=== PATIENT | male | born 1945 | race Caucasian/White ===

== ENCOUNTER → 2016-11-17 | Outpatient (CLI) | payer MEDICARE, BC ==
--- NOTE | 2016-11-17 11:24 | XR ---
EXAMINATION TYPE: XR skull limited DATE OF EXAM: 11/17/2016 COMPARISON: NONE HISTORY: MRI clearance TECHNIQUE: 2 views are submitted FINDINGS: There is a defect involving the left parietal calvarium which may be present related to pre vious surgery or trauma. No evidence of metallic foreign body. IMPRESSION: 1. No evidence of metallic foreign body overlying the skull. 2. Suspected postsurgical changes.
== END | disposition home or self-care (01) ==
LOC: RADXRMAIN 10:44
PROVIDERS: ATTEND Family Medicine
DX: Z77.011 Contact with and (suspected) exposure to lead (principal)
CPT/HCPCS: 70250

== ENCOUNTER → 2017-01-22 | Outpatient (CLI) | payer MEDICARE, BC ==
--- NOTE | 2017-01-23 14:34 | CT ---
EXAMINATION TYPE: CT lumbar spine wo con DATE OF EXAM: 01/22/2017 COMPARISON: NONE HISTORY: Pain Unenhanced CT of the lumbar spine was performed. Bone and soft tissue window settings are submitted as well as coronal and sagittal reconstructions. L1-L2: Normal disc space height. No disc herniation protrusion or central stenosis. No facet joint arthropathy. No evidence for foraminal encroachment. L2-L3: Moderate degenerative disc space narrowing. Circumferential disc bulge greatest posteriorly. C ongenitally diminutive spinal canal without overt failure. No evidence for disc herniation. Foramina are patent bilaterally. Right-sided facet joint arthropathy. L3-L4: Moderate degenerative disc space narrowing. Circumferential disc bulge greatest posteriorly. C ongenitally diminutive spinal canal without overt failure. No evidence for disc herniation. Foramina are patent bilaterally. L4-L5: Moderate disc space narrowing. Grade 1 anterolisthesis L4 and L5 of [address] enosis. Facet joint arthropathy identified. Bilateral foraminal encroachment. L5-S1: Severe degenerative disc disease with vacuum disc. Circumferential disc bulge greatest posteri bárbara resulting in bilateral lateral recess stenosis. Mild bilateral foraminal encroachment. No eviden ce for central stenosis. No paraspinal masses are identified. Lumbar segments are free if fracture. IMPRESSION: 1. Degenerative disc disease as discussed. 2. Grade 1 anterolisthesis with central stenosis at L4-5.
== END | disposition home or self-care (01) ==
LOC: RADCTMAIN 17:19
PROVIDERS: ATTEND Family Medicine
DX: M48.06 Spinal stenosis, lumbar region (principal); M51.36 Other intervertebral disc degeneration, lumbar region; M43.16 Spondylolisthesis, lumbar region
CPT/HCPCS: 72131

== ENCOUNTER 2017-11-04 19:12 | Inpatient (IN) | payer MEDICARE, BC ==
--- NOTE | 2017-11-04 20:13 | ED ---
Psych HPI - General Chief Complaint: Psychiatric Symptoms Stated Complaint: Mentl health Time Seen by Provider: 11/04/17 19:45 Source: patient, family, RN notes reviewed Mode of arrival: ambulatory Limitations: no limitations - History of Present Illness Initial Comments: This is a 71-year-old male presents emergency Department with and psychologist for mental health evaluation. Patient has a long history of depression which has no worsening secondary to health issues. Patient states he is severely depressed because he is losing his vision and that he cannot work and do daily things. Patient has attempted suicide in the past by drug overdose. Patient called psychologist today and went over to his house to evaluate him and felt that he needs to come to the hospital for reevaluation hospitalization. Patient does admit that he is suicidal and he plans to shoot himself. Patient denies any homicidal ideation denies illicit drug use no alcohol use. Patient has no physical pain at this time he states his basic complaint is loss of vision which is related to macular degeneration. Patient denies any chest pain, shortness breath, headache, dizziness, nausea vomiting. - Related Data Home Medications Medication Instructions Recorded Confirmed Warfarin [Coumadin] 5 mg PO Q48H 09/19/15 11/04/17 Warfarin [Coumadin] 7.5 mg PO Q48H 09/19/15 11/04/17 ARIPiprazole [Abilify] 2 mg PO HS 11/04/17 11/04/17 Cyanocobalamin (Vitamin B-12) 1,000 mcg PO HS 11/04/17 11/04/17 [Vitamin B-12] Lisinopril-Hctz 20-25 mg 1 tab PO DAILY 11/04/17 11/04/17 [Zestoretic 20-25] Vit C/E/Zn/Coppr/Lutein/Zeaxan 1 cap PO BID 11/04/17 11/04/17 [Preservision Areds 2 Softgel] buPROPion HCL [Wellbutrin XL] 300 mg PO HS 11/04/17 11/04/17 Allergies Allergy/AdvReac Type Severity Reaction Status Date / Time silver mercury Allergy Unknown Uncoded 11/04/17 23:50 Review of Systems ROS Statement: Those systems with pertinent positive or pertinent negative responses have been documented in the HPI. ROS Other: All systems not noted in ROS Statement are negative. Past Medical History Past Medical History: Hypertension Additional Past Medical History / Comment(s): hx of seizure, closed head injury , hx of blood clots History of Any Multi-Drug Resistant Organisms: None Reported Past Surgical History: Appendectomy Additional Past Surgical History / Comment(s): skull surgery, Green Filled Filters Past Psychological History: Depression Smoking Status: Never smoker Past Alcohol Use History: Rare Past Drug Use History: None Reported General Exam Limitations: no limitations General appearance: alert, in no apparent distress Head exam: Present: atraumatic, normocephalic, normal inspection Eye exam: Present: normal appearance, PERRL, EOMI. Absent: scleral icterus, conjunctival injection, periorbital swelling ENT exam: Present: normal exam, normal oropharynx, mucous membranes moist Neck exam: Present: normal inspection, full ROM. Absent: tenderness, meningismus, lymphadenopathy Respiratory exam: Present: normal lung sounds bilaterally. Absent: respiratory distress, wheezes, rales, rhonchi, stridor Cardiovascular Exam: Present: regular rate, normal rhythm, normal heart sounds. Absent: systolic murmur, diastolic murmur, rubs, gallop, clicks Neurological exam: Present: alert, oriented X3, CN II-XII intact Psychiatric exam: Present: depressed Skin exam: Present: warm, dry, intact, normal color. Absent: rash Course Vital Signs 11/04/17 11/04/17 19:19 23:33 Temperature 98.2 F 97.2 F L Pulse Rate 94 83 Respiratory 18 20 Rate Blood Pressure 139/83 125/86 O2 Sat by Pulse 96 97 Oximetry - Reevaluation(s) Reevaluation #1: 11/04/17 21:[address] Casas Medical Decision Making - Lab Data Result diagrams: 11/05/17 07:42 11/05/17 07:42 Lab Results 11/04/17 Range/Units 22:50 Urine Opiates Screen Not Detected (NotDetected) Ur Oxycodone Screen Not Detected (NotDetected) Urine Methadone Screen Not Detected (NotDetected) Ur Propoxyphene Screen Not Detected (NotDetected) Ur Barbiturates Screen Not Detected (NotDetected) U Tricyclic Antidepress Not Detected (NotDetected) Ur Phencyclidine Scrn Not Detected (NotDetected) Ur Amphetamines Screen Not Detected (NotDetected) U Methamphetamines Scrn Not Detected (NotDetected) U Benzodiazepines Scrn Not Detected (NotDetected) Urine Cocaine Screen Not Detected (NotDetected) U Marijuana (THC) Screen Not Detected (NotDetected) Disposition Clinical Impression: Depression, Suicidal ideation Disposition: ADMITTED IP TO THIS [facility] Condition: Stable
[2017-11-04 23:18] LABS: Amphetamine Screen,Urine Not Detected (NotDetected); Barbiturate Screen,Urine Not Detected (NotDetected); Benzodiazepines Screen,Urine Not Detected (NotDetected); Cocaine Screen,Urine Not Detected (NotDetected); Methadone Screen, Urine Not Detected (NotDetected); Opiate Screen,Urine Not Detected (NotDetected); Oxycodone Screen, Urine Not Detected (NotDetected); Phencyclidine Screen,Urine Not Detected (NotDetected); Tricyclic Antidepressant,Urine Not Detected (NotDetected); Urn Cannabinoid Scrn Not Detected (NotDetected)
[2017-11-04] MEDS ORDERED: ACETAMINOPHEN TAB 325 MG TAB PO PRN (23:34)
[2017-11-04] MEDS ORDERED: MAG HYDROX/AL HYDROX/SIMETH 30 ML CUP PO PRN (23:34)
[2017-11-04] MEDS ORDERED: MAGNESIUM HYDROXIDE 2,400 MG/10 ML CUP PO PRN (23:34)
[2017-11-05 00:43] VITALS: BMI 34.0
[2017-11-05 08:00] LABS: Basophils % (A) 1 %; Eosinophils # (A) 0.2 k/uL (0-0.7); Eosinophils % (A) 3 %; HCT 37.4 % (39.0-53.0); HGB 13.5 gm/dL (13.0-17.5); Lymphocytes # (A) 0.9 k/uL (1.0-4.8); Lymphocytes % (A) 16 %; MCH 31.4 pg (25.0-35.0); MCV 87.1 fL (80.0-100.0); Mean Platelet Volume 7.8; Monocytes # (A) 0.4 k/uL (0-1.0); Monocytes % (A) 7 %; Neutrophils # (A) 3.9 k/uL (1.3-7.7); Neutrophils % (A) 72 %; Platelet Count 148 k/uL (150-450); RDW 12.5 % (11.5-15.5); WBC 5.5 k/uL (3.8-10.6)
[2017-11-05 08:12] LABS: Albumin 3.6 g/dL (3.5-5.0); Total Protein 6.1 g/dL (6.3-8.2)
[2017-11-05 08:13] LABS: Calcium 8.5 mg/dL (8.4-10.2); Potassium 3.8 mmol/L (3.5-5.1); Total Bilirubin 0.7 mg/dL (0.2-1.3)
[2017-11-05 08:29] LABS: INR 2.8 (<1.2); Prothrombin Time 25.4 sec (9.0-12.0)
[2017-11-05] MEDS: VIT A,C & E-LUTEIN-MINERALS 1 EACH TAB PO SCH ×2 (08:49→21:44)
[2017-11-05] MEDS: LISINOPRIL-HCTZ 20-25 MG 1 EACH TAB PO SCH (08:49)
[2017-11-05 11:15] LABS: Appearance,Urine Clear (Clear); Bilirubin,Urine Negative (Negative); Blood,Urine Negative (Negative); Color,Urine Yellow; Glucose,Urine (UA) Negative (Negative); Ketones,Urine Negative (Negative); Leukocyte Esterase,Urine Negative (Negative); Nitrite,Urine Negative (Negative); PH, Urine 7.5 (5.0-8.0); Protein,Urine Trace (Negative); Specific Gravity,Urine 1.016 (1.001-1.035)
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
[2017-11-05 17:25] LABS: Urine Alcohol Negative (Negative); Urine Barbiturate Negative (Negative); Urine Cocaine Negative (Negative); Urine Methadone Negative (Negative); Urine Opiates Negative (Negative); Urine Phencyclidine Negative (Negative)
[2017-11-05] MEDS ORDERED: WARFARIN 5 MG TAB PO SCH (18:00)
[2017-11-05 18:48] LABS: Hemoglobin A1C 5.6 % (4.0-6.0)
[2017-11-05] MEDS: buPROPion XL 300 MG TAB.ER.24H PO SCH (21:44)
[2017-11-05] MEDS: ARIPiprazole 2 MG TAB PO SCH (21:44)
[2017-11-05] MEDS: CYANOCOBALAMIN 500 MCG TAB PO SCH (21:44)
--- NOTE | 2017-11-05 22:21 | CONS ---
CONSULTATION DATE OF SERVICE: 11/05/2017. REASON FOR CONSULTATION: Medical management requested by Dr. Mac. CONSULTATION: This is a pleasant 71-year-old patient of Dr. Todd. The patient's psychiatrist is Dr. Bright. Chronic stable medical conditions include osteoarthritis of the lower back, hypertension, chronic PE for which patient takes Coumadin, and a history of closed head injury. The patient has macular degeneration in his eyes and his eyesight is progressively getting weaker. Decisions are being made regarding what he does and it is making him very frustrated. This has resulted in him having suicidal ideation and that is why the patient is admitted to the psychiatry unit. Otherwise, patient is able to tolerate his meals and is able to get around. The patient does medical marijuana for his lower back. REVIEW OF SYSTEMS: CONSTITUTIONAL: None. HEENT: Decreased vision. RESPIRATORY: None. CARDIOVASCULAR: None. GASTROINTESTINAL: None. GENITOURINARY: None. MUSCULOSKELETAL: Chronic low back pain. DERMATOLOGIC: None. HEMATOLOGIC: None. LYMPHATICS: None. PSYCHIATRY: Depressed. NEUROLOGICAL: None. PAST MEDICAL HISTORY: PE, being on Coumadin, osteoarthritis of the lower back, hypertension, prostate cancer treated with radiation treatment, macular degeneration, closed head injury with some seizures. PAST SURGICAL HISTORY: Appendectomy, skull surgery, Aiden filter. PSYCH HISTORY: History of depression. SOCIAL HISTORY: No smoking, no alcohol. Does half a joint of medical marijuana a day. Lives with his . Has had multiple jobs including working for [employer]. FAMILY HISTORY: Reviewed, noncontributory to presentation. HOME MEDICATIONS: 1. Wellbutrin 300 mg at bedtime. 2. Coumadin 7.5 every 48 hours 5 mg every 48 hours. 3. PreserVision 2 soft gel 1 capsule p.o. b.i.d. 4. Zestoretic 1 tab p.o. daily. 5. Vitamin B12, 1000 mcg at bedtime. 6. Abilify 2 mg at bedtime. EXAMINATION: Temperature 98.3, pulse 96, respirations 20, blood pressure 101/56, pulse ox 98% on room air. GENERAL APPEARANCE: Well built. BMI 34. Sitting up, tired-appearing. EYES: Pupils equal. Conjunctivae normal. HEENT: External appearance of nose and ears normal. Oral cavity normal. NECK: JVD not raised. Mass not palpable. Respiratory effort normal. LUNGS: Fair entry. CARDIOVASCULAR: 1st and 2nd sounds normal. No edema. ABDOMEN: Soft, nontender. Liver and spleen not palpable. LYMPHATIC: No lymph node palpable in the neck or axilla. PSYCHIATRY: Alert and oriented x3. Mood and affect slightly low appearing. NEUROLOGICAL: Pupils equal. Cranial nerves grossly intact. Power and sensation grossly intact. INVESTIGATIONS: White count 5.5, hemoglobin 13.5, INR 2.8, potassium 3.8, BUN 18, creatinine 1.30. TSH normal. Urine drug screen negative. ASSESSMENT: 1. Chronic pulmonary embolism, patient being on Coumadin. 2. Coumadin monitoring. 3. Primary osteoarthritis of the lumbar spine. 4. Essential hypertension. 5. Chronic macular degeneration. 6. Obesity; BMI 34. 7. Medical marijuana use for lower back pain. PLAN: Patient's home medications to be continued. The patient is to continue taking his Coumadin. INR can be checked once a week while he is here on Tuesdays. The patient should follow with Dr. Todd upon discharge. Thank you Dr. Mac. MICHAL / FIDELN: [id number] /
[2017-11-06] MEDS: VIT A,C & E-LUTEIN-MINERALS 1 EACH TAB PO SCH ×2 (08:40→20:28)
[2017-11-06] MEDS: LISINOPRIL-HCTZ 20-25 MG 1 EACH TAB PO SCH (08:40)
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
[2017-11-06] MEDS ORDERED: WARFARIN 7.5 MG TAB PO SCH (18:00)
[2017-11-06] MEDS: CYANOCOBALAMIN 500 MCG TAB PO SCH (20:28)
[2017-11-06] MEDS: buPROPion XL 300 MG TAB.ER.24H PO SCH (20:28)
[2017-11-06] MEDS: ARIPiprazole 2 MG TAB PO SCH (20:28)
[2017-11-07 07:00] VITALS: TEMP 97.9
[2017-11-07] MEDS: LISINOPRIL-HCTZ 20-25 MG 1 EACH TAB PO SCH (08:54)
[2017-11-07] MEDS: VIT A,C & E-LUTEIN-MINERALS 1 EACH TAB PO SCH ×2 (08:54→20:36)
[2017-11-07] MEDS ORDERED: WARFARIN 7.5 MG TAB PO SCH (18:00)
--- NOTE | 2017-11-07 18:44 | PN ---
PROGRESS NOTE DATE OF SERVICE: 11/07/2017. CHIEF COMPLAINT: The patient was depressed. He had suicide thoughts. He has a long history of depression with past episodes of suicide attempts. INTERVAL HISTORY: The patient has been doing fairly well. He said he slept well last night. He woke up about 4:30 in the morning, though says he went to bed early, probably before 10. He said he slept solidly through the night. Today he has been up. He comes out in the day area. He generally has a good mood. A family meeting was held with the patient and his . There was concern on the 's part about the problems he has had with vision loss, which makes it difficult for the 2 of them given that she does not drive. The was concerned about his repeating a suicide gesture in the future given some of the past issues that he has had over many years. On the unit, the patient seems to be doing fairly well. He shows a reasonable mood sometimes. He is fairly bright in his manner. He is a little withdrawn in groups though compliant and attentive. He tolerates his psychotropic medications. MENTAL STATUS: Patient gave good eye contact. Psychomotor activity was a little restless. His speech was clear. His affect was a little constricted though not significantly so. His mood was even. He did appear to be distressed. He voiced no indication of thoughts of harm to self or others. ASSESSMENT AND PLAN: I will continue the current diagnosis and treatment plan. I will continue current psychotropic medications the same. Patient is doing fairly well. I would anticipate discharge early in the week. MMODL / IJN: [id number] /
[2017-11-07] MEDS: ARIPiprazole 2 MG TAB PO SCH (20:36)
[2017-11-07] MEDS: buPROPion XL 300 MG TAB.ER.24H PO SCH (20:36)
[2017-11-07] MEDS: CYANOCOBALAMIN 500 MCG TAB PO SCH (20:36)
[2017-11-08 09:20] VITALS: BP 117/67; PULSE 101; RESP 16
[2017-11-08] MEDS: LISINOPRIL-HCTZ 20-25 MG 1 EACH TAB PO SCH (09:20)
[2017-11-08] MEDS: VIT A,C & E-LUTEIN-MINERALS 1 EACH TAB PO SCH (09:20)
--- NOTE | 2017-11-08 11:11 | P.DS ---
Providers Date of admission: 11/04/17 23:32 Expected date of discharge: 11/08/17 Attending physician: Darien Rosales Consults: 11/04/17 23:34 Consult Physician Routine Consulting Provider: Nick Arteaga Consult Reason/Comments: medical managment Do you want consulting provider notified?: Already Contacted Primary care physician: George Todd - Discharge Diagnosis(es) (1) Major depressive disorder, recurrent, in partial remission Current Visit: Yes Status: Chronic Priority: High (2) Persistent depressive disorder Current Visit: Yes Status: Chronic Priority: Medium Hospital Course: Brief summary of admission note: This patient is a 71-year-old male who was admitted to the mental health unit with complaints of increasing depression and suicidal ideation. The patient had felt overwhelmed due to recent stressors. He had received a blight notice from the [facility] regarding his lack of lawn maintenance. Other stressors include the ongoing care of his 30-year-old son and the loss of the patient's vision. For full details please refer to the psychiatric evaluation dated 11/05/2017. Summary of hospital course: The patient's was admitted to the mental health unit voluntarily. He was initially evaluated by Dr. Mac. The decision was made to continue him on his existing Wellbutrin XL and Abilify. The patient has been cooperative he has been attending groups. He reported a resolution of suicidal ideation once on the mental health unit. She did participate in a support meeting involving his and his outpatient psychologist. He states that it can be challenging for him in terms of coping skills because of his existing head injury but he is hoping that with his psychologist help they will develop those further. He was seen by internal medicine for routine history and physical exam. I reviewed the psychiatric evaluation and subsequent progress notes. Mental status exam: The patient is alert he is a male appearing his stated age. He has white hair with a white goatee. He is dressed in his own clothing wearing a T-shirt and jeans. He does wear eyeglasses. He reports his mood is much improved. He is reporting no hopelessness thinking no suicidal ideation intent or plan. He reports no homicidal ideation intent or plan. He is endorsing no auditory or visual hallucinations he endorses no specific delusions. Thought process is linear and goal-directed he demonstrates no tangential thinking loose associations or flight of ideas. He demonstrates no abnormal involuntary movements he demonstrates no verbal or physical aggressiveness. Affect is appropriately expresses and demonstrates a full range. He is oriented to person place and date. Impressions 1. Major depressive disorder recurrent in partial remission, persistent depressive disorder 2. Cataracts and macular degeneration 3. Assisting in care of adult son Plan: The patient will be discharged from the mental health unit today to return home. He is planning on following up with Dr. Bright his outpatient psychiatrist. The patient will continue on Wellbutrin XL 300 mg daily and Abilify 2 mg daily. There is no imminent safety risk the patient is appropriate for transition back to outpatient care. He is instructed to return to the hospital if any acute safety concerns. Patient Condition at Discharge: Stable Plan - Discharge Summary Discharge Rx Participant: No New Discharge Prescriptions: New buPROPion XL [Wellbutrin XL] 300 mg PO HS #30 tab.er.24h Continue Warfarin [Coumadin] 5 mg PO Q48H Warfarin [Coumadin] 7.5 mg PO Q48H Vit C/E/Zn/Coppr/Lutein/Zeaxan [Preservision Areds 2 Softgel] 1 cap PO BID Lisinopril-Hctz 20-25 mg [Zestoretic 20-25] 1 tab PO DAILY Cyanocobalamin (Vitamin B-12) [Vitamin B-12] 1,000 mcg PO HS ARIPiprazole [Abilify] 2 mg PO HS #30 tab Discontinued buPROPion HCL [Wellbutrin XL] 300 mg PO HS Discharge Medication List Warfarin [Coumadin] 5 mg PO Q48H 09/19/15 [History] Warfarin [Coumadin] 7.5 mg PO Q48H 09/19/15 [History] Cyanocobalamin (Vitamin B-12) [Vitamin B-12] 1,000 mcg PO HS 11/04/17 [History] Lisinopril-Hctz 20-25 mg [Zestoretic 20-25] 1 tab PO DAILY 11/04/17 [History] Vit C/E/Zn/Coppr/Lutein/Zeaxan [Preservision Areds 2 Softgel] 1 cap PO BID 11/04 [History] ARIPiprazole [Abilify] 2 mg PO HS #30 tab 11/08/17 [Rx] buPROPion XL [Wellbutrin XL] 300 mg PO HS #30 tab.er.24h 11/08/17 [Rx] Follow up Appointment(s)/Referral(s): Other, other [Other] - 11/10/17 9:00 am George Todd DO [Primary Care Provider] - 1-2 days Activity/Diet/Wound Care/Special Instructions: Remove all weapons and firearms from your home; Refrain from street drugs or alcohol; Activity and diet as tolerated; Follow-up with your PCP in 1-2 days; Keep all scheduled follow-up appointments for continuity of care; If you need any prescription refills, contact your PCP for medical meds. or your aftercare psychiatrist for psych. meds.; If you have any problems, call the Crisis Line at or [phone] in case of emergency or go to the nearest ER for a psychiatric evaluation.
== END 2017-11-08 13:58 | disposition home or self-care (01) | DRG 885 ==
LOC: EC 19:12 → 3MHU 23:32
PROVIDERS: ADMIT Psychiatry & Neurology Psychiatry; ATTEND Psychiatry & Neurology Psychiatry
DX: F33.41 Major depressive disorder, recurrent, in partial remission (principal); I27.82 Chronic pulmonary embolism; E66.9 Obesity, unspecified; F12.90 Cannabis use, unspecified, uncomplicated; F34.1 Dysthymic disorder; F41.9 Anxiety disorder, unspecified; G40.909 Epilepsy, unspecified, not intractable, without status epilepticus; G89.29 Other chronic pain; H26.9 Unspecified cataract; H35.30 Unspecified macular degeneration; I10 Essential (primary) hypertension; I73.9 Peripheral vascular disease, unspecified; M19.91 Primary osteoarthritis, unspecified site; M47.816 Spondylosis without myelopathy or radiculopathy, lumbar region; S09.90XS Unspecified injury of head, sequela; V94 Other and unspecified water transport accidents; Z63.8 Other specified problems related to primary support group; Z68.34 Body mass index [BMI] 34.0-34.9, adult; Z79.01 Long term (current) use of anticoagulants; Z79.899 Other long term (current) drug therapy; Z81.8 Family history of other mental and behavioral disorders; Z85.46 Personal history of malignant neoplasm of prostate; Z86.718 Personal history of other venous thrombosis and embolism; Z92.3 Personal history of irradiation; Z81.1 Family history of alcohol abuse and dependence
CPT/HCPCS: 80053; 80061; 80306; 81003; 82075; 83036; 84443; 85025; 85610; 99285

== ENCOUNTER 2018-05-21 19:26 | Emergency (ER) | payer MEDICARE, BC ==
[2018-05-21] MEDS ORDERED: SODIUM CHLORIDE 0.9% 1,000 ML IV ONE (19:41)
--- NOTE | 2018-05-21 19:46 | ED ---
Fall HPI - General Chief Complaint: Fall Stated Complaint: Fall Time Seen by Provider: 05/21/18 19:41 Source: patient Mode of arrival: EMS - History of Present Illness Initial Comments: Patient is a 72-year-old male presenting for injuries sustained from a fall. Patient states that he had drank alcohol earlier in the day and that he had been smoking marijuana throughout the day as well. He was sitting on the chair with his and his states that he fell forward and was unconscious and hit his face on the ground. However, patient is adamant that he was aware of what was going on and could hear his calling his name. He states that he has a history of seizures but that he does not think that this is a seizure. He also does not take any seizure medications. He denies any chest pain, back pain, neck pain as well as neurologic symptoms such as headache or vision changes. He denies any abdominal pain or nausea/vomiting/diarrhea. - Related Data Home Medications Medication Instructions Recorded Confirmed Warfarin [Coumadin] 5 mg PO HS 09/19/15 05/21/18 Lisinopril-Hctz 20-25 mg 1 tab PO DAILY 11/04/17 05/21/18 [Zestoretic 20-25] ALPRAZolam [Xanax] 0.25 mg PO DAILY PRN 05/21/18 05/21/18 ARIPiprazole [Abilify] 2 mg PO DAILY 05/21/18 05/21/18 Previous Rx's Medication Instructions Recorded buPROPion XL [Wellbutrin XL] 300 mg PO HS #30 tab.er.24h 11/08/17 Allergies Allergy/AdvReac Type Severity Reaction Status Date / Time silver mercury Allergy Unknown Uncoded 11/04/17 23:50 Review of Systems ROS Statement: Those systems with pertinent positive or pertinent negative responses have been documented in the HPI. Constitutional: Negative for chills, fatigue and fever. HENT: Negative for congestion. Respiratory: Negative for chest tightness, shortness of breath and wheezing. Negative for cough Cardiovascular: Negative for chest pain and palpitations. Gastrointestinal: Negative for abdominal pain. Negative for abdominal distention , diarrhea, nausea and vomiting. Genitourinary: Negative for dysuria. Musculoskeletal: Negative for back pain, neck pain and neck stiffness. Skin: Positive for color change. Neurological: Negative for dizziness, speech difficulty, weakness and light- headedness. Psychiatric/Behavioral: Negative for agitation and confusion. Negative for anxiety ROS Other: All systems not noted in ROS Statement are negative. Past Medical History Past Medical History: Hypertension Additional Past Medical History / Comment(s): hx of seizure, closed head injury , hx of blood clots History of Any Multi-Drug Resistant Organisms: None Reported Past Surgical History: Appendectomy Additional Past Surgical History / Comment(s): skull surgery, Green [place] Filters Past Psychological History: Depression Smoking Status: Never smoker Past Alcohol Use History: Rare Past Drug Use History: None Reported General Exam - General Exam Comments Initial Comments: Constitutional: Pt is oriented to person, place, and time. Pt appears well- developed and well-nourished. No distress. HENT: Head: Normocephalic and small 3 mm abrasion on bridge of nose Eyes: EOM are normal. Neck: Normal range of motion. Neck supple. Cardiovascular: Normal rate, regular rhythm, S1 normal, S2 normal and normal heart sounds. Exam reveals no gallop and no friction rub. No murmur heard. Pulmonary/Chest: Effort normal and breath sounds normal. No tachypnea and no bradypnea. No respiratory distress. No wheezes or rales noted. Abdominal: Soft. Bowel sounds are normal. Pt exhibits no shifting dullness, no distension, no pulsatile liver, no fluid wave, no abdominal bruit and no ascites. There is no tenderness. There is no rigidity, no rebound, no guarding, no tenderness at McBurney's point and negative Bill's sign. Musculoskeletal: Normal range of motion. Neurological: Pt is alert and oriented to person, place, and time. No cranial nerve deficit. Skin: Skin is warm and dry. No rash noted. Pt is not diaphoretic. No erythema. No pallor. Psychiatric: Pt has a normal mood and affect. Pt behavior is normal. Thought content normal. Limitations: no limitations Course Vital Signs 05/21/18 05/21/18 05/21/18 19:29 21:26 21:30 Temperature 97.9 F Pulse Rate 80 86 86 Respiratory 16 19 19 Rate Blood Pressure 98/84 O2 Sat by Pulse 97 97 Oximetry 05/21/18 05/21/18 05/21/18 21:40 21:50 22:00 Temperature Pulse Rate 93 100 109 H Respiratory 20 15 17 Rate Blood Pressure O2 Sat by Pulse Oximetry 05/21/18 05/21/18 05/21/18 22:10 22:20 22:30 Temperature Pulse Rate 100 95 96 Respiratory 20 22 20 Rate Blood Pressure 116/69 116/69 O2 Sat by Pulse Oximetry 05/21/18 05/21/18 05/21/18 22:40 22:50 23:10 Temperature Pulse Rate 98 97 98 Respiratory 20 14 14 Rate Blood Pressure 119/85 119/80 128/79 O2 Sat by Pulse Oximetry - Reevaluation(s) Reevaluation #1: 05/21/18 21:18 Laboratory studies showed that the patient was intoxicated with a blood alcohol level 0.15. There were no other significant electrolyte derangements and CT of the head showed no evidence of acute pathology as well as his cervical spine CT there was evidence of prior surgeries on CAT scan which the patient admits to. Based on labs and HPI, it is thought that the patient's fall was secondary to acute alcohol intoxication as well as smoking marijuana. Recent benefits of discharge were discussed with the family including the and family friend and it was mutually agreed that the patient would be watched here in the emergency department until midnight and then if he continues to remain hemodynamically stable and mental status remained stable, he could be discharged with close follow-up with PCP. Medical Decision Making - Medical Decision Making Laboratory studies showed that there was no significant electrolyte derangements that would've caused the fall and alcohol was elevated at 0.13. From a cardiac standpoint, EKG had no concerning findings and troponin was noted to be negative. CT of the head and neck were also unremarkable for emergent pathology. There were some findings consistent with previous neurologic surgeries but again, no acute findings. Findings were discussed with the patient and disposition options were discussed. It was advised that the patient could immediately be discharged or for further observation, he could be observed in the emergency department for approximately 3 hours. Based on my preference as well as patient's preference, the decision was made to watch the patient here in the ED for 3 hours. Patient was able to tolerate by mouth and showed no evidence of seizure-like activity or mental status changes. Because the warfarin was stopped there. In .5, it was thought that it would be safe to send the patient with his as she stated that she would care for him. While it cannot be 100% determine, it is thought that the patient's fall was secondary to alcohol intoxication as well as marijuana use.Explained all labs and diagnostic test results and that we will discharge the patient home and patient is to follow up with PCP in 1-2 days and return to the ED if symptoms worsen. Pt is agreeable to plan. - Lab Data Result diagrams: 05/21/18 19:44 05/21/18 19:44 Lab Results 05/21/18 05/21/18 05/21/18 Range/Units 19:44 19:44 19:44 WBC 5.2 (3.8-10.6) k/uL RBC 4.06 L (4.30-5.90) m/uL Hgb 12.1 L (13.0-17.5) gm/dL Hct 36.0 L (39.0-53.0) % MCV 88.6 (80.0-100.0) fL MCH 29.7 (25.0-35.0) pg MCHC 33.6 (31.0-37.0) g/dL RDW 13.0 (11.5-15.5) % Plt Count 163 (150-450) k/uL Neutrophils % 64 % Lymphocytes % 22 % Monocytes % 6 % Eosinophils % 5 % Basophils % 0 % Neutrophils # 3.3 (1.3-7.7) k/uL Lymphocytes # 1.2 (1.0-4.8) k/uL Monocytes # 0.3 (0-1.0) k/uL Eosinophils # 0.2 (0-0.7) k/uL Basophils # 0.0 (0-0.2) k/uL PT 15.4 H (9.0-12.0) sec INR 1.5 H (<1.2) APTT 22.1 (22.0-30.0) sec Sodium 134 L (137-145) mmol/L Potassium 4.7 (3.5-5.1) mmol/L Chloride 101 (98-107) mmol/L Carbon Dioxide 22 (22-30) mmol/L Anion Gap 11 mmol/L BUN 20 (9-20) mg/dL Creatinine 1.36 H (0.66-1.25) mg/dL Est GFR (CKD-EPI)AfAm 60 (>60 ml/min/1.73 sqM) Est GFR (CKD-EPI)NonAf 52 (>60 ml/min/1.73 sqM) Glucose 113 H (74-99) mg/dL Calcium 8.5 (8.4-10.2) mg/dL Magnesium 2.0 (1.6-2.3) mg/dL Troponin I (0.000-0.034) ng/mL Serum Alcohol 13 mg/dL 05/21/18 Range/Units 19:44 WBC (3.8-10.6) k/uL RBC (4.30-5.90) m/uL Hgb (13.0-17.5) gm/dL Hct (39.0-53.0) % MCV (80.0-100.0) fL MCH (25.0-35.0) pg MCHC (31.0-37.0) g/dL RDW (11.5-15.5) % Plt Count (150-450) k/uL Neutrophils % % Lymphocytes % % Monocytes % % Eosinophils % % Basophils % % Neutrophils # (1.3-7.7) k/uL Lymphocytes # (1.0-4.8) k/uL Monocytes # (0-1.0) k/uL Eosinophils # (0-0.7) k/uL Basophils # (0-0.2) k/uL PT (9.0-12.0) sec INR (<1.2) APTT (22.0-30.0) sec Sodium (137-145) mmol/L Potassium (3.5-5.1) mmol/L Chloride (98-107) mmol/L Carbon Dioxide (22-30) mmol/L Anion Gap mmol/L BUN (9-20) mg/dL Creatinine (0.66-1.25) mg/dL Est GFR (CKD-EPI)AfAm (>60 ml/min/1.73 sqM) Est GFR (CKD-EPI)NonAf (>60 ml/min/1.73 sqM) Glucose (74-99) mg/dL Calcium (8.4-10.2) mg/dL Magnesium (1.6-2.3) mg/dL Troponin I <0.012 (0.000-0.034) ng/mL Serum Alcohol mg/dL Disposition Clinical Impression: Head trauma, Alcohol intoxication Disposition: HOME SELF-CARE Condition: Good Instructions: Fall Prevention for Older Adults (ED) Is patient prescribed a controlled substance at d/c from ED?: No Referrals: George Todd DO [Primary Care Provider] - 1-2 days Time of Disposition: 23:52
[2018-05-21 19:59] LABS: Basophils % (A) 0 %; Eosinophils # (A) 0.2 k/uL (0-0.7); Eosinophils % (A) 5 %; HGB 12.1 gm/dL (13.0-17.5); Lymphocytes # (A) 1.2 k/uL (1.0-4.8); Lymphocytes % (A) 22 %; MCH 29.7 pg (25.0-35.0); MCHC 33.6 g/dL (31.0-37.0); MCV 88.6 fL (80.0-100.0); Mean Platelet Volume 7.7; Monocytes # (A) 0.3 k/uL (0-1.0); Monocytes % (A) 6 %; Neutrophils # (A) 3.3 k/uL (1.3-7.7); Neutrophils % (A) 64 %; Platelet Count 163 k/uL (150-450); RBC 4.06 m/uL (4.30-5.90); WBC 5.2 k/uL (3.8-10.6)
[2018-05-21 20:09] LABS: Calcium 8.5 mg/dL (8.4-10.2)
[2018-05-21 20:10] LABS: Potassium 4.7 mmol/L (3.5-5.1)
--- NOTE | 2018-05-21 20:13 | CT ---
EXAMINATION TYPE: CT brain jose miguel shook con DATE OF EXAM: 05/21/2018 COMPARISON: NONE HISTORY: fall, pain CT DLP: 1499.4 mGycm. Automated Exposure Control for Dose Reduction was Utilized. TECHNIQUE: CT scan of the head and cervical spine are performed without contrast. FINDINGS: There is no acute intracranial hemorrhage or midline shift. Remote ischemia involving the bilateral frontal lobes which is more pronounced on the left. Craniotomy defect is seen in the left frontal bone. There is some mild ex vacuo dilatation of the left ventricle. Ventricles are otherwise unremarkable. Basal cisterns are maintained. The globes are intact and the visualized sinuses are gayla ar. Cervical spine is visualized in its entirety from C1 through upper thoracic levels. There is no evide nce of malalignment. Facets are in normal alignment. Vertebral body heights are maintained. Minimal m ultilevel intervertebral disc space height loss and endplate sclerosis. 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 Prevertebral soft tissues are unremarkable. Limited evaluation of the upper thora x is unremarkable. IMPRESSION: 1. No acute fracture or dislocation evident in the cervical spine. 2. No acute intracranial hemorrhage, mass effect, or midline shift.
[2018-05-21 20:20] LABS: INR 1.5 (<1.2); Partial Thromboplastin Time 22.1 sec (22.0-30.0); Prothrombin Time 15.4 sec (9.0-12.0)
[2018-05-22 00:28] VITALS: BP 113/74; PULSE 83; RESP 16; TEMP 98
== END 2018-05-22 00:26 | disposition home or self-care (01) ==
LOC: EC 19:26
DX: S09.90XA Unspecified injury of head, initial encounter (principal); F10.129 Alcohol abuse with intoxication, unspecified; I10 Essential (primary) hypertension; F32.9 Major depressive disorder, single episode, unspecified; Z79.01 Long term (current) use of anticoagulants; Z79.899 Other long term (current) drug therapy; Z91.09 Other allergy status, other than to drugs and biological substances; Z86.718 Personal history of other venous thrombosis and embolism; W07.XXXA Fall from chair, initial encounter; Y92.009 Unspecified place in unspecified non-institutional (private) residence as the place of occurrence of the external cause
CPT/HCPCS: 36415; 93005; 80048; 83735; 84484; 85025; 85610; 85730; 72125; 70450; 99284; 96360; G0480; 80320

== ENCOUNTER 2019-04-19 09:17 | Day surgery (SDC) | payer MEDICARE, BC ==
[2019-04-14 14:46] VITALS: BMI 30.9
--- NOTE | 2019-04-19 08:03 | P.GSHP ---
History of Present Illness H&P Date: 04/19/19 CHIEF COMPLAINT: Colonoscopy screening HISTORY OF PRESENT ILLNESS: The patient is a 73-year-old male who presents for colon screen. Lower endoscopy was offered for further evaluation and management. PAST MEDICAL HISTORY: Please see list. PAST SURGICAL HISTORY: Please see list. MEDICATIONS: Please see list. ALLERGIES: Please see list. SOCIAL HISTORY: No illicit drug use FAMILY HISTORY: No reports of Crohn disease or ulcerative colitis. REVIEW OF ORGAN SYSTEMS: CONSTITUTIONAL: No reports of fevers or chills. PHYSICAL EXAM: VITAL SIGNS: Stable GENERAL: Well-developed pleasant in no acute distress. HEENT: No scleral icterus. Extraocular movements grossly intact. Moist buccal mucosa. NECK: Supple without lymphadenopathy. CHEST: Unlabored respirations. Equal bilateral excursions. CARDIOVASCULAR: Regular rate and rhythm. Distal 2+ pulses. ABDOMEN: Soft, nontender, nondistended. MUSCULOSKELETAL: No clubbing, cyanosis, or edema. ASSESSMENT: 1. Colon screen PLAN: 1. Recommend proceeding with a lower endoscopy Past Medical History Past Medical History: Cancer, Hypertension, Pulmonary Embolus (PE) Additional Past Medical History / Comment(s): hx of seizure, closed head injury, prostate cancer with radiation History of Any Multi-Drug Resistant Organisms: None Reported Past Surgical History: Appendectomy, Cholecystectomy Additional Past Surgical History / Comment(s): skull surgery x3, [place] Filters Past Anesthesia/Blood Transfusion Reactions: No Reported Reaction Smoking Status: Never smoker - Past Family History Daughter(s) Additional Family Medical History / Comment(s): colitis Medications and Allergies Home Medications Medication Instructions Recorded Confirmed Type Lisinopril-Hctz 20-25 mg 1 tab PO DAILY 11/04/17 04/14/19 History [Zestoretic 20-25] ALPRAZolam [Xanax] 0.25 mg PO DAILY PRN 05/21/18 04/14/19 History Multivitamins, Thera [Multivitamin 1 tab PO DAILY 04/14/19 04/14/19 History (formulary)] Vit C/E/Zn/Coppr/Lutein/Zeaxan 2 each PO DAILY 04/14/19 04/14/19 History [Preservision Areds 2 Softgel] Allergies Allergy/AdvReac Type Severity Reaction Status Date / Time silver mercury Allergy Unknown Uncoded 04/14/19 14:34
[~2019-04-19 09:17] MED LIST: LACTATED RINGERS 1,000 ML IV SCH
[2019-04-19 10:02] VITALS: RESP 16; TEMP 97.9
[2019-04-19] MEDS ORDERED: LIDOCAINE 1% 20 ML VIAL (10MG/ML) FOR IV START INTRADERMA ONE (10:10)
[2019-04-19] MEDS ORDERED: PROPOFOL 10 MG/ML 20 ML VIAL IV ONE (10:14)
--- NOTE | 2019-04-19 10:43 | P.PCN ---
Date of Procedure: 04/19/19 Description of Procedure: PREOPERATIVE DIAGNOSIS: Personal history of colon polyps Family history of colon polyps Colonoscopy screening POSTOPERATIVE DIAGNOSIS: Personal history of colon polyps Family history of colon polyps Colonoscopy screening Colon polyp cecum External hemorrhoids Ordaz-diverticulosis OPERATION: Colonoscopy to the ileocecal valve and appendiceal orifice. Colonoscopy with multiple hot snare polypectomies Colonoscopy with cold forceps biopsies SURGEON: Kenyetta Viramontes MD. ANESTHESIA: MAC. INDICATIONS: The patient is an 73-year-old male who presents for colon screening. Last colonoscopy over 15 years ago. Benefits and risks were described and informed consent was obtained. DESCRIPTION OF PROCEDURE: The patient had undergone Suprep. He had been brought into the operating room and laid in the left lateral decubitus position. After adequate intravenous sedation, the rectum was examined with 2% lidocaine jelly. External hemorrhoids were encountered with fresh blood. The rectal tone was within normal limits. No lesions were palpated in the rectal vault. An Olympus colonoscope was advanced until the ileocecal valve and appendiceal orifice were clearly viewed. The prep was excellent. Severe ordaz-diverticulosis was encountered. Multiple colonic polyps were found and snare polypectomy. No evidence of focal colitis was found. Retroflexion of the scope demonstrated grade 1 internal hemorrhoids without active bleeding or inflammation. The colon was desufflated. The patient had tolerated the procedure well. Withdrawal time was over 6 minutes. FINDINGS: Aronchick preparation quality scale 1 (1-5) Internal hemorrhoids, grade 1 External hemorrhoids, grade 2 No arteriovenous malformations. Severe ordaz-diverticulosis Removal of 1 polyp: - Cold forceps biopsy at cecum, 4 mm polyp. No focal colitis. RECOMMENDATIONS: Repeat colonoscopy 5 years, 2023 or Cologaurd Plan - Discharge Summary Discharge Rx Participant: No New Discharge Prescriptions: No Action Lisinopril-Hctz 20-25 mg [Zestoretic 20-25] 1 tab PO DAILY ALPRAZolam [Xanax] 0.25 mg PO DAILY PRN PRN Reason: Anxiety Multivitamins, Thera [Multivitamin (formulary)] 1 tab PO DAILY Vit C/E/Zn/Coppr/Lutein/Zeaxan [Preservision Areds 2 Softgel] 2 each PO DAILY Discharge Medication List Lisinopril-Hctz 20-25 mg [Zestoretic 20-25] 1 tab PO DAILY 11/04/17 [History] ALPRAZolam [Xanax] 0.25 mg PO DAILY PRN 05/21/18 [History] Multivitamins, Thera [Multivitamin (formulary)] 1 tab PO DAILY 04/14/19 [History] Vit C/E/Zn/Coppr/Lutein/Zeaxan [Preservision Areds 2 Softgel] 2 each PO DAILY 04/14/19 [History] Follow up Appointment(s)/Referral(s): Kenyetta Viramontes MD [STAFF PHYSICIAN] - As Needed Patient Instructions/Handouts: Diverticulosis Diet (GEN), Diverticulosis (GEN), Colorectal Polyps (GEN) Activity/Diet/Wound Care/Special Instructions: Repeat colonoscopy in 5 years, 2023 or Cologaurd Discharge Disposition: HOME SELF-CARE
[2019-04-19 11:06] VITALS: BP 107/71; PULSE 69
== END 2019-04-19 11:24 | disposition home or self-care (01) ==
LOC: ORWHC2ENDO 09:17
PROVIDERS: ATTEND Surgery Plastic and Reconstructive Surgery
DX: Z12.11 Encounter for screening for malignant neoplasm of colon (principal); K63.5 Polyp of colon; K57.30 Diverticulosis of large intestine without perforation or abscess without bleeding; K64.4 Residual hemorrhoidal skin tags; K64.0 First degree hemorrhoids; I10 Essential (primary) hypertension; H54.8 Legal blindness, as defined in USA; Z86.010 Personal history of colon polyps; Z83.71 Family history of colonic polyps; Z79.899 Other long term (current) drug therapy; Z86.711 Personal history of pulmonary embolism; Z86.73 Personal history of transient ischemic attack (TIA), and cerebral infarction without residual deficits; Z90.49 Acquired absence of other specified parts of digestive tract; Z85.46 Personal history of malignant neoplasm of prostate; Z92.3 Personal history of irradiation; Z91.048 Other nonmedicinal substance allergy status
CPT/HCPCS: 88305; 45380; J2704

== ENCOUNTER 2019-06-18 04:40 | Inpatient (IN) | payer BC, MEDICARE ==
[2019-06-18 05:17] LABS: Basophils % (A) 1 %; Eosinophils # (A) 0.1 k/uL (0-0.7); Eosinophils % (A) 3 %; HCT 44.5 % (39.0-53.0); HGB 15.1 gm/dL (13.0-17.5); Lymphocytes # (A) 0.7 k/uL (1.0-4.8); Lymphocytes % (A) 18 %; MCH 30.2 pg (25.0-35.0); MCHC 33.9 g/dL (31.0-37.0); MCV 88.9 fL (80.0-100.0); Mean Platelet Volume 9.1; Monocytes # (A) 0.2 k/uL (0-1.0); Monocytes % (A) 6 %; Neutrophils # (A) 2.7 k/uL (1.3-7.7); Neutrophils % (A) 69 %; Platelet Count 105 k/uL (150-450); RBC 5.01 m/uL (4.30-5.90); RDW 12.3 % (11.5-15.5)
[2019-06-18 05:22] LABS: Albumin 3.6 g/dL (3.5-5.0); Calcium 8.5 mg/dL (8.4-10.2); Magnesium 1.9 mg/dL (1.6-2.3); Partial Thromboplastin Time 22.5 sec (22.0-30.0); Potassium 3.4 mmol/L (3.5-5.1); Prothrombin Time 10.3 sec (9.0-12.0); Total Bilirubin 0.8 mg/dL (0.2-1.3); Total Protein 6.3 g/dL (6.3-8.2)
[2019-06-18 05:29] LABS: Color,Urine Yellow
[2019-06-18 05:30] LABS: Appearance,Urine Clear (Clear)
[2019-06-18 05:31] LABS: Bilirubin,Urine Negative (Negative); Blood,Urine Negative (Negative); Glucose,Urine (UA) Negative (Negative); Ketones,Urine 2+ (Negative); Leukocyte Esterase,Urine Negative (Negative); Nitrite,Urine Negative (Negative); Protein,Urine Negative (Negative); Urobilinogen,Urine <2.0 mg/dL (<2.0)
--- NOTE | 2019-06-18 05:31 | XR ---
EXAMINATION TYPE: XR chest 2V DATE OF EXAM: 06/18/2019 COMPARISON: 11/02/2012 HISTORY: Syncope TECHNIQUE: FINDINGS: There is some mild infiltrate and atelectasis at the lung bases. There is no heart failure. Heart size is normal. There is no pleural effusion. There are chest leads. IMPRESSION: Minimal infiltrates and atelectasis at the lung bases appears slightly worse than old exa m. No heart failure seen.
--- NOTE | 2019-06-18 05:43 | CT ---
EXAMINATION TYPE: CT brain cspine wo con DATE OF EXAM: 06/18/2019 COMPARISON: 05/21/2018 HISTORY: Patient presents with head and neck pain after fall. CT DLP: 1373.9 mGycm Automated exposure control for dose reduction was used. Multiple axial sections were obtained of the brain with no contrast. Multiple axial sections were obt ained from the skull base to T1 vertebra without contrast. FINDINGS: The cervical vertebra have normal alignment. There is mild disc space narrowing at C6-7. Facet joints are intact. The skull base is intact. There is no evidence of cervical spine fracture. There is 5 x 3.5 cm area of hypodensity left posterior frontal lobe related to encephalomalacia. Ther e is left posterior frontal craniotomy defect. There is no mass effect nor midline shift. There is no sign of intracranial hemorrhage. There is also small area of encephalomalacia right posterior fronta l lobe. IMPRESSION: Posterior frontal lobe encephalomalacia more on the left than the right side. No change compared to o ld exam. No acute intracranial abnormality. Minor degenerative disc changes in the cervical spine. No fracture. No change.
[2019-06-18] MEDS ORDERED: NITROGLYCERIN SL TABS 0.4 MG TAB SUBLINGUAL PRN (05:58)
--- NOTE | 2019-06-18 06:12 | ED ---
General Adult HPI - General Chief complaint: Syncope Stated complaint: syncope Time Seen by Provider: 06/18/19 04:42 Source: patient, EMS Mode of arrival: EMS - History of Present Illness Initial comments: Kyree hughes a pleasant 73-year-old gentleman presents the emergency department today via EMS for evaluation of syncopal event at home. Patient reports he woke from sleep to use the restroom, he ambulated to the restroom and urinated, when he turned to walk back to his bed he became very lightheaded he reports he felt like the room began to spin around him and turned dark next thing he knew he was lying on the ground. He had struck the back of his head and his right arm as he fell. Patient reports he is not on any antiplatelet or anticoagulant medications. - Related Data Home Medications Medication Instructions Recorded Confirmed Lisinopril-Hctz 20-25 mg 1 tab PO DAILY 11/04/17 04/19/19 [Zestoretic 20-25] ALPRAZolam [Xanax] 0.25 mg PO DAILY PRN 05/21/18 04/19/19 Multivitamins, Thera [Multivitamin 1 tab PO DAILY 04/14/19 04/19/19 (formulary)] Vit C/E/Zn/Coppr/Lutein/Zeaxan 2 each PO DAILY 04/14/19 04/19/19 [Preservision Areds 2 Softgel] Allergies Allergy/AdvReac Type Severity Reaction Status Date / Time silver mercury Allergy Unknown Uncoded 04/19/19 09:59 Review of Systems ROS Statement: Those systems with pertinent positive or pertinent negative responses have been documented in the HPI. ROS Other: All systems not noted in ROS Statement are negative. Past Medical History Past Medical History: Cancer, Hypertension, Pulmonary Embolus (PE) Additional Past Medical History / Comment(s): hx of seizure, closed head injury, prostate cancer with radiation History of Any Multi-Drug Resistant Organisms: None Reported Past Surgical History: Appendectomy, Cholecystectomy Additional Past Surgical History / Comment(s): skull surgery x3, [place] Filters Past Anesthesia/Blood Transfusion Reactions: No Reported Reaction Past Psychological History: Depression Smoking Status: Never smoker Past Alcohol Use History: Occasional Past Drug Use History: Marijuana - Past Family History Daughter(s) Additional Family Medical History / Comment(s): colitis Course Vital Signs 06/18/19 04:43 Temperature 98.2 F Pulse Rate 91 Respiratory 16 Rate Blood Pressure 121/77 O2 Sat by Pulse 97 Oximetry EKG Findings - EKG Comments: EKG Findings:: EKG was obtained due to complaint of syncope, EKG was obtained at 5:05 AM, rate is 80 rhythm is a narrow complex irregularly irregular rhythm with no P waves before each QRS concerning for atrial fibrillation. There are no acute ST elevations or depressions no evidence of acute ischemia or infarction. Medical Decision Making - Medical Decision Making The patient was seen and evaluated, history is obtained from EMS, patient at bedside 73-year-old gentleman a syncopal episode at home, has abrasion of the back of his head as well as skin tear to the right forearm reports his last tetanus was last year Labs and imaging including CT of the brain and cervical spine were obtained Imaging results with no acute findings, no evidence of acute intracranial pat hology or injury and cervical spine Labs resulted with mild hypokalemia, no other significant abnormalities EKG dated result with new onset atrial fibrillation. Patient has no history of such. I discussed with the patient need for anticoagulation however patient states that he was previously on anticoagulation secondary to a provoked pulmonary embolism after general surgery. Patient states that he's been advised anticoagulation worsens macular degeneration and therefore he is refusing. Atrial fibrillation with a regular rate no indication for rate control at this time however we will plan to admit the patient for syncope with new onset A. fib. - Lab Data Result diagrams: 06/18/19 05:00 06/18/19 05:00 Lab Results 06/18/19 06/18/19 06/18/19 Range/Units 05:00 05:00 05:00 WBC 4.0 (3.8-10.6) k/uL RBC 5.01 (4.30-5.90) m/uL Hgb 15.1 (13.0-17.5) gm/dL Hct 44.5 (39.0-53.0) % MCV 88.9 (80.0-100.0) fL MCH 30.2 (25.0-35.0) pg MCHC 33.9 (31.0-37.0) g/dL RDW 12.3 (11.5-15.5) % Plt Count 105 L (150-450) k/uL Neutrophils % 69 % Lymphocytes % 18 % Monocytes % 6 % Eosinophils % 3 % Basophils % 1 % Neutrophils # 2.7 (1.3-7.7) k/uL Lymphocytes # 0.7 L (1.0-4.8) k/uL Monocytes # 0.2 (0-1.0) k/uL Eosinophils # 0.1 (0-0.7) k/uL Basophils # 0.0 (0-0.2) k/uL PT 10.3 (9.0-12.0) sec INR 1.0 (<1.2) APTT 22.5 (22.0-30.0) sec Sodium 135 L (137-145) mmol/L Potassium 3.4 L (3.5-5.1) mmol/L Chloride 102 (98-107) mmol/L Carbon Dioxide 21 L (22-30) mmol/L Anion Gap 12 mmol/L BUN 19 (9-20) mg/dL Creatinine 1.19 (0.66-1.25) mg/dL Est GFR (CKD-EPI)AfAm 70 (>60 ml/min/1.73 sqM) Est GFR (CKD-EPI)NonAf 61 (>60 ml/min/1.73 sqM) Glucose 117 H (74-99) mg/dL Calcium 8.5 (8.4-10.2) mg/dL Magnesium 1.9 (1.6-2.3) mg/dL Total Bilirubin 0.8 (0.2-1.3) mg/dL AST 31 (17-59) U/L ALT 21 (4-49) U/L Alkaline Phosphatase 70 (38-126) U/L Troponin I (0.000-0.034) ng/mL Total Protein 6.3 (6.3-8.2) g/dL Albumin 3.6 (3.5-5.0) g/dL Urine Color Urine Appearance (Clear) Urine pH (5.0-8.0) Ur Specific Comfort (1.001-1.035) Urine Protein (Negative) Urine Glucose (UA) (Negative) Urine Ketones (Negative) Urine Blood (Negative) Urine Nitrite (Negative) Urine Bilirubin (Negative) Urine Urobilinogen (<2.0) mg/dL Ur Leukocyte Esterase (Negative) 06/18/19 06/18/19 Range/Units 05:00 05:18 WBC (3.8-10.6) k/uL RBC (4.30-5.90) m/uL Hgb (13.0-17.5) gm/dL Hct (39.0-53.0) % MCV (80.0-100.0) fL MCH (25.0-35.0) pg MCHC (31.0-37.0) g/dL RDW (11.5-15.5) % Plt Count (150-450) k/uL Neutrophils % % Lymphocytes % % Monocytes % % Eosinophils % % Basophils % % Neutrophils # (1.3-7.7) k/uL Lymphocytes # (1.0-4.8) k/uL Monocytes # (0-1.0) k/uL Eosinophils # (0-0.7) k/uL Basophils # (0-0.2) k/uL PT (9.0-12.0) sec INR (<1.2) APTT (22.0-30.0) sec Sodium (137-145) mmol/L Potassium (3.5-5.1) mmol/L Chloride (98-107) mmol/L Carbon Dioxide (22-30) mmol/L Anion Gap mmol/L BUN (9-20) mg/dL Creatinine (0.66-1.25) mg/dL Est GFR (CKD-EPI)AfAm (>60 ml/min/1.73 sqM) Est GFR (CKD-EPI)NonAf (>60 ml/min/1.73 sqM) Glucose (74-99) mg/dL Calcium (8.4-10.2) mg/dL Magnesium (1.6-2.3) mg/dL Total Bilirubin (0.2-1.3) mg/dL AST (17-59) U/L ALT (4-49) U/L Alkaline Phosphatase (38-126) U/L Troponin I <0.012 (0.000-0.034) ng/mL Total Protein (6.3-8.2) g/dL Albumin (3.5-5.0) g/dL Urine Color Yellow Urine Appearance Clear (Clear) Urine pH 7.0 (5.0-8.0) Ur Specific Comfort 1.010 (1.001-1.035) Urine Protein Negative (Negative) Urine Glucose (UA) Negative (Negative) Urine Ketones 2+ H (Negative) Urine Blood Negative (Negative) Urine Nitrite Negative (Negative) Urine Bilirubin Negative (Negative) Urine Urobilinogen <2.0 (<2.0) mg/dL Ur Leukocyte Esterase Negative (Negative) Disposition Clinical Impression: Syncope, New onset atrial fibrillation Disposition: ADMITTED IP TO THIS HOSP Condition: Stable Referrals: George Todd DO [Primary Care Provider] - 1-2 days
[2019-06-18] MEDS ORDERED: SODIUM CHLORIDE 0.9% 1,000 ML IV STA (08:09)
[2019-06-18] MEDS ORDERED: METOPROLOL TARTRATE 25 MG TAB PO SCH (09:00)
[2019-06-18] MEDS ORDERED: ASPIRIN 325 MG TAB PO SCH (09:00)
--- NOTE | 2019-06-18 09:58 | CT ---
EXAMINATION TYPE: CT angio chest DATE OF EXAM: 06/18/2019 9:48 AM COMPARISON: Previous study dated 05/20/2012 HISTORY: Elevated d-dimer CT DLP: 408.5 mGycm Automated exposure control for dose reduction was used. CONTRAST: CTA scan of the thorax is performed with IV Contrast, patient injected with 100 mL of Isovue 370, pul monary embolism protocol. . FINDINGS: There is atelectatic change at the lung bases bilaterally. The lungs are otherwise clear. There is no significant axillary, mediastinal or hilar adenopathy. There is no evidence of pulmonary embolus. The aorta is normal in caliber without dissection. There i s no pleural or pericardial fluid. The heart is not enlarged. Within the abdomen, the liver and spleen are normal. The gallbladder is been removed. Both adrenal glands are normal. There is no hydronephrosis or nephrolithiasis. There are small parapelvic cysts present bilaterally. Limited views of the pancreas are normal. Visualized portions of the large and small bowel are normal. There is mild hypertrophic spondylosis present within the spine. IMPRESSION: THIS EXAMINATION IS NEGATIVE FOR PULMONARY EMBOLUS.
[2019-06-18] MEDS ORDERED: METOPROLOL TARTRATE 25 MG TAB PO STA (10:40)
[2019-06-18] MEDS ORDERED: APIXABAN 5 MG TAB PO SCH (10:45)
[2019-06-18] MEDS: SODIUM CHLORIDE 0.9% 1,000 ML IV SCH ×2 (11:32→19:57)
--- NOTE | 2019-06-18 11:40 | P.CRDCN ---
History of Present Illness History of present illness: HISTORY OF PRESENTING ILLNESS This is a pleasant 73-year-old male past medical history significant for in area embolism after gallbladder surgery many years ago, hypertension, macular degeneration and daily marijuana use. 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 We have been asked to see in consultation for new-onset atrial fibrillation and syncope.. Patient was seen and examined resting comfortably laying flat in bed with his at the bedside. He states last evening he woke up to use the restroom in his normal state of health. He walked to the bathroom without issue. After urinating he stood up to walk back to bed and states that the room started spinning. This persisted for about 25 seconds and then the next thing he remembers he woke up on the floor. He is unsure how long he was down on the floor. He denies having chest pain, shortness of breath, palpitations, nausea, vomiting or diaphoresis associated with the episode. On arrival to the emergency department he was found to be in atrial fibrillation with controlled ventricular rates. He has been on anticoagulation in the past secondary to pulmonary embolism and he believes anticoagulation causes macular degeneration therefore he is quite adamant he will not take long-term anticoagulation. He continues to be in atrial fibrillation with controlled ventricular response. Daily cardiac medications include lisinopril/HCTZ 20/25 mg daily. Orthostatic vital signs requested, supine 109/64, sitting 102/63 and standing 88/57. Labor atory data reviewed, WBC 4.0, hemoglobin 15.1, platelets 105, d-dimer 27.77, sodium 135, potassium 3.4, creatinine 1.19, magnesium 1.9, cardiac enzymes negative 1. REVIEW OF SYSTEMS At the time of my exam: CONSTITUTIONAL: Denies fever or chills. CARDIOVASCULAR: Denies chest pain, shortness of breath, orthopnea, PND or palpitations. RESPIRATORY: Denies cough. GASTROINTESTINAL: Denies abdominal pain, diarrhea, constipation, nausea or vomiting. MUSCULOSKELETAL: Denies myalgias. NEUROLOGIC: Denies numbness, tingling or weakness. ENDOCRINE: Denies fatigue, weight change, polydipsia or polyurina. GENITOURINARY: Denies burning, hematuria or urgency with micturation. HEMATOLOGIC: Denies history of anemia or bleeding. PHYSICAL EXAMINATION CONSTITUTIONAL: No apparent distress. HEENT: Head is normocephalic. Pupils are equal, round. Sclerae anicteric. Mucous membranes of the mouth are moist. No JVD. No carotid bruit. CHEST EXAMINATION: Lungs are clear to auscultation. No chest wall tenderness is noted on palpation or with deep breathing. HEART EXAMINATION: Irregular rate and rhythm. S1, S2 heard. No murmurs, gallops or rub. ABDOMEN: Soft, nontender. Positive bowel sounds. EXTREMITIES: 2+ peripheral pulses, no lower extremity edema and no calf tenderness. NEUROLOGIC EXAMINATION: Patient is awake, alert and oriented x3. ASSESSMENT Syncope New-onset paroxysmal atrial fibrillation with controlled ventricular rates Orthostatic hypotension Thrombocytopenia Elevated d-dimer Hypokalemia Hypertension by history maintained on Zestoretic History of PE status post [place] filter placement PLAN D-dimer requested came back extremely elevated at 27. Obtain a stat CT of the chest to rule out recurrent pulmonary embolism. Hydrate the patient with 0.9% normal saline at 100 mL per hour. Initiate Lopressor 25 mg twice a day and Eliquis 5 mg twice a day. Obtain 2-D echocardiogram and Doppler study to assess cardiac structure and function. Continue to obtain serial cardiac enzymes to rule out an acute event. Ongoing telemetry monitoring. Further recommendations to follow based upon clinical course. Thank you kindly for this consultation. Nurse Practitioner note has been reviewed, I agree with a documented findings and plan of care. Patient was seen and examined. Past Medical History Past Medical History: Cancer, Hypertension, Pulmonary Embolus (PE) Additional Past Medical History / Comment(s): hx of seizure, closed head injury, prostate cancer with radiation, macular degeneration. History of Any Multi-Drug Resistant Organisms: None Reported Past Surgical History: Cholecystectomy Additional Past Surgical History / Comment(s): skull surgery x3, [place] Filters, colonoscopy last year one polyp removed. Past Anesthesia/Blood Transfusion Reactions: No Reported Reaction Past Psychological History: Depression Smoking Status: Never smoker Past Alcohol Use History: Occasional Past Drug Use History: Marijuana Additional Drug Use History / Comment(s): marijuana once per week if that. - Past Family History Daughter(s) Additional Family Medical History / Comment(s): colitis Mother Family Medical History: AFIB, AICD/Pacemaker Father Additional Family Medical History / Comment(s): Either a heart attack or a stroke. Medications and Allergies Home Medications Medication Instructions Recorded Confirmed Type Lisinopril-Hctz 20-25 mg 1 tab PO DAILY 11/04/17 06/18/19 History [Zestoretic 20-25] ALPRAZolam [Xanax] 0.25 mg PO DAILY PRN 05/21/18 06/18/19 History Vit C/E/Zn/Coppr/Lutein/Zeaxan 1 cap PO BID 04/14/19 06/18/19 History [Preservision Areds 2 Softgel] Allergies Allergy/AdvReac Type Severity Reaction Status Date / Time silver mercury Allergy Unknown Uncoded 06/18/19 10:59 Physical Exam Vitals: Vital Signs Temp Pulse Pulse Pulse Pulse Pulse Resp 06/18/19 09:23 107 H 116 H 105 H 06/18/19 08:00 90 06/18/19 07:28 98.7 F 90 20 06/18/19 04:43 98.2 F 91 16 BP BP BP BP BP Pulse Ox 06/18/19 09:23 102/63 88/57 109/64 06/18/19 08:00 06/18/19 07:28 95/59 93 L 06/18/19 04:43 121/77 97 Intake and Output 06/17/19 06/18/19 06/18/19 22:59 06:59 14:59 Intake Total 230 Balance 230 Intake: Oral 230 Other: # Voids 0 Weight 83.915 kg 83.915 kg Results 06/18/19 05:00 06/18/19 05:00 Cardiac Enzymes 06/18/19 06/18/19 Range/Units 05:00 05:00 AST 31 (17-59) U/L Troponin I <0.012 (0.000-0.034) ng/mL Coagulation 06/18/19 Range/Units 05:00 PT 10.3 (9.0-12.0) sec APTT 22.5 (22.0-30.0) sec CBC 06/18/19 Range/Units 05:00 WBC 4.0 (3.8-10.6) k/uL RBC 5.01 (4.30-5.90) m/uL Hgb 15.1 (13.0-17.5) gm/dL Hct 44.5 (39.0-53.0) % Plt Count 105 L (150-450) k/uL Comprehensive Metabolic Panel 06/18/19 Range/Units 05:00 Sodium 135 L (137-145) mmol/L Potassium 3.4 L (3.5-5.1) mmol/L Chloride 102 (98-107) mmol/L Carbon Dioxide 21 L (22-30) mmol/L BUN 19 (9-20) mg/dL Creatinine 1.19 (0.66-1.25) mg/dL Glucose 117 H (74-99) mg/dL Calcium 8.5 (8.4-10.2) mg/dL AST 31 (17-59) U/L ALT 21 (4-49) U/L Alkaline Phosphatase 70 (38-126) U/L Total Protein 6.3 (6.3-8.2) g/dL Albumin 3.6 (3.5-5.0) g/dL Current Medications Generic Name Dose Route Start Last Admin Trade Name Freq PRN Reason Stop Dose Admin Aspirin 325 mg 06/18/19 09:00 06/18/19 08:25 Aspirin PO Not Given DAILY MELVIN Sodium Chloride 1,000 mls @ 75 mls/hr 06/18/19 08:09 06/18/19 08:18 Saline 0.9% IV 06/18/19 21:28 75 mls/hr .[id number] STA Administration Metoprolol Tartrate 25 mg 06/18/19 09:00 06/18/19 08:18 Lopressor PO 25 mg BID MELVIN Administration Nitroglycerin 0.4 mg 06/18/19 05:58 Nitrostat SUBLINGUAL Q5M PRN Chest Pain Intake and Output 06/17/19 06/18/19 06/18/19 22:59 06:59 14:59 Intake Total 230 Balance 230 Intake: Oral 230 Other: # Voids 0 Weight 83.915 kg 83.915 kg Patient Weight 06/19/19 06:59 Weight 83.915 kg 06/18/19 05:00 06/18/19 05:00
--- NOTE | 2019-06-18 11:41 | P.PN ---
Progress Note - Text Patient has spontaneously converted to sinus mechanism. Repeat EKG requested.
[2019-06-18] MEDS ORDERED: ALPRAZolam 0.25 MG TAB PO PRN (16:26)
--- NOTE | 2019-06-18 17:20 | US ---
EXAMINATION TYPE: US venous doppler duplex LE DATE OF EXAM: 06/18/2019 5:07 PM COMPARISON: US 2016 CLINICAL HISTORY: dvt. History of DVT, patient denies pain or swelling, patient on blood thinners, ex am done portable. SIDE PERFORMED: Bilateral TECHNIQUE: The lower extremity deep venous system is examined utilizing real time linear array sonog nanda with graded compression, doppler sonography and color-flow sonography. VESSELS IMAGED: External Iliac Vein (EIV) Common Femoral Vein Deep Femoral Vein Greater Saphenous Vein * Femoral Vein Popliteal Vein Small Saphenous Vein * Proximal Calf Veins (* superficial vessels) Right Leg: Positive for DVT: as seen on previous exam there is incomplete compression with echogenic ity within mid and distal popliteal vein Left Leg: Positive for DVT: incomplete compression with echogenicity within anterior proximal calf v ein extending into distal popliteal vein IMPRESSION: 1. Findings are compatible with bilateral DVT. Findings within the popliteal vein have been reported by previous exam. However, findings on the left are new from the prior exam and compatible with acute DVT.
--- NOTE | 2019-06-18 17:22 | HP ---
HISTORY AND PHYSICAL DATE OF SERVICE: 06/18/2019. CHIEF COMPLAINT: Syncope and atrial fibrillation. HISTORY OF PRESENT ILLNESS: This 73-year-old gentleman with a past medical history of multiple medical problems including history of hypertension, history of pulmonary embolism, history of closed- head injury, history of prostate cancer, history of depression, being followed by Dr. George Todd in the outpatient setting was admitted with episodes of syncope. The patient woke up from sleep and went to the bathroom and subsequently patient tried to walk back and became lightheaded and dizzy. The patient was also some palpitations. Patient was found to have atrial fibrillation with fast ventricular rate. Patient was admitted to [facility] Emergency Room and was admitted for further evaluation and treatment. Patient converted to normal sinus rhythm. Apixaban initiated by Cardiology. There is no history of fever, rigors or chills. No history of headache, seizures at this time. PAST MEDICAL HISTORY: History of hypertension, history of pulmonary embolus, seizure disorder, closed head injury, history of depression. MEDICATIONS: Home medications are: 1. PreserVision 1 p.o. b.i.d. 2. Zestoretic 1 p.o. daily. 3. Xanax 0.5 daily p.r.n. ALLERGIES: SILVER MERCURY. FAMILY HISTORY: History of AICD, colitis. SOCIAL HISTORY: History of alcohol. History of THC. No history of smoking. REVIEW OF SYSTEMS: ENT: No diminished vision. No diminished hearing. CARDIOVASCULAR as mentioned earlier. RESPIRATORY: As mentioned earlier. GI: No nausea or vomiting. no dysuria. NERVOUS SYSTEM: No numbness or weakness. ALLERGY/IMMUNOLOGY: No asthma or hayfever. MUSCULOSKELETAL as mentioned earlier. HEMATOLOGY/ONCOLOGY: No history of anemia. ENDOCRINE: No history of diabetes or hypothyroidism. CONSTITUTIONAL: As mentioned earlier. DERMATOLOGY: Negative. RHEUMATOLOGY: Negative. PSYCHIATRIC: As mentioned earlier. PHYSICAL EXAMINATION: Patient is alert and oriented x3. The pulse is 107. Blood pressure 97/68, respiration 20, temperature 98.7, pulse ox 93% on room air. HEENT: Conjunctivae normal. NECK: No JVD. CARDIOVASCULAR: S1, S2 muffled. RESPIRATORY: Breath sounds diminished in the bases. A few scattered rhonchi and crackles. ABDOMEN: Soft, nontender. LEGS are no edema. No swelling. CENTRAL NERVOUS SYSTEM: Higher functions as mentioned earlier. Moves all four limbs. No focal deficits. Lymphatics: No lymph nodes palpable in the neck, axillae or groin. SKIN: No ulcers, no rashes and no bleeding. JOINTS: No active deforming arthropathy. LAB STUDIES: WBC 4, platelets 105, D-dimer is 27.7, sodium 130, potassium 3.4. ASSESSMENT: 1. Atrial fibrillation with fast ventricular rate paroxysmal with rapid ventricular rate. 2. Thrombocytopenia. 3. Elevated D-dimer with no evidence of any pulmonary embolism. 4. Hyponatremia. 5. Hypokalemia. 6. History of hypertension. 7. History of pulmonary embolus. 8. History of seizure disorder. 9. History of closed-head injury. 10.History of prostate cancer with radiation. 11.Macular degeneration. 12.History of cholecystectomy. 13.History of [place] filter. 14.History of depression. 15.History of THC. 16.NO CODE, NO CPR, NO VENT. RECOMMENDATIONS AND DISCUSSION: This 73-year-old gentleman who presented with multiple complex medical issues, we will monitor the patient closely, continue the current medications, management and symptomatic treatment. Otherwise, at this time, resume home medications, beta blockers, Eliquis. Guarded prognosis because of multiple complex medical issues. The patient had elevated D-dimer. We will continue to monitor. Further recommendations to follow. A copy of this dictation being forwarded to Dr. Eden Todd who is the primary physician. [id number] / FIDELN: [id number] /
[2019-06-18] MEDS: METOPROLOL TARTRATE 50 MG TAB PO SCH (19:57)
[2019-06-18] MEDS: APIXABAN 5 MG TAB PO SCH (19:57)
[2019-06-18] MEDS: VIT A,C & E-LUTEIN-MINERALS 1 EACH TAB PO SCH (19:57)
[2019-06-19] MEDS: SODIUM CHLORIDE 0.9% 1,000 ML IV SCH ×2 (04:39→18:10)
[2019-06-19 06:37] LABS: Partial Thromboplastin Time 26.2 sec (22.0-30.0); Prothrombin Time 10.5 sec (9.0-12.0)
[2019-06-19 06:41] LABS: Basophils % (A) 0 %; Eosinophils # (A) 0.2 k/uL (0-0.7); Eosinophils % (A) 5 %; HCT 40.5 % (39.0-53.0); Lymphocytes # (A) 1.1 k/uL (1.0-4.8); Lymphocytes % (A) 28 %; MCH 30.6 pg (25.0-35.0); MCHC 34.4 g/dL (31.0-37.0); Mean Platelet Volume 8.6; Monocytes # (A) 0.3 k/uL (0-1.0); Monocytes % (A) 7 %; Neutrophils # (A) 2.2 k/uL (1.3-7.7); Neutrophils % (A) 58 %; Platelet Count 114 k/uL (150-450); RBC 4.56 m/uL (4.30-5.90); RDW 12.4 % (11.5-15.5); WBC 3.9 k/uL (3.8-10.6)
[2019-06-19 06:42] LABS: Calcium 8.1 mg/dL (8.4-10.2)
[2019-06-19] MEDS: APIXABAN 5 MG TAB PO SCH ×2 (06:51→18:10)
[2019-06-19] MEDS ORDERED: ASPIRIN 325 MG TAB PO SCH (09:00)
[2019-06-19] MEDS: VIT A,C & E-LUTEIN-MINERALS 1 EACH TAB PO SCH ×2 (09:14→19:56)
[2019-06-19] MEDS: METOPROLOL TARTRATE 50 MG TAB PO SCH ×2 (09:14→19:56)
--- NOTE | 2019-06-19 10:44 | ECHOF ---
Referral Reason:syncope MEASUREMENTS -------- HEIGHT: 165.1 cm WEIGHT: 83.9 kg BP: RVIDd: 2.8 cm (< 3.3) IVSd: 1.1 cm (0.6 - 1.1) LVIDd: 4.4 cm (3.9 - 5.3) LVPWd: 1.1 cm (0.6 - 1.1) IVSs: 1.3 cm LVIDs: 2.6 cm LVPWs: 1.2 cm LA Diam: 3.9 cm (2.7 - 3.8) LAESV Index (A-L): 28.22 ml/m Ao Diam: 4.0 cm (2.0 - 3.7) AV Cusp: 1.9 cm (1.5 - 2.6) MV EXCURSION: 18.395 mm (> 18.000) MV EF SLOPE: 92 mm/s (70 - 150) EPSS: 0.4 cm MV E Samm: 0.56 m/s MV DecT: 154 ms MV A Samm: 0.74 m/s MV E/A Ratio: 0.76 RAP: 5.00 mmHg RVSP: 18.11 mmHg FINDINGS -------- Sinus rhythm. This was a technically good study. LV size, wall thickness and systolic function are normal, with an EF greater than 55%. The left chely tricular size is normal. The diastolic filling pattern is normal for the age of the patient 5.76. The right ventricle is normal in size. The left atrial size is normal. Normal LA size by volume 22+/-6 ml/m2. The right atrial size is normal. The aortic valve is trileaflet, and appears structurally normal. No aortic stenosis or regurgitation. Mild mitral regurgitation is present. Mild tricuspid regurgitation present. Right ventricular systolic pressure is normal at < 35 mmHg. There is no evidence of pulmonary hypertension. There is no pulmonic regurgitation present. The aortic root size is normal. Echo free space represents a pericardial fat pad. CONCLUSIONS -------- 1. Sinus rhythm. 2. This was a technically good study. 3. LV size, wall thickness and systolic function are normal, with an EF greater than 55%. 4. The left ventricular size is normal. 5. The diastolic filling pattern is normal for the age of the patient 5.76 6. The right ventricle is normal in size. 7. The left atrial size is normal. 8. Normal LA size by volume 22+/-6 ml/m2. 9. The right atrial size is normal. 10. The aortic valve is trileaflet, and appears structurally normal. No aortic stenosis or regurgitat ion. 11. Mild mitral regurgitation is present. 12. Mild tricuspid regurgitation present. 13. Right ventricular systolic pressure is normal at < 35 mmHg. 14. There is no evidence of pulmonary hypertension. 15. There is no pulmonic regurgitation present. 16. The aortic root size is normal. 17. Echo free space represents a pericardial fat pad. CERTIFICATION OFFICER: Nida Zaman RDCS
--- NOTE | 2019-06-19 15:12 | P.PN ---
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 We were originally asked to see the patient because of new onset of atrial fibrillation and syncope. Patient apparently was on anticoagulation in the past secondary to pulmonary embolism and he feels that his macular degeneration was secondary to taking those blood thinners. Orthostatics were obtained, 110/60 lying and 88/50 standing, mildly positive. Echocardiogram with Doppler study was performed which revealed a normal left ventricular systolic function. Venous duplex study positive for DVT in the right and left leg. Patient was seen and examined this morning, complaining of having several bloody stools this morning, GI services have been consulted. White blood cell count 3.9, hemoglobin 14, platelet count 114. Sodium 137, potassium 4.0, BUN 21, creatinine 1.0. Objective - Vital Signs Vital signs: Vital Signs Temp 98.0 F 06/19/19 12:00 Pulse 70 06/19/19 12:00 Resp 18 06/19/19 12:00 BP 95/62 06/19/19 12:00 Pulse Ox 92 L 06/19/19 08:00 Intake & Output 06/18/19 06/19/19 06/19/19 18:59 06:59 18:59 Intake Total 690 480 Output Total 400 200 200 Balance 290 -200 280 Weight 83.915 kg 84.6 kg Intake: Oral 690 480 Output: Urine 400 200 Stool 200 Other: # Voids 0 1 1 # Bowel Movements 1 - Exam CONSTITUTIONAL: No apparent distress. HEENT: Head is normocephalic. Pupils are equal, round. Sclerae anicteric. Mucous membranes of the mouth are moist. No JVD. No carotid bruit. CHEST EXAMINATION: Lungs are clear to auscultation. No chest wall tenderness is noted on palpation or with deep breathing. HEART EXAMINATION: Irregular rate and rhythm. S1, S2 heard. No murmurs, gallops or rub. ABDOMEN: Soft, nontender. Positive bowel sounds. EXTREMITIES: 2+ peripheral pulses, no lower extremity edema and no calf tende rness. NEUROLOGIC EXAMINATION: Patient is awake, alert and oriented x3. - Labs CBC & Chem 7: 06/19/19 06:11 06/19/19 06:11 Labs: Abnormal Lab Results - Last 24 Hours (Table) 06/19/19 06/19/19 Range/Units 06:11 06:11 Plt Count 114 L (150-450) k/uL Carbon Dioxide 21 L (22-30) mmol/L BUN 21 H (9-20) mg/dL Glucose 105 H (74-99) mg/dL Calcium 8.1 L (8.4-10.2) mg/dL HDL Cholesterol 39 L (40-60) mg/dL Assessment and Plan Plan: Assessment and plan #1 Syncope #2 New-onset paroxysmal atrial fibrillation with controlled ventricular rates #3 Orthostatic hypotension #4 Thrombocytopenia #5 Elevated d-dimer with evidence of bilateral DVT #6 Hypokalemia #7 Hypertension by history maintained on Zestoretic #8 History of PE status post [place] filter placement Plan Patient today is had multiple bloody stools, GI service has been consulted. Of note the patient is on Eliquis, per DVT protocol. Cardiology's perspective, patient's rates are controlled. Further recommendations to follow. DNP note has been reviewed, I agree with a documented findings and plan of care. Patient was seen and examined.
[2019-06-19 18:33] LABS: HCT 37.6 % (39.0-53.0); MCH 31.1 pg (25.0-35.0); MCHC 34.4 g/dL (31.0-37.0); MCV 90.3 fL (80.0-100.0); Mean Platelet Volume 8.7; Platelet Count 103 k/uL (150-450); RBC 4.17 m/uL (4.30-5.90); RDW 12.3 % (11.5-15.5); WBC 4.1 k/uL (3.8-10.6)
--- NOTE | 2019-06-19 19:17 | PN ---
PROGRESS NOTE DATE OF SERVICE: 06/19/2019 This 73-year-old gentleman was admitted with syncope and atrial fibrillation. Had a significantly large bowel movement with bright red blood today, this morning. The patient is being closely monitored. Patient started on Eliquis yesterday. Cardiology following the patient closely. A 2D echo with Doppler was done recently, which showed ejection fraction more than 55% and minimal valvular abnormalities also. The hemoglobin this morning was 14. The repeat hemoglobin is pending at this time. PAST MEDICAL HISTORY: Reviewed. REVIEW OF SYSTEMS: CARDIOVASCULAR SYSTEM: No angina. RESPIRATORY: As mentioned earlier. GI: As mentioned earlier. : No dysuria. NERVOUS SYSTEM: No numbness or weakness. HEMATOLOGY: As mentioned earlier. CURRENT MEDICATIONS ARE: 1. Xanax 0.25. 2. Eliquis 10 mg p.o. b.i.d. and 5 mg p.o. b.i.d. 3. Lopressor. 5. Nitrostat. PHYSICAL EXAM: Patient is alert, oriented x3. Pulse is 87, blood pressure is 135/80, respirations 17, temperature 98.2, pulse ox 90% on room air. HEENT: Conjunctivae normal. Oral mucosa moist. NECK: No jugular venous distention. No lymph node enlargement. CARDIOVASCULAR: S1, S2. RESPIRATORY: Diminished breath sounds at the bases. No rhonchi, no crackles. ABDOMEN: Soft, obese, nontender. No mass palpable. No guarding, no rigidity. LEGS: No edema, no swelling. NERVOUS SYSTEM: Higher functions mentioned earlier. Moves all four limbs. No focal motor or sensory deficits. LYMPHATICS: No lymph node in the neck or axillae. SKIN: No ulcers, no rash. LABS: At this time show WBC 3.9, hemoglobin is 14, and platelets are 140. Sodium 137, potassium 4 and calcium is 8.1. ASSESSMENT: 1. Atrial fibrillation with fast ventricular rate, paroxysmal with rapid ventricular rate. 2. Moderate to severe lower gastrointestinal bleeding. 3. Thrombocytopenia. 4. Elevated D-dimer without any evidence of pulmonary embolism. 5. Hyponatremia. 6. Hypokalemia. 7. History of hypertension. 8. History of pulmonary embolism. 9. History of seizure disorder. 10.History of closed-head injury. 11.History of prostate cancer with radiation. 12.History of macular degeneration. 13.History of cholecystectomy. 14.History of [place] filter. 15.History of depression. 16.History of THC. 17.NO CODE, NO CPR, NO VENT. RECOMMENDATIONS AND DISCUSSION: In this 73-year-old gentleman who presented with multiple complex medical issues, we will monitor the patient closely. I would recommend to hold antiplatelet and anticoagulants. Gastroenterology evaluation. Repeat hemoglobin at 4:00 pm. Otherwise, transfuse periodically if the hemoglobin is dropping. Prognosis guarded because of multiple complex medical issues. Further recommendations to follow . We will follow the patient closely with Cardiology. MMODL / IJN: [id number] / NATHANIEL
--- NOTE | 2019-06-20 00:05 | CONS ---
CONSULTATION DATE OF SERVICE: June 19, 2019. REQUESTING PHYSICIAN: Dr. Varner. REASON FOR CONSULTATION: Rectal bleeding. HISTORY OF PRESENT ILLNESS: The patient is a 73-year-old pleasant white male who was admitted to the hospital yesterday when he presented with palpitation. He was subsequently diagnosed with atrial fibrillation with rapid ventricular heart rate. He was started on Eliquis yesterday. The patient this morning had an episode of bright red blood with some dark clots noted and following that he had 2 small episodes where he tried to pass some gas and had noted small amount of blood on the toilet tissue paper. He denies any significant change in bowel habits. He denies any rectal pain. He did have a colonoscopy by Dr. Viramontes on April of 2019, which showed a small colon polyp. He did have a Doppler study of the lower extremity and was positive for DVT in both the right as well as lower extremity. Presently on Eliquis has been on hold because of the bleeding. His last hemoglobin was 14 g/dL. PAST MEDICAL HISTORY: Significant for hypertension, hyperlipidemia, degenerative joint disease. The past medical history includes history of pulmonary embolism in the past and closed head injury. MEDICATIONS: Medications at home include: Zestoretic, Xanax. ALLERGIES: SILVER AND MERCURY. SOCIAL HISTORY: No history of smoking. History of alcohol use. FAMILY HISTORY: Positive for colitis. REVIEW OF SYSTEMS: CARDIOPULMONARY: He denies any chest pain, shortness of breath. GENITOURINARY: No dysuria or hematuria. MUSCULOSKELETAL unremarkable. SKIN unremarkable. ENDOCRINE unremarkable. PSYCHIATRIC unremarkable. NEUROLOGY unremarkable. ENT/vision unremarkable. GI as mentioned above. HEMATOLOGY unremarkable. RHEUMATOLOGY unremarkable. PHYSICAL EXAMINATION: He appears comfortable. No apparent distress. VITAL SIGNS: Stable. Blood pressure is 112/86, pulse rate 80 per minute and afebrile. Temperature 98. HEENT examination unremarkable. Conjunctivae pink. Sclerae anicteric. Oral cavity no lesions. NECK: No JVD or lymph node enlargement. CHEST: Clear to auscultation. HEART: Regular rate and rhythm. ABDOMEN: Soft. Bowel sounds are positive. No organomegaly. EXTREMITIES: No pedal edema. SKIN: No rashes. NEURO: Alert and oriented x3. No focal deficits. LABS: Done today WBC is 3.9, hemoglobin 14, platelets 114. Basic metabolic panel is within normal limits. IMPRESSION: 1. Rectal bleeding started this morning, had 3 episodes of bright red blood with dark clots noted. The 1st episode was significant amount of bleeding as per the patient. He did have a colonoscopy by Dr. Viramontes in April of 2019 that showed a small colon polyp. At this time we are most likely dealing with rectal pathology, possibly internal hemorrhoids causing the bleeding. The patient was started on Eliquis yesterday for new onset atrial fibrillation with rapid ventricular heart rate as well as deep vein thrombosis. 2. Atrial fibrillation with rapid ventricular heart rate on Eliquis. 3. Bilateral deep vein thrombosis. RECOMMENDATIONS: 1. Because of the ongoing rectal bleeding, we will hold off on the Eliquis today. 2. We will repeat CBC in the morning. 3. No plans for any endoscopy intervention as the patient already had a colonoscopy 2 months ago that showed a small colon polyp. 4. Repeat CBC tomorrow. 5. For now, we will follow him with you closely. Thank you for this consultation. MMODL / IJN: [id number] /
[2019-06-20] MEDS: SODIUM CHLORIDE 0.9% 1,000 ML IV SCH ×2 (05:48→20:54)
[2019-06-20] MEDS: APIXABAN 5 MG TAB PO SCH ×2 (05:48→20:50)
[2019-06-20 06:55] LABS: Basophils % (A) 0 %; Eosinophils # (A) 0.2 k/uL (0-0.7); Eosinophils % (A) 6 %; HCT 38.5 % (39.0-53.0); HGB 13.4 gm/dL (13.0-17.5); Lymphocytes # (A) 0.9 k/uL (1.0-4.8); Lymphocytes % (A) 21 %; MCH 30.9 pg (25.0-35.0); MCHC 34.9 g/dL (31.0-37.0); MCV 88.6 fL (80.0-100.0); Mean Platelet Volume 8.3; Monocytes # (A) 0.2 k/uL (0-1.0); Monocytes % (A) 5 %; Neutrophils # (A) 2.8 k/uL (1.3-7.7); Neutrophils % (A) 66 %; Platelet Count 110 k/uL (150-450); RBC 4.34 m/uL (4.30-5.90); RDW 12.3 % (11.5-15.5); WBC 4.2 k/uL (3.8-10.6)
[2019-06-20 06:56] LABS: Calcium 8.3 mg/dL (8.4-10.2); Potassium 3.9 mmol/L (3.5-5.1)
[2019-06-20] MEDS: METOPROLOL TARTRATE 50 MG TAB PO SCH ×2 (07:58→20:50)
[2019-06-20] MEDS: VIT A,C & E-LUTEIN-MINERALS 1 EACH TAB PO SCH ×2 (07:58→20:50)
--- NOTE | 2019-06-20 14:48 | P.PN ---
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 We were originally asked to see the patient because of new onset of atrial fibrillation and syncope. Patient apparently was on anticoagulation in the past secondary to pulmonary embolism and he feels that his macular degeneration was secondary to taking those blood thinners. Orthostatics were obtained, 110/60 lying and 88/50 standing, mildly positive. Echocardiogram with Doppler study was performed which revealed a normal left ventricular systolic function. Venous duplex study positive for DVT in the right and left leg. Patient was seen and examined this morning, complaining of having several bloody stools this morning, GI services have been consulted. White blood cell count 3.9, hemoglobin 14, platelet count 114. Sodium 137, potassium 4.0, BUN 21, creatinine 1.0. 06/20/2019 Patient was seen in consultation by GI service and because of the multiple blood vessels the Eliquis and was placed on hold. Blood pressure 125/80 with a heart rate in the 70s. Hemoglobin today 13.4. Objective - Vital Signs Vital signs: Vital Signs Temp 97.9 F 06/20/19 11:29 Pulse 70 06/20/19 11:29 Resp 18 06/20/19 11:29 BP 125/83 06/20/19 11:29 Pulse Ox 97 06/20/19 11:29 Intake & Output 06/19/19 06/20/19 06/20/19 18:59 06:59 18:59 Intake Total 480 480 Output Total 200 300 Balance 280 -300 480 Weight 85.5 kg Intake: Oral 480 480 Output: Urine 300 Stool 200 Other: Voiding Method Toilet Toilet # Voids 1 1 # Bowel Movements 0 1 - Exam CONSTITUTIONAL: No apparent distress. HEENT: Head is normocephalic. Pupils are equal, round. Sclerae anicteric. Mucous membranes of the mouth are moist. No JVD. No carotid bruit. CHEST EXAMINATION: Lungs are clear to auscultation. No chest wall tenderness is noted on palpation or with deep breathing. HEART EXAMINATION: Irregular rate and rhythm. S1, S2 heard. No murmurs, gallops or rub. ABDOMEN: Soft, nontender. Positive bowel sounds. EXTREMITIES: 2+ peripheral pulses, no lower extremity edema and no calf tenderness. NEUROLOGIC EXAMINATION: Patient is awake, alert and oriented x3. - Labs CBC & Chem 7: 06/20/19 06:14 06/20/19 06:14 Labs: Abnormal Lab Results - Last 24 Hours (Table) 06/19/19 06/20/19 06/20/19 Range/Units 17:26 06:14 06:14 RBC 4.17 L (4.30-5.90) m/uL Hct 37.6 L 38.5 L (39.0-53.0) % Plt Count 103 L 110 L (150-450) k/uL Lymphocytes # 0.9 L (1.0-4.8) k/uL Chloride 111 H (98-107) mmol/L Carbon Dioxide 21 L (22-30) mmol/L Glucose 106 H (74-99) mg/dL Calcium 8.3 L (8.4-10.2) mg/dL Assessment and Plan Plan: Assessment and plan #1 Syncope #2 New-onset paroxysmal atrial fibrillation with controlled ventricular rates #3 Orthostatic hypotension #4 Thrombocytopenia #5 Elevated d-dimer with evidence of bilateral DVT #6 Hypokalemia #7 Hypertension by history maintained on Zestoretic #8 History of PE status post [place] filter placement Plan Eliquis is currently on hold because of the frequent bloody stools, we requested this be resumed by GI service once her comfortable with that. The hemoglobin is remaining stable. DNP note has been reviewed, I agree with a documented findings and plan of care. Patient was seen and examined.
--- NOTE | 2019-06-20 15:02 | P.PN ---
Subjective Progress Note Date: 06/20/19 Principal diagnosis: This is a 73-year-old male was recently admitted with syncope and atrial fibrillation. Patient had a number of bloody bowel movements after starting Eliquis yesterday and was evaluated by GI. Anticoagulant is on hold at this time. Cardiology is following. No reports of bloody bowel movements today. Hemoglobin is 13.4 today. Will continue to monitor closely. Possible resumption of anticoagulant tomorrow. Will continue to monitor closely. No reports of chest pain or palpitations. Patient is afebrile. No reports of nausea or vomiting and patient is tolerating diet. Objective - Vital Signs Vital signs: Vital Signs Temp 97.9 F 06/20/19 11:29 Pulse 70 06/20/19 11:29 Resp 18 06/20/19 11:29 BP 125/83 06/20/19 11:29 Pulse Ox 97 06/20/19 11:29 Intake & Output 06/19/19 06/20/19 06/20/19 18:59 06:59 18:59 Intake Total 480 1180 Output Total 200 300 Balance 280 -300 1180 Weight 85.5 kg Intake: Intake, IV Titration 700 Amount Sodium Chloride 0.9% 1, 700 000 ml @ 100 mls/hr IV . Q10H [facility] Rx#:[id number] Oral 480 480 Output: Urine 300 Stool 200 Other: Voiding Method Toilet Toilet # Voids 1 1 # Bowel Movements 0 1 - Exam Gen: This is a 73-year-old male sitting up at the side of the bed, awake, alert and oriented 3, well-nourished, well-developed. HEENT: Head is atraumatic, normocephalic. Pupils equal, round. Sclerae is anicteric. NECK: Supple. No JVD. No lymphadenopathy. No thyromegaly. LUNGS: Diminished breath sounds at the bases with no rhonchi or crackles noted. No intercostal retractions. HEART: S1, S2 are muffled. ABDOMEN: Soft. Bowel sounds are present. No masses. No tenderness. EXTREMITIES: No pedal edema. No calf tenderness. NEUROLOGICAL: Patient is awake, alert and oriented x3. Cranial nerves 2 through 12 are grossly intact. - Labs CBC & Chem 7: 06/20/19 06:14 06/20/19 06:14 Labs: Abnormal Lab Results - Last 24 Hours (Table) 06/19/19 06/20/19 06/20/19 Range/Units 17:26 06:14 06:14 RBC 4.17 L (4.30-5.90) m/uL Hct 37.6 L 38.5 L (39.0-53.0) % Plt Count 103 L 110 L (150-450) k/uL Lymphocytes # 0.9 L (1.0-4.8) k/uL Chloride 111 H (98-107) mmol/L Carbon Dioxide 21 L (22-30) mmol/L Glucose 106 H (74-99) mg/dL Calcium 8.3 L (8.4-10.2) mg/dL Assessment and Plan Assessment: Atrial fibrillation with fast ventricular rate, paroxysmal with rapid ventricular rate Moderate to severe lower gastrointestinal bleeding Thrombocytopenia Elevated d-dimer without any evidence of pulmonary embolism Hyponatremia Hypokalemia history of hypertension history of pulmonary embolism history of seizure disorder History of closed head injury History of prostate cancer with radiation History of macular degeneration history of cholecystectomy History of [place] filter history of depression History of THC No code, no CPR, no vent Recommendations and discussion: Recommend to continue current medications, management, and symptomatic treatment. Will continue to monitor closely. Will continue to hold Eliquis until tomorrow. Will monitor vital signs and labs closely. GI and cardiology following. Due to multiple complex medical issues prognosis is guarded. Further recommendations to follow. Possible discharge in 24 hours.
--- NOTE | 2019-06-20 17:15 | PN ---
PROGRESS NOTE DATE OF DICTATION: 06/20/2019 This patient is a 73-year-old pleasant white male admitted to the hospital with atrial fibrillation with rapid ventricular heart rate and bilateral DVT. He was on Eliquis that was started 2 days ago. Yesterday morning he had 3 episodes of bright red blood per rectum, and his Eliquis has been on hold. Today he is doing better. He had one bowel movement with no bleeding. He is feeling much better. He reports no abdominal pain. No nausea or vomiting. PHYSICAL EXAMINATION: Appears comfortable. No apparent distress. VITAL SIGNS: Stable. Blood pressure 175/83, pulse rate 70, temperature 97.9. HEENT examination unremarkable. Conjunctivae pink. Sclerae anicteric. Oral cavity no lesions. NECK: No JVD or lymph node enlargement. CHEST: Clear to auscultation. HEART: Regular rate and rhythm. ABDOMEN: Soft. Bowel sounds are positive. No organomegaly. EXTREMITIES: No pedal edema. SKIN: No rashes. NEUROLOGIC: Alert and oriented x3. No focal deficits. LABS: Labs done today show WBC 4.2, hemoglobin 13.4, platelets 110. IMPRESSION: 1. Rectal bleeding, possibly hemorrhoid in nature. He had a colonoscopy in April [address] Viramontes that showed a small colon polyp. Eliquis has been on hold. Bleeding has subsided. Hemoglobin remains stable. 2. Atrial fibrillation with rapid ventricular response, on Eliquis that was started 2 days ago, which has been on hold since yesterday. 3. Bilateral deep venous thromboses. RECOMMENDATIONS: 1. Continue to hold Eliquis today. 2. If he has no further bleeding tomorrow, the Eliquis can be resumed tomorrow morning. 3. Repeat CBC in the morning. 4. No plans on any endoscopic intervention at the present time. 5. Thank you for this consultation. MMODL / IJN: [id number] /
[2019-06-21 06:50] LABS: Basophils % (A) 0 %; Eosinophils # (A) 0.1 k/uL (0-0.7); Eosinophils % (A) 3 %; HCT 34.6 % (39.0-53.0); HGB 11.6 gm/dL (13.0-17.5); Lymphocytes # (A) 0.7 k/uL (1.0-4.8); Lymphocytes % (A) 17 %; MCH 29.9 pg (25.0-35.0); MCHC 33.6 g/dL (31.0-37.0); MCV 89.2 fL (80.0-100.0); Mean Platelet Volume 8.2; Monocytes # (A) 0.2 k/uL (0-1.0); Monocytes % (A) 4 %; Neutrophils # (A) 3.1 k/uL (1.3-7.7); Neutrophils % (A) 75 %; RBC 3.88 m/uL (4.30-5.90); RDW 12.3 % (11.5-15.5); WBC 4.2 k/uL (3.8-10.6)
[2019-06-21 06:53] LABS: Platelet Count 93 k/uL (150-450)
[2019-06-21 07:10] LABS: Calcium 8.1 mg/dL (8.4-10.2); Potassium 3.7 mmol/L (3.5-5.1)
[2019-06-21] MEDS: VIT A,C & E-LUTEIN-MINERALS 1 EACH TAB PO SCH ×2 (08:38→21:08)
[2019-06-21] MEDS: METOPROLOL TARTRATE 50 MG TAB PO SCH ×2 (08:38→21:08)
[2019-06-21] MEDS: APIXABAN 5 MG TAB PO SCH ×2 (08:38→21:09)
[2019-06-21] MEDS: SODIUM CHLORIDE 0.9% 1,000 ML IV SCH ×2 (08:38→11:38)
--- NOTE | 2019-06-21 12:51 | P.PN ---
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 We were originally asked to see the patient because of new onset of atrial fibrillation and syncope. Patient apparently was on anticoagulation in the past secondary to pulmonary embolism and he feels that his macular degeneration was secondary to taking those blood thinners. Orthostatics were obtained, 110/60 lying and 88/50 standing, mildly positive. Echocardiogram with Doppler study was performed which revealed a normal left ventricular systolic function. Venous duplex study positive for DVT in the right and left leg. Patient was seen and examined this morning, complaining of having several bloody stools this morning, GI services have been consulted. White blood cell count 3.9, hemoglobin 14, platelet count 114. Sodium 137, potassium 4.0, BUN 21, creatinine 1.0. 06/20/2019 Patient was seen in consultation by GI service and because of the multiple blood vessels the Eliquis and was placed on hold. Blood pressure 125/80 with a heart rate in the 70s. Hemoglobin today 13.4. 06/21/2019 Patient seen and examined this morning, he had no further blood in his stool, he did have an episode of epistaxis last evening. He has been resumed on his Eliquis. Hemodynamically he is stable. Objective - Vital Signs Vital signs: Vital Signs Temp 98.2 F 06/21/19 12:00 Pulse 70 06/21/19 12:00 Resp 19 06/21/19 12:00 BP 142/91 06/21/19 12:00 Pulse Ox 97 06/21/19 12:00 Intake & Output 06/20/19 06/21/19 06/21/19 18:59 06:59 18:59 Intake Total 1540 200 Output Total 100 Balance 1540 200 -100 Weight 87.1 kg Intake: Intake, IV Titration 700 Amount Sodium Chloride 0.9% 1, 700 000 ml @ 100 mls/hr IV . Q10H [facility] Rx#:[id number] Oral 840 200 Output: Stool 100 Other: Voiding Method Toilet Toilet # Voids 1 - Exam CONSTITUTIONAL: No apparent distress. HEENT: Head is normocephalic. Pupils are equal, round. Sclerae anicteric. Mucous membranes of the mouth are moist. No JVD. No carotid bruit. CHEST EXAMINATION: Lungs are clear to auscultation. No chest wall tenderness is noted on palpation or with deep breathing. HEART EXAMINATION: Irregular rate and rhythm. S1, S2 heard. No murmurs, gallops or rub. ABDOMEN: Soft, nontender. Positive bowel sounds. EXTREMITIES: 2+ peripheral pulses, no lower extremity edema and no calf tenderness. NEUROLOGIC EXAMINATION: Patient is awake, alert and oriented x3. - Labs CBC & Chem 7: 06/21/19 05:58 06/21/19 05:58 Labs: Abnormal Lab Results - Last 24 Hours (Table) 06/21/19 06/21/19 Range/Units 05:58 05:58 RBC 3.88 L (4.30-5.90) m/uL Hgb 11.6 L (13.0-17.5) gm/dL Hct 34.6 L (39.0-53.0) % Plt Count 93 L (150-450) k/uL Lymphocytes # 0.7 L (1.0-4.8) k/uL Chloride 110 H (98-107) mmol/L Carbon Dioxide 20 L (22-30) mmol/L Calcium 8.1 L (8.4-10.2) mg/dL Assessment and Plan Plan: Assessment and plan #1 Syncope #2 New-onset paroxysmal atrial fibrillation with controlled ventricular rates #3 Orthostatic hypotension #4 Thrombocytopenia #5 Elevated d-dimer with evidence of bilateral DVT #6 Hypokalemia #7 Hypertension by history maintained on Zestoretic #8 History of PE status post [place] filter placement Plan Eliquis and then resumed. We will follow this patient along with you now on an as-needed basis only, please don't hesitate to call with any questions DNP note has been reviewed, I agree with a documented findings and plan of care. Patient was seen and examined.
--- NOTE | 2019-06-21 15:51 | PN ---
PROGRESS NOTE DATE OF DICTATION: 06/21/2019 This patient is a 73-year-old pleasant white male admitted to the hospital with atrial fibrillation with RVR, on Eliquis, and he had bleeding. He had bleeding 2 days ago with 3 episodes, and Eliquis has been on hold since then. He is doing much better. He had 3 bowel movements today and with no further bleeding. Eliquis has been resumed this morning and so far he is doing well. PHYSICAL EXAMINATION: He appears comfortable. No apparent distress. VITAL SIGNS: Stable. Blood pressure is 129/82, pulse rate 86 per minute and afebrile. HEENT examination unremarkable. Conjunctivae pink. Sclerae anicteric. Oral cavity no lesions. NECK: No JVD or lymph node enlargement. CHEST: Clear to auscultation. HEART: Regular rate and rhythm. ABDOMEN: Soft. Bowel sounds are positive. No organomegaly. EXTREMITIES: No pedal edema. SKIN: No rashes. NEUROLOGIC: Alert and oriented x3. No focal deficits. LABS: Hemoglobin 11.6, WBC 4.2, platelets 93,000. IMPRESSION: 1. Rectal bleeding, probably related to internal hemorrhoids. Eliquis has been on hold for 2 days and the bleeding has resolved. Last colonoscopy April [address] Viramontes showed polyps. 2. Atrial fibrillation with rapid ventricular response. Cardiology following the patient closely. RECOMMENDATIONS: 1. Resume Eliquis today. 2. Monitor CBC daily. 3. Avoid straining and constipation. 4. Will follow with you closely. Thank you for this consultation. MMODL / IJN: [id number] /
--- NOTE | 2019-06-21 22:02 | P.PN ---
Progress Note - Text Progress Note Date: 06/21/19 Presenting complaint: Syncope History of presenting complaint: 73-year-old pleasant patient, of Dr. Todd. Chronic stable medical conditions include hypertension, history of closed head injury, prostate cancer treated with radiation, macular degeneration, history of seizure. Presented with episode of syncope. Patient had started off with eliquis the day before and had presented also with bright red blood with some talk clots. He did a colonoscopy by Dr. Bedolla in April 2019. Which showed a small colon polyp. Doppler ultrasound shows DVT in both legs suspected to the left leg is felt to be more acute. Today-eliquis was resumed this morning. Patient had a bowel movement. is present. Otherwise feels stable. Review of systems: Was done for constitutional, cardiovascular, GI, pulmonary. relevant finding as above Active Medications Alprazolam (Xanax) 0.25 mg PO DAILY PRN PRN Reason: Anxiety Apixaban (Eliquis) 10 mg PO BID [facility] Stop: 06/25/19 09:01 Last Admin: 06/21/19 21:09 Dose: 10 mg Documented by: Apixaban (Eliquis) 5 mg PO BID [facility] Sodium Chloride (Saline 0.9%) 1,000 mls @ 100 mls/hr IV .Q10H [facility] Last Admin: 06/21/19 11:38 Dose: Not Given Documented by: Metoprolol Tartrate (Lopressor) 50 mg PO BID [facility] Last Admin: 06/21/19 21:08 Dose: 50 mg Documented by: Multivitamins/Minerals (Ivite) 1 each PO BID [facility] Last Admin: 06/21/19 21:08 Dose: 1 each Documented by: Nitroglycerin (Nitrostat) 0.4 mg SUBLINGUAL Q5M PRN PRN Reason: Chest Pain Physical examination: VITAL SIGNS: 98.2, 70, 19, 142/91, 97% on room air GENERAL: , sitting up, comfortable. EYES: Pupils equal. Conjunctiva normal. HEENT: External appearance of nose and ears normal, oral cavity grossly normal. NECK: JVD not raised; masses not palpable. HEART: First and second heart sounds are normal; no edema. LUNGS: Respiratory rate normal; clear to auscultation. ABDOMEN: Soft, nontender, liver spleen not palpable, no masses palpable. PSYCH: Alert and oriented x3; mood and affect normal. NEUROLOGICAL: Cranial nerves grossly intact; no facial asymmetry, power and sensation grossly intact. INVESTIGATIONS, reviewed in the clinical context: White count 3.9 hemoglobin 14 potassium 4 creatinine 1.06 Assessment: -Acute lower GI bleed felt to be rectal bleeding possibly internal hemorrhoids as per GI. Colonoscope in April [address] Bedolla was unremarkable -New onset atrial fibrillation currently controlled rate -History of pulmonary embolism, chronic DVT with previous [place] filter -Possible left leg acute DVT -Essential hypertension Plan: Patient started on eliquis today. We'll watch for 24 hours. Other home medications are to be continued. Care was discussed with the patient question were answered. We'll DC IV fluids.
[2019-06-22] MEDS: SODIUM CHLORIDE 0.9% 1,000 ML IV SCH (03:25)
[2019-06-22] MEDS: METOPROLOL TARTRATE 50 MG TAB PO SCH ×2 (09:37→19:51)
[2019-06-22] MEDS: VIT A,C & E-LUTEIN-MINERALS 1 EACH TAB PO SCH ×2 (09:37→19:51)
[2019-06-22] MEDS: APIXABAN 5 MG TAB PO SCH (11:33)
[2019-06-22] MEDS: IOPAMIDOL CONTRAST (ORAL USE) VIAL PO PRN ×2 (13:40→14:52)
--- NOTE | 2019-06-22 15:50 | P.PN ---
Progress Note - Text Progress Note Date: 06/22/19 Presenting complaint: Syncope History of presenting complaint: 73-year-old pleasant patient, of Dr. Todd. Chronic stable medical conditions include hypertension, history of closed head injury, prostate cancer treated with radiation, macular degeneration, history of seizure. Presented with episode of syncope. Patient had started off with eliquis the day before and had presented also with bright red blood with some talk clots. He did a colonoscopy by Dr. Bedolla in April 2019. Which showed a small colon polyp. Doppler ultrasound shows DVT in both legs suspected - left leg is felt to be more acute. Eliquis resumed on June 21 Today-nurse called me this morning that patient having hemoptysis. About a teaspoon or half a teaspoon each time. Patient does me is had a cough for a long time. But definitely this hemoptysis is significant. His vision is not good he himself cannot see well. Review of systems: Was done for constitutional, cardiovascular, GI, pulmonary. relevant finding as above Active Medications Alprazolam (Xanax) 0.25 mg PO DAILY PRN PRN Reason: Anxiety Metoprolol Tartrate (Lopressor) 50 mg PO BID [facility] Last Admin: 06/22/19 09:37 Dose: 50 mg Documented by: Multivitamins/Minerals (Ivite) 1 each PO BID [facility] Last Admin: 06/22/19 09:37 Dose: 1 each Documented by: Nitroglycerin (Nitrostat) 0.4 mg SUBLINGUAL Q5M PRN PRN Reason: Chest Pain Physical examination: VITAL SIGNS: 98, 63, 18, 102/59, 96% room air GENERAL: , sitting up, comfortable. EYES: Pupils equal. Conjunctiva normal. HEENT: External appearance of nose and ears normal, oral cavity grossly normal. NECK: JVD not raised; masses not palpable. HEART: First and second heart sounds are normal; no edema. LUNGS: Respiratory rate normal; clear to auscultation. ABDOMEN: Soft, nontender, liver spleen not palpable, no masses palpable. PSYCH: Alert and oriented x3; mood and affect normal. NEUROLOGICAL: Cranial nerves grossly intact; no facial asymmetry, power and sensation grossly intact. INVESTIGATIONS, reviewed in the clinical context: White count 3.9 hemoglobin 14 potassium 4 creatinine 1.06 Assessment: -New onset of hemoptysis in a patient started on eliquis -Acute lower GI bleed felt to be rectal bleeding possibly internal hemorrhoids as per GI. Colonoscope in April [address] Bedolla was unremarkable -New onset atrial fibrillation currently controlled rate -History of pulmonary embolism, chronic DVT with previous [place] filter -Possible left leg acute DVT -Essential hypertension Plan: I have held this eliquis. Patient had several consults discussed the same. Consultation being made to pulmonary and hematology. He is already had a filter IVC the past. Which has been no obviously epithelialized. Options are somewhat limited. We will eliquis at least for 24 hours. Also discussed with the nurse. Also spoke to Kaila from hematology. Total time spent today was about 40-45 minutes with 25 minutes in discussion.
--- NOTE | 2019-06-22 16:23 | PN ---
PROGRESS NOTE DATE OF SERVICE: 06/22/2019 Patient is a 73-year-old pleasant white male admitted to the hospital with atrial fibrillation and RVR and was started on Eliquis for newly diagnosed DVT. He was started on Eliquis 2 days ago and then had rectal bleeding, 3 episodes and Eliquis was on hold for 2 days. It was restarted yesterday morning and so far he is doing well. This morning he had some cough with small amount of streaky blood and Eliquis has been on hold. He is scheduled for a CT of the abdomen and pelvis. He denies any abdominal pain or rectal bleeding. PHYSICAL EXAMINATION: Appears comfortable, not in apparent distress. VITAL SIGNS: Stable. Blood pressure 102/59, pulse is 63, temperature 98. HEENT examination unremarkable. Conjunctivae pink. Sclerae anicteric. Oral cavity no lesions. NECK: No JVD or lymph node enlargement. CHEST: Clear to auscultation. HEART: Regular rate and rhythm. ABDOMEN: Soft. Bowel sounds are positive. No organomegaly. EXTREMITIES: No pedal edema. SKIN: No rashes. NEUROLOGIC: Alert and oriented x3. No focal deficits. LABS: From today WBC 4.2, hemoglobin 11.6, platelets 93. BUN and creatinine are within normal limits. IMPRESSION: 1. Rectal bleeding of 1 day duration, resolved after Eliquis has been on hold for two days. Eliquis has been resumed yesterday and so far no further episodes of bleeding. 2. Newly diagnosed deep venous thrombosis. 3. Atrial fibrillation with rapid ventricular rate, under control. RECOMMENDATION: 1. Monitor CBC on a daily basis. 2. Continue with Eliquis. 3. Repeat labs in the morning. 4. We will sign off at this time. If he has any rectal bleeding please notify us. Thank you for this consultation. MMODL / IJN: [id number] /
--- NOTE | 2019-06-22 16:41 | CT ---
EXAMINATION TYPE: CT abdomen pelvis w con DATE OF EXAM: 06/22/2019 COMPARISON: 01/23/2012 INDICATION: Abdominal pain. blood in stool DLP: 1322.5 mGycm, Automated exposure control for dose reduction was used. CONTRAST: 100 mL of Isovue 300. Study performed with Oral Contrast TECHNIQUE: Axial images were obtained from above the diaphragm to the pubic rami in the axial plane a t 5 mm thick sections. Reconstructed images are reviewed on the computer in the coronal plane. FINDINGS: Limited CT sections are obtained the lung bases. The lung bases are clear. CT ABDOMEN: Liver: Normal Spleen: Normal Pancreas: Normal Adrenal glands: The adrenal glands are normal. Gallbladder: Surgically absent Kidneys: No masses are evident. No hydronephrosis is present. No cysts are present. Delayed images were obtained through the kidneys, which remain unremarkable. Aorta: Vascular calcification is within the aorta. Inferior vena cava: There is a filter within the inferior vena cava. CT PELVIS: Loops of bowel within the abdomen and pelvis are normal. Diverticular changes are within the sigmoid colon. There are loops of bowel which are incompletely distended or lack oral contrast limiting th eir evaluation. Appendix: Normal as visualized. Urinary bladder: Normal. Genitourinary structures: Prostate hypertrophy is present. Osseous structures: No suspicious lytic or sclerotic lesions. IMPRESSIONS: 1. Mild diverticulosis without acute diverticulitis sigmoid colon. 2. Prostate hypertrophy
[2019-06-22] MEDS ORDERED: HEPARIN SODIUM,PORCINE 5,000 UNIT/ML 1 ML VIAL IV PRN (16:44)
[2019-06-22] MEDS ORDERED: HEPARIN SODIUM,PORCINE 5,000 UNIT/ML 1 ML VIAL IV ONE (16:44)
[2019-06-22] MEDS: HEPARIN SOD,PORK IN 0.45% NACL 25,000 UNIT in 0.45% NACL 1 250ML.BAG IV SCH (17:50)
[2019-06-22 18:07] LABS: Basophils % (A) 0 %; Eosinophils # (A) 0.1 k/uL (0-0.7); Eosinophils % (A) 3 %; HCT 37.5 % (39.0-53.0); HGB 12.7 gm/dL (13.0-17.5); Lymphocytes # (A) 0.8 k/uL (1.0-4.8); Lymphocytes % (A) 18 %; MCH 30.3 pg (25.0-35.0); MCHC 33.9 g/dL (31.0-37.0); MCV 89.3 fL (80.0-100.0); Mean Platelet Volume 8.7; Monocytes # (A) 0.3 k/uL (0-1.0); Monocytes % (A) 6 %; Neutrophils # (A) 3.3 k/uL (1.3-7.7); Neutrophils % (A) 71 %; Platelet Count 119 k/uL (150-450); RDW 12.3 % (11.5-15.5); WBC 4.6 k/uL (3.8-10.6)
[2019-06-22 18:13] LABS: Reticulocyte % 0.6 % (0.10-1.80)
--- NOTE | 2019-06-22 18:16 | P.CONS ---
History of Present Illness - Reason for Consult Consult date: 06/22/19 Acute DVT, bleeding Requesting physician: Nick Arteaga - Chief Complaint syncopy - History of Present Illness Mr. Thornton is a very pleasant 73-year-old male who we have seen in the past for history of right lower extremity DVT, pulmonary embolism, status post IVC filter placement (unsure of the exact year but, it was prior to 2012). Patient was worked up for occult malignancy, that was negative. Patient does have a history of prostate cancer treated with radiation only. He states he is up-to-date on follow-up last being seen in April 2019. Patient Had seen Dr. Joseph in the outpatient setting once. Patient had one provoked and one unprovoked incidence of blood clot, recommendation was for lifelong anticoagulation. Review of Systems 14 point review of systems is negative except as stated in HPI Past Medical History Past Medical History: Cancer, Hypertension, Pulmonary Embolus (PE) Additional Past Medical History / Comment(s): hx of seizure, closed head injury, prostate cancer with radiation, macular degeneration. History of Any Multi-Drug Resistant Organisms: None Reported Past Surgical History: Cholecystectomy Additional Past Surgical History / Comment(s): skull surgery x3, [place] Filters, colonoscopy last year one polyp removed. Past Anesthesia/Blood Transfusion Reactions: No Reported Reaction Past Psychological History: Depression Smoking Status: Never smoker Past Alcohol Use History: Occasional Past Drug Use History: Marijuana Additional Drug Use History / Comment(s): marijuana once per week if that. - Past Family History Daughter(s) Additional Family Medical History / Comment(s): colitis Mother Family Medical History: AFIB, AICD/Pacemaker Father Additional Family Medical History / Comment(s): Either a heart attack or a stroke. Medications and Allergies Home Medications Medication Instructions Recorded Confirmed Type Lisinopril-Hctz 20-25 mg 1 tab PO DAILY 11/04/17 06/18/19 History [Zestoretic 20-25] ALPRAZolam [Xanax] 0.25 mg PO DAILY PRN 05/21/18 06/18/19 History Vit C/E/Zn/Coppr/Lutein/Zeaxan 1 cap PO BID 04/14/19 06/18/19 History [Preservision Areds 2 Softgel] Allergies Allergy/AdvReac Type Severity Reaction Status Date / Time silver mercury Allergy Unknown Uncoded 06/18/19 10:59 Physical Exam Vitals: Vital Signs Temp Pulse Resp BP Pulse Ox 06/22/19 07:00 98.0 F 63 18 102/59 96 06/22/19 00:00 63 18 06/21/19 23:00 98.0 F 70 18 122/76 94 L 06/21/19 16:00 70 19 Intake and Output 06/21/19 06/22/19 06/22/19 22:59 06:59 14:59 Intake Total 1140 237 420 Output Total 100 Balance 1040 237 420 Intake: Oral 1140 237 420 Output: Stool 100 Other: Voiding Method Toilet Weight 88.1 kg - Constitutional General appearance: average body habitus, cooperative, no acute distress - EENT Eyes: anicteric sclerae ENT: hearing grossly normal, normal oropharynx - Neck Neck: no lymphadenopathy - Respiratory Respiratory: bilateral: CTA - Cardiovascular Rhythm: regular Heart sounds: normal: S1, S2 Abnormal Heart Sounds: no systolic murmur, no diastolic murmur, no rub, no S3 Gallop, no S4 Gallop, no click, no other leg Peripheral Edema: bilateral: 1+ - Gastrointestinal General gastrointestinal: no absent bowel sounds, no decreased bowel sounds, no distended, no hepatomegaly, no hyperactive bowel sounds, normal bowel sounds, no organomegaly, no rigid, no scaphoid, soft, no splenomegaly, no tenderness, no umbilical hernia, no ventral hernia - Integumentary bronzing of lower extremities consistent with vascular insufficiency - Neurologic Neurologic: CNII-XII intact - Musculoskeletal Musculoskeletal: strength equal bilaterally - Psychiatric Psychiatric: A&O x's 3, appropriate affect, intact judgment & insight Results CBC & Chem 7: 06/21/19 05:58 06/21/19 05:58 CT scan - abdomen: report reviewed CT scan - pelvis: report reviewed Assessment and Plan (1) Pulmonary embolism Current Visit: Yes Status: Acute Code(s): I26.99 - OTHER PULMONARY EMBOLISM WITHOUT ACUTE COR PULMONALE SNOMED Code(s): 56223589 (2) DVT, bilateral lower limbs Current Visit: Yes Status: Acute Priority: High Code(s): I82.403 - ACUTE EMBOLISM AND THOMBOS UNSP DEEP VEINS OF LOW EXTRM, BI SNOMED Code(s): 634685074 Plan: Antithrombin AG increased on previous work up at the office, hypercoaguable state. With Extensive history of blood clots, it was recommended in 2013 that the patient remain on lifelong anticoagulation. Patient has now, what would be considered a new DVT in the left leg considering his previous DVTs were in the right. Not able to ascertain exactly when this LLE clot developed. Irregardless, pt should be on anticoagulation for the same. Unfortunately, patient has had hemoptysis as well as significant clots from the rectum. Patient had a 4 g decrease in his hemoglobin since admit. CBC for today pending CT of the chest abdomen and pelvis performed to evaluate for acute bleeding. No thing reported suspicious. Low intensity heparin drip initiated. Close monitoring of hemoglobin. Iron studies pending. Dr. Joseph may recommend repeat Gastroenterology workup due to reports of signif icant rectal bleeding/clotting and reports of hemoptysis. Patient has a history of an IVC filter many years ago. Vascular consulted
[2019-06-22 18:43] LABS: % Iron Saturation 18.43 (15.00-50.00)
[2019-06-22 18:46] LABS: Partial Thromboplastin Time 23.9 sec (22.0-30.0); Prothrombin Time 10.3 sec (9.0-12.0)
[2019-06-22 18:51] LABS: Ferritin 219.6 ng/mL (22.0-322.0)
[2019-06-23 06:03] LABS: Basophils % (A) 0 %; Eosinophils # (A) 0.2 k/uL (0-0.7); Eosinophils % (A) 5 %; HCT 34.9 % (39.0-53.0); Lymphocytes # (A) 0.8 k/uL (1.0-4.8); Lymphocytes % (A) 21 %; MCH 30.2 pg (25.0-35.0); MCHC 34.3 g/dL (31.0-37.0); MCV 88.1 fL (80.0-100.0); Mean Platelet Volume 8.7; Monocytes # (A) 0.2 k/uL (0-1.0); Monocytes % (A) 6 %; Neutrophils # (A) 2.5 k/uL (1.3-7.7); Neutrophils % (A) 66 %; Platelet Count 108 k/uL (150-450); RBC 3.96 m/uL (4.30-5.90); RDW 12.3 % (11.5-15.5); WBC 3.7 k/uL (3.8-10.6)
[2019-06-23] MEDS: METOPROLOL TARTRATE 50 MG TAB PO SCH ×2 (09:14→21:00)
[2019-06-23] MEDS: VIT A,C & E-LUTEIN-MINERALS 1 EACH TAB PO SCH ×2 (09:14→21:00)
[2019-06-23 11:41] VITALS: BMI 31.4
--- NOTE | 2019-06-23 14:26 | P.CNPUL ---
History of Present Illness Consult date: 06/23/19 Chief complaint: Hemoptysis History of present illness: Consulted to evaluate this 71-year-old male patient for hemoptysis. This patient has a previous history of closed head injury. He has previous history of prostate cancer treated with radiation. He also has hypertension and macular degeneration and history of seizure. Also has history is positive for remote history of DVT and pulmonary embolism and the patient has an [facility] filter [facility]. The patient has not been any any anticoagulants. Currently, he had 2 bouts of DVT prior to 2012 and 1 was provoked and 1 was unprovoked. It was recommended lifelong anticoagulation. The patient came into the hospital initially for an episode of syncope. He was found to be in atrial fibrillation with rapid ventricular response. During the course of his admission, he underwent a CT angiogram that was done on 06/18/2027 showed no evidence of any pulmonary embolism. Doppler of the lower extremity showed positive DVT in the lower extremities bilaterally involving the mid and the distal popliteal on the right and proximal extending to the popliteal on the left. Findings are compatible for bilateral DVT and the finding on the left was new compared to the previous study.. The patient was placed on IV heparin and later on transition to Eliquis. During his hospital stay, he developed bright red blood per rectum with clots. Note that he has undergone a previous colonoscopy from April 2019 showing diverticulosis. He also had a small colonic polyps. CAT scan of the abdomen and pelvis was done and showed diverticulosis without diverticulitis. Based on all these ongoing event, the patient was taken off the long-term anticoagulation patient was placed on IV heparin. For now he is producing well-formed stool from this morning and he did not have any blood in his Review of Systems Constitutional: Denies chills, Denies fever Eyes: bilateral decreased vision (Macular degeneration) Ears: deny: decreased hearing, ear discharge, earache, tinnitus Ears, nose, mouth and throat: Denies headache, Denies sore throat Cardiovascular: Denies chest pain, Denies shortness of breath Respiratory: Reports hemoptysis Gastrointestinal: Reports BRBPR Genitourinary: Reports as per HPI Musculoskeletal: Reports as per HPI Musculoskeletal: absent: ankle pain, ankle stiffness, ankle swelling Integumentary: Reports as per HPI Neurological: Reports syncope Psychiatric: Reports as per HPI Endocrine: Reports as per HPI Hematologic/Lymphatic: Reports as per HPI Allergic/Immunologic: Reports as per HPI Past Medical History Past Medical History: Cancer (Prostate cancer treated with radiation therapy), Deep Vein Thrombosis (DVT) (Post-IVC filter placement), Hypertension, Pulmonary Embolus (PE) Additional Past Medical History / Comment(s): hx of seizure, closed head injury, prostate cancer with radiation, macular degeneration, macular degeneration, diverticulosis History of Any Multi-Drug Resistant Organisms: None Reported Past Surgical History: Cholecystectomy Additional Past Surgical History / Comment(s): skull surgery x3, [place] Filters, colonoscopy last year one polyp removed. Past Anesthesia/Blood Transfusion Reactions: No Reported Reaction Past Psychological History: Depression Smoking Status: Never smoker Past Alcohol Use History: Occasional Past Drug Use History: Marijuana Additional Drug Use History / Comment(s): marijuana once per week if that. - Past Family History Daughter(s) Additional Family Medical History / Comment(s): colitis Mother Family Medical History: AFIB, AICD/Pacemaker Father Additional Family Medical History / Comment(s): Either a heart attack or a stroke. Medications and Allergies Home Medications Medication Instructions Recorded Confirmed Type Lisinopril-Hctz 20-25 mg 1 tab PO DAILY 11/04/17 06/18/19 History [Zestoretic 20-25] ALPRAZolam [Xanax] 0.25 mg PO DAILY PRN 05/21/18 06/18/19 History Vit C/E/Zn/Coppr/Lutein/Zeaxan 1 cap PO BID 04/14/19 06/18/19 History [Preservision Areds 2 Softgel] Allergies Allergy/AdvReac Type Severity Reaction Status Date / Time silver mercury Allergy Unknown Uncoded 06/18/19 10:59 Physical Exam Vitals: Vital Signs Temp Pulse Resp BP Pulse Ox 06/23/19 08:00 68 16 06/23/19 07:00 98.0 F 68 16 137/80 06/23/19 00:00 72 18 06/22/19 23:00 97.9 F 72 18 113/71 96 06/22/19 15:00 97.7 F 67 18 161/94 95 Intake and Output 06/22/19 06/23/19 06/23/19 22:59 06:59 14:59 Intake Total 833 Balance 833 Intake: Oral 833 Other: Voiding Method Toilet Toilet Weight 88.2 kg 88.2 kg The patient appeared well nourished and normally developed. Vital signs as documented. Head exam is unremarkable. No scleral icterus or corneal arcus noted. Neck is without jugular venous distension, thyromegaly, or carotid bruits. Carotid upstrokes are brisk bilaterally. Lungs are clear to auscultation and percussion. Cardiac exam reveals the PMI to be normally sized and situated. Rhythm is regular. First and second heart sounds normal. No murmurs, rubs or gallops. Abdominal exam reveals normal bowel sounds, no masses, no organomegaly and no aortic enlargement. Extremities are nonedematous and both femoral and pedal pulses are normal.Examination of the skin revealed no evidence of significant rashes, suspicious appearing nevi or other concerning lesions. Results - Laboratory Findings CBC and BMP: 06/23/19 05:28 06/21/19 05:58 PT/INR, D-dimer PT 10.3 sec (9.0-12.0) 06/22/19 17:13 INR 1.0 (<1.2) 06/22/19 17:13 D-Dimer 27.77 mg/L FEU (<0.60) H 06/18/19 05:00 Abnormal lab findings: Abnormal Labs 06/18/19 06/18/19 06/18/19 05:00 05:00 05:00 WBC RBC Hgb Hct Plt Count 105 L Lymphocytes # 0.7 L APTT D-Dimer 27.77 H Sodium 135 L Potassium 3.4 L Chloride Carbon Dioxide 21 L BUN Glucose 117 H Calcium Iron HDL Cholesterol Urine Ketones 06/18/19 06/19/19 06/19/19 05:18 06:11 06:11 WBC RBC Hgb Hct Plt Count 114 L Lymphocytes # APTT D-Dimer Sodium Potassium Chloride Carbon Dioxide 21 L BUN 21 H Glucose 105 H Calcium 8.1 L Iron HDL Cholesterol 39 L Urine Ketones 2+ H 06/19/19 06/20/19 06/20/19 17:26 06:14 06:14 WBC RBC 4.17 L Hgb Hct 37.6 L 38.5 L Plt Count 103 L 110 L Lymphocytes # 0.9 L APTT D-Dimer Sodium Potassium Chloride 111 H Carbon Dioxide 21 L BUN Glucose 106 H Calcium 8.3 L Iron HDL Cholesterol Urine Ketones 06/21/19 06/21/19 06/22/19 05:58 05:58 05:58 WBC RBC 3.88 L Hgb 11.6 L Hct 34.6 L Plt Count 93 L Lymphocytes # 0.7 L APTT D-Dimer Sodium Potassium Chloride 110 H Carbon Dioxide 20 L BUN Glucose Calcium 8.1 L Iron 47 L HDL Cholesterol Urine Ketones 06/22/19 06/22/19 06/23/19 17:13 22:52 05:28 WBC 3.7 L RBC 4.20 L 3.96 L Hgb 12.7 L 12.0 L Hct 37.5 L 34.9 L Plt Count 119 L 108 L Lymphocytes # 0.8 L 0.8 L APTT 45.5 H D-Dimer Sodium Potassium Chloride Carbon Dioxide BUN Glucose Calcium Iron HDL Cholesterol Urine Ketones 06/23/19 05:29 WBC RBC Hgb Hct Plt Count Lymphocytes # APTT 47.5 H D-Dimer Sodium Potassium Chloride Carbon Dioxide BUN Glucose Calcium Iron HDL Cholesterol Urine Ketones - Diagnostic Findings Chest x-ray: image reviewed CT scan - chest: image reviewed Assessment and Plan Plan: 1 hemoptysis. The patient reports minimal amount of blood which she thinks it came from his throat. No epistaxis. No other upper airway source of bleeding. For now, the patient has a CT angiogram that showed no evidence of any pulmonary embolism. No other abnormalities to explain the patient's hemoptysis. He is on IV heparin. He has not had hemoptysis since and he is being monitored very closely while being on shortness acting IV heparin. 2 DVT of the lower extremities, bilateral. The patient is IVC filter placement was inserted for than 10 years ago. He is currently on IV heparin. No evidence of any pulmonary embolism. 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 The patient has not been offered long-term anticoagulation and the decision to place an IVC filter was done by Dr. Tsang and the exact rationale is not available to us at this point in time. I reviewed the CAT scan of the abdomen and the IVC filter is an adequate positioning. 4 diverticulosis with diverticular bleed currently inactive in stable and the patient on IV heparin 5 history of prostate cancer 6 history of macular degeneration 7 seizure disorder 8 atrial fibrillation 9 closed head injury, history of 10 history of IVC filter placement 11 history of depression 12 history of no code, no CPR him on no ventilator, no defibrillation Plan Agree on the current approach. Continue IV heparin. Typically the CAT scan of the chest is good enough to evaluate hemoptysis and in this particular patient has been negative. A bronchoscopy may not add a whole lot of more information unless the hemoptysis becomes a recurrent issue. Very reasonable to continue the IV heparin and monitor this patient for 24-48 hours for GI bleed and for hemoptysis on outpatient basis and decide if he can go on long-term anticoagulation. Will do a bronchoscopy only if his hemoptysis recurs. He'll be monitored very closely. Monitor hemoglobin. Will follow.
[2019-06-23] MEDS: HEPARIN SOD,PORK IN 0.45% NACL 25,000 UNIT in 0.45% NACL 1 250ML.BAG IV SCH (18:04)
--- NOTE | 2019-06-23 19:22 | P.PN ---
Progress Note - Text Progress Note Date: 06/23/19 Presenting complaint: Syncope History of presenting complaint: 73-year-old pleasant patient, of Dr. Todd. Chronic stable medical conditions include hypertension, history of closed head injury, prostate cancer treated with radiation, macular degeneration, history of seizure. Presented with episode of syncope. Patient had started off with eliquis the day before and had presented also with bright red blood with some talk clots. He did a colonoscopy by Dr. Bedolla in April 2019. Which showed a small colon polyp. Doppler ultrasound shows DVT in both legs suspected - left leg is felt to be more acute. Eliquis resumed on June 21. Today-no further hemoptysis today. Started on IV heparin per hematology. No new issues. Review of systems: Was done for constitutional, cardiovascular, GI, pulmonary. relevant finding as above Active Medications Alprazolam (Xanax) 0.25 mg PO DAILY PRN PRN Reason: Anxiety Last Admin: 06/23/19 09:14 Dose: 0.25 mg Documented by: Heparin Sodium (Porcine) (Heparin) 0 unit IV PER PROTOCOL PRN; Protocol PRN Reason: Low PTT Heparin Sodium/Sodium Chloride (25,000 unit/ Sodium Chloride) 250 mls @ 10.008 mls/hr IV .Q24H [facility]; Protocol Last Admin: 06/23/19 18:04 Dose: 11.36 units/kg/hr, 10.008 mls/hr Documented by: Metoprolol Tartrate (Lopressor) 50 mg PO BID [facility] Last Admin: 06/23/19 09:14 Dose: 50 mg Documented by: Multivitamins/Minerals (Ivite) 1 each PO BID [facility] Last Admin: 06/23/19 09:14 Dose: 1 each Documented by: Nitroglycerin (Nitrostat) 0.4 mg SUBLINGUAL Q5M PRN PRN Reason: Chest Pain Physical examination: VITAL SIGNS: 97.9, 63, 18, 126/79, 94% on room air GENERAL: , sitting up, comfortable. EYES: Pupils equal. Conjunctiva normal. HEENT: External appearance of nose and ears normal, oral cavity grossly normal. NECK: JVD not raised; masses not palpable. HEART: First and second heart sounds are normal; no edema. LUNGS: Respiratory rate normal; clear to auscultation. ABDOMEN: Soft, nontender, liver spleen not palpable, no masses palpable. PSYCH: Alert and oriented x3; mood and affect normal. NEUROLOGICAL: Cranial nerves grossly intact; no facial asymmetry, power and sensation grossly intact. INVESTIGATIONS, reviewed in the clinical context: Hemoglobin 12 Assessment: -New onset of hemoptysis in a patient started on eliquis-now held -Acute lower GI bleed felt to be rectal bleeding possibly internal hemorrhoids as per GI. Colonoscope in [address] Bedolla was unremarkable -New onset atrial fibrillation currently controlled rate -History of pulmonary embolism, chronic DVT with previous [place] filter -Possible left leg acute DVT -Essential hypertension Plan: Patient on IV heparin. We'll start the patient on eliquis 5 mg twice a day starting tomorrow morning. See how he does with that. Watch for another 24 hours.
[2019-06-24 07:45] LABS: Basophils % (A) 0 %; Eosinophils # (A) 0.2 k/uL (0-0.7); Eosinophils % (A) 6 %; HCT 34.2 % (39.0-53.0); HGB 11.8 gm/dL (13.0-17.5); Lymphocytes # (A) 0.8 k/uL (1.0-4.8); Lymphocytes % (A) 20 %; MCH 30.6 pg (25.0-35.0); MCHC 34.6 g/dL (31.0-37.0); MCV 88.4 fL (80.0-100.0); Mean Platelet Volume 8.3; Monocytes # (A) 0.3 k/uL (0-1.0); Monocytes % (A) 7 %; Neutrophils # (A) 2.6 k/uL (1.3-7.7); Neutrophils % (A) 66 %; Platelet Count 141 k/uL (150-450); RBC 3.86 m/uL (4.30-5.90); RDW 12.3 % (11.5-15.5); WBC 3.9 k/uL (3.8-10.6)
[2019-06-24] MEDS: APIXABAN 5 MG TAB PO SCH ×2 (09:58→19:55)
[2019-06-24] MEDS: METOPROLOL TARTRATE 50 MG TAB PO SCH ×2 (09:58→19:55)
[2019-06-24] MEDS: VIT A,C & E-LUTEIN-MINERALS 1 EACH TAB PO SCH ×2 (09:59→19:55)
--- NOTE | 2019-06-24 12:11 | P.PN ---
Subjective Progress Note Date: 06/24/19 On today's evaluation of 06/24/2019, he remains on the heparin drip. I'm pleased to report that the patient did not encounter any rectal bleeding. He did not have any hemoptysis. No chest pain. No shortness of breath. He is tolerating his diet. No nausea. No vomiting. No abdominal pain. No other significant events overnight. The plan is to watch him on IV heparin and if things go well move him to [facility] Objective - Vital Signs Vital signs: Vital Signs Temp 97.7 F 06/24/19 09:56 Pulse 66 06/24/19 09:56 Resp 16 06/24/19 09:56 BP 133/79 06/24/19 09:56 Pulse Ox 95 06/24/19 09:56 Intake & Output 06/23/19 06/24/19 06/24/19 18:59 06:59 18:59 Intake Total 242.527 Output Total 200 Balance 242.527 -200 Weight 88.2 kg Intake: Intake, IV Titration 242.527 Amount Heparin Sod,Pork in 0.45% 242.527 NaCl 25,000 unit In 0.45 % NaCl 1 250ml.bag @ 11. 36 UNITS/KG/HR 10.008 mls /hr IV .Q24H [facility] Rx#: [id number] Output: Stool 200 Other: Voiding Method Toilet Toilet # Voids 1 1 - Exam The patient appeared well nourished and normally developed. Vital signs as docu mented. Head exam is unremarkable. No scleral icterus or corneal arcus noted. Neck is without jugular venous distension, thyromegaly, or carotid bruits. Carotid upstrokes are brisk bilaterally. Lungs are clear to auscultation and percussion. Cardiac exam reveals the PMI to be normally sized and situated. Rhythm is regular. First and second heart sounds normal. No murmurs, rubs or gallops. Abdominal exam reveals normal bowel sounds, no masses, no organomegaly and no aortic enlargement. Extremities are nonedematous and both femoral and pedal pulses are normal.Examination of the skin revealed no evidence of significant rashes, suspicious appearing nevi or other concerning lesions. - Labs CBC & Chem 7: 06/24/19 06:39 06/21/19 05:58 Labs: Abnormal Lab Results - Last 24 Hours (Table) 06/24/19 Range/Units 06:39 RBC 3.86 L (4.30-5.90) m/uL Hgb 11.8 L (13.0-17.5) gm/dL Hct 34.2 L (39.0-53.0) % Plt Count 141 L (150-450) k/uL Lymphocytes # 0.8 L (1.0-4.8) k/uL Assessment and Plan Plan: 1 hemoptysis. The patient reports minimal amount of blood which she thinks it came from his throat. No epistaxis. No other upper airway source of bleeding. For now, the patient has a CT angiogram that showed no evidence of any pulmonary embolism. No other abnormalities to explain the patient's hemoptysis. He is on IV heparin. He has not had hemoptysis since and he is being monitored very closely while being on shortness acting IV heparin. 2 DVT of the lower extremities, bilateral. The patient is IVC filter placement was inserted for than 10 years ago. He is currently on IV heparin. No evidence of any pulmonary embolism. 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 The patient has not been offered long-term anticoagulation and the decision to place an IVC filter was done by Dr. Tsang and the exact rationale is not available to us at this point in time. I reviewed the CAT scan of the abdomen and the IVC filter is an adequate positioning. 4 diverticulosis with diverticular bleed currently inactive in stable and the patient on IV heparin 5 history of prostate cancer 6 history of macular degeneration 7 seizure disorder 8 atrial fibrillation 9 closed head injury, history of 10 history of IVC filter placement 11 history of depression 12 history of no code, no CPR him on no ventilator, no defibrillation Plan No evidence of bleeding The patient can be moved to [facility] for long-term anticoagulation Monitor hemoglobin Monitor for GI bleed Hemoglobin is at 11.8 and stable The patient has IVC filter in place No signs of any respiratory distress We'll continue to follow.
--- NOTE | 2019-06-24 13:54 | P.PN ---
Progress Note - Text Progress Note Date: 06/24/19 Presenting complaint: Syncope History of presenting complaint: 73-year-old pleasant patient, of Dr. Todd. Chronic stable medical conditions include hypertension, history of closed head injury, prostate cancer treated with radiation, macular degeneration, history of seizure. Presented with episode of syncope. Patient had started off with eliquis the day before and had presented also with bright red blood with some talk clots. He did a colonoscopy by Dr. Bedolla in April 2019. Which showed a small colon polyp. Doppler ultrasound shows DVT in both legs suspected - left leg is felt to be more acute. Eliquis resumed on June 21. Today-patient's IV heparin discontinued this morning. Started on eliquis 5 mg twice daily. No further bleeding episodes. Otherwise stable. at the bedside. Review of systems: Was done for constitutional, cardiovascular, GI, pulmonary. relevant finding as above Active Medications Alprazolam (Xanax) 0.25 mg PO DAILY PRN PRN Reason: Anxiety Last Admin: 06/23/19 09:14 Dose: 0.25 mg Documented by: Apixaban (Eliquis) 5 mg PO BID [facility] Last Admin: 06/24/19 09:58 Dose: 5 mg Documented by: Metoprolol Tartrate (Lopressor) 50 mg PO BID [facility] Last Admin: 06/24/19 09:58 Dose: 50 mg Documented by: Multivitamins/Minerals (Ivite) 1 each PO BID [facility] Last Admin: 06/24/19 09:59 Dose: 1 each Documented by: Nitroglycerin (Nitrostat) 0.4 mg SUBLINGUAL Q5M PRN PRN Reason: Chest Pain Physical examination: VITAL SIGNS: 97.7, 66, 16, 133/79, 95% on room air GENERAL: , Sitting at the edge of the bed, comfortable EYES: Pupils equal. Conjunctiva normal. HEENT: External appearance of nose and ears normal, oral cavity grossly normal. NECK: JVD not raised; masses not palpable. HEART: First and second heart sounds are normal; no edema. LUNGS: Respiratory rate normal; clear to auscultation. ABDOMEN: Soft, nontender, liver spleen not palpable, no masses palpable. PSYCH: Alert and oriented x3; mood and affect normal. NEUROLOGICAL: Cranial nerves grossly intact; no facial asymmetry, power and sensation grossly intact. INVESTIGATIONS, reviewed in the clinical context: Hemoglobin 11.8 Previous testing: Hemoglobin 15.100 and saturation 18.4 Potassium 3.7 creatinine 1.0 to Computed tomography scan abdomen-mild diverticulosis, of sigmoid colon, prostate hypertrophy 2-D echo-EF greater than 55% Venous Doppler-bilateral DVT, which new reported of the left side Chest CTA unremarkable Assessment: -New onset of hemoptysis in a patient started on on 10 mg twice a day then. -Acute lower GI bleed felt to be rectal bleeding possibly internal hemorrhoids as per GI. Colonoscope in [address] Bedolla was unremarkable -New onset atrial fibrillation currently controlled rate -History of pulmonary embolism, chronic DVT with previous [place] filter -Possible left leg acute DVT -Essential hypertension Plan: This morning patient started eliquis 5 mg twice a day. Discussed with the patient . All bowel movements to be analyzed by the nurse. Discussed with Dr. Rangel. If no further bleeding then home tomorrow.
--- NOTE | 2019-06-24 14:08 | P.PN ---
Subjective Progress Note Date: 06/23/19 The patient is tolerating IV heparin well. He has had no obvious recurrent bleeding. He denies any dizziness or near-syncope. He has a good appetite. No history of any chest pain or shortness of breath over baseline Objective - Vital Signs Vital signs: Vital Signs Temp 97.7 F 06/24/19 09:56 Pulse 66 06/24/19 09:56 Resp 16 06/24/19 09:56 BP 133/79 06/24/19 09:56 Pulse Ox 95 06/24/19 09:56 Intake & Output 06/23/19 06/24/19 06/24/19 18:59 06:59 18:59 Intake Total 242.527 237 Output Total 200 Balance 242.527 -200 237 Weight 88.2 kg Intake: Intake, IV Titration 242.527 Amount Heparin Sod,Pork in 0.45% 242.527 NaCl 25,000 unit In 0.45 % NaCl 1 250ml.bag @ 11. 36 UNITS/KG/HR 10.008 mls /hr IV .Q24H [facility] Rx#: [id number] Oral 237 Output: Stool 200 Other: Voiding Method Toilet Toilet # Voids 1 1 3 - Constitutional General appearance: Present: no acute distress - EENT Eyes: Present: EOMI ENT: Present: hearing grossly normal, normal oropharynx - Respiratory Respiratory: bilateral: CTA - Cardiovascular Rhythm: regular Heart sounds: normal: S1, S2 - Gastrointestinal General gastrointestinal: Present: normal bowel sounds, soft - Integumentary Integumentary: Present: normal - Musculoskeletal Musculoskeletal: Present: strength equal bilaterally - Psychiatric Psychiatric: Present: A&O x's 3, appropriate affect - Labs CBC & Chem 7: 06/24/19 06:39 06/21/19 05:58 Labs: Abnormal Lab Results - Last 24 Hours (Table) 06/24/19 Range/Units 06:39 RBC 3.86 L (4.30-5.90) m/uL Hgb 11.8 L (13.0-17.5) gm/dL Hct 34.2 L (39.0-53.0) % Plt Count 141 L (150-450) k/uL Lymphocytes # 0.8 L (1.0-4.8) k/uL Assessment and Plan (1) Anemia due to acute blood loss Narrative/Plan: The patient had developed significant rectal bleeding, upper starting eliquis this admission. He drop his hemoglobin by about 3-4 g. This has since ceased. He is currently on IV heparin without evidence of recurrent bleeding. Hemoglobin has been stable. GI consult reviewed. They feel that the bleed was likely hemorrhoidal. Repeat colonoscopy is not planned at this time with the last study being done in 04/20. The patient has not had any EGD for several years, but the type of bleed described clinically appears to be lower GI. We'll discuss the case with GI, about further consideration for GI workup. If this is not felt to be indicated, or if this turns out to be negative, then it would be reasonable to continue the patient on anticoagulation with eliquis with close monitoring. The patient was advised that given the comparatively short half life of the medication, and availability of reversal agents, this would be a reasonable option, based on risk-benefit Current Visit: Yes Status: Acute Code(s): D62 - ACUTE POSTHEMORRHAGIC ANEMIA SNOMED Code(s): 662876276 (2) DVT, bilateral lower limbs Narrative/Plan: The patient's left lower extremity clot is new, compared to prior history. It is not known if this is actually acute or subacute. However the patient was supposed to be on lifelong anticoagulation anyway. Recommendations as noted above Current Visit: Yes Status: Acute Priority: High Code(s): I82.403 - ACUTE EMBOLISM AND THOMBOS UNSP DEEP VEINS OF LOW EXTRM, BI SNOMED Code(s): 244114424 Plan: For to the admitting service for management of his other medical problems
[2019-06-24 15:48] VITALS: TEMP 98.2
[2019-06-25 06:53] LABS: Basophils % (A) 0 %; Eosinophils # (A) 0.2 k/uL (0-0.7); Eosinophils % (A) 5 %; HCT 34.5 % (39.0-53.0); HGB 11.9 gm/dL (13.0-17.5); Lymphocytes # (A) 0.7 k/uL (1.0-4.8); Lymphocytes % (A) 16 %; MCH 30.4 pg (25.0-35.0); MCHC 34.5 g/dL (31.0-37.0); Mean Platelet Volume 8.4; Monocytes # (A) 0.3 k/uL (0-1.0); Monocytes % (A) 6 %; Neutrophils # (A) 3.2 k/uL (1.3-7.7); Neutrophils % (A) 71 %; Platelet Count 171 k/uL (150-450); RBC 3.92 m/uL (4.30-5.90); RDW 12.5 % (11.5-15.5); WBC 4.5 k/uL (3.8-10.6)
[2019-06-25] MEDS: METOPROLOL TARTRATE 50 MG TAB PO SCH (08:29)
[2019-06-25] MEDS: APIXABAN 5 MG TAB PO SCH (08:29)
[2019-06-25] MEDS: VIT A,C & E-LUTEIN-MINERALS 1 EACH TAB PO SCH (08:29)
[2019-06-25 08:33] VITALS: BP 151/90; PULSE 95; RESP 16
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
[2019-06-25] MEDS ORDERED: APIXABAN 5 MG TAB PO SCH (21:00)
--- NOTE | 2019-06-26 23:34 | P.DS ---
Providers Date of admission: 06/18/19 06:01 Expected date of discharge: 06/25/19 Attending physician: Nick Arteaga Consults: 06/18/19 05:59 Consult Physician Urgent Consulting Provider: [facility] Consult Reason/Comments: new onset afib, syncope, refusing anticoagulation Do you want consulting provider notified?: Yes, Notify in am 06/19/19 11:39 Consult Physician Stat Consulting Provider: Per Conrad Consult Reason/Comments: Possible GI bleed Do you want consulting provider notified?: Yes 06/22/19 09:25 Consult Physician Urgent Consulting Provider: Shane Joseph Consult Reason/Comments: Hemoptysis, GI bleed after anticoagulation for bilateral DVT's Do you want consulting provider notified?: Yes 06/22/19 15:37 Consult Physician Routine Consulting Provider: Sue Rangel Consult Reason/Comments: hemoptysis Do you want consulting provider notified?: Yes Primary care physician: George Perez [facility] Course: Presenting complaint: Syncope History of presenting complaint: 73-year-old pleasant patient, of Dr. Todd. Chronic stable medical conditions include hypertension, history of closed head injury, prostate cancer treated with radiation, macular degeneration, history of seizure. Presented with episode of syncope. Patient had started off with eliquis the day before and had presented also with bright red blood with some blood clots. He did a colonoscopy by Dr. Bedolla in April 2019. Which showed a small colon polyp. Doppler ultrasound shows DVT in both legs suspected - left leg DVT is felt to be acute. Patient also had an episode of atrial fibrillation. Eliquis resumed on June 21. Because of eliquis was cut back to 5 mg twice a day. Patient no further bleeding. Cleared by all the consultants. Care was discussed in detail with the patient. Question answered. Told to return to the hospital for any bleeding is to occur. Discussion and discharge planning more than 35 minutes Consultation: Dr. Rangel from pulmonary Dr. Joseph from hematology Dr. Namrata Watson from GI Dr. REMY Stiles from cardiology Physical examination: VITAL SIGNS: 98.2, 95, 16, 151/90, 95% on room air GENERAL: , Sitting at the edge of the bed, comfortable EYES: Pupils equal. Conjunctiva normal. HEENT: External appearance of nose and ears normal, oral cavity grossly normal. NECK: JVD not raised; masses not palpable. HEART: First and second heart sounds are normal; no edema. LUNGS: Respiratory rate normal; clear to auscultation. ABDOMEN: Soft, nontender, liver spleen not palpable, no masses palpable. PSYCH: Alert and oriented x3; mood and affect normal. NEUROLOGICAL: Cranial nerves grossly intact; no facial asymmetry, power and sensation grossly intact. INVESTIGATIONS, reviewed in the clinical context: Hemoglobin 11.9 Previous testing: Hemoglobin 15.100 and saturation 18.4 Potassium 3.7 creatinine 1.0 to Computed tomography scan abdomen-mild diverticulosis, of sigmoid colon, prostate hypertrophy 2-D echo-EF greater than 55% Venous Doppler-bilateral DVT, which new reported of the left side Chest CTA unremarkable Assessment: -New onset of hemoptysis in a patient started on on 10 mg twice a day-resolved. -Acute lower GI bleed felt to be rectal bleeding possibly internal hemorrhoids as per GI. Colonoscope in April [address] Bedolla was unremarkable -Paroxysmal atrial fibrillation currently controlled rate -History of pulmonary embolism, chronic DVT with previous [place] filter -Possible left leg acute DVT -Essential hypertension -Macular degeneration of the eyes Disposition: Home Patient Condition at Discharge: Stable Plan - Discharge Summary Discharge Rx Participant: Yes New Discharge Prescriptions: New Apixaban [Eliquis] 5 mg PO BID #60 tab Metoprolol Tartrate [Lopressor] 50 mg PO BID #60 tab Continue ALPRAZolam [Xanax] 0.25 mg PO DAILY PRN PRN Reason: Anxiety Vit C/E/Zn/Coppr/Lutein/Zeaxan [Preservision Areds 2 Softgel] 1 cap PO BID Discontinued Lisinopril-Hctz 20-25 mg [Zestoretic 20-25] 1 tab PO DAILY Discharge Medication List ALPRAZolam [Xanax] 0.25 mg PO DAILY PRN 05/21/18 [History] Vit C/E/Zn/Coppr/Lutein/Zeaxan [Preservision Areds 2 Softgel] 1 cap PO BID 04/14/19 [History] Apixaban [Eliquis] 5 mg PO BID #60 tab 06/25/19 [Rx] Metoprolol Tartrate [Lopressor] 50 mg PO BID #60 tab 06/25/19 [Rx] Follow up Appointment(s)/Referral(s): Warren Stiles MD [STAFF PHYSICIAN] - 07/03/19 2:15 pm (At [facility] next to [address] in [place]. Please bring your insurance card, photo ID and a list of your current medications. ) Virginia Watson MD [STAFF PHYSICIAN] - 1 Week George Todd DO [Primary Care Provider] - 1-2 days Activity/Diet/Wound Care/Special Instructions: CBC--5 days Discharge Disposition: HOME SELF-CARE
[2019-06-27 08:15] LABS: Methylmalonic Acid 0.23 umol/L (<0.40)
== END 2019-06-25 15:08 | disposition home or self-care (01) | DRG 309 ==
LOC: EC 04:40 → 3SCARD 06:01 → 4SSUR 06-23 07:52
PROVIDERS: ADMIT Hospitalist; ATTEND Hospitalist
DX: I48.0 Paroxysmal atrial fibrillation (principal); E87.1 Hypo-osmolality and hyponatremia; I82.402 Acute embolism and thrombosis of unspecified deep veins of left lower extremity; R04.2 Hemoptysis; D68.32 Hemorrhagic disorder due to extrinsic circulating anticoagulants; D62 Acute posthemorrhagic anemia; K92.1 Melena; I82.503 Chronic embolism and thrombosis of unspecified deep veins of lower extremity, bilateral; K64.8 Other hemorrhoids; Z66 Do not resuscitate; I10 Essential (primary) hypertension; D69.6 Thrombocytopenia, unspecified; E87.6 Hypokalemia; E78.5 Hyperlipidemia, unspecified; F32.9 Major depressive disorder, single episode, unspecified; I95.1 Orthostatic hypotension; K63.5 Polyp of colon; G40.909 Epilepsy, unspecified, not intractable, without status epilepticus; H35.30 Unspecified macular degeneration; K57.90 Diverticulosis of intestine, part unspecified, without perforation or abscess without bleeding; Z86.711 Personal history of pulmonary embolism; Z79.01 Long term (current) use of anticoagulants; Z95.828 Presence of other vascular implants and grafts; Z92.3 Personal history of irradiation; Z90.49 Acquired absence of other specified parts of digestive tract; Z85.46 Personal history of malignant neoplasm of prostate; Z82.49 Family history of ischemic heart disease and other diseases of the circulatory system; Z82.3 Family history of stroke
CPT/HCPCS: 36415; 70450; 71046; 71275; 72125; 74177; 80048; 80053; 80061; 81003; 82607; 82728; 82747; 83540; 83550; 83735; 83921; 84484; 85025; 85027; 85045; 85379; 85610; 85730; 93005; 93306; 93970; 99285

== ENCOUNTER → 2019-07-10 | Outpatient (CLI) | payer MEDICARE ==
[2019-07-10 11:57] LABS: HGB 13.1 gm/dL (13.0-17.5); MCH 30.1 pg (25.0-35.0); MCHC 32.7 g/dL (31.0-37.0); MCV 92.1 fL (80.0-100.0); Mean Platelet Volume 8.4; Platelet Count 138 k/uL (150-450); RBC 4.35 m/uL (4.30-5.90); RDW 12.9 % (11.5-15.5); WBC 5.2 k/uL (3.8-10.6)
[2019-07-10 16:30] LABS: African American GFR (CKD) 69.6 (60.0-200.0); Anion Gap 6.9 mmol/L (4.00-12.00); BUN/Creat Ratio 14.17 Ratio (12.00-20.00); Carbon Dioxide 27.1 mmol/L (21.6-31.8); Non-African American GFR(CKD) 60.1 (60.0-200.0); Potassium 4.3 mmol/L (3.5-5.5)
== END | disposition home or self-care (01) ==
LOC: LABWHC1 10:20
PROVIDERS: ATTEND Nurse Practitioner
DX: I10 Essential (primary) hypertension (principal); E55.9 Vitamin D deficiency, unspecified; I48.0 Paroxysmal atrial fibrillation
CPT/HCPCS: 36415; 80048; 83735; 83880; 85027

== ENCOUNTER 2020-06-23 10:19 | Emergency (ER) | payer MEDICARE ==
[2020-06-23 10:30] VITALS: RESP 18; TEMP 98.8
[2020-06-23] MEDS ORDERED: CEPHALEXIN 500MG STARTER PACK 4 CAP BTL PO STA (10:41)
--- NOTE | 2020-06-23 11:29 | US ---
EXAMINATION TYPE: US venous doppler duplex LE LT DATE OF EXAM: 06/23/2020 11:09 AM COMPARISON: NONE CLINICAL HISTORY: leg swelling. Edema SIDE PERFORMED: TECHNIQUE: The lower extremity deep venous system is examined utilizing real time linear array sonog nanda with graded compression, doppler sonography and color-flow sonography. VESSELS IMAGED: Common Femoral Vein Deep Femoral Vein Greater Saphenous Vein * Femoral Vein Popliteal Vein Small Saphenous Vein * Proximal Calf Veins (* superficial vessels) Left Leg: Negative for DVT Thrombus seen in Calf Veins on previous not seen on today's exam. IMPRESSION: No evidence for acute DVT.
--- NOTE | 2020-06-23 11:36 | ED ---
Recheck HPI - General Chief Complaint: Recheck/Abnormal Lab/Rx Stated Complaint: possible blood clot Time Seen by Provider: 06/23/20 10:31 Source: patient Mode of arrival: wheelchair Limitations: no limitations - History of Present Illness Initial Comments: 74yo male on oral anticoagulation presenting to r/o blood clot secondary to swelling redness of the left lower leg x 2 days. states he has had some mild pain redness swelling of the left lower leg mostly anterior but does wrap around towards the calf. Patient sates she is concerned the calf pain that he had a blood clot present to the ER. He states he is compliant his anticoagulation therapy denies a chest pain source of breath. Deep inspiration. Patient denies any fevers, DM or additional concerns. - Related Data Home Medications Medication Instructions Recorded Confirmed Vit C/E/Zn/Coppr/Lutein/Zeaxan 1 cap PO BID 04/14/19 06/23/20 [Preservision Areds 2 Softgel] Previous Rx's Medication Instructions Recorded Apixaban [Eliquis] 5 mg PO BID #60 tab 06/25/19 Metoprolol Tartrate [Lopressor] 50 mg PO BID #60 tab 06/25/19 Allergies Allergy/AdvReac Type Severity Reaction Status Date / Time silver mercury Allergy Unknown Uncoded 06/23/20 11:42 Review of Systems ROS Statement: Those systems with pertinent positive or pertinent negative responses have been documented in the HPI. ROS Other: All systems not noted in ROS Statement are negative. Past Medical History Past Medical History: Cancer, Deep Vein Thrombosis (DVT), Hypertension, Pulmonary Embolus (PE) Additional Past Medical History / Comment(s): hx of seizure, closed head injury, prostate cancer with radiation, macular degeneration, macular degeneration, diverticulosis History of Any Multi-Drug Resistant Organisms: None Reported Past Surgical History: Cholecystectomy Additional Past Surgical History / Comment(s): skull surgery x3, [place] Filters, colonoscopy last year one polyp removed. Past Anesthesia/Blood Transfusion Reactions: No Reported Reaction Past Psychological History: Depression Smoking Status: Never smoker Past Alcohol Use History: Occasional Past Drug Use History: Marijuana - Past Family History Daughter(s) Additional Family Medical History / Comment(s): colitis Mother Family Medical History: AFIB, AICD/Pacemaker Father Additional Family Medical History / Comment(s): Either a heart attack or a stroke. General Exam - General Exam Comments Initial Comments: General: The patient is awake and alert, in no distress, and does not appear acutely ill. Eye: Pupils are equal, round and reactive to light, extra-ocular movements are intact. No nystagmus. There is normal conjunctiva bilaterally. No signs of i cterus. Musculoskeletal: Normal ROM, no tenderness. Strength 5/5. Sensation intact. Pulses equal bilaterally 2+. Neurological: A&O x 3. CN II-XII intact grossly, There are no obvious motor or sensory deficits. Coordination appears grossly intact. Speech is normal. Skin: Skin is warm and dry and no rashes. NO calf pain, there is erythema.warmth with vague borders of the lower left leg rich, some extension medially. no obvious swelling. no LE edema. Psychiatric: Cooperative, appropriate mood & affect, normal judgment. Limitations: no limitations Course Vital Signs 06/23/20 06/23/20 10:27 11:51 Temperature 98.8 F Pulse Rate 60 92 Respiratory 18 18 Rate Blood Pressure 146/92 142/88 O2 Sat by Pulse 98 99 Oximetry Medical Decision Making - Medical Decision Making US (-). Cellulitis is #1 ddx givne hx physical exam. initiated on oral abx. recommended close monitoring of worsening redness and return for fevers or constitutional symptoms. pt is to f/u with PCP. Pt discharged appearing well agreeable to care plan,. Disposition Clinical Impression: Cellulitis of left leg Disposition: HOME SELF-CARE Condition: Good Instructions (If sedation given, give patient instructions): Cellulitis (ED) Additional Instructions: Please use medication as discussed. Please follow-up with family doctor in the next 2 days.. Please return to emergency room if the symptoms increase or worsen or for any other concerns. Is patient prescribed a controlled substance at d/c from ED?: No Referrals: George Todd DO [Primary Care Provider] - 1-2 days Time of Disposition: 11:36
[2020-06-23 11:52] VITALS: BP 142/88; PULSE 92
== END 2020-06-23 11:51 | disposition home or self-care (01) ==
LOC: EC 10:19
DX: L03.116 Cellulitis of left lower limb (principal); Z91.048 Other nonmedicinal substance allergy status; Z85.46 Personal history of malignant neoplasm of prostate; Z90.49 Acquired absence of other specified parts of digestive tract; Z92.3 Personal history of irradiation
CPT/HCPCS: 99283

== ENCOUNTER 2020-10-04 10:01 | Inpatient (IN) | payer MEDICARE ==
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
[2020-10-04 12:48] LABS: Basophils % (A) 0 %; Eosinophils # (A) 0.3 k/uL (0-0.7); Eosinophils % (A) 4 %; HCT 42.8 % (39.0-53.0); HGB 14.6 gm/dL (13.0-17.5); Lymphocytes # (A) 1.1 k/uL (1.0-4.8); Lymphocytes % (A) 17 %; MCH 30.3 pg (25.0-35.0); Mean Platelet Volume 8.1; Monocytes # (A) 0.4 k/uL (0-1.0); Monocytes % (A) 6 %; Neutrophils # (A) 4.5 k/uL (1.3-7.7); Neutrophils % (A) 71 %; Platelet Count 130 k/uL (150-450); RBC 4.81 m/uL (4.30-5.90); RDW 12.1 % (11.5-15.5); WBC 6.4 k/uL (3.8-10.6)
[2020-10-04 12:57] LABS: Potassium 4.5 mmol/L (3.5-5.1); Total Bilirubin 1.2 mg/dL (0.2-1.3); Total Protein 6.6 g/dL (6.3-8.2)
[2020-10-04 19:16] LABS: Amphetamine Screen,Urine Not Detected (NotDetected); Barbiturate Screen,Urine Not Detected (NotDetected); Benzodiazepines Screen,Urine Not Detected (NotDetected); Cocaine Screen,Urine Not Detected (NotDetected); Methadone Screen, Urine Not Detected (NotDetected); Opiate Screen,Urine Not Detected (NotDetected); Oxycodone Screen, Urine Not Detected (NotDetected); Phencyclidine Screen,Urine Not Detected (NotDetected); Tricyclic Antidepressant,Urine Not Detected (NotDetected); Urn Cannabinoid Scrn Not Detected (NotDetected)
[2020-10-04] MEDS ORDERED: ALPRAZolam 0.5 MG TAB PO STA (19:37)
[2020-10-04] MEDS ORDERED: MAG HYDROX/AL HYDROX/SIMETH 30 ML CUP PO PRN (19:50)
[2020-10-04] MEDS ORDERED: MAGNESIUM HYDROXIDE 2,400 MG/10 ML CUP PO PRN (19:50)
[2020-10-04] MEDS ORDERED: ACETAMINOPHEN TAB 325 MG TAB PO PRN (19:50)
[2020-10-04] MEDS ORDERED: LORazepam 0.5 MG TAB PO PRN (19:56)
[2020-10-04] MEDS ORDERED: LORazepam 2 MG/ML INJ IM PRN (19:56)
[2020-10-04] MEDS ORDERED: HALOPERIDOL LACTATE 5 MG/ML 1 ML VIAL IM PRN (19:57)
[2020-10-04] MEDS ORDERED: haloperidoL 1 MG TAB PO PRN (19:57)
[2020-10-04] MEDS: traZODone HCL 50 MG TAB PO SCH (20:49)
[2020-10-04] MEDS: APIXABAN 5 MG TAB PO SCH (20:49)
[2020-10-04] MEDS: VIT A,C & E-LUTEIN-MINERALS 1 EACH TAB PO SCH (21:12)
[2020-10-05 08:14] LABS: Basophils % (A) 1 %; Eosinophils # (A) 0.3 k/uL (0-0.7); Eosinophils % (A) 6 %; HCT 40.5 % (39.0-53.0); HGB 14.3 gm/dL (13.0-17.5); Lymphocytes % (A) 23 %; MCH 31.5 pg (25.0-35.0); MCHC 35.3 g/dL (31.0-37.0); MCV 89.3 fL (80.0-100.0); Mean Platelet Volume 8.1; Monocytes # (A) 0.4 k/uL (0-1.0); Monocytes % (A) 8 %; Neutrophils # (A) 2.8 k/uL (1.3-7.7); Neutrophils % (A) 61 %; Platelet Count 133 k/uL (150-450); RBC 4.54 m/uL (4.30-5.90); RDW 12.2 % (11.5-15.5); WBC 4.5 k/uL (3.8-10.6)
[2020-10-05 08:43] LABS: Albumin 3.5 g/dL (3.5-5.0); Calcium 9.3 mg/dL (8.4-10.2); Potassium 4.4 mmol/L (3.5-5.1); Total Bilirubin 0.7 mg/dL (0.2-1.3); Total Protein 5.9 g/dL (6.3-8.2)
[2020-10-05] MEDS: ARIPiprazole 5 MG TAB PO SCH (09:06)
[2020-10-05] MEDS: APIXABAN 5 MG TAB PO SCH ×2 (09:06→20:47)
[2020-10-05] MEDS: VIT A,C & E-LUTEIN-MINERALS 1 EACH TAB PO SCH ×3 (09:07→20:47)
--- NOTE | 2020-10-05 14:29 | P.HP ---
Psychiatric H&P - . H&P Date: 10/05/20 History & Physical: Allergies Allergy/AdvReac Type Severity Reaction Status Date / Time silver mercury Allergy Mild Rash/Hives Uncoded 10/04/20 20:23 Vital Signs Temp 97.3 F L 10/05/20 09:10 Pulse 90 10/05/20 09:10 Resp 20 10/05/20 09:10 BP 142/86 10/05/20 09:10 Pulse Ox 97 10/05/20 09:10 Intake & Output 10/04/20 10/05/20 10/05/20 18:59 06:59 18:59 Weight 91.626 kg 91.626 kg Laboratory Last Values WBC 4.5 k/uL (3.8-10.6) 10/05/20 07:22 RBC 4.54 m/uL (4.30-5.90) 10/05/20 07:22 Hgb 14.3 gm/dL (13.0-17.5) 10/05/20 07:22 Hct 40.5 % (39.0-53.0) 10/05/20 07:22 MCV 89.3 fL (80.0-100.0) 10/05/20 07:22 MCH 31.5 pg (25.0-35.0) 10/05/20 07:22 MCHC 35.3 g/dL (31.0-37.0) 10/05/20 07:22 RDW 12.2 % (11.5-15.5) 10/05/20 07:22 Plt Count 133 k/uL (150-450) L 10/05/20 07:22 MPV 8.1 10/05/20 07:22 Neutrophils % 61 % 10/05/20 07:22 Lymphocytes % 23 % 10/05/20 07:22 Monocytes % 8 % 10/05/20 07:22 Eosinophils % 6 % 10/05/20 07:22 Basophils % 1 % 10/05/20 07:22 Neutrophils # 2.8 k/uL (1.3-7.7) 10/05/20 07:22 Lymphocytes # 1.0 k/uL (1.0-4.8) 10/05/20 07:22 Monocytes # 0.4 k/uL (0-1.0) 10/05/20 07:22 Eosinophils # 0.3 k/uL (0-0.7) 10/05/20 07:22 Basophils # 0.0 k/uL (0-0.2) 10/05/20 07:22 Sodium 139 mmol/L (137-145) 10/05/20 07:22 Potassium 4.4 mmol/L (3.5-5.1) 10/05/20 07:22 Chloride 107 mmol/L (98-107) 10/05/20 07:22 Carbon Dioxide 25 mmol/L (22-30) 10/05/20 07:22 Anion Gap 7 mmol/L 10/05/20 07:22 BUN 18 mg/dL (9-20) 10/05/20 07:22 Creatinine 1.03 mg/dL (0.66-1.25) 10/05/20 07:22 Est GFR (CKD-EPI)AfAm 83 (>60 ml/min/1.73 sqM) 10/05/20 07:22 Est GFR (CKD-EPI)NonAf 72 (>60 ml/min/1.73 sqM) 10/05/20 07:22 Glucose 102 mg/dL (74-99) H 10/05/20 07:22 Calcium 9.3 mg/dL (8.4-10.2) 10/05/20 07:22 Total Bilirubin 0.7 mg/dL (0.2-1.3) 10/05/20 07:22 AST 20 U/L (17-59) 10/05/20 07:22 ALT 14 U/L (4-49) 10/05/20 07:22 Alkaline Phosphatase 76 U/L (38-126) 10/05/20 07:22 Total Protein 5.9 g/dL (6.3-8.2) L 10/05/20 07:22 Albumin 3.5 g/dL (3.5-5.0) 10/05/20 07:22 TSH 1.070 mIU/L (0.465-4.680) 10/05/20 07:22 Urine Opiates Screen Not Detected (NotDetected) 10/04/20 18:59 Ur Oxycodone Screen Not Detected (NotDetected) 10/04/20 18:59 Urine Methadone Screen Not Detected (NotDetected) 10/04/20 18:59 Ur Propoxyphene Screen Not Detected (NotDetected) 10/04/20 18:59 Ur Barbiturates Screen Not Detected (NotDetected) 10/04/20 18:59 U Tricyclic Antidepress Not Detected (NotDetected) 10/04/20 18:59 Ur Phencyclidine Scrn Not Detected (NotDetected) 10/04/20 18:59 Ur Amphetamines Screen Not Detected (NotDetected) 10/04/20 18:59 U Methamphetamines Scrn Not Detected (NotDetected) 10/04/20 18:59 U Benzodiazepines Scrn Not Detected (NotDetected) 10/04/20 18:59 Urine Cocaine Screen Not Detected (NotDetected) 10/04/20 18:59 U Marijuana (THC) Screen Not Detected (NotDetected) 10/04/20 18:59 Coronavirus (PCR) Not Detected (Not Detectd) 10/04/20 17:33 10/05/20 14:13 Reason for admission: Patient stated that he is going blind . He stated he was trying to get his lawn mowing equipment started and could not and flipped out. History of present illness: he stated that it happens with him every 4-6 years and life and becomes unbearable and he starts thinking that the world would be a better place without him. He feels depressed or sad and down. He starts having the suicidal thoughts but stated that he has no specific plan. He stated he has tried taking overdose of pills in the past. Past history: He stated that this is the third time that he has been admitted here on psychiatric unit. He has a history of being in [facility] and [facility] in the past. He has made an appointment at [facility] mental health but has not been under regular treatment there as yet. Family history: He stated he lives with his and son and his son was involved in a car accident when he was 6 or 7 years old. He stated his son is in wheelchair but has some use of his left hand and this thing has been very stressful for him. He denies any family history of mental illness, suicide or alcohol drug problems. Medical history: He stated that he has a history of head injury long time ago. He stated it was a bowling accident and he should not have lived but did survive. He stated that he has macular degeneration and needs to go and see the eye doctor. Social history: He stated he grew up with his parents and has BSc from college. 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 Medication history: He stated he takes heart medication Eloquis. He stated he does not take anything for depression. He stated that that he has been tried pretty much on everything for depression. He stated Abilify does help him with his depression. Substance abuse history: He stated he does drink alcohol occasionally and smokes marijuana at least once a week. He denies abuse of any other drugs. Suicide or homicide thoughts: He stated he has had suicidal thoughts in the past. Legal history: He denied any history of legal problems. ALLERGIES and ADR: He stated that he is ALLERGIC to Silver Mercury ointment whi ch is not available in the market anymore. He stated he had a bad reaction with the Celexa in the past. Mental status examination: He is a bearded man who appears somewhat older than his stated age. He has adequate speech language and communication skills. His mood and affect is depressed. His behavior is cooperative. He denies any auditory or visual hallucinations or any types of delusions. He does not have any loose associations flight of ideas or any disorder of thought process. He is alert and oriented to time place and person. He was able to do similarities and differences between common objects and was able to interpret simple proverbs. He does have insight into his problems but his judgment is impaired. His impulse control is poor. His memory and other cognitive functions are intact. Diagnostic impression: Major depression recurrent severe History of head injury Macular degeneration Treatment recommendations: I will start him on a combination of Zoloft and Abilify. He will be encouraged to participate in unit activities.
--- NOTE | 2020-10-05 16:31 | P.CONS ---
History of Present Illness - Reason for Consult Atrial fibrillation, medical clearance - History of Present Illness Patient is a pleasant 74-year-old male is admitted for major depression. 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 Patient does have history of atrial fibrillation on anticoagulation with Eliquis patient is presently sinus rhythm. Patient to is in metoprolol. Review of Systems REVIEW OF SYSTEMS: CONSTITUTIONAL: No fever, no malaise, no fatigue. HEENT: No recent visual problems or hearing problems. Denied any sore throat. CARDIOVASCULAR: No chest pain, orthopnea, PND, no palpitations, no syncope. PULMONARY: No shortness of breath, no cough, no hemoptysis. GASTROINTESTINAL: No diarrhea, no nausea, no vomiting, no abdominal pain. NEUROLOGICAL: No headaches, no weakness, no numbness. HEMATOLOGICAL: Denies any bleeding or petechiae. GENITOURINARY: Denies any burning micturition, frequency, or urgency. MUSCULOSKELETAL/RHEUMATOLOGICAL: Denies any joint pain, swelling, or any muscle pain. ENDOCRINE: Denies any polyuria or polydipsia. The rest of the 14-point review of systems is negative. Past Medical History Past Medical History: Atrial Fibrillation, Cancer, Deep Vein Thrombosis (DVT), Hypertension, Pulmonary Embolus (PE) Additional Past Medical History / Comment(s): closed head injury 1963, hx of seizure remote >30years, closed head injury, prostate cancer with radiation, macular degeneration, diverticulosis. AFIB with yamilka filter History of Any Multi-Drug Resistant Organisms: None Reported Past Surgical History: Cholecystectomy Additional Past Surgical History / Comment(s): skull surgery x3, [place] Filters, colonoscopy last year one polyp removed. Past Anesthesia/Blood Transfusion Reactions: No Reported Reaction Past Psychological History: Depression Smoking Status: Never smoker Past Alcohol Use History: Occasional Past Drug Use History: Marijuana Additional Drug Use History / Comment(s): marijuana once per week if that. - Past Family History Daughter(s) Additional Family Medical History / Comment(s): colitis Mother Family Medical History: AFIB, AICD/Pacemaker Father Additional Family Medical History / Comment(s): Either a heart attack or a stroke. Medications and Allergies Home Medications Medication Instructions Recorded Confirmed Type Vit C/E/Zn/Coppr/Lutein/Zeaxan 1 cap PO BID 04/14/19 10/04/20 History [Preservision Areds 2 Softgel] Apixaban [Eliquis] 5 mg PO BID #60 tab 06/25/19 10/04/20 Rx Metoprolol Tartrate [Lopressor] 50 mg PO BID #60 tab 06/25/19 10/04/20 Rx ALPRAZolam [Xanax] 0.25 mg PO DAILY PRN 10/04/20 10/04/20 History S[place] Carbonate 150 mg PO BID 10/04/20 10/04/20 History Sertraline [Zoloft] 25 mg PO DAILY 10/04/20 10/04/20 History Allergies Allergy/AdvReac Type Severity Reaction Status Date / Time silver mercury Allergy Mild Rash/Hives Uncoded 10/04/20 20:23 Physical Exam Vitals: Vital Signs Temp Pulse Pulse Pulse Resp BP BP 10/05/20 09:10 97.3 F L 90 20 142/86 10/04/20 19:50 99.2 F 73 16 140/88 10/04/20 16:57 77 16 127/72 Pulse Ox 10/05/20 09:10 97 10/04/20 19:50 98 10/04/20 16:57 95 PHYSICAL EXAMINATION: GENERAL: The patient is alert and oriented x3, not in any acute distress. Well developed, well nourished. HEENT: Pupils are round and equally reacting to light. EOMI. No scleral icterus. No conjunctival pallor. Normocephalic, atraumatic. No pharyngeal erythema. No thyromegaly. CARDIOVASCULAR: S1 and S2 present. No murmurs, rubs, or gallops. PULMONARY: Chest is clear to auscultation, no wheezing or crackles. ABDOMEN: Soft, nontender, nondistended, normoactive bowel sounds. No palpable organomegaly. MUSCULOSKELETAL: No joint swelling or deformity. EXTREMITIES: No cyanosis, clubbing, or pedal edema. NEUROLOGICAL: Gross neurological examination did not reveal any focal deficits. SKIN: No rashes. Results CBC & Chem 7: 10/05/20 07:22 10/05/20 07:22 Labs: Abnormal Lab Results - Last 24 Hours (Table) 10/05/20 10/05/20 Range/Units 07: 07:22 Plt Count 133 L (150-450) k/uL Glucose 102 H (74-99) mg/dL Total Protein 5.9 L (6.3-8.2) g/dL Assessment and Plan Plan: -Atrial fibrillation: Presently rate controlled presently sinus rhythm continue with anticoagulation and metoprolol. -Occasional marijuana use and occupational all use - major depression management as per primary service -Macular degeneration follow with the ophthalmology as an outpatient
[2020-10-05 18:11] LABS: Hemoglobin A1C 5.2 % (4.0-6.0)
[2020-10-05 20:42] LABS: Chol/HDL Ratio 4.34; LDL Cholesterol,Calculated 91.6 mg/dL (0.0-131.0); VLDL Calculation 35.4 mg/dL (5.00-40.00)
[2020-10-05] MEDS: traZODone HCL 50 MG TAB PO SCH (20:52)
[2020-10-05] MEDS: METOPROLOL TARTRATE 50 MG TAB PO SCH (20:53)
[2020-10-06] MEDS: ARIPiprazole 5 MG TAB PO SCH (09:11)
[2020-10-06] MEDS: APIXABAN 5 MG TAB PO SCH ×2 (09:11→20:09)
[2020-10-06] MEDS: VIT A,C & E-LUTEIN-MINERALS 1 EACH TAB PO SCH ×2 (09:12→20:16)
[2020-10-06] MEDS: METOPROLOL TARTRATE 50 MG TAB PO SCH ×2 (09:12→20:09)
--- NOTE | 2020-10-06 12:58 | P.PN ---
Progress Note - Text Progress Note Date: 10/06/20 Interval History: Patient was seen in his room and was directable and agreeable to speak with technical publications writer. He continues to feel depressed and sad and down. He continues to have the suicidal thoughts and does not want to live anymore.. Patient denies any side effects from the medications and has been compliant with meds. Mental Status Exam: General Appearance: Patient appears to be stated age is alert, directable, and cooperative. Behavior: Patient is calmly seated without any agitated behavior. Speech: Patient's speech is low in volume and monosyllable. Mood/Affect: Mood and affect is depressed. Suicidality/Homicidality: Patient continues to have suicidal thoughts. Perceptions: Patient denies any visual hallucinations and denies any auditory hallucinations Though content/process: There is no evidence of any delusional thought content and thought process is linear and goal-directed. Memory and concentration: Patient is not able to concentrate and his memory is poor as well Judgment and insight: Insight is poor and judgment is impaired Assessment This patient continues to show symptoms of depression and suicidality Plan: -Patient continues to meet criteria for inpatient psychiatric admission for symptom stabilization and safety. -Medications: Continue medication as before -When necessary Ativan and Haldol for agitation/aggression. -SW on board for discharge planning. Encouraged the patient to participate in milieu.
[2020-10-06] MEDS: traZODone HCL 50 MG TAB PO SCH (20:08)
[2020-10-07 07:13] VITALS: RESP 16
[2020-10-07] MEDS: VIT A,C & E-LUTEIN-MINERALS 1 EACH TAB PO SCH ×2 (08:44→20:30)
[2020-10-07] MEDS: ARIPiprazole 5 MG TAB PO SCH (08:44)
[2020-10-07] MEDS: APIXABAN 5 MG TAB PO SCH ×2 (08:44→20:29)
[2020-10-07] MEDS: METOPROLOL TARTRATE 50 MG TAB PO SCH ×2 (08:44→20:29)
--- NOTE | 2020-10-07 11:34 | P.PN ---
Progress Note - Text Progress Note Date: 10/07/20 Interval History: Patient was seen sitting in on group today and was directable and agreeable to speak with television writer in the office. Patient claims that he is still dealing with depression and anxiety however states that his irritability has been improving since being on the Abilify. He claims that his sleep has been improving as well on the trazodone and wants to remain at the same dose. He claims that he is still having vague thoughts of suicide at times however no intent or plan. He claims that these are mainly passive thoughts. She states that he has been trying to go to group and work on his coping skills. He spoke of more of the reason why he came to the hospital and also his head injury which he sustained 50 years ago and how he has been dealing with the symptoms as they have persisted. At this time patient denies any homical ideations, intent or plan. Patient denies any auditory, visual hallucinations and denies any paranoia or delusions. Patient denies any side effects from the medications and has been compliant with meds. Mental Status Exam: General Appearance: Patient appears to be stated age is alert, directable, attempts to be cooperative. Guillen. Improving hygiene and grooming. Behavior: Patient is calmly seated without any agitated behavior. Timid. Speech: Patient's speech is fluent and nonpressured. Soft spoken Mood/Affect: Mood is depressed and anxious, affect is congruent and constricted. Suicidality/Homicidality: Patient denies having any suicidal or homicidal ideation intent or plan. Perceptions: Patient denies any visual hallucinations and denies any auditory hallucinations Though content/process: Rambles at times, tangential. Logical. Focused on his stressors and depression. Memory and concentration: AOX3, grossly intact for the purposes of this session Judgment and insight: Improving mildly Assessment Major depression recurrent severe History of head injury Macular degeneration Plan: -Patient continues to meet criteria for inpatient psychiatric admission for symptom stabilization and safety. Patient has signed adult voluntary form and medication consent and was placed in patient's chart. -Medications: Continue with Abilify 2.5 mg daily for mood stabilization/mood adjunct. Added Lexapro 5 mg daily for mood/anxiety. Continue with trazodone 25 mg daily at bedtime for insomnia/mood -When necessary Ativan and Haldol for agitation/aggression. -NRT - not needed as patient does not smoke -SW on board for discharge planning. Encouraged the patient to participate in milieu. Likely discharge in 1-2 days back home.
[2020-10-07] MEDS: ESCITALOPRAM 5 MG TAB PO SCH (12:00)
[2020-10-07] MEDS: traZODone HCL 50 MG TAB PO SCH (20:29)
[2020-10-08 05:59] VITALS: PULSE 72
[2020-10-08] MEDS: VIT A,C & E-LUTEIN-MINERALS 1 EACH TAB PO SCH (08:43)
[2020-10-08] MEDS: ESCITALOPRAM 5 MG TAB PO SCH (08:43)
[2020-10-08] MEDS: APIXABAN 5 MG TAB PO SCH (08:44)
[2020-10-08] MEDS: ARIPiprazole 5 MG TAB PO SCH (08:44)
[2020-10-08] MEDS: METOPROLOL TARTRATE 50 MG TAB PO SCH (08:44)
[2020-10-08 08:48] VITALS: BP 167/75; TEMP 97.1
--- NOTE | 2020-10-08 09:08 | P.DS ---
Providers Date of admission: 10/04/20 19:46 Expected date of discharge: 10/08/20 Attending physician: Milton Hendricks MD Consults: 10/04/20 19:50 Consult Physician Routine Consulting Provider: Sukumar Varner Consult Reason/Comments: Medical Management Do you want consulting provider notified?: Yes Primary care physician: George Todd - Discharge Diagnosis(es) (1) Major depressive disorder, recurrent severe without psychotic features Current Visit: Yes Status: Acute Priority: High (2) History of traumatic head injury Current Visit: Yes Status: Acute Priority: Medium (3) Macular degeneration Current Visit: Yes Status: Acute Priority: Medium Hospital Course: Admission HPI: Admission note was completed by Dr. Schreiber "Patient stated that he is going blind . He stated he was trying to get his lawn mowing equipment started and could not and flipped out. he stated that it happens with him every 4-6 years and life and becomes unbearable and he starts thinking that the world would be a better place without him. He feels depressed or sad and down. He starts having the stinson icidal thoughts but stated that he has no specific plan. He stated he has tried taking overdose of pills in the past. He stated that this is the third time that he has been admitted here on psychiatric unit. He has a history of being in [facility] and [facility] in the past. He has made an appointment at [facility] but has not been under regular treatment there as yet." Hospital course: Upon admission to the unit patient was initially depressed and suicidal. Patient was however directable and agreeable to commence treatment and signed adult voluntary form. Patient got along well with other patients on the unit and followed unit protocol. Patient was compliant with the medications and denied any side effects throughout hospital course. Patient was started on trazodone 25 mg daily at bedtime for insomnia/mood, Lexapro 5 mg daily for mood/anxiety, Abilify 2.5 mg daily for mood stabilization/mood adjunct. Patient spoke of his stressors and engaged in therapy both group and individual. Patient was also seen by medical team for history and physical exam. Throughout the course of the hospitalization patient gradually improved with regards to mood, anxiety, sleep and became more future oriented with improved insight and judgment. On the day of discharge patient denied any suicidal or homicidal ideations intent or plan denied any auditory or visual hallucinations. Patient endorsed wanting to live for his health and family. The patient denied any access to guns or weapons. Patient denied any paranoia and did not endorse any delusions. Jia avilez does not have a significant history of substance abuse however was counseled on abstaining from all substances including alcohol and marijuana. Patient was also counseled on the medications and need for regular compliance and was encouraged to follow-up with their outpatient appointment for mental health and also for primary care. Prior to discharge a family meeting will be arranged by social media content manager to answer any questions and ensure safety upon discharge. Mental status exam: General Appearance: Patient appears to be overweight, elderly, alert, pleasant, and cooperative. Patient is in no acute distress and has improved hygiene and grooming Behavior: Patient is calmly seated without any agitated behavior. Speech: Patient's speech is fluent and nonpressured. Mood/Affect: Patient reports their mood is "good", affect is congruent and euthymic. Suicidality/Homicidality: Patient denies having any suicidal or homicidal ideation intent or plan. Perceptions: Patient denies any auditory or visual hallucinations. Though content/process: There is no evidence of any delusional thought content and thought process is linear and goal-directed. more future oriented Memory and concentration: AOX3, grossly intact for the purposes of this session. Can spell "WORLD" backwards correctly. Judgment and insight: improved with guarded prognosis Impression: Major depressive disorder, recurrent, severe without psychotic features History of traumatic head injury Macular degeneration Plan: -Continue with discharge today as patient has improved and stabilized psychiatrically and is not currently an imminent threat to himself and/or others. [Patient will remain at chronically elevated risk for harm to self and/or others due to his impulsivity.] -Continue medications: Trazodone 25 mg daily at bedtime for insomnia/mood, Lexapro 5 mg daily for mood/anxiety, Abilify 2.5 mg daily for mood stabilization/mood adjunct -Patient was counseled on the need for medication compliance and appropriate follow-up at mental health and also primary care for medical issues. Patient verbalized understanding and agreed. -Social work to [arrange for and conduct family meeting to ensure safety upon discharge and answer any questions/concerns.] Social work also to arrange for patients follow up appointments [with [facility]] for psychiatric care along with follow up with primary care provider. -Patient counseled on abstaining from recreational drugs and marijuana and alcohol. Was informed/educated on the adverse effects on their physical and mental health. [Patient verbally agreed and understood]. -Patient was instructed to return to the hospital or seek immediate medical care if their psychiatric or medical symptoms do worsen or reoccur. Allergies Allergy/AdvReac Type Severity Reaction Status Date / Time silver mercury Allergy Mild Rash/Hives Uncoded 10/04/20 20:23 Laboratory Results WBC 4.5 k/uL (3.8-10.6) 10/05/20 07:22 RBC 4.54 m/uL (4.30-5.90) 10/05/20 07:22 Hgb 14.3 gm/dL (13.0-17.5) 10/05/20 07:22 Hct 40.5 % (39.0-53.0) 10/05/20 07:22 MCV 89.3 fL (80.0-100.0) 10/05/20 07:22 MCH 31.5 pg (25.0-35.0) 10/05/20 07:22 MCHC 35.3 g/dL (31.0-37.0) 10/05/20 07:22 RDW 12.2 % (11.5-15.5) 10/05/20 07:22 Plt Count 133 k/uL (150-450) L 10/05/20 07:22 MPV 8.1 10/05/20 07:22 Neutrophils % 61 % 10/05/20 07:22 Lymphocytes % 23 % 10/05/20 07:22 Monocytes % 8 % 10/05/20 07:22 Eosinophils % 6 % 10/05/20 07:22 Basophils % 1 % 10/05/20 07:22 Neutrophils # 2.8 k/uL (1.3-7.7) 10/05/20 07:22 Lymphocytes # 1.0 k/uL (1.0-4.8) 10/05/20 07:22 Monocytes # 0.4 k/uL (0-1.0) 10/05/20 07:22 Eosinophils # 0.3 k/uL (0-0.7) 10/05/20 07:22 Basophils # 0.0 k/uL (0-0.2) 10/05/20 07:22 Sodium 139 mmol/L (137-145) 10/05/20 07:22 Potassium 4.4 mmol/L (3.5-5.1) 10/05/20 07:22 Chloride 107 mmol/L (98-107) 10/05/20 07:22 Carbon Dioxide 25 mmol/L (22-30) 10/05/20 07:22 Anion Gap 7 mmol/L 10/05/20 07:22 BUN 18 mg/dL (9-20) 10/05/20 07:22 Creatinine 1.03 mg/dL (0.66-1.25) 10/05/20 07:22 Est GFR (CKD-EPI)AfAm 83 (>60 ml/min/1.73 sqM) 10/05/20 07:22 Est GFR (CKD-EPI)NonAf 72 (>60 ml/min/1.73 sqM) 10/05/20 07:22 Glucose 102 mg/dL (74-99) H 10/05/20 07:[address] Glu mg/dL 103 10/05/20 07:22 Hemoglobin A1c 5.2 % (4.0-6.0) 10/05/20 07:22 Calcium 9.3 mg/dL (8.4-10.2) 10/05/20 07:22 Total Bilirubin 0.7 mg/dL (0.2-1.3) 10/05/20 07:22 AST 20 U/L (17-59) 10/05/20 07:22 ALT 14 U/L (4-49) 10/05/20 07:22 Alkaline Phosphatase 76 U/L (38-126) 10/05/20 07:22 Total Protein 5.9 g/dL (6.3-8.2) L 10/05/20 07:22 Albumin 3.5 g/dL (3.5-5.0) 10/05/20 07:22 Triglycerides 177.0 mg/dL (0.0-149.0) H 10/05/20 07:22 Cholesterol 165 mg/dL (0-200) 10/05/20 07:22 LDL Cholesterol, Calc 91.6 mg/dL (0.0-131.0) 10/05/20 07:22 VLDL Cholesterol, Calc 35.40 mg/dL (5.00-40.00) 10/05/20 07:22 HDL Cholesterol 38.0 mg/dL (40.0-60.0) L 10/05/20 07:22 Cholesterol/HDL Ratio 4.34 10/05/20 07:22 TSH 1.070 mIU/L (0.465-4.680) 10/05/20 07:22 Urine Opiates Screen Not Detected (NotDetected) 10/04/20 18:59 Ur Oxycodone Screen Not Detected (NotDetected) 10/04/20 18:59 Urine Methadone Screen Not Detected (NotDetected) 10/04/20 18:59 Ur Propoxyphene Screen Not Detected (NotDetected) 10/04/20 18:59 Ur Barbiturates Screen Not Detected (NotDetected) 10/04/20 18:59 U Tricyclic Antidepress Not Detected (NotDetected) 10/04/20 18:59 Ur Phencyclidine Scrn Not Detected (NotDetected) 10/04/20 18:59 Ur Amphetamines Screen Not Detected (NotDetected) 10/04/20 18:59 U Methamphetamines Scrn Not Detected (NotDetected) 10/04/20 18:59 U Benzodiazepines Scrn Not Detected (NotDetected) 10/04/20 18:59 Urine Cocaine Screen Not Detected (NotDetected) 10/04/20 18:59 U Marijuana (THC) Screen Not Detected (NotDetected) 10/04/20 18:59 Coronavirus (PCR) Not Detected (Not Detectd) 10/04/20 17:33 Vital Signs Temp 97.1 F L 10/08/20 08:48 Pulse 72 10/08/20 08:48 Resp 16 10/08/20 08:48 BP 167/75 10/08/20 08:48 Pulse Ox 98 10/08/20 08:48 Patient Condition at Discharge: Stable Plan - Discharge Summary New Discharge Prescriptions: New traZODone HCL [Desyrel] 25 mg PO HS 30 Days tab ARIPiprazole [Abilify] 2.5 mg PO DAILY 30 Days tab Escitalopram [Lexapro] 5 mg PO DAILY 30 Days tab Continue Vit C/E/Zn/Coppr/Lutein/Zeaxan [Preservision Areds 2 Softgel] 1 cap PO BID Apixaban [Eliquis] 5 mg PO BID #60 tab Metoprolol Tartrate [Lopressor] 50 mg PO BID #60 tab Discontinued Sertraline [Zoloft] 25 mg PO DAILY [place] Carbonate 150 mg PO BID ALPRAZolam [Xanax] 0.25 mg PO DAILY PRN PRN Reason: Anxiety Discharge Medication List Vit C/E/Zn/Coppr/Lutein/Zeaxan [Preservision Areds 2 Softgel] 1 cap PO BID 04/14/19 [History] Apixaban [Eliquis] 5 mg PO BID #60 tab 06/25/19 [Rx] Metoprolol Tartrate [Lopressor] 50 mg PO BID #60 tab 06/25/19 [Rx] ARIPiprazole [Abilify] 2.5 mg PO DAILY 30 Days tab 10/08/20 [Rx] Escitalopram [Lexapro] 5 mg PO DAILY 30 Days tab 10/08/20 [Rx] traZODone HCL [Desyrel] 25 mg PO HS 30 Days tab 10/08/20 [Rx] Follow up Appointment(s)/Referral(s): George Todd DO [Primary Care Provider] - 1-2 days Activity/Diet/Wound Care/Special Instructions: Activity and diet as tolerated. Avoid the use of street drugs and alcohol. Take all medications as prescribed. When you are in need of refills on your medications please contact your medical provider and/or outpatient psychiatrist to have this done. Please go to scheduled outpatient appointment for aftercare treatment. If symptoms return or become worse, call the crisis line at and/or go to the nearest emergency room for evaluation. Eliquis 10mg twice a day X7 days (10/03-10/10/20) then decrease Eliquis to 5 mg twice a day for 3 months (01/08/2021) for blood clots in bilateral legs. Please consult with your physician before discontinuing this medication. Discharge Disposition: HOME SELF-CARE
== END 2020-10-08 14:55 | disposition home or self-care (01) | DRG 885 ==
LOC: EC 10:01 → 3MHU 19:46
PROVIDERS: ADMIT Psychiatry & Neurology Psychiatry; ATTEND Psychiatry & Neurology Psychiatry
DX: F33.2 Major depressive disorder, recurrent severe without psychotic features (principal); R45.851 Suicidal ideations; F41.9 Anxiety disorder, unspecified; G47.00 Insomnia, unspecified; H35.30 Unspecified macular degeneration; I10 Essential (primary) hypertension; I48.91 Unspecified atrial fibrillation; Z79.01 Long term (current) use of anticoagulants; Z79.899 Other long term (current) drug therapy; Z85.46 Personal history of malignant neoplasm of prostate; Z86.711 Personal history of pulmonary embolism; Z87.828 Personal history of other (healed) physical injury and trauma; Z20.822 Contact with and (suspected) exposure to COVID-19
CPT/HCPCS: 36415; 80053; 80061; 80306; 82075; 83036; 84443; 85025; 87635; 93005; 99285

== ENCOUNTER 2020-10-29 00:18 | Inpatient (IN) | payer MEDICARE ==
--- NOTE | 2020-10-29 01:31 | XR ---
EXAMINATION TYPE: XR chest 2V DATE OF EXAM: 10/29/2020 COMPARISON: 06/18/2019 HISTORY: Chest pain TECHNIQUE: 2 views FINDINGS: Heart and mediastinum are normal. Lungs are clear. Diaphragm is normal. Bony thorax is inta ct. IMPRESSION: Normal chest. There is clearing of the minimal atelectasis in the lower lung razo juliet red to old exam.
[2020-10-29] MEDS ORDERED: NAFCILLIN 2 GM in DEXTROSE 5% IN WATER 100 ML IVPB STA ×2 (01:47)
[2020-10-29] MEDS ORDERED: VANCOMYCIN IV PER PHARMACY 1 EACH MISC MISCELLANE PRN (01:47)
--- NOTE | 2020-10-29 01:47 | ED ---
Extremity Problem HPI - General Chief complaint: Extremity Problem,Nontraumatic Stated complaint: Leg Swelling Time Seen by Provider: 10/29/20 00:38 Source: patient, EMS Mode of arrival: EMS Limitations: no limitations - History of Present Illness Initial comments: This patient is a 74-year-old man who presents with about a day of left lower extremity swelling, redness and warmth. The patient states he has had history of previous cellulitis. He states that the symptoms seem to be recurring and are going on for about a full day now. He also noticed there was a fever. Patient denies any chest symptoms. Denies injury to the lower extremity. MD Complaint: extremity pain, extremity swelling Onset/Timin -: days(s) Location: left, lower extremity History of Same: Yes Quality: dull Consistency: constant Improves with: nothing Worsens with: nothing Associated Symptoms: fever - Related Data Home Medications Medication Instructions Recorded Confirmed Vit C/E/Zn/Coppr/Lutein/Zeaxan 1 cap PO BID 04/14/19 10/29/20 [Preservision Areds 2 Softgel] Previous Rx's Medication Instructions Recorded Apixaban [Eliquis] 5 mg PO BID #60 tab 06/25/19 Metoprolol Tartrate [Lopressor] 50 mg PO BID #60 tab 06/25/19 ARIPiprazole [Abilify] 2.5 mg PO DAILY 30 Days tab 10/08/20 Escitalopram [Lexapro] 5 mg PO DAILY 30 Days tab 10/08/20 traZODone HCL [Desyrel] 25 mg PO HS 30 Days tab 10/08/20 Allergies Allergy/AdvReac Type Severity Reaction Status Date / Time silver mercury Allergy Mild ringworm-like Uncoded 10/29/20 06:57 blisters Review of Systems ROS Statement: Those systems with pertinent positive or pertinent negative responses have been documented in the HPI. ROS Other: All systems not noted in ROS Statement are negative. Constitutional: Reports: as per HPI, fever, chills Respiratory: Denies: cough, dyspnea Cardiovascular: Reports: edema. Denies: chest pain, palpitations, orthopnea, syncope Gastrointestinal: Denies: abdominal pain, vomiting, diarrhea Genitourinary: Denies: dysuria, hematuria Musculoskeletal: Denies: back pain Skin: Denies: rash Neurological: Denies: headache, weakness, numbness Past Medical History Past Medical History: Atrial Fibrillation, Cancer, Deep Vein Thrombosis (DVT), Hypertension, Pulmonary Embolus (PE) Additional Past Medical History / Comment(s): closed head injury 1964, hx of seizure remote >30years, closed head injury, prostate cancer with radiation, macular degeneration, diverticulosis. AFIB with [place] filter History of Any Multi-Drug Resistant Organisms: None Reported Past Surgical History: Cholecystectomy Additional Past Surgical History / Comment(s): skull surgery x3, [place] Filters, colonoscopy last year one polyp removed. Past Anesthesia/Blood Transfusion Reactions: No Reported Reaction Past Psychological History: Depression Smoking Status: Never smoker Past Alcohol Use History: Occasional Past Drug Use History: Marijuana - Past Family History Daughter(s) Additional Family Medical History / Comment(s): colitis Mother Family Medical History: AFIB, AICD/Pacemaker Father Additional Family Medical History / Comment(s): Either a heart attack or a st roke. General Exam Limitations: no limitations General appearance: alert, in no apparent distress Head exam: Present: atraumatic, normocephalic Eye exam: Present: normal appearance. Absent: scleral icterus, conjunctival injection Neck exam: Present: normal inspection Respiratory exam: Present: normal lung sounds bilaterally. Absent: respiratory distress, wheezes, rales, rhonchi, stridor Cardiovascular Exam: Present: regular rate, normal rhythm, normal heart sounds. Absent: systolic murmur, diastolic murmur, rubs, gallop GI/Abdominal exam: Present: soft. Absent: distended, tenderness, guarding, rebound Extremities exam: Present: normal capillary refill, pedal edema (There is moderate left lower extremity swelling, as well as erythema and warmth. No calf tenderness or Homans sign). Absent: normal inspection, tenderness, calf tenderness Back exam: Present: normal inspection. Absent: CVA tenderness (R), CVA tenderness (L) Neurological exam: Present: alert. Absent: motor sensory deficit Skin exam: Present: warm, dry, intact, erythema. Absent: cyanosis, urticaria, p etechiae, pallor, mottled Course Vital Signs 10/29/20 10/29/20 00:27 06:23 Temperature 101.2 F H 97.7 F Pulse Rate 100 72 Respiratory 18 16 Rate Blood Pressure 127/74 114/66 O2 Sat by Pulse 93 L 96 Oximetry Medical Decision Making - Medical Decision Making Patient is 74-year-old man with left lower extremity cellulitis. Given patient's history of DVTs, will have duplex Doppler as soon as available in the morning. He states he is taking his anticoagulants at this point no exam evidence of DVT. - Lab Data Result diagrams: 10/29/20 01:39 10/29/20 01:39 Lab Results 10/29/20 10/29/20 10/29/20 Range/Units 01:39 01:39 01:39 WBC 13.2 H (3.8-10.6) k/uL RBC 4.33 (4.30-5.90) m/uL Hgb 13.7 (13.0-17.5) gm/dL Hct 37.8 L (39.0-53.0) % MCV 87.3 (80.0-100.0) fL MCH 31.5 (25.0-35.0) pg MCHC 36.1 (31.0-37.0) g/dL RDW 12.1 (11.5-15.5) % Plt Count 115 L (150-450) k/uL MPV 8.2 Neutrophils % 92 % Lymphocytes % 3 % Monocytes % 4 % Eosinophils % 0 % Basophils % 0 % Neutrophils # 12.2 H (1.3-7.7) k/uL Lymphocytes # 0.4 L (1.0-4.8) k/uL Monocytes # 0.6 (0-1.0) k/uL Eosinophils # 0.0 (0-0.7) k/uL Basophils # 0.0 (0-0.2) k/uL PT 12.8 H (9.0-12.0) sec INR 1.2 H (<1.2) APTT 26.3 (22.0-30.0) sec D-Dimer 0.32 (<0.60) mg/L FEU Sodium 133 L (137-145) mmol/L Potassium 3.7 (3.5-5.1) mmol/L Chloride 100 (98-107) mmol/L Carbon Dioxide 24 (22-30) mmol/L Anion Gap 9 mmol/L BUN 20 (9-20) mg/dL Creatinine 1.19 (0.66-1.25) mg/dL Est GFR (CKD-EPI)AfAm 70 (>60 ml/min/1.73 sqM) Est GFR (CKD-EPI)NonAf 60 (>60 ml/min/1.73 sqM) Glucose 131 H (74-99) mg/dL Calcium 8.9 (8.4-10.2) mg/dL Magnesium 1.8 (1.6-2.3) mg/dL Total Bilirubin 1.8 H (0.2-1.3) mg/dL AST 30 (17-59) U/L ALT 17 (4-49) U/L Alkaline Phosphatase 73 (38-126) U/L Troponin I (0.000-0.034) ng/mL NT-Pro-B Natriuret Pep pg/mL Total Protein 6.1 L (6.3-8.2) g/dL Albumin 3.5 (3.5-5.0) g/dL Urine Color Urine Appearance (Clear) Urine pH (5.0-8.0) Ur Specific [place] (1.001-1.035) Urine Protein (Negative) Urine Glucose (UA) (Negative) Urine Ketones (Negative) Urine Blood (Negative) Urine Nitrite (Negative) Urine Bilirubin (Negative) Urine Urobilinogen (<2.0) mg/dL Ur Leukocyte Esterase (Negative) 10/29/20 10/29/20 10/29/20 Range/Units 01:39 01:39 02:45 WBC (3.8-10.6) k/uL RBC (4.30-5.90) m/uL Hgb (13.0-17.5) gm/dL Hct (39.0-53.0) % MCV (80.0-100.0) fL MCH (25.0-35.0) pg MCHC (31.0-37.0) g/dL RDW (11.5-15.5) % Plt Count (150-450) k/uL MPV Neutrophils % % Lymphocytes % % Monocytes % % Eosinophils % % Basophils % % Neutrophils # (1.3-7.7) k/uL Lymphocytes # (1.0-4.8) k/uL Monocytes # (0-1.0) k/uL Eosinophils # (0-0.7) k/uL Basophils # (0-0.2) k/uL PT (9.0-12.0) sec INR (<1.2) APTT (22.0-30.0) sec D-Dimer (<0.60) mg/L FEU Sodium (137-145) mmol/L Potassium (3.5-5.1) mmol/L Chloride (98-107) mmol/L Carbon Dioxide (22-30) mmol/L Anion Gap mmol/L BUN (9-20) mg/dL Creatinine (0.66-1.25) mg/dL Est GFR (CKD-EPI)AfAm (>60 ml/min/1.73 sqM) Est GFR (CKD-EPI)NonAf (>60 ml/min/1.73 sqM) Glucose (74-99) mg/dL Calcium (8.4-10.2) mg/dL Magnesium (1.6-2.3) mg/dL Total Bilirubin (0.2-1.3) mg/dL AST (17-59) U/L ALT (4-49) U/L Alkaline Phosphatase (38-126) U/L Troponin I 0.031 (0.000-0.034) ng/mL NT-Pro-B Natriuret Pep 1810 pg/mL Total Protein (6.3-8.2) g/dL Albumin (3.5-5.0) g/dL Urine Color Yellow Urine Appearance Clear (Clear) Urine pH 5.5 (5.0-8.0) Ur Specific [place] 1.012 (1.001-1.035) Urine Protein Negative (Negative) Urine Glucose (UA) Negative (Negative) Urine Ketones Negative (Negative) Urine Blood Negative (Negative) Urine Nitrite Negative (Negative) Urine Bilirubin Negative (Negative) Urine Urobilinogen <2.0 (<2.0) mg/dL Ur Leukocyte Esterase Negative (Negative) - EKG Data -: EKG Interpreted by Me EKG shows normal: sinus rhythm, axis (Normal), intervals (Normal), ST-T waves (Normal) Rate: normal (Rate 89 bpm) Interpretation: other (Possible old septal infarct.) Disposition Clinical Impression: Cellulitis Disposition: ADMITTED IP TO THIS [facility] Is patient prescribed a controlled substance at d/c from ED?: No
[2020-10-29] MEDS ORDERED: VANCOMYCIN 1,500 MG in SODIUM CHLORIDE 0.9% 250 ML IVPB ONE (02:00)
[2020-10-29 02:45] LABS: Basophils % (A) 0 %; Eosinophils % (A) 0 %; HCT 37.8 % (39.0-53.0); HGB 13.7 gm/dL (13.0-17.5); Lymphocytes # (A) 0.4 k/uL (1.0-4.8); Lymphocytes % (A) 3 %; MCH 31.5 pg (25.0-35.0); MCHC 36.1 g/dL (31.0-37.0); MCV 87.3 fL (80.0-100.0); Mean Platelet Volume 8.2; Monocytes # (A) 0.6 k/uL (0-1.0); Monocytes % (A) 4 %; Neutrophils # (A) 12.2 k/uL (1.3-7.7); Neutrophils % (A) 92 %; Platelet Count 115 k/uL (150-450); RBC 4.33 m/uL (4.30-5.90); RDW 12.1 % (11.5-15.5); WBC 13.2 k/uL (3.8-10.6)
[2020-10-29 02:58] LABS: Albumin 3.5 g/dL (3.5-5.0); Calcium 8.9 mg/dL (8.4-10.2); Magnesium 1.8 mg/dL (1.6-2.3); Potassium 3.7 mmol/L (3.5-5.1); Total Bilirubin 1.8 mg/dL (0.2-1.3); Total Protein 6.1 g/dL (6.3-8.2)
[2020-10-29 03:00] LABS: D-Dimer 0.32 mg/L FEU (<0.60); INR 1.2 (<1.2); Partial Thromboplastin Time 26.3 sec (22.0-30.0); Prothrombin Time 12.8 sec (9.0-12.0)
[2020-10-29] MEDS ORDERED: NALOXONE 0.4 MG/ML 1 ML VIAL IV PRN (03:06)
[2020-10-29] MEDS ORDERED: ACETAMINOPHEN TAB 325 MG TAB PO PRN (03:06)
[2020-10-29 04:03] LABS: Appearance,Urine Clear (Clear); Bilirubin,Urine Negative (Negative); Blood,Urine Negative (Negative); Color,Urine Yellow; Glucose,Urine (UA) Negative (Negative); Ketones,Urine Negative (Negative); Leukocyte Esterase,Urine Negative (Negative); Nitrite,Urine Negative (Negative); PH, Urine 5.5 (5.0-8.0); Protein,Urine Negative (Negative); Specific Gravity,Urine 1.012 (1.001-1.035); Urobilinogen,Urine <2.0 mg/dL (<2.0)
[2020-10-29] MEDS: SODIUM CHLORIDE 0.9% 1,000 ML IV SCH (06:23)
--- NOTE | 2020-10-29 07:42 | US ---
EXAMINATION TYPE: US venous doppler duplex LE LT DATE OF EXAM: 10/29/2020 7:25 AM COMPARISON: US 06/23/2020 CLINICAL HISTORY: R/O DVT. Fever, patient states no leg pain. History of dvt, patient is taking blood thinners SIDE PERFORMED: Left TECHNIQUE: The lower extremity deep venous system is examined utilizing real time linear array sonog nanda with graded compression, doppler sonography and color-flow sonography. VESSELS IMAGED: Common Femoral Vein Deep Femoral Vein Greater Saphenous Vein * Femoral Vein Popliteal Vein Small Saphenous Vein * Proximal Calf Veins (* superficial vessels) Left Leg: Negative for DVT IMPRESSION: 1. No evidence of deep venous thrombosis in the left lower extremity veins.
[2020-10-29] MEDS ORDERED: NAFCILLIN 2 GM in DEXTROSE 5% IN WATER 100 ML IVPB SCH ×2 (09:00)
[2020-10-29] MEDS: METOPROLOL TARTRATE 50 MG TAB PO SCH ×2 (09:23→21:07)
[2020-10-29] MEDS: APIXABAN 5 MG TAB PO SCH ×2 (09:23→21:06)
[2020-10-29] MEDS: ESCITALOPRAM 5 MG TAB PO SCH (09:24)
[2020-10-29] MEDS: ARIPiprazole 5 MG TAB PO SCH (09:24)
[2020-10-29] MEDS: VIT A,C & E-LUTEIN-MINERALS 1 EACH TAB PO SCH ×2 (10:45→21:34)
--- NOTE | 2020-10-29 15:23 | P.HPIM ---
History of Present Illness 74-year-old male came in with complaints of increased swelling and redness local is of temperature the left lower extremity. Patient is found to have cellulitis denied any history of MRSA in the past patient denied any fever chills. Patient had a left lower extremity Doppler which did not show any DVT. Patient was started on nafcillin and vancomycin which will be discussed uterine patient was started on ceftezolin. Patient has mildly elevated serum creatinine of 1.12 baseline is within normal limits. REVIEW OF SYSTEMS: CONSTITUTIONAL: No fever, no malaise, no fatigue. HEENT: No recent visual problems or hearing problems. Denied any sore throat. CARDIOVASCULAR: No chest pain, orthopnea, PND, no palpitations, no syncope. PULMONARY: No shortness of breath, no cough, no hemoptysis. GASTROINTESTINAL: No diarrhea, no nausea, no vomiting, no abdominal pain. NEUROLOGICAL: No headaches, no weakness, no numbness. HEMATOLOGICAL: Denies any bleeding or petechiae. GENITOURINARY: Denies any burning micturition, frequency, or urgency. MUSCULOSKELETAL/RHEUMATOLOGICAL: Denies any joint pain, swelling, or any muscle pain. ENDOCRINE: Denies any polyuria or polydipsia. The rest of the 14-point review of systems is negative. PHYSICAL EXAMINATION: GENERAL: The patient is alert and oriented x3, not in any acute distress. Well developed, well nourished. HEENT: Pupils are round and equally reacting to light. EOMI. No scleral icterus. No conjunctival pallor. Normocephalic, atraumatic. No pharyngeal erythema. No thyromegaly. CARDIOVASCULAR: S1 and S2 present. No murmurs, rubs, or gallops. PULMONARY: Chest is clear to auscultation, no wheezing or crackles. ABDOMEN: Soft, nontender, nondistended, normoactive bowel sounds. No palpable organomegaly. MUSCULOSKELETAL: No joint swelling or deformity. EXTREMITIES: No cyanosis, clubbing, or pedal edema. NEUROLOGICAL: Gross neurological examination did not reveal any focal deficits. SKIN: Significant redness swelling and local is of temperature of the left leg. No skin breakdown. Assessment and plan -Cellulitis of the left lower extremity: Patient will be started on above- mentioned antibiotic and the monitor him, discharge depending on patient's improvement. 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 Past Medical History Past Medical History: Atrial Fibrillation, Cancer, Deep Vein Thrombosis (DVT), Hypertension, Pulmonary Embolus (PE) Additional Past Medical History / Comment(s): closed head injury 1963, hx of seizure remote >30years, closed head injury, prostate cancer with radiation, macular degeneration, diverticulosis. AFIB with yamilka filter History of Any Multi-Drug Resistant Organisms: None Reported Past Surgical History: Cholecystectomy Additional Past Surgical History / Comment(s): skull surgery x3, [place] Filters, colonoscopy last year one polyp removed. Past Anesthesia/Blood Transfusion Reactions: No Reported Reaction Past Psychological History: Depression Smoking Status: Never smoker Past Alcohol Use History: Occasional Past Drug Use History: Marijuana - Past Family History Daughter(s) Additional Family Medical History / Comment(s): colitis Mother Family Medical History: AFIB, AICD/Pacemaker Father Additional Family Medical History / Comment(s): Either a heart attack or a stroke. Medications and Allergies Home Medications Medication Instructions Recorded Confirmed Type Vit C/E/Zn/Coppr/Lutein/Zeaxan 1 cap PO BID 04/14/19 10/29/20 History [Preservision Areds 2 Softgel] Apixaban [Eliquis] 5 mg PO BID #60 tab 06/25/19 10/29/20 Rx Metoprolol Tartrate [Lopressor] 50 mg PO BID #60 tab 06/25/19 10/29/20 Rx ARIPiprazole [Abilify] 2.5 mg PO DAILY 30 Days tab 10/08/20 10/29/20 Rx Escitalopram [Lexapro] 5 mg PO DAILY 30 Days tab 10/08/20 10/29/20 Rx traZODone HCL [Desyrel] 25 mg PO HS 30 Days tab 10/08/20 10/29/20 Rx Allergies Allergy/AdvReac Type Severity Reaction Status Date / Time silver mercury Allergy Mild ringworm-like Uncoded 10/29/20 06:57 blisters Physical Exam Vitals: Vital Signs Temp Pulse Resp BP Pulse Ox 10/29/20 12:02 72 102/71 96 10/29/20 09:22 83 18 104/64 95 10/29/20 06:23 97.7 F 72 16 114/66 96 10/29/20 00:27 101.2 F H 100 18 127/74 93 L Intake and Output 10/29/20 10/29/20 10/29/20 06:59 14:59 22:59 Other: Weight 90.718 kg Results CBC & Chem 7: 10/29/20 01:39 10/29/20 01:39 Labs: Abnormal Lab Results - Last 24 Hours (Table) 10/29/20 10/29/20 10/29/20 Range/Units 01:39 01:39 01:39 WBC 13.2 H (3.8-10.6) k/uL Hct 37.8 L (39.0-53.0) % Plt Count 115 L (150-450) k/uL Neutrophils # 12.2 H (1.3-7.7) k/uL Lymphocytes # 0.4 L (1.0-4.8) k/uL PT 12.8 H (9.0-12.0) sec INR 1.2 H (<1.2) Sodium 133 L (137-145) mmol/L Glucose 131 H (74-99) mg/dL Total Bilirubin 1.8 H (0.2-1.3) mg/dL Total Protein 6.1 L (6.3-8.2) g/dL
[2020-10-29] MEDS: ceFAZolin 3 GM in SODIUM CHLORIDE 0.9% 100 ML IVPB SCH (15:44)
[2020-10-29] MEDS: traZODone HCL 50 MG TAB PO SCH (21:07)
[2020-10-30] MEDS: ceFAZolin 3 GM in SODIUM CHLORIDE 0.9% 100 ML IVPB SCH ×4 (00:03→23:39)
[2020-10-30] MEDS: SODIUM CHLORIDE 0.9% 1,000 ML IV SCH ×2 (03:54→20:55)
[2020-10-30] MEDS ORDERED: VANCOMYCIN 1,500 MG in SODIUM CHLORIDE 0.9% 250 ML IVPB SCH ×2 (04:00→20:00)
[2020-10-30] MEDS: ARIPiprazole 5 MG TAB PO SCH (08:21)
[2020-10-30] MEDS: ESCITALOPRAM 5 MG TAB PO SCH (08:21)
[2020-10-30] MEDS: APIXABAN 5 MG TAB PO SCH ×2 (08:21→20:55)
[2020-10-30] MEDS: VIT A,C & E-LUTEIN-MINERALS 1 EACH TAB PO SCH ×2 (08:21→20:55)
[2020-10-30] MEDS: METOPROLOL TARTRATE 50 MG TAB PO SCH ×2 (08:22→20:55)
--- NOTE | 2020-10-30 16:43 | P.PN ---
Subjective 74-year-old male came in with complaints of increased swelling and redness local is of temperature the left lower extremity. Patient is found to have cellulitis denied any history of MRSA in the past patient denied any fever chills. Patient had a left lower extremity Doppler which did not show any DVT. Patient was started on nafcillin and vancomycin which will be discussed uterine patient was started on ceftezolin. Patient has mildly elevated serum creatinine of 1.12 baseline is within normal limits. 10/30/2020 Patient's redness and cellulitis did improve compared to yesterday. Patient will be continued on present antibiotics and infectious disease will be consulted. Constitutional: Denied any fatigue denied any fever. Cardio vascular: denied any chest pain, palpitations Gastrointestinal denied any nausea vomiting Pulmonary: Denied any shortness of breath cough Neurologic denied any new focal deficits All inpatient medications were reviewed and appropriate changes in these medications as dictated in the interval history and assessment and plan. PHYSICAL EXAMINATION: GENERAL: The patient is alert and oriented x3, not in any acute distress. Well developed, well nourished. HEENT: Pupils are round and equally reacting to light. EOMI. No scleral icterus. No conjunctival pallor. Normocephalic, atraumatic. No pharyngeal erythema. No thyromegaly. CARDIOVASCULAR: S1 and S2 present. No murmurs, rubs, or gallops. PULMONARY: Chest is clear to auscultation, no wheezing or crackles. ABDOMEN: Soft, nontender, nondistended, normoactive bowel sounds. No palpable organomegaly. MUSCULOSKELETAL: No joint swelling or deformity. EXTREMITIES: No cyanosis, clubbing, or pedal edema. NEUROLOGICAL: Gross neurological examination did not reveal any focal deficits. SKIN: Significant redness swelling and local is of temperature of the left leg, improved cellulitis compared to yesterday. No skin breakdown. Assessment and plan -Cellulitis of the left lower extremity: Patient will be started on above- mentioned antibiotic and the monitor him, discharge depending on patient's improvement. 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 Objective - Vital Signs Vital signs: Vital Signs Temp 97.5 F L 10/30/20 15:00 Pulse 77 10/30/20 15:00 Resp 18 10/30/20 15:00 BP 127/74 10/30/20 15:00 Pulse Ox 94 L 10/30/20 15:00 Intake & Output 10/29/20 10/30/20 10/30/20 18:59 06:59 18:59 Intake Total 700 Output Total 600 Balance 100 Weight 90.718 kg Intake: IV 700 Sodium Chloride 0.9% 1, 450 000 ml @ 75 mls/hr IV . [id number] [facility] Rx#:[id number] Vancomycin 1,500 mg In 250 Sodium Chloride 0.9% 250 ml @ 125 mls/hr IVPB Q16H [facility] Rx#:[id number] Output: Urine 600 Other: Voiding Method Toilet Toilet Urinal Urinal # Voids 1 - Labs CBC & Chem 7: 10/29/20 01:39 10/30/20 06:16 Labs: Microbiology - Last 24 Hours (Table) 10/29/20 01:25 Blood Culture - Preliminary Blood No Growth after 24 hours 10/29/20 01:40 Blood Culture - Preliminary Blood No Growth after 24 hours
[2020-10-30] MEDS: traZODone HCL 50 MG TAB PO SCH (20:54)
[2020-10-31 00:07] LABS: Appearance,Urine Clear (Clear); Bilirubin,Urine Negative (Negative); Blood,Urine Negative (Negative); Color,Urine Yellow; Glucose,Urine (UA) Negative (Negative); Ketones,Urine Negative (Negative); Leukocyte Esterase,Urine Negative (Negative); Nitrite,Urine Negative (Negative); Protein,Urine Trace (Negative); Specific Gravity,Urine 1.018 (1.001-1.035); Urobilinogen,Urine <2.0 mg/dL (<2.0)
[2020-10-31] MEDS: SODIUM CHLORIDE 0.9% 1,000 ML IV SCH (04:31)
[2020-10-31 05:49] LABS: African American GFR (CKD) >90 (>60 ml/min/1.73 sqM); Anion Gap 7 mmol/L; Blood Urea Nitrogen 17 mg/dL (9-20); Calcium 8.6 mg/dL (8.4-10.2); Carbon Dioxide 25 mmol/L (22-30); Chloride 105 mmol/L (98-107); Glucose 106 mg/dL (74-99); Non-African American GFR(CKD) 81 (>60 ml/min/1.73 sqM); Potassium 3.3 mmol/L (3.5-5.1); Sodium 137 mmol/L (137-145)
[2020-10-31] MEDS: APIXABAN 5 MG TAB PO SCH ×2 (07:09→21:03)
[2020-10-31] MEDS: ceFAZolin 3 GM in SODIUM CHLORIDE 0.9% 100 ML IVPB SCH ×2 (07:09→16:17)
[2020-10-31] MEDS: ARIPiprazole 5 MG TAB PO SCH (07:09)
[2020-10-31] MEDS: ESCITALOPRAM 5 MG TAB PO SCH (07:10)
[2020-10-31] MEDS: METOPROLOL TARTRATE 50 MG TAB PO SCH ×2 (07:10→21:02)
[2020-10-31] MEDS: VIT A,C & E-LUTEIN-MINERALS 1 EACH TAB PO SCH ×2 (07:10→21:03)
--- NOTE | 2020-10-31 08:15 | CONS ---
CONSULTATION DATE OF SERVICE: 10/30/2020 REASON FOR CONSULTATION: Left lower extremity cellulitis. HISTORY OF PRESENT ILLNESS: The patient is a 74-year-old male with a past medical history significant for lower extremity swelling for which the patient does use compression dressing and did have an episode of previous left lower extremity cellulitis. The patient presented to [facility] ER 2 days ago for evaluation of increasing pain, swelling and redness to the left leg that apparently started a day or two before the patient was admitted to the hospital. The patient did have diffuse swelling and redness of the left leg and did have pain to the leg more of a dull aching at times sharp in intensity, 5 to 6/10. No radiation. The patient did have diffuse swelling and redness, but no blisters or any open wound or any drainage. The patient did have fever with chills. With these symptoms, the patient was evaluated by the ER physician. On arrival to the ER the patient did have a fever of 101.2 degrees Fahrenheit. The patient did not have any tachycardia. White count was elevated at 13.2 with left shift. The patient's creatinine was normal. Liver enzymes are normal. Urine was negative. Vela PCR was negative. The patient did have a lower extremity Doppler that was negative for DVT. A chest x-ray was negative for any pneumonia. The patient was started on cefazolin and vancomycin. Infectious Disease was consulted today for further management of antibiotic therapy. REVIEW OF SYSTEMS: Positive points have been mentioned in HPI. Rest of systems are negative. PAST MEDICAL HISTORY: Atrial fibrillation, DVT, hypertension, pulmonary embolism, closed head injury, seizure disorder, prostate cancer. PAST SURGICAL HISTORY: Cholecystectomy, [place] filter placement, colonoscopy . SOCIAL HISTORY: No history of smoking. Occasionally drinks. Does admit to marijuana use. FAMILY HISTORY: Daughter with history of colitis. Mother history of atrial fibrillation and AICD placement. ALLERGIES: MORPHINE. MEDICATIONS: The patient is currently on Tylenol, Eliquis, Abilify, cefazolin 3 grams q.8 hours, vancomycin, Pharmacy to dose, Lexapro, Lopressor, Narcan and Desyrel. PHYSICAL EXAMINATION: VITAL SIGNS: Blood pressure is 142/79 with a pulse of 73, temperature 97.9. He is 95% on room air. GENERAL DESCRIPTION: Patient is an elderly male lying in bed in no distress. No tachypnea or accessory muscles of respiration use. HEENT: Examination shows no pallor or scleral icterus. Oral mucous membrane is dry. NECK: Trachea central, no thyromegaly. LUNGS: Unlabored breathing, clear to auscultation anteriorly. No wheeze or crackle. HEART: S1-S2, regular rate and rhythm. ABDOMEN: Soft, no tenderness. No guarding or rigidity. EXTREMITIES: Left leg did have diffuse swelling and redness with warmth and tenderness. No evidence of any blister formation or open wound. NEUROLOGICAL: Patient is awake, alert, oriented times three. Mood and affect normal. LABS: Hemoglobin is 13.7, white count 13.2, BUN of 20, creatinine is 1.19. Blood culture has been negative so far. DIAGNOSTIC IMPRESSION: Patient with acute left lower extremity cellulitis in this patient who presented to the hospital with sepsis with a fever, elevated white count with diffuse swelling and redness, likely streptococcal disease. Clinically doubt MRSA or any gram-negative infection. PLAN: 1. Andi the area of the redness. 2. Cefazolin 3 g q8h to continue. 3. Discontinue vancomycin. 4. Dorian wrap to the left lower extremity below the knee. 5. We will follow on his clinical condition and further adjust medication if needed. Thank you for this consultation. Will follow this patient along with you. MMODL / IJN: [id number] /
[2020-10-31] MEDS ORDERED: Potassium Replacement Protocol 1 EACH MISC MISCELLANE PRN (09:43)
[2020-10-31] MEDS: POTASSIUM CHLORIDE ER 20 MEQ TAB.ER PO SCH ×2 (10:28→11:02)
[2020-10-31 10:56] LABS: HGB 12.2 g/dL (13.0-17.0); MCH 30.6 pg (27.0-32.0); MCV 92.7 fL (80.0-97.0); Mean Platelet Volume 10.8 fL (9.5-12.2); Platelet Count 118 X 10*3/uL (140-440); RBC 3.99 X 10*6/uL (4.40-5.60); RDW 12.5 % (11.5-14.5); WBC 4.93 X 10*3/uL (4.50-10.00)
--- NOTE | 2020-10-31 14:27 | PN ---
PROGRESS NOTE DATE OF SERVICE: 10/31/2020 REASON FOR FOLLOWUP: Left lower extremity cellulitis. INTERVAL HISTORY: The patient is currently afebrile. The patient is breathing comfortably. Left leg pain and swelling has slightly decreased. Denies any chest pain, shortness of breath or cough. No abdominal pain. No diarrhea. PHYSICAL EXAMINATION: Blood pressure is 143/83, pulse of 80, temperature 98.2. She is 93% on room air. General description is an elderly male lying in bed in no distress. Respiratory system: Unlabored breathing. Clear to auscultation anteriorly. Heart S1, S2. Regular rate and rhythm. Abdomen soft, no tenderness. Left leg swelling and redness has slightly decreased. Slightly warm to touch. LABS: Hemoglobin is 12.1, white count 4.93, BUN of 17 and 0.94. Urine is negative. DIAGNOSTIC IMPRESSION AND PLAN: Patient with acute left lower extremity cellulitis with diffuse swelling and redness. Likely streptococcal disease. Plan at this time is to continue the patient on IV cefazolin for another 24 hours. RN has been advised to apply compression stockings to keep some of the swelling down that will help cut down the swelling and have more symptomatic improvement. Finishing therapy with oral Keflex. Continue supportive care. MMODL / IJN: [id number] /
--- NOTE | 2020-10-31 15:54 | P.PN ---
Subjective 74-year-old male came in with complaints of increased swelling and redness local is of temperature the left lower extremity. Patient is found to have cellulitis denied any history of MRSA in the past patient denied any fever chills. Patient had a left lower extremity Doppler which did not show any DVT. Patient was started on nafcillin and vancomycin which will be discussed uterine patient was started on ceftezolin. Patient has mildly elevated serum creatinine of 1.12 baseline is within normal limits. 10/30/2020 Patient's redness and cellulitis did improve compared to yesterday. Patient will be continued on present antibiotics and infectious disease will be consulted. 10/31/2020 patient continue to have significant redness in the right lower exudate no much improvement competitors to because of which are infectious disease is vishal mmending continuation of IV antibiotics for 1 more day. Constitutional: Denied any fatigue denied any fever. Cardio vascular: denied any chest pain, palpitations Gastrointestinal denied any nausea vomiting Pulmonary: Denied any shortness of breath cough Neurologic denied any new focal deficits All inpatient medications were reviewed and appropriate changes in these medications as dictated in the interval history and assessment and plan. PHYSICAL EXAMINATION: GENERAL: The patient is alert and oriented x3, not in any acute distress. Well developed, well nourished. HEENT: Pupils are round and equally reacting to light. EOMI. No scleral icterus. No conjunctival pallor. Normocephalic, atraumatic. No pharyngeal erythema. No thyromegaly. CARDIOVASCULAR: S1 and S2 present. No murmurs, rubs, or gallops. PULMONARY: Chest is clear to auscultation, no wheezing or crackles. ABDOMEN: Soft, nontender, nondistended, normoactive bowel sounds. No palpable organomegaly. MUSCULOSKELETAL: No joint swelling or deformity. EXTREMITIES: No cyanosis, clubbing, or pedal edema. NEUROLOGICAL: Gross neurological examination did not reveal any focal deficits. SKIN: Significant redness swelling and local is of temperature of the left leg, no significant improvement in his cellulitis compared to yesterday. No skin breakdown. Assessment and plan -Cellulitis of the left lower extremity: Patient will be started on above- mentioned antibiotic and the monitor him, discharge depending on patient's improvement. 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 Objective - Vital Signs Vital signs: Vital Signs Temp 97.9 F 10/31/20 15:00 Pulse 72 10/31/20 15:00 Resp 18 10/31/20 15:00 BP 162/92 10/31/20 15:00 Pulse Ox 94 L 10/31/20 15:00 Intake & Output 10/30/20 10/31/20 10/31/20 18:59 06:59 18:59 Intake Total 700 360 Output Total 600 400 Balance 100 -40 Intake: IV 700 Sodium Chloride 0.9% 1, 450 000 ml @ 75 mls/hr IV . [id number] [facility] Rx#:[id number] Vancomycin 1,500 mg In 250 Sodium Chloride 0.9% 250 ml @ 125 mls/hr IVPB Q16H [facility] Rx#:[id number] Oral 360 Output: Urine 600 400 Other: Voiding Method Toilet Toilet Urinal Urinal # Voids 1 1 - Labs CBC & Chem 7: 10/31/20 04:30 10/31/20 04:30 Labs: Abnormal Lab Results - Last 24 Hours (Table) 10/30/20 10/31/20 10/31/20 Range/Units 23:40 04:30 04:30 RBC 3.99 L (4.40-5.60) X 10*6/uL Hgb 12.2 L (13.0-17.0) g/dL Hct 37.0 L (39.6-50.0) % Plt Count 118 L (140-440) X 10*3/uL Plt Count Comment DECREASED A Potassium 3.3 L (3.5-5.1) mmol/L Glucose 106 H (74-99) mg/dL Urine Protein Trace H (Negative) Microbiology - Last 24 Hours (Table) 10/29/20 01:25 Blood Culture - Preliminary Blood No Growth after 48 hours 10/29/20 01:40 Blood Culture - Preliminary Blood No Growth after 48 hours
[2020-10-31] MEDS ORDERED: ALPRAZolam 0.25 MG TAB PO SCH (21:00)
[2020-10-31] MEDS: traZODone HCL 50 MG TAB PO SCH (21:03)
[2020-11-01] MEDS: ceFAZolin 3 GM in SODIUM CHLORIDE 0.9% 100 ML IVPB SCH ×2 (00:21→09:24)
[2020-11-01] MEDS: APIXABAN 5 MG TAB PO SCH (09:04)
[2020-11-01] MEDS: METOPROLOL TARTRATE 50 MG TAB PO SCH (09:05)
[2020-11-01] MEDS: ARIPiprazole 5 MG TAB PO SCH (09:05)
[2020-11-01] MEDS: VIT A,C & E-LUTEIN-MINERALS 1 EACH TAB PO SCH (09:05)
[2020-11-01] MEDS: ESCITALOPRAM 5 MG TAB PO SCH (09:05)
[2020-11-01 14:39] VITALS: BP 154/90; PULSE 68; RESP 18; TEMP 98.2
--- NOTE | 2020-11-01 15:02 | PN ---
PROGRESS NOTE DATE OF SERVICE: 11/01/2020 REASON FOR FOLLOWUP: Left lower extremity cellulitis. INTERVAL HISTORY: Patient is afebrile. The patient was seen this morning. Overall feeling better. Left leg swelling and redness has improved. No chest pain, shortness of breath or cough. No abdominal pain or diarrhea. PHYSICAL EXAMINATION: Blood pressure 131/76, pulse of 85, temperature 98.7. He is 95% on room air. General description is an elderly male up in the chair in no distress. Respiratory system: Unlabored breathing, clear to auscultation anteriorly. Heart S1, S2. Regular rate and rhythm. Abdomen is soft, no tenderness. Left leg swelling is much improved. LABS: No new labs have been obtained. Blood culture has been negative. DIAGNOSTIC IMPRESSION AND PLAN: Patient with acute left lower extremity cellulitis in this patient who does have evidence of diffuse swelling and redness likely streptococcal disease in this patient who has shown overall clinical improvement on IV cefazolin. Antibiotic has been transitioned to oral Keflex for 7 days. Prescription sent out. MMODL / IJN: [id number] /
--- NOTE | 2020-11-01 16:28 | P.DS ---
Providers Date of admission: 10/31/20 14:24 Attending physician: Rell Potts MD Consults: 10/30/20 16:40 Consult Physician Routine Consulting Provider: Vivien Colbert Consult Reason/Comments: Cellulitis Do you want consulting provider notified?: Yes Primary care physician: George [facility] Course: 74-year-old male came in with complaints of increased swelling and redness local is of temperature the left lower extremity. Patient is found to have cellulitis denied any history of MRSA in the past patient denied any fever chills. Patient had a left lower extremity Doppler which did not show any DVT. Patient was started on nafcillin and vancomycin which will be discussed uterine patient was started on ceftezolin. Patient has mildly elevated serum creatinine of 1.12 baseline is within normal limits. 10/30/2020 Patient's redness and cellulitis did improve compared to yesterday. Patient will be continued on present antibiotics and infectious disease will be consulted. 10/31/2020 patient continue to have significant redness in the right lower exudate no much improvement competitors to because of which are infectious disease is recommending continuation of IV antibiotics for 1 more day. 11/01/2020 patient redness significantly improved and patient will be discharged on Keflex today with follow-up with infectious disease and PCP as an outpatient PHYSICAL EXAMINATION: GENERAL: The patient is alert and oriented x3, not in any acute distress. Well developed, well nourished. HEENT: Pupils are round and equally reacting to light. EOMI. No scleral icterus. No conjunctival pallor. Normocephalic, atraumatic. No pharyngeal erythema. No thyromegaly. CARDIOVASCULAR: S1 and S2 present. No murmurs, rubs, or gallops. PULMONARY: Chest is clear to auscultation, no wheezing or crackles. ABDOMEN: Soft, nontender, nondistended, normoactive bowel sounds. No palpable organomegaly. MUSCULOSKELETAL: No joint swelling or deformity. EXTREMITIES: No cyanosis, clubbing, or pedal edema. NEUROLOGICAL: Gross neurological examination did not reveal any focal deficits. SKIN: Significant redness swelling and local is of temperature of the left leg, no significant improvement in his cellulitis compared to yesterday. No skin breakdown. Assessment and plan -Cellulitis of the left lower extremity: Cellulitis improved patient will be discharged on Keflex -Mild acute renal failure secondary to prerenal azotemia and intravascularly depletion dehydration, improved with IV fluids -history of DVT and PE in the past for which patient is on Eliquis which will be continued -History of prostate cancer status post radiation therapy releases in remission -Occasional marijuana use -Hypertension Plan - Discharge Summary Discharge Rx Participant: No New Discharge Prescriptions: New Cephalexin [Keflex] 500 mg PO Q6HR 7 Days #28 cap Continue Vit C/E/Zn/Coppr/Lutein/Zeaxan [Preservision Areds 2 Softgel] 1 cap PO BID Apixaban [Eliquis] 5 mg PO BID #60 tab Metoprolol Tartrate [Lopressor] 50 mg PO BID #60 tab traZODone HCL [Desyrel] 25 mg PO HS 30 Days tab ARIPiprazole [Abilify] 2.5 mg PO DAILY 30 Days tab Escitalopram [Lexapro] 5 mg PO DAILY 30 Days tab Discharge Medication List Vit C/E/Zn/Coppr/Lutein/Zeaxan [Preservision Areds 2 Softgel] 1 cap PO BID 04/14/19 [History] Apixaban [Eliquis] 5 mg PO BID #60 tab 06/25/19 [Rx] Metoprolol Tartrate [Lopressor] 50 mg PO BID #60 tab 06/25/19 [Rx] ARIPiprazole [Abilify] 2.5 mg PO DAILY 30 Days tab 10/08/20 [Rx] Escitalopram [Lexapro] 5 mg PO DAILY 30 Days tab 10/08/20 [Rx] traZODone HCL [Desyrel] 25 mg PO HS 30 Days tab 10/08/20 [Rx] Cephalexin [Keflex] 500 mg PO Q6HR 7 Days #28 cap 11/01/20 [Rx] Follow up Appointment(s)/Referral(s): George Todd DO [Primary Care Provider] - 3 Days Patient Instructions/Handouts: Cellulitis (ED) Discharge Disposition: HOME SELF-CARE
== END 2020-11-01 15:10 | disposition home or self-care (01) | DRG 603 ==
LOC: EC 00:18 → 6NMEDSUR 03:06 → OBSVTOIN 10-31 14:24
PROVIDERS: ADMIT Internal Medicine; ATTEND Internal Medicine
DX: L03.116 Cellulitis of left lower limb (principal); N17.9 Acute kidney failure, unspecified; I10 Essential (primary) hypertension; F32.9 Major depressive disorder, single episode, unspecified; I48.91 Unspecified atrial fibrillation; E86.0 Dehydration; H35.30 Unspecified macular degeneration; B95.5 Unspecified streptococcus as the cause of diseases classified elsewhere; Z20.822 Contact with and (suspected) exposure to COVID-19; Z85.46 Personal history of malignant neoplasm of prostate; Z86.711 Personal history of pulmonary embolism; Z86.718 Personal history of other venous thrombosis and embolism; Z92.3 Personal history of irradiation; Z82.49 Family history of ischemic heart disease and other diseases of the circulatory system; Z82.3 Family history of stroke; Z79.899 Other long term (current) drug therapy; Z79.01 Long term (current) use of anticoagulants; Z83.79 Family history of other diseases of the digestive system; Z90.49 Acquired absence of other specified parts of digestive tract; Z98.890 Other specified postprocedural states
CPT/HCPCS: 36415; 71046; 80048; 80053; 81003; 82565; 83735; 83880; 84484; 85025; 85027; 85379; 85610; 85730; 87040; 87635; 93005; 99285

== ENCOUNTER 2021-04-08 17:59 | Inpatient (IN) | payer MEDICARE ==
[2021-04-08] MEDS ORDERED: DEXAMETHASONE SOD PHOSPHATE 10 MG/ML 1 ML VIAL IVP STA (18:43)
--- NOTE | 2021-04-08 19:05 | ED ---
General Adult HPI - General Chief complaint: Shortness of Breath Stated complaint: Covid+/ZEV Time Seen by Provider: 04/08/21 18:10 Source: patient, EMS, RN notes reviewed Mode of arrival: EMS Limitations: no limitations - History of Present Illness Initial comments: This a 75-year-old male presents emergency are not with chief complaint of COVID-19, weakness. Patient states that he started of symptoms on 03/27/2021 states that he take a home positive test on 04/04/2021. Patient states symptoms are worsening. EMS arrived found to have pulse ox in the low 80s. Patient was placed on nonrebreather. He states he does not notice it much but states he is very weak, feels dehydrated. Patient has not had a recent fever does complain of body aches and chills. - Related Data Home Medications Medication Instructions Recorded Confirmed Vit C/E/Zn/Coppr/Lutein/Zeaxan 1 cap PO BID 04/14/19 10/29/20 [Preservision Areds 2 Softgel] Previous Rx's Medication Instructions Recorded Apixaban [Eliquis] 5 mg PO BID #60 tab 06/25/19 Metoprolol Tartrate [Lopressor] 50 mg PO BID #60 tab 06/25/19 ARIPiprazole [Abilify] 2.5 mg PO DAILY 30 Days tab 10/08/20 Escitalopram [Lexapro] 5 mg PO DAILY 30 Days tab 10/08/20 traZODone HCL [Desyrel] 25 mg PO HS 30 Days tab 10/08/20 Cephalexin [Keflex] 500 mg PO Q6HR 7 Days #28 cap 11/01/20 Allergies Allergy/AdvReac Type Severity Reaction Status Date / Time silver mercury Allergy Mild ringworm-like Uncoded 04/08/21 18:15 blisters Review of Systems ROS Statement: Those systems with pertinent positive or pertinent negative responses have been documented in the HPI. ROS Other: All systems not noted in ROS Statement are negative. Past Medical History Past Medical History: Atrial Fibrillation, Cancer, Deep Vein Thrombosis (DVT), Hypertension, Pulmonary Embolus (PE) Additional Past Medical History / Comment(s): closed head injury 1963, hx of seizure remote >30years, closed head injury, prostate cancer with radiation, macular degeneration, diverticulosis. AFIB with [place] filter History of Any Multi-Drug Resistant Organisms: None Reported Past Surgical History: Cholecystectomy Additional Past Surgical History / Comment(s): skull surgery x3, [place] Filters, colonoscopy last year one polyp removed. Past Anesthesia/Blood Transfusion Reactions: No Reported Reaction Past Psychological History: Depression Smoking Status: Never smoker Past Alcohol Use History: Occasional Past Drug Use History: Marijuana - Past Family History Daughter(s) Additional Family Medical History / Comment(s): colitis Mother Family Medical History: AFIB, AICD/Pacemaker Father Additional Family Medical History / Comment(s): Either a heart attack or a stroke. General Exam General appearance: alert, in no apparent distress Head exam: Present: atraumatic, normocephalic, normal inspection Eye exam: Present: normal appearance, PERRL, EOMI. Absent: scleral icterus, conjunctival injection, periorbital swelling ENT exam: Present: normal exam, normal oropharynx, mucous membranes moist Neck exam: Present: normal inspection, full ROM. Absent: tenderness, meningismus, lymphadenopathy Respiratory exam: Present: rhonchi, decreased breath sounds. Absent: normal lung sounds bilaterally, respiratory distress, wheezes, stridor Cardiovascular Exam: Present: regular rate, normal rhythm, normal heart sounds. Absent: systolic murmur, diastolic murmur, rubs, gallop, clicks Neurological exam: Present: alert Skin exam: Present: warm, dry, intact, normal color. Absent: rash Course Vital Signs 04/08/21 04/08/21 04/08/21 18:08 18:15 19:25 Temperature 98.0 F Pulse Rate 97 Respiratory 22 24 Rate Blood Pressure 125/84 O2 Sat by Pulse 84 L 93 L Oximetry 04/08/21 19:30 Temperature Pulse Rate Respiratory Rate Blood Pressure O2 Sat by Pulse 88 L Oximetry Medical Decision Making - Medical Decision Making 75-year-old male presented for weakness. Patient is COVID-19 positive, hypoxia with COVID-19 pneumonia patient is requiring oxygenation will be admitted to the hospital for further management and treatment. - Lab Data Result diagrams: 04/08/21 18:55 04/08/21 18:55 Lab Results 04/08/21 04/08/21 04/08/21 Range/Units 18:55 18:55 18:55 WBC 5.2 (3.8-10.6) k/uL RBC 4.73 (4.30-5.90) m/uL Hgb 14.6 (13.0-17.5) gm/dL Hct 42.5 (39.0-53.0) % MCV 89.8 (80.0-100.0) fL MCH 30.8 (25.0-35.0) pg MCHC 34.3 (31.0-37.0) g/dL RDW 12.8 (11.5-15.5) % Plt Count 101 L (150-450) k/uL MPV 9.4 Neutrophils % 85 % Lymphocytes % 10 % Monocytes % 3 % Eosinophils % 1 % Basophils % 0 % Neutrophils # 4.4 (1.3-7.7) k/uL Lymphocytes # 0.5 L (1.0-4.8) k/uL Monocytes # 0.2 (0-1.0) k/uL Eosinophils # 0.1 (0-0.7) k/uL Basophils # 0.0 (0-0.2) k/uL Sodium 136 L (137-145) mmol/L Potassium 3.4 L (3.5-5.1) mmol/L Chloride 103 (98-107) mmol/L Carbon Dioxide 23 (22-30) mmol/L Anion Gap 10 mmol/L BUN 47 H (9-20) mg/dL Creatinine 1.35 H (0.66-1.25) mg/dL Est GFR (CKD-EPI)AfAm 59 (>60 ml/min/1.73 sqM) Est GFR (CKD-EPI)NonAf 51 (>60 ml/min/1.73 sqM) Glucose 110 H (74-99) mg/dL Calcium 8.1 L (8.4-10.2) mg/dL Total Bilirubin 0.7 (0.2-1.3) mg/dL AST 66 H (17-59) U/L ALT 23 (4-49) U/L Alkaline Phosphatase 65 (38-126) U/L Lactate Dehydrogenase 1121 H (313-618) U/L C-Reactive Protein 15.6 H (<1.0) mg/dL Total Protein 5.7 L (6.3-8.2) g/dL Albumin 3.0 L (3.5-5.0) g/dL Coronavirus (PCR) Detected A (Not Detectd) Disposition Clinical Impression: Pneumonia due to COVID-19 virus, Hypoxia Disposition: ADMITTED IP TO THIS HOSP Condition: Poor Referrals: George Todd DO [Primary Care Provider] - 1-2 days
[2021-04-08 19:32] LABS: Basophils % (A) 0 %; Eosinophils # (A) 0.1 k/uL (0-0.7); Eosinophils % (A) 1 %; HCT 42.5 % (39.0-53.0); HGB 14.6 gm/dL (13.0-17.5); Lymphocytes # (A) 0.5 k/uL (1.0-4.8); Lymphocytes % (A) 10 %; MCH 30.8 pg (25.0-35.0); MCHC 34.3 g/dL (31.0-37.0); MCV 89.8 fL (80.0-100.0); Mean Platelet Volume 9.4; Monocytes # (A) 0.2 k/uL (0-1.0); Monocytes % (A) 3 %; Neutrophils # (A) 4.4 k/uL (1.3-7.7); Neutrophils % (A) 85 %; Platelet Count 101 k/uL (150-450); RBC 4.73 m/uL (4.30-5.90); RDW 12.8 % (11.5-15.5); WBC 5.2 k/uL (3.8-10.6)
[2021-04-08 19:42] LABS: Calcium 8.1 mg/dL (8.4-10.2); Potassium 3.4 mmol/L (3.5-5.1); Total Bilirubin 0.7 mg/dL (0.2-1.3); Total Protein 5.7 g/dL (6.3-8.2)
[2021-04-08 19:59] LABS: C Reactive Protein 15.6 mg/dL (<1.0)
--- NOTE | 2021-04-08 20:13 | XR ---
EXAMINATION TYPE: XR chest 2V DATE OF EXAM: 04/08/2021 COMPARISON: 10/29/2020 HISTORY: Short of breath TECHNIQUE: FINDINGS: There is patchy infiltrate and atelectasis in the mid and lower lung razo. Heart size is normal. There is no heart failure. Probably old left side healed rib fracture. Bony thorax is intact. IMPRESSION: There is new mild patchy bilateral lower lobe pulmonary infiltrates and atelectasis juliet red to old exam.
[2021-04-08] MEDS ORDERED: NALOXONE 0.4 MG/ML 1 ML VIAL IV PRN (21:11)
[2021-04-08] MEDS ORDERED: ONDANSETRON 4 MG/2 ML VIAL IVP PRN (21:11)
[2021-04-08] MEDS: SODIUM CHLORIDE 0.9% 1,000 ML IV SCH (22:11)
[2021-04-09] MEDS: DEXAMETHASONE SOD PHOSPHATE 10 MG/ML 1 ML VIAL IVP SCH (09:04)
[2021-04-09] MEDS: METOPROLOL TARTRATE 50 MG TAB PO SCH ×2 (09:04→21:48)
[2021-04-09] MEDS: APIXABAN 5 MG TAB PO SCH ×2 (09:04→21:49)
[2021-04-09] MEDS: SODIUM CHLORIDE 0.9% 1,000 ML IV SCH (09:04)
--- NOTE | 2021-04-09 10:21 | P.CNPUL ---
History of Present Illness Consult date: 04/09/21 Requesting physician: Sukumar Varner Reason for consult: dyspnea, hypoxemia, abnormal CXR/CT Chief complaint: Shortness of breath, cough, congestion, weakness History of present illness: This is a very pleasant 75-year-old gentleman who follows with Dr. Todd as his primary care provider. 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 He presented to the emergency room last evening with complaints of generalized weakness with worsening shortness of breath cough and congestion. EMS found his pulse ox to be in the low 80s. He was brought in for the same. The patient has had Moderna vaccination and received a booster on 03/26/2021. His symptoms started 03/27/2021. He's had no sense of taste and poor appetite. He's had dyspnea on exertion and diarrhea. Chest x-ray reveals new mild patchy bilateral infiltrates. White count 5.2. Hemoglobin 14.6. Platelets 11. Lymphocytes 0.5. D-dimer 0.59. Sodium 136. Potassium 3.4. BUN 47. Creatinine 1.35. Glucose 110. Ferritin 1255. AST 66. ALT 23. LDH 1121. C- reactive protein 15.6. Chronic virus by PCR positive. He is seen today in the emergency room. He is currently sitting up on the stretcher. Awake and alert in no acute distress. He is requiring 10 L high flow nasal cannula to maintain O2 saturations in the low 90s. He has bilateral crackles right greater than left. He's been initiated on Decadron, Eliquis. Normal saline at 75 ML's per hour. Review of Systems REVIEW OF SYSTEMS: CONSTITUTIONAL: Generalized weakness, fatigue. Denies any recent significant weight loss or weight gain. EYES: Denies change in vision. EARS, NOSE, MOUTH, THROAT: Denies headaches, denies sore throat. CARDIOVASCULAR: Denies chest pain, palpitations or syncopal episodes. RESPIRATORY: Positive for shortness of breath, cough, congestion no hemoptysis. GASTROINTESTINAL: Denies change in appetite, denies abdominal pain GENITOURINARY: Denies hematuria, denies infections. MUSKULOSKELETAL: Denies pain, denies swelling. INTEGUMENTARY: Denies rash, denies eczema. NEUROLOGICAL: Denies recent memory loss, no recent seizure activity. PSYCHIATRIC: Denies anxiety, denies depression. HEMATOLOGIC/LYMPHATIC: Denies anemia, denies enlarged lymph nodes. Past Medical History Past Medical History: Atrial Fibrillation, Cancer, Deep Vein Thrombosis (DVT), Eye Disorder, Hearing Disorder / Deafness, Hyperlipidemia, Hypertension, Pneumonia, Pulmonary Embolus (PE), Seizure Disorder Additional Past Medical History / Comment(s): 1964 CHI/seizures after injury but last seizure a few years ago, prostate cancer tx with radiation, chronic low back pain/worse with standing, occasional bilateral lower leg edema, past cellulitis L lower extremity, diverticular disease, benign colon polyps, bilateral tinnitis, bilateral macular degeneration/poor vision/some peripheral vision. History of Any Multi-Drug Resistant Organisms: None Reported Past Surgical History: Cholecystectomy, Tonsillectomy Additional Past Surgical History / Comment(s): Inferior vena cava filter, skull surgery x3 d/t CHI, colonoscopy/benign polypectomy, prostate biopsy Past Anesthesia/Blood Transfusion Reactions: No Reported Reaction Smoking Status: Never smoker - Past Family History Daughter(s) Additional Family Medical History / Comment(s): colitis Mother Family Medical History: AFIB, AICD/Pacemaker Father Additional Family Medical History / Comment(s): Either a heart attack or a stroke. Medications and Allergies Home Medications Medication Instructions Recorded Confirmed Type Vit C/E/Zn/Coppr/Lutein/Zeaxan 1 cap PO BID 04/14/19 04/08/21 History [Preservision Areds 2 Softgel] Apixaban [Eliquis] 5 mg PO BID #60 tab 06/25/19 04/08/21 Rx Metoprolol Tartrate [Lopressor] 50 mg PO BID #60 tab 06/25/19 04/08/21 Rx traZODone HCL [Desyrel] 100 mg PO HS 04/08/21 04/08/21 History Allergies Allergy/AdvReac Type Severity Reaction Status Date / Time silver mercury AdvReac Mild ringworm-like Uncoded 04/08/21 21:26 blisters Physical Exam Vitals: Vital Signs Temp Pulse Pulse Resp BP BP Pulse Ox 04/09/21 08:24 26 H 90 L 04/09/21 08:05 26 H 89 L 04/09/21 08:01 26 H 88 L 04/09/21 07:50 97.3 F L 103 H 26 H 121/83 70 L 04/08/21 22:17 81 16 115/82 95 04/08/21 19:30 88 L 04/08/21 19:25 24 04/08/21 18:15 93 L 04/08/21 18:08 98.0 F 97 22 125/84 84 L Intake and Output 04/08/21 04/09/21 04/09/21 22:59 06:59 14:59 Intake Total 270 Balance 270 Intake: IV 10 Invasive Line 1 10 Oral 260 Other: Weight 90.718 kg 90.718 kg GENERAL EXAM: Alert, very pleasant 75-year-old gentleman, on 10 L high flow nasal cannula, fairly comfortable in no apparent distress. HEAD: Normocephalic. EYES: Normal reaction of pupils, equal size. NOSE: Clear with pink turbinates. THROAT: No erythema or exudates. NECK: No masses, no JVD. CHEST: No chest wall deformity. LUNGS: Equal air entry with crackles in the posterior bases right greater than left CVS: S1 and S2 normal with no audible murmur, regular rhythm. ABDOMEN: No hepatosplenomegaly, normal bowel sounds, no guarding or rigidity. SPINE: No scoliosis or deformity SKIN: No rashes CENTRAL NERVOUS SYSTEM: No focal deficits, tone is normal in all 4 extremities. EXTREMITIES: There is no peripheral edema. No clubbing, no cyanosis. Peripheral pulses are intact. Results - Laboratory Findings CBC and BMP: 04/08/21 18:55 04/08/21 18:55 PT/INR, D-dimer D-Dimer 0.59 mg/L FEU (<0.60) 04/09/21 07:42 Abnormal lab findings: Abnormal Labs 04/08/21 04/08/21 04/08/21 18:55 18:55 18:55 Plt Count 101 L Lymphocytes # 0.5 L Sodium 136 L Potassium 3.4 L BUN 47 H Creatinine 1.35 H Glucose 110 H Calcium 8.1 L Ferritin 1255.0 H AST 66 H Lactate Dehydrogenase 1121 H C-Reactive Protein 15.6 H Total Protein 5.7 L Albumin 3.0 L Coronavirus (PCR) Detected A - Diagnostic Findings Chest x-ray: image reviewed Assessment and Plan Assessment: 1 Acute hypoxemic respiratory failure secondary to COVID-19 pneumonia. The patient has been vaccinated with Moderna. Received a booster on 03/26/2021. Symptoms started 03/27/2021. Currently on 10 L high flow nasal cannula. Proclacitonin level pending. May qualify for Baricitinib. 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 We'll continue to follow and make further recommendations based on his clinical status I, the cosigning physician, performed a history & physical examination of the patient. Lungs sounds with crackles in the posterior bases right greater than left. Maintaining good O2 saturations in the 90s on 10 L high flow nasal cannula. I discussed the assessment and plan of care with my nurse practitioner, Lana Palafox. I attest to the above consultation as dictated by her. Time with Patient: Greater than 30
[2021-04-09 11:34] LABS: HCT 38.2 % (39.6-50.0); HGB 13.1 g/dL (13.0-17.0); MCH 30.1 pg (27.0-32.0); MCHC 34.3 g/dL (32.0-37.0); MCV 87.8 fL (80.0-97.0); Mean Platelet Volume 11.2 fL (9.5-12.2); Platelet Count 102 X 10*3/uL (140-440); RBC 4.35 X 10*6/uL (4.40-5.60); RDW 12.2 % (11.5-14.5); WBC 3.02 X 10*3/uL (4.50-10.00)
[2021-04-09 12:19] LABS: African American GFR (CKD) 59.5 (60.0-200.0); Albumin/Globulin Ratio 1.29 (1.60-3.17); Anion Gap 12.7 mmol/L (10.00-18.00); BUN/Creat Ratio 32.59 Ratio (12.00-20.00); C Reactive Protein 8.2 mg/dL (0.00-0.80); Calcium 8.1 mg/dL (8.7-10.3); Carbon Dioxide 21.7 mmol/L (20.0-27.5); Globulin 2.3 g/dL (1.6-3.3); Non-African American GFR(CKD) 51.4 (60.0-200.0); Potassium 4.1 mmol/L (3.5-5.5); Total Bilirubin 0.4 mg/dL (0.30-1.20); Total Protein 5.3 g/dL (6.2-8.2)
[2021-04-09] MEDS: ZINC SULFATE 220 MG CAP PO SCH (12:32)
[2021-04-09] MEDS: ASCORBIC ACID 500 MG TAB PO SCH (12:32)
[2021-04-09] MEDS: CHOLECALCIFEROL 25 MCG (1000 IU) TABLET PO SCH (12:32)
[2021-04-09] MEDS ORDERED: BARICITINIB 2 MG TABLET PO SCH (15:00)
[2021-04-09 16:59] LABS: Glucose,Whole Blood 152 mg/dL (75-99)
[2021-04-09] MEDS: INSULIN ASPART (NovoLOG) 100 UNIT/ML VIAL SQ SCH ×2 (17:13→21:48)
[2021-04-09 20:57] LABS: Glucose,Whole Blood 136 mg/dL (75-99)
[2021-04-09] MEDS: VIT A,C & E-LUTEIN-MINERALS 1 EACH TAB PO SCH (21:48)
--- NOTE | 2021-04-09 22:59 | P.HPIM ---
History of Present Illness H&P Date: 04/09/21 Chief Complaint: Weakness Patient is a 75-year-old male with a known history of atrial fibrillation, history of PE/DVT status post IVC filter placement, hypertension, hyperlip idemia, hearing disorder/deafness and history of seizures, prostate cancer status post radiation chronic low back pain and other multiple medical problems presents to ER with complaints of generalized weakness and worsening shortness of breath and cough and congestion just before day,.. In the ER patient was found to be hypoxic with pulse ox in the 80s. Denied any complaints of fever or chills. No nausea vomiting or abdominal pain or diarrhea. Patient is fully vaccinated with booster dose on 03/26/2021. Chest x-ray showed there is new mild patchy bilateral lower lobe pulmonary infiltrates and atelectasis compared to old exam. EKG showed normal sinus rhythm Laboratory showed WBC 5.2 hemoglobin 14.6 and platelets 101 lymphocytes 0.5 Sodium 136 potassium 3.4 chloride 103 BUN 47 creatinine 1.35 Ferritin 1255, LDH 1121 CRP 15.6 and COVID-19 PCR detected. EKG showed normal sinus rhythm Review of Systems Constitutional: Patient denies any fever or chills . Patient does have generalized weakness fatigue and tiredness.. Abdomen: Patient denied nausea vomiting and diarrhea and abdominal pain. Cardiovascular: Patient denies any chest pain or short of breath no palpitations. Respiratory: Patient does complain of cough without sputum production. Shortness of breath. Neurologic: Patient denied any numbness or tingling headache. Musculoskeletal: Patient denies any complaints of joint swelling or deformity. Skin: Negative Psychiatric: Negative Endocrine: No heat or cold intolerance. No recent weight gain. Genitourinary: No dysuria or hematuria. All other 14 point ROS negative except the above Past Medical History Past Medical History: Atrial Fibrillation, Cancer, Deep Vein Thrombosis (DVT), Eye Disorder, Hearing Disorder / Deafness, Hyperlipidemia, Hypertension, Pneumonia, Pulmonary Embolus (PE), Seizure Disorder Additional Past Medical History / Comment(s): 1964 CHI/seizures after injury but last seizure a few years ago, prostate cancer tx with radiation, chronic low back pain/worse with standing, occasional bilateral lower leg edema, past cellulitis L lower extremity, diverticular disease, benign colon polyps, bilateral tinnitis, bilateral macular degeneration/poor vision/some peripheral vision. History of Any Multi-Drug Resistant Organisms: None Reported Past Surgical History: Cholecystectomy, Tonsillectomy Additional Past Surgical History / Comment(s): Inferior vena cava filter, skull surgery x3 d/t CHI, colonoscopy/benign polypectomy, prostate biopsy Past Anesthesia/Blood Transfusion Reactions: No Reported Reaction Smoking Status: Never smoker - Past Family History Daughter(s) Additional Family Medical History / Comment(s): colitis Mother Family Medical History: AFIB, AICD/Pacemaker Father Additional Family Medical History / Comment(s): Either a heart attack or a stroke. Medications and Allergies Home Medications Medication Instructions Recorded Confirmed Type Vit C/E/Zn/Coppr/Lutein/Zeaxan 1 cap PO BID 04/14/19 04/08/21 History [Preservision Areds 2 Softgel] Apixaban [Eliquis] 5 mg PO BID #60 tab 06/25/19 04/08/21 Rx Metoprolol Tartrate [Lopressor] 50 mg PO BID #60 tab 06/25/19 04/08/21 Rx traZODone HCL [Desyrel] 100 mg PO HS 04/08/21 04/08/21 History Allergies Allergy/AdvReac Type Severity Reaction Status Date / Time silver mercury AdvReac Mild ringworm-like Uncoded 04/08/21 21:26 blisters Physical Exam Vitals: Vital Signs Temp Pulse Pulse Resp BP BP Pulse Ox 04/09/21 08:24 26 H 90 L 04/09/21 08:05 26 H 89 L 04/09/21 08:01 26 H 88 L 04/09/21 07:50 97.3 F L 103 H 26 H 121/83 70 L 04/08/21 22:17 81 16 115/82 95 04/08/21 19:30 88 L 04/08/21 19:25 24 04/08/21 18:15 93 L 04/08/21 18:08 98.0 F 97 22 125/84 84 L Intake and Output 04/08/21 04/09/21 04/09/21 22:59 06:59 14:59 Intake Total 270 Balance 270 Intake: IV 10 Invasive Line 1 10 Oral 260 Other: Weight 90.718 kg 90.718 kg PHYSICAL EXAMINATION: Patient is lying in the bed comfortably, no acute distress, awake alert and oriented.. HEENT: Normocephalic. Neck is supple.. Nostrils clear. Oral cavity is moist. Neck reveals no JVD, carotid bruits, or thyromegaly. CHEST EXAMINATION: Trachea is central. Symmetrical expansion. Bibasilar diminished sounds and scattered coarse sounds. Nonlabored breathing.. CARDIAC: Normal S1, S2 with no gallops. No murmurs ABDOMEN: Soft. Bowel sounds normal. No organomegaly. No abdominal bruits. Extremities: reveal no edema. No clubbing or cyanosis Neurologically awake, alert, oriented x3 with well-coordinated movements.Legally blind. No focal deficits noted Skin: No rash or skin lesions. Psychiatric: Cooperative. Nonsuicidal Musculoskeletal: No joint swelling or deformity. Normal range of motion. Results CBC & Chem 7: 04/09/21 07:42 04/09/21 07:42 Labs: Abnormal Lab Results - Last 24 Hours (Table) 04/08/21 04/08/21 04/08/21 Range/Units 18:55 18:55 18:55 Plt Count 101 L (150-450) k/uL Lymphocytes # 0.5 L (1.0-4.8) k/uL Sodium 136 L (137-145) mmol/L Potassium 3.4 L (3.5-5.1) mmol/L BUN 47 H (9-20) mg/dL Creatinine 1.35 H (0.66-1.25) mg/dL Glucose 110 H (74-99) mg/dL Calcium 8.1 L (8.4-10.2) mg/dL Ferritin 1255.0 H (22.0-322.0) ng/mL AST 66 H (17-59) U/L Lactate Dehydrogenase 1121 H (313-618) U/L C-Reactive Protein 15.6 H (<1.0) mg/dL Total Protein 5.7 L (6.3-8.2) g/dL Albumin 3.0 L (3.5-5.0) g/dL Coronavirus (PCR) Detected A (Not Detectd) Thrombosis Risk Factor Assmnt - DVT/VTE Prophylaxis DVT/VTE Prophylaxis: Pharmacologic Prophylaxis ordered - Choose All That Apply Any of the Below Risk Factors Present?: Yes Each Factor Represents 1 point: Obesity (BMI >25), Serious lung disease incl. pneumonia (< 1month) Other Risk Factors: Yes Each Risk Factor Represents 2 Points: Age 61-74 years, Malignancy Each Risk Factor Represents 3 Points: History of DVT/PE Other congenital or acquired thrombophilia - If yes, enter type in comment: No Thrombosis Risk Factor Assessment Total Risk Factor Score: 9 Thrombosis Risk Factor Assessment Level: High Risk Assessment and Plan Assessment: Acute hypoxic respiratory failure secondary to COVID-19 pneumonia. Patient is vaccinated with moderate and received booster dose on 03/26/2021. Symptoms started on 03/27/2021. Currently on 10 L via nasal cannula. Elevated inflammatory markers secondary to COVID-19 pneumonia Paroxysmal atrial fibrillation on anticoagulation with Eliquis History of DVT s/p IVC filter placement History of prostate cancer status post radiation History of closed head injury and history of seizure disorder Hypertension Macular degeneration and legally blind Plan: Patient will be continued on oxygen supplementation at 10 L via nasal cannula. Continue with dexamethasone 6 mg daily and Eliquis. Continue with multivitamins. Pulmonary was consulted. Planning to start on baricitinib. Continue with IV hydration and follow-up closely. Prognosis is guarded at this time. Time with Patient: Greater than 30
[2021-04-10] MEDS: SODIUM CHLORIDE 0.9% 1,000 ML IV SCH ×2 (04:12→12:07)
[2021-04-10 06:48] LABS: Basophils % (A) 0 %; Eosinophils % (A) 0 %; HCT 39.5 % (39.0-53.0); Lymphocytes # (A) 0.4 k/uL (1.0-4.8); Lymphocytes % (A) 6 %; MCH 30.1 pg (25.0-35.0); MCV 91.3 fL (80.0-100.0); Mean Platelet Volume 9.2; Monocytes # (A) 0.3 k/uL (0-1.0); Monocytes % (A) 5 %; Neutrophils # (A) 5.4 k/uL (1.3-7.7); Neutrophils % (A) 88 %; Platelet Count 149 k/uL (150-450); RBC 4.32 m/uL (4.30-5.90); RDW 12.1 % (11.5-15.5); WBC 6.1 k/uL (3.8-10.6)
[2021-04-10 07:06] LABS: ALT 24 U/L (4-49); AST 48 U/L (17-59); African American GFR (CKD) 86 (>60 ml/min/1.73 sqM); Albumin 2.7 g/dL (3.5-5.0); Alkaline Phosphatase 66 U/L (38-126); Anion Gap 9 mmol/L; Blood Urea Nitrogen 40 mg/dL (9-20); Calcium 8.3 mg/dL (8.4-10.2); Carbon Dioxide 21 mmol/L (22-30); Chloride 107 mmol/L (98-107); Globulin 2.6 g/dL; Glucose 134 mg/dL (74-99); Non-African American GFR(CKD) 75 (>60 ml/min/1.73 sqM); Potassium 4.1 mmol/L (3.5-5.1); Sodium 137 mmol/L (137-145); Total Bilirubin 0.6 mg/dL (0.2-1.3); Total Protein 5.3 g/dL (6.3-8.2)
[2021-04-10 07:06] LABS: Glucose,Whole Blood 134 mg/dL (75-99)
--- NOTE | 2021-04-10 08:45 | XR ---
EXAMINATION TYPE: XR chest 1V portable DATE OF EXAM: 04/10/2021 COMPARISON: 04/08/2021 HISTORY: Cough TECHNIQUE: Single frontal view of the chest is obtained. FINDINGS: A coarsened interstitium with patchy areas of subsegmental consolidation. Limited inspirat ion. Heart size normal. No pneumothorax or pleural effusion. Surgical clips in the upper abdomen. Hyp ertrophic and degenerative change of the spine. IMPRESSION: Correlate for interstitial pneumonitis with superimposed multifocal patchy infiltrates, pneumonia.
[2021-04-10] MEDS: INSULIN ASPART (NovoLOG) 100 UNIT/ML VIAL SQ SCH ×4 (08:48→22:04)
[2021-04-10] MEDS: CHOLECALCIFEROL 25 MCG (1000 IU) TABLET PO SCH (08:59)
[2021-04-10] MEDS: METOPROLOL TARTRATE 50 MG TAB PO SCH ×2 (08:59→22:05)
[2021-04-10] MEDS: APIXABAN 5 MG TAB PO SCH ×2 (08:59→22:04)
[2021-04-10] MEDS: ZINC SULFATE 220 MG CAP PO SCH (08:59)
[2021-04-10] MEDS: ASCORBIC ACID 500 MG TAB PO SCH (08:59)
[2021-04-10] MEDS: VIT A,C & E-LUTEIN-MINERALS 1 EACH TAB PO SCH ×2 (09:00→23:11)
[2021-04-10] MEDS: DEXAMETHASONE SOD PHOSPHATE 10 MG/ML 1 ML VIAL IVP SCH (09:00)
[2021-04-10 09:36] LABS: C Reactive Protein 3.9 mg/dL (0.00-0.80)
[2021-04-10 11:17] LABS: Glucose,Whole Blood 144 mg/dL (75-99)
[2021-04-10 13:53] VITALS: BMI 32.3
--- NOTE | 2021-04-10 14:58 | P.PN ---
Subjective Progress Note Date: 04/10/21 Principal diagnosis: Shortness of breath, cough, congestion and weakness This is a very pleasant 75-year-old gentleman who follows with Dr. Todd as his primary care provider. 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 He presented to the emergency room last evening with complaints of generalized weakness with worsening shortness of breath cough and congestion. EMS found his pulse ox to be in the low 80s. He was brought in for the same. The patient has had Moderna vaccination and received a booster on 03/26/2021. His symptoms started 03/27/2021. He's had no sense of taste and poor appetite. He's had dyspnea on exertion and diarrhea. Chest x-ray reveals new mild patchy bilateral infiltrates. White count 5.2. Hemoglobin 14.6. Platelets 11. Lymphocytes 0.5. D-dimer 0.59. Sodium 136. Potassium 3.4. BUN 47. Creatinine 1.35. Glucose 110. Ferritin 1255. AST 66. ALT 23. LDH 1121. C- reactive protein 15.6. Chronic virus by PCR positive. He is seen today in the emergency room. He is currently sitting up on the stretcher. Awake and alert in no acute distress. He is requiring 10 L high flow nasal cannula to maintain O2 saturations in the low 90s. He has bilateral crackles right greater than left. He's been initiated on Decadron, Eliquis. Normal saline at 75 ML's per hour. On 04/10/2021 patient seen in follow-up on medical surgical floor. He does not appear to be in any acute distress, he is awake and alert, resting in bed, is currently on 4 L of oxygen, denies shortness of breath, he states he was never short of breath despite needing high flow oxygen, his pulse ox is 95% on 12 L, vital signs are stable, no fever or chills. His appetite is poor, and patient remains on 0.9 normal saline at a rate of 75 ML per hour. Nausea vomiting or diarrhea, she remains on Decadron 6 mg daily, he is on Eliquis 5 mg twice daily, he is on COVID-19 multivitamins. Today's chest x-ray shows interstitial pneumonitis with superimposed multifocal patchy infiltrates. Today's lab 7 reviewed, white blood cell count is 6.1, hemoglobin is 13, d-dimer is 1.41, sodium is 137, potassium is 4.1, chloride is 107, CO2 is 21, BUN is 40 creatinine 0.9, inflammatory markers are improving. ProCalcitonin level was negative. Objective - Vital Signs Vital signs: Vital Signs Temp 97.4 F L 04/10/21 09:36 Pulse 78 04/10/21 09:36 Resp 18 04/10/21 09:36 BP 126/73 04/10/21 09:36 Pulse Ox 95 04/10/21 09:36 Intake & Output 04/09/21 04/10/21 04/10/21 18:59 06:59 18:59 Intake Total 1969 300 Balance 1969 300 Weight 90.718 kg 90.718 kg Intake: IV 910 Invasive Line 1 10 Sodium Chloride 0.9% 1, 900 000 ml @ 75 mls/hr IV . [id number] [facility] Rx#:[id number] Oral 1060 300 Other: # Voids 2 - Exam GENERAL EXAM: Alert, very pleasant, 75-year-old white male, on 12 his oxygen pulse ox is 95% comfortable in no apparent distress. HEAD: Normocephalic/atraumatic. EYES: Normal reaction of pupils, equal size. Conjunctiva pink, sclera white. NOSE: Clear with pink turbinates. THROAT: No erythema or exudates. NECK: No masses, no JVD, no thyroid enlargement, no adenopathy. CHEST: No chest wall deformity. Symmetrical expansion. LUNGS: Equal air entry with no crackles, wheeze, rhonchi or dullness. CVS: Regular rate and rhythm, normal S1 and S2, no gallops, no murmurs, no rubs ABDOMEN: Soft, nontender. No hepatosplenomegaly, normal bowel sounds, no guarding or rigidity. EXTREMITIES: No clubbing, no edema, no cyanosis, 2+ pulses and upper and lower extremities. MUSCULOSKELETAL: Muscle strength and tone normal. SPINE: No scoliosis or deformity SKIN: No rashes CENTRAL NERVOUS SYSTEM: Alert and oriented -3. No focal deficits, tone is normal in all 4 extremities. PSYCHIATRIC: Alert and oriented -3. Appropriate affect. Intact judgment and insight. - Labs CBC & Chem 7: 04/10/21 05:44 04/10/21 05:44 Labs: Abnormal Lab Results - Last 24 Hours (Table) 04/09/21 04/09/21 04/09/21 Range/Units 07:50 16:56 20:54 Plt Count (150-450) k/uL Lymphocytes # (1.0-4.8) k/uL D-Dimer (<0.60) mg/L FEU Carbon Dioxide (22-30) mmol/L BUN (9-20) mg/dL Glucose (74-99) mg/dL POC Glucose (mg/dL) 152 H 136 H (75-99) mg/dL Calcium (8.4-10.2) mg/dL Lactate Dehydrogenase (120-246) U/L C-Reactive Protein (0.00-0.80) mg/dL Total Protein (6.3-8.2) g/dL Albumin (3.5-5.0) g/dL Procalcitonin 0.23 H (0.02-0.09) ng/mL 04/10/21 04/10/21 04/10/21 Range/Units 05:44 05:44 05:44 Plt Count 149 L (150-450) k/uL Lymphocytes # 0.4 L (1.0-4.8) k/uL D-Dimer 1.41 H (<0.60) mg/L FEU Carbon Dioxide (22-30) mmol/L BUN (9-20) mg/dL Glucose (74-99) mg/dL POC Glucose (mg/dL) (75-99) mg/dL Calcium (8.4-10.2) mg/dL Lactate Dehydrogenase 440 H (120-246) U/L C-Reactive Protein 3.90 H (0.00-0.80) mg/dL Total Protein (6.3-8.2) g/dL Albumin (3.5-5.0) g/dL Procalcitonin (0.02-0.09) ng/mL 04/10/21 04/10/21 04/10/21 Range/Units 05:44 07:05 11:15 Plt Count (150-450) k/uL Lymphocytes # (1.0-4.8) k/uL D-Dimer (<0.60) mg/L FEU Carbon Dioxide 21 L (22-30) mmol/L BUN 40 H (9-20) mg/dL Glucose 134 H (74-99) mg/dL POC Glucose (mg/dL) 134 H 144 H (75-99) mg/dL Calcium 8.3 L (8.4-10.2) mg/dL Lactate Dehydrogenase (120-246) U/L C-Reactive Protein (0.00-0.80) mg/dL Total Protein 5.3 L (6.3-8.2) g/dL Albumin 2.7 L (3.5-5.0) g/dL Procalcitonin (0.02-0.09) ng/mL Assessment and Plan Plan: Assessment: #1. Acute hypoxic respiratory failure secondary to COVID-19 pneumonia, patient is a vaccinated adult with more during a, and received a booster on 03/26/2021. Currently on 10 L high flow oxygen #2. Elevated inflammatory markers related to the above #3. 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 History of atrial fibrillation on Eliquis #5. Cellulitis of the left lower extremity, recovered #6. History of prostate cancer status post radiation #7. Hypertension #8. History of seizure disorder #9. Macular degeneration #10. History of closed head injury Plan: Wean FiO2 to maintain O2 saturations at 90% Patient looks very comfortable, no dyspnea, mild cough Continue Decadron, continue Eliquis Continue COVID-19 vitamins We'll continue to follow his clinical course I performed a history & physical examination of the patient and discussed their management with my nurse practitioner, Mary Hoyos. I reviewed the nurse practitioner's note and agree with the documented findings and plan of care. Lung sounds are positive for dim breath sounds throughout the lung razo. The findings and the impression was discussed with the patient. I attest to the documentation by the nurse practitioner. Time with Patient: Less than 30
[2021-04-10 16:24] LABS: Glucose,Whole Blood 152 mg/dL (75-99)
[2021-04-10 20:35] LABS: Glucose,Whole Blood 150 mg/dL (75-99)
--- NOTE | 2021-04-10 23:40 | P.PN ---
Subjective Progress Note Date: 04/10/21 Principal diagnosis: Acute hypoxic respiratory failure secondary to COVID-19 pneumonia Patient is a 75-year-old male with a known history of atrial fibrillation, history of PE/DVT status post IVC filter placement, hypertension, hyperlipidemia, hearing disorder/deafness and history of seizures, prostate cancer status post radiation chronic low back pain and other multiple medical problems presents to ER with complaints of generalized weakness and worsening shortness of breath and cough and congestion just before ,.. In the ER patient was found to be hypoxic with pulse ox in the 80s. Denied any complaints of fever or chills. No nausea vomiting or abdominal pain or diarrhea. Patient is fully vaccinated with booster dose on 03/26/2021. Chest x-ray showed there is new mild patchy bilateral lower lobe pulmonary infiltrates and atelectasis compared to old exam. EKG showed normal sinus rhythm Laboratory showed WBC 5.2 hemoglobin 14.6 and platelets 101 lymphocytes 0.5 Sodium 136 potassium 3.4 chloride 103 BUN 47 creatinine 1.35 Ferritin 1255, LDH 1121 CRP 15.6 and COVID-19 PCR detected. EKG showed normal sinus rhythm 04/10/2021 Patient is currently resting in the bed. Requiring oxygen at 12 L via nasal cannula. Denies any chest pain or worsening shortness of breath. No fever no chills. No nausea or vomiting abdominal pain or diarrhea. Tolerating oral diet. Laboratory data showed WBC 6.1 hemoglobin 13.0 and platelets 149 D-dimer is 1.41 Sodium 137 potassium 4.1 chloride 107 BUN 14 creatinine 0.99 and blood sugar is 134 and calcium 8.3 liver enzymes are not elevated LDH 440 and CRP 3.9 pulmonary is on board. Patient is being continued on dexamethasone and apixaban 5 mg twice daily. Continued on IV hydration with normal saline at 75 cc/h. Chest x- ray today showed correlate for interstitial pneumonitis with superimposed multifocal patchy infiltratespneumonia.. Current medications reviewed. Objective - Vital Signs Vital signs: Vital Signs Temp 97.7 F 04/10/21 14:19 Pulse 72 04/10/21 14:19 Resp 17 04/10/21 14:19 BP 149/90 04/10/21 14:19 Pulse Ox 93 L 04/10/21 14:19 Intake & Output 12/08/21 12/09/21 12/09/21 18:59 06:59 18:59 Intake Total 1969 300 Balance 1969 300 Weight 90.718 kg 90.718 kg Intake: IV 910 Invasive Line 1 10 Sodium Chloride 0.9% 1, 900 000 ml @ 75 mls/hr IV . [id number] [facility] Rx#:[id number] Oral 1060 300 Other: # Voids 2 - Exam PHYSICAL EXAMINATION: Patient is lying in the bed comfortably, no acute distress, awake alert and oriented.. HEENT: Normocephalic. Neck is supple.. Nostrils clear. Oral cavity is moist. Neck reveals no JVD, carotid bruits, or thyromegaly. CHEST EXAMINATION: Trachea is central. Symmetrical expansion. Bibasilar diminished sounds and scattered coarse sounds. Nonlabored breathing.. CARDIAC: Normal S1, S2 with no gallops. No murmurs ABDOMEN: Soft. Bowel sounds normal. No organomegaly. No abdominal bruits. Extremities: reveal no edema. No clubbing or cyanosis Neurologically awake, alert, oriented x3 with well-coordinated movements.Legally blind. No focal deficits noted Skin: No rash or skin lesions. Psychiatric: Cooperative. Nonsuicidal Musculoskeletal: No joint swelling or deformity. Normal range of motion. - Labs CBC & Chem 7: 04/10/21 05:44 04/10/21 05:44 Labs: Abnormal Lab Results - Last 24 Hours (Table) 04/09/21 04/09/21 04/09/21 Range/Units 07:50 16:56 20:54 Plt Count (150-450) k/uL Lymphocytes # (1.0-4.8) k/uL D-Dimer (<0.60) mg/L FEU Carbon Dioxide (22-30) mmol/L BUN (9-20) mg/dL Glucose (74-99) mg/dL POC Glucose (mg/dL) 152 H 136 H (75-99) mg/dL Calcium (8.4-10.2) mg/dL Lactate Dehydrogenase (120-246) U/L C-Reactive Protein (0.00-0.80) mg/dL Total Protein (6.3-8.2) g/dL Albumin (3.5-5.0) g/dL Procalcitonin 0.23 H (0.02-0.09) ng/mL 04/10/21 04/10/21 04/10/21 Range/Units 05:44 05:44 05:44 Plt Count 149 L (150-450) k/uL Lymphocytes # 0.4 L (1.0-4.8) k/uL D-Dimer 1.41 H (<0.60) mg/L FEU Carbon Dioxide (22-30) mmol/L BUN (9-20) mg/dL Glucose (74-99) mg/dL POC Glucose (mg/dL) (75-99) mg/dL Calcium (8.4-10.2) mg/dL Lactate Dehydrogenase 440 H (120-246) U/L C-Reactive Protein 3.90 H (0.00-0.80) mg/dL Total Protein (6.3-8.2) g/dL Albumin (3.5-5.0) g/dL Procalcitonin (0.02-0.09) ng/mL 04/10/21 04/10/21 04/10/21 Range/Units 05:44 07:05 11:15 Plt Count (150-450) k/uL Lymphocytes # (1.0-4.8) k/uL D-Dimer (<0.60) mg/L FEU Carbon Dioxide 21 L (22-30) mmol/L BUN 40 H (9-20) mg/dL Glucose 134 H (74-99) mg/dL POC Glucose (mg/dL) 134 H 144 H (75-99) mg/dL Calcium 8.3 L (8.4-10.2) mg/dL Lactate Dehydrogenase (120-246) U/L C-Reactive Protein (0.00-0.80) mg/dL Total Protein 5.3 L (6.3-8.2) g/dL Albumin 2.7 L (3.5-5.0) g/dL Procalcitonin (0.02-0.09) ng/mL Assessment and Plan Assessment: Acute hypoxic respiratory failure secondary to COVID-19 pneumonia. Patient is vaccinated with moderate and received booster dose on 03/26/2021. Symptoms started on 03/27/2021. Currently on 10 L-->12L via nasal cannula. Elevated inflammatory markers secondary to COVID-19 pneumonia Paroxysmal atrial fibrillation on anticoagulation with Eliquis History of DVT s/p IVC filter placement History of prostate cancer status post radiation History of closed head injury and history of seizure disorder Hypertension Macular degeneration and legally blind Plan: Patient will be continued on oxygen supplementation at 12 L via nasal cannula. Continue with dexamethasone 6 mg daily and Eliquis. Continue with multivitamins. Pulmonary is on board. Continue with gentle IV hydration and follow-up closely. Increase oral intake Prognosis is guarded at this time. Time with Patient: Greater than 30
[2021-04-11] MEDS: SODIUM CHLORIDE 0.9% 1,000 ML IV SCH (03:48)
[2021-04-11 06:57] LABS: Glucose,Whole Blood 109 mg/dL (75-99)
[2021-04-11] MEDS: INSULIN ASPART (NovoLOG) 100 UNIT/ML VIAL SQ SCH ×4 (07:19→20:53)
[2021-04-11] MEDS: METOPROLOL TARTRATE 50 MG TAB PO SCH ×2 (08:51→20:54)
[2021-04-11] MEDS: APIXABAN 5 MG TAB PO SCH ×2 (08:51→20:54)
[2021-04-11] MEDS: DEXAMETHASONE SOD PHOSPHATE 10 MG/ML 1 ML VIAL IVP SCH (08:51)
[2021-04-11] MEDS: ZINC SULFATE 220 MG CAP PO SCH (08:51)
[2021-04-11] MEDS: ASCORBIC ACID 500 MG TAB PO SCH (08:51)
[2021-04-11] MEDS: CHOLECALCIFEROL 25 MCG (1000 IU) TABLET PO SCH (08:51)
[2021-04-11] MEDS: VIT A,C & E-LUTEIN-MINERALS 1 EACH TAB PO SCH ×2 (08:51→20:54)
--- NOTE | 2021-04-11 09:39 | P.PN ---
Subjective Progress Note Date: 04/11/21 Principal diagnosis: Shortness of breath, cough, congestion and weakness This is a very pleasant 75-year-old gentleman who follows with Dr. Todd as his primary care provider. 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 He presented to the emergency room last evening with complaints of generalized weakness with worsening shortness of breath cough and congestion. EMS found his pulse ox to be in the low 80s. He was brought in for the same. The patient has had Moderna vaccination and received a booster on 03/26/2021. His symptoms started 03/27/2021. He's had no sense of taste and poor appetite. He's had dyspnea on exertion and diarrhea. Chest x-ray reveals new mild patchy bilateral infiltrates. White count 5.2. Hemoglobin 14.6. Platelets 11. Lymphocytes 0.5. D-dimer 0.59. Sodium 136. Potassium 3.4. BUN 47. Creatinine 1.35. Glucose 110. Ferritin 1255. AST 66. ALT 23. LDH 1121. C- reactive protein 15.6. Chronic virus by PCR positive. He is seen today in the emergency room. He is currently sitting up on the stretcher. Awake and alert in no acute distress. He is requiring 10 L high flow nasal cannula to maintain O2 saturations in the low 90s. He has bilateral crackles right greater than left. He's been initiated on Decadron, Eliquis. Normal saline at 75 ML's per hour. On 04/10/2021 patient seen in follow-up on medical surgical floor. He does not appear to be in any acute distress, he is awake and alert, resting in bed, is currently on 4 L of oxygen, denies shortness of breath, he states he was never short of breath despite needing high flow oxygen, his pulse ox is 95% on 12 L, vital signs are stable, no fever or chills. His appetite is poor, and patient remains on 0.9 normal saline at a rate of 75 ML per hour. Nausea vomiting or diarrhea, she remains on Decadron 6 mg daily, he is on Eliquis 5 mg twice daily, he is on COVID-19 multivitamins. Today's chest x-ray shows interstitial pneumonitis with superimposed multifocal patchy infiltrates. Today's lab 7 reviewed, white blood cell count is 6.1, hemoglobin is 13, d-dimer is 1.41, sodium is 137, potassium is 4.1, chloride is 107, CO2 is 21, BUN is 40 creatinine 0.9, inflammatory markers are improving. ProCalcitonin level was negative. On 04/11/2021 patient seen in follow-up on medical surgical floor, he is currently up to 15 L of oxygen, with pulse ox of 92-93%, his hypoxia has progressed in last 24 hours, although he denies being more short of breath. Lung sounds are positive for coarse crackles throughout his bilateral lower and mid lower lobes. Occasional cough, clear phlegm production, no fevers overnight, -Vitals stable. Today's labs pending. Yesterday's d-dimer was 1.41. Awaiting today's level. Patient remains on Eliquis 5 mg twice daily for history of atrial fibrillation. He remains on Decadron and COVID-19 multivitamins. Patient seems to be upset, and frustrated, he states he has not been able to get through to his . I helped him dial his 's phone number however there was no answer, patient did not leave a voicemail. I told him we will try again later on. Otherwise seems to be fairly comfortable, but seems to be tense, frustrated Objective - Vital Signs Vital signs: Vital Signs Temp 97.9 F 04/11/21 06:01 Pulse 68 04/11/21 06:01 Resp 20 04/11/21 06:01 BP 134/80 04/11/21 06:01 Pulse Ox 92 L 04/11/21 06:01 Intake & Output 04/10/21 04/11/21 04/11/21 18:59 06:59 18:59 Intake Total 300 Balance 300 Weight 90.718 kg Intake: Oral 300 Other: Voiding Method Incontinent # Voids 2 1 - Exam GENERAL EXAM: Alert, very pleasant, 75-year-old white male, on 15 his oxygen pulse ox is 93% comfortable in no apparent distress. HEAD: Normocephalic/atraumatic. EYES: Normal reaction of pupils, equal size. Conjunctiva pink, sclera white. NOSE: Clear with pink turbinates. THROAT: No erythema or exudates. NECK: No masses, no JVD, no thyroid enlargement, no adenopathy. CHEST: No chest wall deformity. Symmetrical expansion. LUNGS: Equal air entry with no crackles, wheeze, rhonchi or dullness. CVS: Regular rate and rhythm, normal S1 and S2, no gallops, no murmurs, no rubs ABDOMEN: Soft, nontender. No hepatosplenomegaly, normal bowel sounds, no guarding or rigidity. EXTREMITIES: No clubbing, no edema, no cyanosis, 2+ pulses and upper and lower extremities. MUSCULOSKELETAL: Muscle strength and tone normal. SPINE: No scoliosis or deformity SKIN: No rashes CENTRAL NERVOUS SYSTEM: Alert and oriented -3. No focal deficits, tone is normal in all 4 extremities. PSYCHIATRIC: Alert and oriented -3. Appropriate affect. Intact judgment and insight. - Labs CBC & Chem 7: 04/10/21 05:44 04/10/21 05:44 Labs: Abnormal Lab Results - Last 24 Hours (Table) 04/10/21 04/10/21 04/10/21 Range/Units 05:44 11:15 16:22 POC Glucose (mg/dL) 144 H 152 H (75-99) mg/dL Lactate Dehydrogenase 440 H (120-246) U/L C-Reactive Protein 3.90 H (0.00-0.80) mg/dL 04/10/21 04/11/21 Range/Units 20:29 06:56 POC Glucose (mg/dL) 150 H 109 H (75-99) mg/dL Lactate Dehydrogenase (120-246) U/L C-Reactive Protein (0.00-0.80) mg/dL Assessment and Plan Plan: Assessment: #1. Acute hypoxic respiratory failure secondary to COVID-19 pneumonia, patient is a vaccinated adult with more during a, and received a booster on 03/26/2021. Currently on 15 L high flow oxygen today on 04/11/2021, we will start Baricitinib. #2. Elevated inflammatory markers related to the above, improving #3. 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 History of atrial fibrillation on Eliquis #5. Cellulitis of the left lower extremity, recovered #6. History of prostate cancer status post radiation #7. Hypertension #8. History of seizure disorder #9. Macular degeneration #10. History of closed head injury #11. Confusion, agitation, multifactorial, related to hypoxic encephalopathy and steroids Plan: On today's exam patient's FiO2 has increased to 15 L although his work of br eathing is stable, patient seems fairly comfortable Will start on Baricitinib, if patient qualifies Continue Decadron We'll continue oral anticoagulation form of Eliquis Other vitals have been stable Follow-up labs for tomorrow Follow-up chest x-ray for tomorrow Monitor patient's closely as he seems to be tense, and have angry outbursts, takes oxygen off Haldol 2 mg PO q 4h as needed for confusion and agitation I performed a history & physical examination of the patient and discussed their management with my nurse practitioner, Mary Hoyos. I reviewed the nurse practitioner's note and agree with the documented findings and plan of care. Lung sounds are positive for dim breath sounds throughout the lung razo. The findings and the impression was discussed with the patient. I attest to the documentation by the nurse practitioner. Time with Patient: Less than 30
[2021-04-11 10:30] LABS: HCT 39.9 % (39.6-50.0); MCH 29.7 pg (27.0-32.0); MCHC 32.6 g/dL (32.0-37.0); MCV 91.1 fL (80.0-97.0); Mean Platelet Volume 10.3 fL (9.5-12.2); Platelet Count 193 X 10*3/uL (140-440); RBC 4.38 X 10*6/uL (4.40-5.60); RDW 12.2 % (11.5-14.5)
[2021-04-11 10:31] LABS: Basophils # (M) 0 X 10*3/uL (0.00-0.10); Eosinophils # (M) 0 X 10*3/uL (0.04-0.35); Lymphocytes # (M) 0 X 10*3/uL (0.90-5.00); Monocytes # (M) 0 X 10*3/uL (0.20-1.00); Myelocytes % 4 % (0-0); Neutrophils # (M) 9.31 X 10*3/uL (2.00-8.90); Neutrophils % (M) 94 %; Promyelocytes % 2 % (0-0)
[2021-04-11 10:54] LABS: C Reactive Protein 1.6 mg/dL (0.00-0.80)
[2021-04-11 11:03] LABS: African American GFR (CKD) 84.5 (60.0-200.0); Anion Gap 13.6 mmol/L (10.00-18.00); BUN/Creat Ratio 30.59 Ratio (12.00-20.00); Blood Urea Nitrogen 30.9 mg/dL (9.0-27.0); Calcium 8.5 mg/dL (8.7-10.3); Carbon Dioxide 18.8 mmol/L (20.0-27.5); Non-African American GFR(CKD) 72.9 (60.0-200.0); Potassium 4.2 mmol/L (3.5-5.5)
[2021-04-11 11:38] LABS: Glucose,Whole Blood 131 mg/dL (75-99)
[2021-04-11] MEDS: BARICITINIB 2 MG TABLET PO SCH (12:00)
[2021-04-11 17:06] LABS: Glucose,Whole Blood 138 mg/dL (75-99)
--- NOTE | 2021-04-11 19:28 | P.PN ---
Subjective Patient is a 75-year-old male with a known history of atrial fibrillation, history of PE/DVT status post IVC filter placement, hypertension, hyperli pidemia, hearing disorder/deafness and history of seizures, prostate cancer status post radiation chronic low back pain and other multiple medical problems presents to ER with complaints of generalized weakness and worsening shortness of breath and cough and congestion just before day,.. In the ER patient was found to be hypoxic with pulse ox in the 80s. Denied any complaints of fever or chills. No nausea vomiting or abdominal pain or diarrhea. Patient is fully vaccinated with booster dose on 03/26/2021. Chest x-ray showed there is new mild patchy bilateral lower lobe pulmonary infiltrates and atelectasis compared to old exam. EKG showed normal sinus rhythm Laboratory showed WBC 5.2 hemoglobin 14.6 and platelets 101 lymphocytes 0.5 Sodium 136 potassium 3.4 chloride 103 BUN 47 creatinine 1.35 Ferritin 1255, LDH 1121 CRP 15.6 and COVID-19 PCR detected. EKG showed normal sinus rhythm 04/10/2021 Patient is currently resting in the bed. Requiring oxygen at 12 L via nasal c annula. Denies any chest pain or worsening shortness of breath. No fever no chills. No nausea or vomiting abdominal pain or diarrhea. Tolerating oral diet. Laboratory data showed WBC 6.1 hemoglobin 13.0 and platelets 149 D-dimer is 1.41 Sodium 137 potassium 4.1 chloride 107 BUN 14 creatinine 0.99 and blood sugar is 134 and calcium 8.3 liver enzymes are not elevated LDH 440 and CRP 3.9 pulmonary is on board. Patient is being continued on dexamethasone and apixaban 5 mg twice daily. Continued on IV hydration with normal saline at 75 cc/h. Chest x- ray today showed correlate for interstitial pneumonitis with superimposed multifocal patchy infiltratespneumonia.. 04/11/2021 Patient is awake and alert but looks lethargic. He has fair appetite eating about 25 -50% of his diet. No significantly dyspneic however his oxygen requirements went up 12 up to 13 L/m with saturation is low 90s at 92%. Rest of vitals are stable and he is afebrile. Inflammatory markers mildly elevated with LDH 440 and C-reactive protein 1.6.pro-calcitonin is mildly elevated at 0.23. not on antibiotic. Chest x-ray showing multifocal bilateral pneumonia He remains on dexamethasone, vitamin C, D and zinc. Kiran, today started on Baricitinib . Objective - Vital Signs Vital signs: Vital Signs Temp 97.8 F 04/11/21 08:00 Pulse 74 04/11/21 08:00 Resp 20 04/11/21 08:00 BP 155/92 04/11/21 08:00 Pulse Ox 92 L 04/11/21 08:00 Intake & Output 04/10/21 04/11/21 04/11/21 18:59 06:59 18:59 Intake Total 300 Balance 300 Weight 90.718 kg Intake: Oral 300 Other: Voiding Method Incontinent Incontinent # Voids 2 1 - Exam -GENERAL: The patient is alert and oriented but lethargic, not in any acute distress. Well developed, well nourished. HEENT: Pupils are round and equally reacting to light. EOMI. No scleral icterus. No conjunctival pallor. Normocephalic, atraumatic. No pharyngeal erythema. No thyromegaly. CARDIOVASCULAR: S1 and S2 present. No murmurs, rubs, or gallops. -PULMONARY: Chest is clear to auscultation, no wheezing. Bilateral crepitation ABDOMEN: Soft, nontender, nondistended, normoactive bowel sounds. No palpable organomegaly. MUSCULOSKELETAL: No joint swelling or deformity. EXTREMITIES: No cyanosis, clubbing, or pedal edema. NEUROLOGICAL: Gross neurological examination did not reveal any focal deficits. SKIN: No rashes. no petechiae. - Labs CBC & Chem 7: 04/11/21 05:56 04/11/21 05:56 Labs: Abnormal Lab Results - Last 24 Hours (Table) 04/10/21 04/10/21 04/11/21 Range/Units 16:22 20:29 05:56 RBC 4.38 L (4.40-5.60) X 10*6/uL Myelocytes % 4 H (0-0) % Promyelocytes % 2 H (0-0) % Neutrophils # (Manual) 9.31 H (2.00-8.90) X 10*3/uL Lymphocytes # (Manual) 0 L (0.90-5.00) X 10*3/uL Monocytes # (Manual) 0 L (0.20-1.00) X 10*3/uL Eosinophils # (Manual) 0 L (0.04-0.35) X 10*3/uL Carbon Dioxide (20.0-27.5) mmol/L BUN (9.0-27.0) mg/dL BUN/Creatinine Ratio (12.00-20.00) Ratio POC Glucose (mg/dL) 152 H 150 H (75-99) mg/dL Calcium (8.7-10.3) mg/dL C-Reactive Protein (0.00-0.80) mg/dL 04/11/21 04/11/21 04/11/21 Range/Units 05:56 06:56 11:37 RBC (4.40-5.60) X 10*6/uL Myelocytes % (0-0) % Promyelocytes % (0-0) % Neutrophils # (Manual) (2.00-8.90) X 10*3/uL Lymphocytes # (Manual) (0.90-5.00) X 10*3/uL Monocytes # (Manual) (0.20-1.00) X 10*3/uL Eosinophils # (Manual) (0.04-0.35) X 10*3/uL Carbon Dioxide 18.8 L (20.0-27.5) mmol/L BUN 30.9 H (9.0-27.0) mg/dL BUN/Creatinine Ratio 30.59 H (12.00-20.00) Ratio POC Glucose (mg/dL) 109 H 131 H (75-99) mg/dL Calcium 8.5 L (8.7-10.3) mg/dL C-Reactive Protein 1.60 H (0.00-0.80) mg/dL Assessment and Plan Assessment: Acute hypoxic respiratory failure secondary to COVID-19 pneumonia. Patient is vaccinated with moderate and received booster dose on 03/26/2021. Symptoms started on 03/27/2021. Elevated inflammatory markers secondary to COVID-19 pneumonia Paroxysmal atrial fibrillation on anticoagulation with Eliquis History of DVT s/p IVC filter placement History of prostate cancer status post radiation History of closed head injury and history of seizure disorder Hypertension Macular degeneration and legally blind Plan: This is a pleasant 75 years old male with complete pneumonia Continue with Decadron and multiple vitamins, vitamin C and D and zinc Continue with oral Eliquis on home dose of 5 mg Continue with Pepcid He was started on Baricitinib Pulmonary team on the case Labs and medication were reviewed.. Continue same treatment. Continue with symptomatic treatment. Resume home medication. Monitor lytes and vitals. DVT and GI prophylaxis. Further recommendationsas per clinical course of the patient DVT prophylaxis: Eliquis GI Prophylaxis: Pepcid Prognosis is guarded
[2021-04-11 20:32] LABS: Glucose,Whole Blood 149 mg/dL (75-99)
[2021-04-12] MEDS: SODIUM CHLORIDE 0.9% 1,000 ML IV SCH (02:22)
[2021-04-12] MEDS: ACETAMINOPHEN TAB 325 MG TAB PO PRN (06:26)
[2021-04-12 07:32] LABS: Glucose,Whole Blood 115 mg/dL (75-99)
--- NOTE | 2021-04-12 07:35 | XR ---
EXAMINATION TYPE: XR chest 1V portable DATE OF EXAM: 04/12/2021 COMPARISON: Chest x-ray 04/10/2021 HISTORY: Covid TECHNIQUE: Single frontal view of the chest is obtained. FINDINGS: Bilateral airspace disease is present. Right hemidiaphragm is elevated. There is no eviden t pneumothorax or pleural effusion. Cardiac mediastinal silhouette is stable accounting for differenc es in technique. There are overlying artifacts. IMPRESSION: Findings consistent with patient's history
[2021-04-12] MEDS: ASCORBIC ACID 500 MG TAB PO SCH (10:12)
[2021-04-12] MEDS: ZINC SULFATE 220 MG CAP PO SCH (10:12)
[2021-04-12] MEDS: DEXAMETHASONE SOD PHOSPHATE 10 MG/ML 1 ML VIAL IVP SCH (10:12)
[2021-04-12] MEDS: APIXABAN 5 MG TAB PO SCH (10:12)
[2021-04-12] MEDS: METOPROLOL TARTRATE 50 MG TAB PO SCH ×2 (10:12→22:24)
[2021-04-12] MEDS: CHOLECALCIFEROL 25 MCG (1000 IU) TABLET PO SCH (10:12)
[2021-04-12] MEDS: INSULIN ASPART (NovoLOG) 100 UNIT/ML VIAL SQ SCH ×4 (10:13→22:25)
[2021-04-12] MEDS: VIT A,C & E-LUTEIN-MINERALS 1 EACH TAB PO SCH ×2 (10:15→22:24)
[2021-04-12 11:14] LABS: INR 1.1 (<1.2); Prothrombin Time 11.8 sec (9.0-12.0)
[2021-04-12 11:18] LABS: Partial Thromboplastin Time 20.5 sec (22.0-30.0)
--- NOTE | 2021-04-12 11:31 | US ---
EXAMINATION TYPE: US venous doppler duplex LE DATE OF EXAM: 04/12/2021 10:31 AM COMPARISON: NONE CLINICAL HISTORY: leg swelling. SIDE PERFORMED: Bilateral TECHNIQUE: The lower extremity deep venous system is examined utilizing real time linear array sonog nanda with graded compression, doppler sonography and color-flow sonography. VESSELS IMAGED: Common Femoral Vein Deep Femoral Vein Greater Saphenous Vein * Femoral Vein Popliteal Vein Small Saphenous Vein * Proximal Calf Veins (* superficial vessels) There is normal flow, compressibility, vascular waveforms. Right Leg: Negative for DVT Left Leg: Negative for DVT IMPRESSION: No evident deep venous thrombosis within the lower extremities from the level of the knee centrally
[2021-04-12 11:50] LABS: Glucose,Whole Blood 121 mg/dL (75-99)
[2021-04-12] MEDS: BARICITINIB 2 MG TABLET PO SCH (12:25)
[2021-04-12 12:48] LABS: HCT 39.1 % (39.6-50.0); HGB 12.9 g/dL (13.0-17.0); MCH 29.4 pg (27.0-32.0); MCV 89.1 fL (80.0-97.0); Platelet Count 138 X 10*3/uL (140-440); RBC 4.39 X 10*6/uL (4.40-5.60); RDW 12.1 % (11.5-14.5); WBC 12.31 X 10*3/uL (4.50-10.00)
[2021-04-12 12:49] LABS: Acanthocytes 2+; Basophils # (M) 0 X 10*3/uL (0.00-0.10); Eosinophils # (M) 0 X 10*3/uL (0.04-0.35); Lymphocytes # (M) 0.49 X 10*3/uL (0.90-5.00); Monocytes # (M) 0.37 X 10*3/uL (0.20-1.00); Neutrophils # (M) 11.45 X 10*3/uL (2.00-8.90); Neutrophils % (M) 93 %
[2021-04-12 12:56] LABS: African American GFR (CKD) 82.6 (60.0-200.0); Anion Gap 14.3 mmol/L (10.00-18.00); BUN/Creat Ratio 24.76 Ratio (12.00-20.00); Blood Urea Nitrogen 25.5 mg/dL (9.0-27.0); Calcium 8.5 mg/dL (8.7-10.3); Carbon Dioxide 17.8 mmol/L (20.0-27.5); Non-African American GFR(CKD) 71.2 (60.0-200.0); Potassium 3.4 mmol/L (3.5-5.5)
[2021-04-12 12:57] LABS: C Reactive Protein 4.1 mg/dL (0.00-0.80)
--- NOTE | 2021-04-12 15:12 | P.PN ---
Subjective Patient is a 75-year-old male with a known history of atrial fibrillation, history of PE/DVT status post IVC filter placement, hypertension, hyperli pidemia, hearing disorder/deafness and history of seizures, prostate cancer status post radiation chronic low back pain and other multiple medical problems presents to ER with complaints of generalized weakness and worsening shortness of breath and cough and congestion just before day,.. In the ER patient was found to be hypoxic with pulse ox in the 80s. Denied any complaints of fever or chills. No nausea vomiting or abdominal pain or diarrhea. Patient is fully vaccinated with booster dose on 03/26/2021. Chest x-ray showed there is new mild patchy bilateral lower lobe pulmonary infiltrates and atelectasis compared to old exam. EKG showed normal sinus rhythm Laboratory showed WBC 5.2 hemoglobin 14.6 and platelets 101 lymphocytes 0.5 Sodium 136 potassium 3.4 chloride 103 BUN 47 creatinine 1.35 Ferritin 1255, LDH 1121 CRP 15.6 and COVID-19 PCR detected. EKG showed normal sinus rhythm 04/10/2021 Patient is currently resting in the bed. Requiring oxygen at 12 L via nasal c annula. Denies any chest pain or worsening shortness of breath. No fever no chills. No nausea or vomiting abdominal pain or diarrhea. Tolerating oral diet. Laboratory data showed WBC 6.1 hemoglobin 13.0 and platelets 149 D-dimer is 1.41 Sodium 137 potassium 4.1 chloride 107 BUN 14 creatinine 0.99 and blood sugar is 134 and calcium 8.3 liver enzymes are not elevated LDH 440 and CRP 3.9 pulmonary is on board. Patient is being continued on dexamethasone and apixaban 5 mg twice daily. Continued on IV hydration with normal saline at 75 cc/h. Chest x- ray today showed correlate for interstitial pneumonitis with superimposed multifocal patchy infiltratespneumonia.. 04/11/2021 Patient is awake and alert but looks lethargic. He has fair appetite eating about 25 -50% of his diet. No significantly dyspneic however his oxygen requirements went up 12 up to 13 L/m with saturation is low 90s at 92%. Rest of vitals are stable and he is afebrile. Inflammatory markers mildly elevated with LDH 440 and C-reactive protein 1.6.pro-calcitonin is mildly elevated at 0.23. not on antibiotic. Chest x-ray showing multifocal bilateral pneumonia He remains on dexamethasone, vitamin C, D and zinc. Eliquis, today started on Baricitinib . 04/12/2021 Patient is awake but he still complaining of from shortness of breath, he is a little bit lethargic. He has poor appetite eating only 25-50% of his diet. His oxygen saturation still 92 but he needed higher dose of oxygen today at 50 L/m. His d-dimer is elevated 1.4 up to 29.9, therefore we switched his home dose of Eliquis 5 mg and to heparin drip Ultrasound of the neck is negative for DVT. LDH still elevated at [address] protein 4.1. He has mild bicytopenia most likely secondary to viral infection, hemoglobin is 12.9 and platelets 138. WBC is elevated 12th while he is on steroids. Chest x-ray showing persistent bilateral pneumonia. On multiple vitamins, dexamethasone, baricitnib. Also he was started on heparin drip. He is off IV fluid Objective - Vital Signs Vital signs: Vital Signs Temp 98.3 F 04/12/21 06:07 Pulse 90 04/12/21 06:07 Resp 18 04/12/21 06:07 BP 167/95 04/12/21 06:07 Pulse Ox 90 L 04/12/21 06:07 Intake & Output 04/11/21 04/12/21 04/12/21 18:59 06:59 18:59 Intake Total 50 900 Balance 50 900 Intake: Intake, IV Titration 900 Amount Sodium Chloride 0.9% 1, 900 000 ml @ 20 mls/hr IV . Q24H [facility] Rx#:[id number] Oral 50 Other: Voiding Method Incontinent Incontinent Incontinent # Voids 2 - Exam -GENERAL: The patient is alert and oriented but lethargic, not in any acute distress. Well developed, well nourished. HEENT: Pupils are round and equally reacting to light. EOMI. No scleral icterus. No conjunctival pallor. Normocephalic, atraumatic. No pharyngeal erythema. No thyromegaly. CARDIOVASCULAR: S1 and S2 present. No murmurs, rubs, or gallops. -PULMONARY: Chest is clear to auscultation, no wheezing. Bilateral crepitation ABDOMEN: Soft, nontender, nondistended, normoactive bowel sounds. No palpable organomegaly. MUSCULOSKELETAL: No joint swelling or deformity. EXTREMITIES: No cyanosis, clubbing, or pedal edema. NEUROLOGICAL: Gross neurological examination did not reveal any focal deficits. SKIN: No rashes. no petechiae. - Labs CBC & Chem 7: 04/12/21 08:40 04/12/21 08:40 Labs: Abnormal Lab Results - Last 24 Hours (Table) 04/11/21 04/11/21 04/12/21 Range/Units 17:04 20:30 07:31 APTT (22.0-30.0) sec D-Dimer (<0.60) mg/L FEU POC Glucose (mg/dL) 138 H 149 H 115 H (75-99) mg/dL 04/12/21 04/12/21 04/12/21 Range/Units 08:40 08:40 11:49 APTT 20.5 L (22.0-30.0) sec D-Dimer 29.90 H (<0.60) mg/L FEU POC Glucose (mg/dL) 121 H (75-99) mg/dL Assessment and Plan Assessment: Acute hypoxic respiratory failure secondary to COVID-19 pneumonia. Patient is vaccinated with moderate and received booster dose on 03/26/2021. Symptoms started on 03/27/2021. Elevated inflammatory markers secondary to COVID-19 pneumonia Paroxysmal atrial fibrillation on anticoagulation with Eliquis History of DVT s/p IVC filter placement History of prostate cancer status post radiation History of closed head injury and history of seizure disorder Hypertension Macular degeneration and legally blind Plan: This is a pleasant 75 years old male with complete pneumonia Continue with Decadron and multiple vitamins, vitamin C and D and zinc Continue with oral Eliquis on home dose of 5 mg Continue with Pepcid He was started on Baricitinib Pulmonary team on the case Labs and medication were reviewed.. Continue same treatment. Continue with symptomatic treatment. Resume home medication. Monitor lytes and vitals. DVT and GI prophylaxis. Further recommendationsas per clinical course of the patient DVT prophylaxis: Eliquis switched to heparin drip GI Prophylaxis: Pepcid Prognosis is guarded
[2021-04-12] MEDS ORDERED: HEPARIN SODIUM 1,000 UN/ML (10ML VL) IV ONE (15:49)
[2021-04-12] MEDS ORDERED: HEPARIN SODIUM 1,000 UN/ML (10ML VL) IV PRN (15:49)
[2021-04-12] MEDS ORDERED: HEPARIN SOD,PORK IN 0.45% NACL 25,000 UNIT in 0.45% NACL 1 250ML.BAG IV SCH (16:00)
[2021-04-12 16:40] LABS: Basophils # (A) 0.1 k/uL (0-0.2); Basophils % (A) 1 %; Eosinophils % (A) 0 %; HCT 38.9 % (39.0-53.0); HGB 13.4 gm/dL (13.0-17.5); Lymphocytes # (A) 0.4 k/uL (1.0-4.8); Lymphocytes % (A) 4 %; MCH 31.1 pg (25.0-35.0); MCHC 34.4 g/dL (31.0-37.0); MCV 90.3 fL (80.0-100.0); Mean Platelet Volume 8.4; Monocytes # (A) 0.2 k/uL (0-1.0); Monocytes % (A) 2 %; Neutrophils # (A) 9.1 k/uL (1.3-7.7); Neutrophils % (A) 93 %; Platelet Count 116 k/uL (150-450); RBC 4.31 m/uL (4.30-5.90); WBC 9.9 k/uL (3.8-10.6)
[2021-04-12 16:51] LABS: Glucose,Whole Blood 143 mg/dL (75-99)
[2021-04-12 17:02] LABS: INR 1.2 (<1.2); Prothrombin Time 12.5 sec (9.0-12.0)
[2021-04-12] MEDS ORDERED: RX INFO: IV CONTRAST WAS GIVEN 1 EACH MISC MISCELLANE PRN (17:31)
--- NOTE | 2021-04-12 17:37 | P.PN ---
Subjective Progress Note Date: 04/12/21 Principal diagnosis: Acute hypoxic for failure secondary to COVID-19 pneumonia This is a very pleasant 75-year-old gentleman who follows with Dr. Todd as his primary care provider. 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 He presented to the emergency room last evening with complaints of generalized weakness with worsening shortness of breath cough and congestion. EMS found his pulse ox to be in the low 80s. He was brought in for the same. The patient has had Moderna vaccination and received a booster on 03/26/2021. His symptoms started 03/27/2021. He's had no sense of taste and poor appetite. He's had dyspnea on exertion and diarrhea. Chest x-ray reveals new mild patchy bilateral infiltrates. White count 5.2. Hemoglobin 14.6. Platelets 11. Lymphocytes 0.5. D-dimer 0.59. Sodium 136. Potassium 3.4. BUN 47. Creatinine 1.35. Glucose 110. Ferritin 1255. AST 66. ALT 23. LDH 1121. C- reactive protein 15.6. Chronic virus by PCR positive. He is seen today in the emergency room. He is currently sitting up on the stretcher. Awake and alert in no acute distress. He is requiring 10 L high flow nasal cannula to maintain O2 saturations in the low 90s. He has bilateral crackles right greater than left. He's been initiated on Decadron, Eliquis. Normal saline at 75 ML's per hour. On 04/10/2021 patient seen in follow-up on medical surgical floor. He does not appear to be in any acute distress, he is awake and alert, resting in bed, is currently on 4 L of oxygen, denies shortness of breath, he states he was never short of breath despite needing high flow oxygen, his pulse ox is 95% on 12 L, vital signs are stable, no fever or chills. His appetite is poor, and patient remains on 0.9 normal saline at a rate of 75 ML per hour. Nausea vomiting or diarrhea, she remains on Decadron 6 mg daily, he is on Eliquis 5 mg twice daily, he is on COVID-19 multivitamins. Today's chest x-ray shows interstitial pneumonitis with superimposed multifocal patchy infiltrates. Today's lab 7 reviewed, white blood cell count is 6.1, hemoglobin is 13, d-dimer is 1.41, sodium is 137, potassium is 4.1, chloride is 107, CO2 is 21, BUN is 40 creatinine 0.9, inflammatory markers are improving. ProCalcitonin level was negative. On 04/11/2021 patient seen in follow-up on medical surgical floor, he is currently up to 15 L of oxygen, with pulse ox of 92-93%, his hypoxia has pr ogressed in last 24 hours, although he denies being more short of breath. Lung sounds are positive for coarse crackles throughout his bilateral lower and mid lower lobes. Occasional cough, clear phlegm production, no fevers overnight, - Vitals stable. Today's labs pending. Yesterday's d-dimer was 1.41. Awaiting today's level. Patient remains on Eliquis 5 mg twice daily for history of atrial fibrillation. He remains on Decadron and COVID-19 multivitamins. Patient seems to be upset, and frustrated, he states he has not been able to get through to his . I helped him dial his 's phone number however there was no answer, patient did not leave a voicemail. I told him we will try again later on. Otherwise seems to be fairly comfortable, but seems to be tense, frustrated Reevaluated today on 04/12/2021, patient remains on 15 L high flow nasal cannula, O2 saturation is marginal 92% at best. However the patient does not seem to be any distress, afebrile, relatively asymptomatic except for intermittent cough. Blood pressure is 159/96 heart rate is 89. CBC is relatively normal d-dimer is up to 29.9 him a this is a dramatic jump from 0.59 on admission 1.412 days ago, and now is 29.9. Venous Doppler is negative for DVT. Patient however was placed on heparin by the admitting physician, and I believe the patient should have a CT angiogram of the chest. And I will go ah ead and order a CT angiogram of the chest today. In the meantime I fully agree with heparin. Renal functioning is normal. Patient is on Decadron 6 mg IV push daily, is also on the COVID-19 cocktail. And again I fully agree with the heparin protocol on this patient Objective - Vital Signs Vital signs: Vital Signs Temp 97.6 F 04/12/21 14:00 Pulse 89 04/12/21 14:00 Resp 20 04/12/21 14:00 BP 159/96 04/12/21 14:00 Pulse Ox 92 L 04/12/21 14:00 Intake & Output 04/11/21 04/12/21 04/12/21 18:59 06:59 18:59 Intake Total 50 900 Balance 50 900 Intake: Intake, IV Titration 900 Amount Sodium Chloride 0.9% 1, 900 000 ml @ 20 mls/hr IV . Q24H [facility] Rx#:[id number] Oral 50 Other: Voiding Method Incontinent Incontinent Incontinent # Voids 2 - Exam Physical Exam: Revealed a 75-year-old white male on 15 L high flow nasal cannula HEENT:[Neck is supple.] [No neck masses.] [No thyromegaly.] [No JVD.] Chest: [Clear throughout, no crackles, no rhonchi, no wheezes.] Cardiac Exam: [Normal S1 and S2, no S3 gallop, no murmur.] Abdomen: [Soft, nontender, no megaly, no rebound, no guarding, normal bowel sounds.] Extremities: [No clubbing, no edema, no cyanosis.] Neurological Exam: [No focal neurologic deficit.] Psychiatric: Normal mood affect and normal mental status examination. Musculoskeletal no deformities noted limitation in range of motion. Skin: No rashes. - Labs CBC & Chem 7: 04/12/21 16:27 04/12/21 08:40 Labs: Abnormal Lab Results - Last 24 Hours (Table) 04/11/21 04/12/21 04/12/21 Range/Units 20:30 07:31 08:40 WBC 12.31 H (4.50-10.00) X 10*3/uL RBC 4.39 L (4.40-5.60) X 10*6/uL Hgb 12.9 L (13.0-17.0) g/dL Hct 39.1 L (39.6-50.0) % Plt Count 138 L (140-440) X 10*3/uL Plt Count Comment DECREASED A Neutrophils # (1.3-7.7) k/uL Neutrophils # (Manual) 11.45 H (2.00-8.90) X 10*3/uL Lymphocytes # (1.0-4.8) k/uL Lymphocytes # (Manual) 0.49 L (0.90-5.00) X 10*3/uL Eosinophils # (Manual) 0 L (0.04-0.35) X 10*3/uL APTT (22.0-30.0) sec D-Dimer (<0.60) mg/L FEU Potassium (3.5-5.5) mmol/L Carbon Dioxide (20.0-27.5) mmol/L BUN/Creatinine Ratio (12.00-20.00) Ratio POC Glucose (mg/dL) 149 H 115 H (75-99) mg/dL Calcium (8.7-10.3) mg/dL Lactate Dehydrogenase (120-246) U/L C-Reactive Protein (0.00-0.80) mg/dL 04/12/21 04/12/21 04/12/21 Range/Units 08:40 08:40 08:40 WBC (4.50-10.00) X 10*3/uL RBC (4.40-5.60) X 10*6/uL Hgb (13.0-17.0) g/dL Hct (39.6-50.0) % Plt Count (140-440) X 10*3/uL Plt Count Comment Neutrophils # (1.3-7.7) k/uL Neutrophils # (Manual) (2.00-8.90) X 10*3/uL Lymphocytes # (1.0-4.8) k/uL Lymphocytes # (Manual) (0.90-5.00) X 10*3/uL Eosinophils # (Manual) (0.04-0.35) X 10*3/uL APTT 20.5 L (22.0-30.0) sec D-Dimer 29.90 H (<0.60) mg/L FEU Potassium 3.4 L (3.5-5.5) mmol/L Carbon Dioxide 17.8 L (20.0-27.5) mmol/L BUN/Creatinine Ratio 24.76 H (12.00-20.00) Ratio POC Glucose (mg/dL) (75-99) mg/dL Calcium 8.5 L (8.7-10.3) mg/dL Lactate Dehydrogenase 632 H (120-246) U/L C-Reactive Protein 4.10 H (0.00-0.80) mg/dL 04/12/21 04/12/21 04/12/21 Range/Units 11:49 16:27 16:48 WBC (4.50-10.00) X 10*3/uL RBC (4.40-5.60) X 10*6/uL Hgb (13.0-17.0) g/dL Hct 38.9 L (39.6-50.0) % Plt Count 116 L (140-440) X 10*3/uL Plt Count Comment Neutrophils # 9.1 H (1.3-7.7) k/uL Neutrophils # (Manual) (2.00-8.90) X 10*3/uL Lymphocytes # 0.4 L (1.0-4.8) k/uL Lymphocytes # (Manual) (0.90-5.00) X 10*3/uL Eosinophils # (Manual) (0.04-0.35) X 10*3/uL APTT (22.0-30.0) sec D-Dimer (<0.60) mg/L FEU Potassium (3.5-5.5) mmol/L Carbon Dioxide (20.0-27.5) mmol/L BUN/Creatinine Ratio (12.00-20.00) Ratio POC Glucose (mg/dL) 121 H 143 H (75-99) mg/dL Calcium (8.7-10.3) mg/dL Lactate Dehydrogenase (120-246) U/L C-Reactive Protein (0.00-0.80) mg/dL Assessment and Plan Assessment: #1. Acute hypoxic respiratory failure secondary to COVID-19 pneumonia, patient is a vaccinated adult with more during a, and received a booster on 03/26/2021. Currently on 15 L high flow oxygen today on 04/11/2021, on Baricitinib. Patient is also on the COVID-19 cocktail. #2. Elevated inflammatory markers related to the above, improving #3. History of bilateral DVTs with previous IVC filter placement patient is now on heparin will need to be eventually transitioned to Eliquis again. #4 history of atrial fibrillation used to be on Eliquis. Considering his elevated d-dimer today his admitting physician placed him on heparin and I fully agree. #5. Cellulitis of the left lower extremity, recovered #6. History of prostate cancer status post radiation #7. Hypertension #8. History of seizure disorder #9. Macular degeneration #10. History of closed head injury #11. Intermittent episodes of Confusion, agitation, today the patient seems to be calm and appropriate. Recommendation: Continue present supportive care measures Continue COVID-19 cocktail along with baricitinib Ordered CT angiogram of the chest. Continue Haldol as needed for agitation. Prognosis remains relatively guarded. We'll continue to follow. Time with Patient: Less than 30
[2021-04-12 17:43] LABS: Partial Thromboplastin Time 21.7 sec (22.0-30.0)
[2021-04-12] MEDS ORDERED: ARIPiprazole 5 MG TAB PO SCH (18:30)
[2021-04-12] MEDS: ESCITALOPRAM 5 MG TAB PO SCH (18:31)
[2021-04-12] MEDS: ARIPiprazole 5 MG TAB PO SCH (18:32)
[2021-04-12 20:54] LABS: Glucose,Whole Blood 155 mg/dL (75-99)
--- NOTE | 2021-04-12 21:24 | CT ---
EXAMINATION TYPE: CT angio chest DATE OF EXAM: 04/12/2021 COMPARISON: 06/18/2019 HISTORY: PE, Covid CT DLP: 441 mGycm Automated exposure control for dose reduction was used. CONTRAST: Performed with IV Contrast, patient injected with 100 mL of Isovue 370. There are 3-D post processed images. There is extensive interstitial patchy infiltrate in both lungs. There are coalescent areas of airspa ce infiltrate. There is no mediastinal adenopathy. There are no hilar masses. Thoracic aorta is intac t. There is no aneurysm or dissection I see no evidence of filling defect in the pulmonary arteries. The thoracic spine is intact. There i s degenerative spurring throughout the thoracic spine. There is anterior wedging of T2 vertebra 25% t hat appears old. IMPRESSION: No evidence of pulmonary embolism. Extensive bilateral pulmonary infiltrates consistent with multifoc al pneumonia.. Pulmonary infiltrates significantly increased compared to old exam.
[2021-04-12] MEDS: traZODone HCL 50 MG TAB PO SCH (22:24)
[2021-04-13] MEDS: amLODIPine 5 MG TAB PO SCH ×2 (01:21→08:15)
[2021-04-13 05:52] LABS: Basophils # (A) 0.1 k/uL (0-0.2); Basophils % (A) 1 %; Eosinophils % (A) 0 %; HCT 44.3 % (39.0-53.0); HGB 14.8 gm/dL (13.0-17.5); Lymphocytes # (A) 0.5 k/uL (1.0-4.8); Lymphocytes % (A) 4 %; MCH 30.8 pg (25.0-35.0); MCHC 33.3 g/dL (31.0-37.0); MCV 92.4 fL (80.0-100.0); Mean Platelet Volume 8.3; Monocytes # (A) 0.3 k/uL (0-1.0); Monocytes % (A) 2 %; Neutrophils # (A) 12.6 k/uL (1.3-7.7); Neutrophils % (A) 93 %; Platelet Count 145 k/uL (150-450); RDW 13.3 % (11.5-15.5); WBC 13.6 k/uL (3.8-10.6)
[2021-04-13 06:06] LABS: ALT 54 U/L (4-49); AST 64 U/L (17-59); African American GFR (CKD) >90 (>60 ml/min/1.73 sqM); Albumin 3.4 g/dL (3.5-5.0); Albumin/Globulin Ratio 1.1; Alkaline Phosphatase 104 U/L (38-126); Anion Gap 12 mmol/L; Blood Urea Nitrogen 22 mg/dL (9-20); Carbon Dioxide 24 mmol/L (22-30); Chloride 101 mmol/L (98-107); Globulin 3.2 g/dL; Glucose 121 mg/dL (74-99); Non-African American GFR(CKD) 82 (>60 ml/min/1.73 sqM); Potassium 3.5 mmol/L (3.5-5.1); Sodium 137 mmol/L (137-145); Total Bilirubin 2.3 mg/dL (0.2-1.3); Total Protein 6.6 g/dL (6.3-8.2)
[2021-04-13] MEDS: MAG HYDROX/AL HYDROX/SIMETH 30 ML, diphenhydrAMINE ELIXIR 75 MG, LIDOCAINE VISCOUS 30 ML PO SCH ×12 (06:54→22:03)
[2021-04-13] MEDS: SODIUM CHLORIDE 0.9% 1,000 ML IV SCH (06:55)
[2021-04-13 07:30] LABS: Glucose,Whole Blood 119 mg/dL (75-99)
[2021-04-13] MEDS: INSULIN ASPART (NovoLOG) 100 UNIT/ML VIAL SQ SCH ×4 (08:04→22:03)
[2021-04-13] MEDS: VIT A,C & E-LUTEIN-MINERALS 1 EACH TAB PO SCH ×2 (08:14→22:01)
[2021-04-13] MEDS: ESCITALOPRAM 5 MG TAB PO SCH (08:15)
[2021-04-13] MEDS: DEXAMETHASONE SOD PHOSPHATE 10 MG/ML 1 ML VIAL IVP SCH (08:15)
[2021-04-13] MEDS: METOPROLOL TARTRATE 50 MG TAB PO SCH ×2 (08:15→22:03)
[2021-04-13] MEDS: ARIPiprazole 5 MG TAB PO SCH (08:15)
[2021-04-13] MEDS: CHOLECALCIFEROL 25 MCG (1000 IU) TABLET PO SCH (08:15)
[2021-04-13] MEDS: ZINC SULFATE 220 MG CAP PO SCH (08:15)
[2021-04-13] MEDS: ASCORBIC ACID 500 MG TAB PO SCH (08:16)
[2021-04-13] MEDS: CHLORHEXIDINE GLUCONATE 15 ML CUP MUCOUS MEM SCH ×2 (08:17→22:01)
[2021-04-13] MEDS ORDERED: ARIPiprazole 5 MG TAB PO SCH (09:00)
[2021-04-13 11:22] LABS: Glucose,Whole Blood 153 mg/dL (75-99)
[2021-04-13] MEDS: APIXABAN 5 MG TAB PO SCH ×3 (11:57→22:01)
[2021-04-13] MEDS: BARICITINIB 2 MG TABLET PO SCH (11:57)
--- NOTE | 2021-04-13 12:27 | P.PN ---
Subjective Progress Note Date: 04/13/21 Principal diagnosis: Shortness of breath, cough, congestion and weakness This is a very pleasant 75-year-old gentleman who follows with Dr. Todd as his primary care provider. 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 He presented to the emergency room last evening with complaints of generalized weakness with worsening shortness of breath cough and congestion. EMS found his pulse ox to be in the low 80s. He was brought in for the same. The patient has had Moderna vaccination and received a booster on 03/26/2021. His symptoms started 03/27/2021. He's had no sense of taste and poor appetite. He's had dyspnea on exertion and diarrhea. Chest x-ray reveals new mild patchy bilateral infiltrates. White count 5.2. Hemoglobin 14.6. Platelets 11. Lymphocytes 0.5. D-dimer 0.59. Sodium 136. Potassium 3.4. BUN 47. Creatinine 1.35. Glucose 110. Ferritin 1255. AST 66. ALT 23. LDH 1121. C- reactive protein 15.6. Chronic virus by PCR positive. He is seen today in the emergency room. He is currently sitting up on the stretcher. Awake and alert in no acute distress. He is requiring 10 L high flow nasal cannula to maintain O2 saturations in the low 90s. He has bilateral crackles right greater than left. He's been initiated on Decadron, Eliquis. Normal saline at 75 ML's per hour. On 04/10/2021 patient seen in follow-up on medical surgical floor. He does not appear to be in any acute distress, he is awake and alert, resting in bed, is currently on 4 L of oxygen, denies shortness of breath, he states he was never short of breath despite needing high flow oxygen, his pulse ox is 95% on 12 L, vital signs are stable, no fever or chills. His appetite is poor, and patient remains on 0.9 normal saline at a rate of 75 ML per hour. Nausea vomiting or diarrhea, she remains on Decadron 6 mg daily, he is on Eliquis 5 mg twice daily, he is on COVID-19 multivitamins. Today's chest x-ray shows interstitial pneumonitis with superimposed multifocal patchy infiltrates. Today's lab 7 reviewed, white blood cell count is 6.1, hemoglobin is 13, d-dimer is 1.41, sodium is 137, potassium is 4.1, chloride is 107, CO2 is 21, BUN is 40 creatinine 0.9, inflammatory markers are improving. ProCalcitonin level was negative. On 04/11/2021 patient seen in follow-up on medical surgical floor, he is currently up to 15 L of oxygen, with pulse ox of 92-93%, his hypoxia has progressed in last 24 hours, although he denies being more short of breath. Lung sounds are positive for coarse crackles throughout his bilateral lower and mid lower lobes. Occasional cough, clear phlegm production, no fevers overnight, -Vitals stable. Today's labs pending. Yesterday's d-dimer was 1.41. Awaiting today's level. Patient remains on Eliquis 5 mg twice daily for history of atrial fibrillation. He remains on Decadron and COVID-19 multivitamins. Patient seems to be upset, and frustrated, he states he has not been able to get through to his . I helped him dial his 's phone number however there was no answer, patient did not leave a voicemail. I told him we will try again later on. Otherwise seems to be fairly comfortable, but seems to be tense, frustrated On 04/13/2021 patient seen in follow-up on medical surgical floor, he is currently on 15 L per high flow nasal cannula and 100% nonrebreather mask, his pulse ox is 95%, he is afebrile, at times he is hypertensive, however does not appear to be in any distress, appears slightly tired, his CTA chest from yesterday showed no evidence of pulmonary embolism. Did show extensive bilateral pulmonary infiltrates consistent with multifocal pneumonia. And his pulmonary infiltrates significantly increased compared to his old exam. Patient is currently on Eliquis for history of A. fib at 5 mg twice daily, he is on B aricitinib, multivitamins. Today's labs have been reviewed, his white blood cell count is 13.6, slightly increased compared to yesterday's labs, hemoglobin is 14.8, electrolytes and renal profile were within normal limits. His LDH and d-dimer are still pending for today, but overall improved since admission. His pro calcitonin level was negative on yesterday's labs. Objective - Vital Signs Vital signs: Vital Signs Temp 97.6 F 04/13/21 10:00 Pulse 96 04/13/21 10:00 Resp 24 04/13/21 10:00 BP 150/84 04/13/21 10:00 Pulse Ox 95 04/13/21 10:00 Intake & Output 04/12/21 04/13/21 04/13/21 18:59 06:59 18:59 Intake Total 530 Balance 530 Intake: Oral 530 Other: Voiding Method Incontinent Incontinent Diaper Incontinent # Voids 2 - Exam GENERAL EXAM: Alert, very pleasant, 75-year-old white male, on 15 liters of oxygen in the 100% nonrebreather mask, with a pulse ox of 95% HEAD: Normocephalic/atraumatic. EYES: Normal reaction of pupils, equal size. Conjunctiva pink, sclera white. NOSE: Clear with pink turbinates. THROAT: No erythema or exudates. NECK: No masses, no JVD, no thyroid enlargement, no adenopathy. CHEST: No chest wall deformity. Symmetrical expansion. LUNGS: Equal air entry with no crackles, wheeze, rhonchi or dullness. CVS: Regular rate and rhythm, normal S1 and S2, no gallops, no murmurs, no rubs ABDOMEN: Soft, nontender. No hepatosplenomegaly, normal bowel sounds, no guarding or rigidity. EXTREMITIES: No clubbing, no edema, no cyanosis, 2+ pulses and upper and lower extremities. MUSCULOSKELETAL: Muscle strength and tone normal. SPINE: No scoliosis or deformity SKIN: No rashes CENTRAL NERVOUS SYSTEM: Alert and oriented -3. No focal deficits, tone is normal in all 4 extremities. PSYCHIATRIC: Alert and oriented -3. Appropriate affect. Intact judgment and insight. - Labs CBC & Chem 7: 04/13/21 05:06 04/13/21 05:06 Labs: Abnormal Lab Results - Last 24 Hours (Table) 04/12/21 04/12/21 04/12/21 Range/Units 08:40 08:40 16:27 WBC 12.31 H (4.50-10.00) X 10*3/uL RBC 4.39 L (4.40-5.60) X 10*6/uL Hgb 12.9 L (13.0-17.0) g/dL Hct 39.1 L 38.9 L (39.6-50.0) % Plt Count 138 L 116 L (140-440) X 10*3/uL Plt Count Comment DECREASED A Neutrophils # 9.1 H (1.3-7.7) k/uL Neutrophils # (Manual) 11.45 H (2.00-8.90) X 10*3/uL Lymphocytes # 0.4 L (1.0-4.8) k/uL Lymphocytes # (Manual) 0.49 L (0.90-5.00) X 10*3/uL Eosinophils # (Manual) 0 L (0.04-0.35) X 10*3/uL PT (9.0-12.0) sec INR (<1.2) APTT (22.0-30.0) sec Potassium 3.4 L (3.5-5.5) mmol/L Carbon Dioxide 17.8 L (20.0-27.5) mmol/L BUN (9-20) mg/dL BUN/Creatinine Ratio 24.76 H (12.00-20.00) Ratio Glucose (74-99) mg/dL POC Glucose (mg/dL) (75-99) mg/dL Calcium 8.5 L (8.7-10.3) mg/dL Total Bilirubin (0.2-1.3) mg/dL AST (17-59) U/L ALT (4-49) U/L Lactate Dehydrogenase 632 H (120-246) U/L C-Reactive Protein 4.10 H (0.00-0.80) mg/dL Albumin (3.5-5.0) g/dL 04/12/21 04/12/21 04/12/21 Range/Units 16:27 16:48 20:52 WBC (4.50-10.00) X 10*3/uL RBC (4.40-5.60) X 10*6/uL Hgb (13.0-17.0) g/dL Hct (39.6-50.0) % Plt Count (140-440) X 10*3/uL Plt Count Comment Neutrophils # (1.3-7.7) k/uL Neutrophils # (Manual) (2.00-8.90) X 10*3/uL Lymphocytes # (1.0-4.8) k/uL Lymphocytes # (Manual) (0.90-5.00) X 10*3/uL Eosinophils # (Manual) (0.04-0.35) X 10*3/uL PT 12.5 H (9.0-12.0) sec INR 1.2 H (<1.2) APTT 21.7 L (22.0-30.0) sec Potassium (3.5-5.5) mmol/L Carbon Dioxide (20.0-27.5) mmol/L BUN (9-20) mg/dL BUN/Creatinine Ratio (12.00-20.00) Ratio Glucose (74-99) mg/dL POC Glucose (mg/dL) 143 H 155 H (75-99) mg/dL Calcium (8.7-10.3) mg/dL Total Bilirubin (0.2-1.3) mg/dL AST (17-59) U/L ALT (4-49) U/L Lactate Dehydrogenase (120-246) U/L C-Reactive Protein (0.00-0.80) mg/dL Albumin (3.5-5.0) g/dL 04/12/21 04/13/21 04/13/21 Range/Units 22:41 05:06 05:06 WBC 13.6 H (4.50-10.00) X 10*3/uL RBC (4.40-5.60) X 10*6/uL Hgb (13.0-17.0) g/dL Hct (39.6-50.0) % Plt Count 145 L (140-440) X 10*3/uL Plt Count Comment Neutrophils # 12.6 H (1.3-7.7) k/uL Neutrophils # (Manual) (2.00-8.90) X 10*3/uL Lymphocytes # 0.5 L (1.0-4.8) k/uL Lymphocytes # (Manual) (0.90-5.00) X 10*3/uL Eosinophils # (Manual) (0.04-0.35) X 10*3/uL PT (9.0-12.0) sec INR (<1.2) APTT >200.0 H* (22.0-30.0) sec Potassium (3.5-5.5) mmol/L Carbon Dioxide (20.0-27.5) mmol/L BUN 22 H (9-20) mg/dL BUN/Creatinine Ratio (12.00-20.00) Ratio Glucose 121 H (74-99) mg/dL POC Glucose (mg/dL) (75-99) mg/dL Calcium (8.7-10.3) mg/dL Total Bilirubin 2.3 H (0.2-1.3) mg/dL AST 64 H (17-59) U/L ALT 54 H (4-49) U/L Lactate Dehydrogenase (120-246) U/L C-Reactive Protein (0.00-0.80) mg/dL Albumin 3.4 L (3.5-5.0) g/dL 04/13/21 04/13/21 04/13/21 Range/Units 05:06 07:29 11:17 WBC (4.50-10.00) X 10*3/uL RBC (4.40-5.60) X 10*6/uL Hgb (13.0-17.0) g/dL Hct (39.6-50.0) % Plt Count (140-440) X 10*3/uL Plt Count Comment Neutrophils # (1.3-7.7) k/uL Neutrophils # (Manual) (2.00-8.90) X 10*3/uL Lymphocytes # (1.0-4.8) k/uL Lymphocytes # (Manual) (0.90-5.00) X 10*3/uL Eosinophils # (Manual) (0.04-0.35) X 10*3/uL PT (9.0-12.0) sec INR (<1.2) APTT 21.2 L (22.0-30.0) sec Potassium (3.5-5.5) mmol/L Carbon Dioxide (20.0-27.5) mmol/L BUN (9-20) mg/dL BUN/Creatinine Ratio (12.00-20.00) Ratio Glucose (74-99) mg/dL POC Glucose (mg/dL) 119 H 153 H (75-99) mg/dL Calcium (8.7-10.3) mg/dL Total Bilirubin (0.2-1.3) mg/dL AST (17-59) U/L ALT (4-49) U/L Lactate Dehydrogenase (120-246) U/L C-Reactive Protein (0.00-0.80) mg/dL Albumin (3.5-5.0) g/dL Assessment and Plan Plan: Assessment: #1. Acute hypoxic respiratory failure secondary to COVID-19 pneumonia, patient is a vaccinated adult with more during a, and received a booster on 03/26/2021. Currently on 15 L high flow oxygen today on 04/11/2021, Baricitinib started on 04/11/2021. FiO2 is currently at 15 L per high flow nasal cannula and her percent nonrebreather mask #2. Elevated inflammatory markers related to the above, improving #3. 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 History of atrial fibrillation on Eliquis #5. Cellulitis of the left lower extremity, recovered #6. History of prostate cancer status post radiation #7. Hypertension #8. History of seizure disorder #9. Macular degeneration #10. History of closed head injury #11. Confusion, agitation, multifactorial, related to hypoxic encephalopathy and steroids Plan: continue Baricitinib, patient is currently up to 15 L per high flow nasal cannula and 100% nonrebreather Continue Decadron We'll continue oral anticoagulation form of Eliquis Inflammatory markers are improved since admission CT angiogram chest reviewed showing no evidence of pulmonary embolism but did show worsening infiltrates Overall prognosis is extremely guarded Does not seem to be in any distress right now May try BiPAP support if develops worsening dyspnea CODE STATUS is DO NOT RESUSCITATE I performed a history & physical examination of the patient and discussed their management with my nurse practitioner, Mary Hoyos. I reviewed the nurse practitioner's note and agree with the documented findings and plan of care. Lung sounds are positive for dim breath sounds throughout the lung razo. The findings and the impression was discussed with the patient. I attest to the documentation by the nurse practitioner. Time with Patient: Less than 30
--- NOTE | 2021-04-13 15:19 | P.PN ---
Subjective Patient is a 75-year-old male with a known history of atrial fibrillation, history of PE/DVT status post IVC filter placement, hypertension, hyperli pidemia, hearing disorder/deafness and history of seizures, prostate cancer status post radiation chronic low back pain and other multiple medical problems presents to ER with complaints of generalized weakness and worsening shortness of breath and cough and congestion just before day,.. In the ER patient was found to be hypoxic with pulse ox in the 80s. Denied any complaints of fever or chills. No nausea vomiting or abdominal pain or diarrhea. Patient is fully vaccinated with booster dose on 03/26/2021. Chest x-ray showed there is new mild patchy bilateral lower lobe pulmonary infiltrates and atelectasis compared to old exam. EKG showed normal sinus rhythm Laboratory showed WBC 5.2 hemoglobin 14.6 and platelets 101 lymphocytes 0.5 Sodium 136 potassium 3.4 chloride 103 BUN 47 creatinine 1.35 Ferritin 1255, LDH 1121 CRP 15.6 and COVID-19 PCR detected. EKG showed normal sinus rhythm 04/10/2021 Patient is currently resting in the bed. Requiring oxygen at 12 L via nasal c annula. Denies any chest pain or worsening shortness of breath. No fever no chills. No nausea or vomiting abdominal pain or diarrhea. Tolerating oral diet. Laboratory data showed WBC 6.1 hemoglobin 13.0 and platelets 149 D-dimer is 1.41 Sodium 137 potassium 4.1 chloride 107 BUN 14 creatinine 0.99 and blood sugar is 134 and calcium 8.3 liver enzymes are not elevated LDH 440 and CRP 3.9 pulmonary is on board. Patient is being continued on dexamethasone and apixaban 5 mg twice daily. Continued on IV hydration with normal saline at 75 cc/h. Chest x- ray today showed correlate for interstitial pneumonitis with superimposed multifocal patchy infiltratespneumonia.. 04/11/2021 Patient is awake and alert but looks lethargic. He has fair appetite eating about 25 -50% of his diet. No significantly dyspneic however his oxygen requirements went up 12 up to 13 L/m with saturation is low 90s at 92%. Rest of vitals are stable and he is afebrile. Inflammatory markers mildly elevated with LDH 440 and C-reactive protein 1.6.pro-calcitonin is mildly elevated at 0.23. not on antibiotic. Chest x-ray showing multifocal bilateral pneumonia He remains on dexamethasone, vitamin C, D and zinc. Eliquis, today started on Baricitinib . 04/12/2021 Patient is awake but he still complaining of from shortness of breath, he is a little bit lethargic. He has poor appetite eating only 25-50% of his diet. His oxygen saturation still 92 but he needed higher dose of oxygen today at 50 L/m. His d-dimer is elevated 1.4 up to 29.9, therefore we switched his home dose of Eliquis 5 mg and to heparin drip Ultrasound of the neck is negative for DVT. LDH still elevated at [address] protein 4.1. He has mild bicytopenia most likely secondary to viral infection, hemoglobin is 12.9 and platelets 138. WBC is elevated 12th while he is on steroids. Chest x-ray showing persistent bilateral pneumonia. On multiple vitamins, dexamethasone, baricitnib. Also he was started on heparin drip. He is off IV fluid 04/13/2021 Patient is a still on severe respiratory compromise and he still on 15 L/m, he i s getting extremely short of breath if he tries to move or walk however if he continued to sit in his bed or chair as he is most of the time his breathing is less tachypneic and more quiet. The plan for him if his breathing got worse to use BiPAP. D-dimer was elevated however CTA and Doppler were negative for PE/DVT, therefore patient heparin drip switched to Eliquis. CBC looks stable, mild leukocytosis while on steroids. He remains on dexamethasone, vitamin C, D and zinc. Eliquis, and on Baricitinib which was started 2 days ago. Objective - Vital Signs Vital signs: Vital Signs Temp 97.6 F 04/13/21 10:00 Pulse 96 04/13/21 10:00 Resp 24 04/13/21 10:00 BP 150/84 04/13/21 10:00 Pulse Ox 95 04/13/21 10:00 Intake & Output 04/12/21 04/13/21 04/13/21 18:59 06:59 18:59 Intake Total 530 Balance 530 Intake: Oral 530 Other: Voiding Method Incontinent Incontinent Diaper Incontinent # Voids 2 - Exam -GENERAL: The patient is alert and oriented but lethargic, not in any acute distress. Well developed, well nourished. HEENT: Pupils are round and equally reacting to light. EOMI. No scleral icterus. No conjunctival pallor. Normocephalic, atraumatic. No pharyngeal erythema. No thyromegaly. CARDIOVASCULAR: S1 and S2 present. No murmurs, rubs, or gallops. -PULMONARY: Chest is clear to auscultation, no wheezing. Bilateral crepitation ABDOMEN: Soft, nontender, nondistended, normoactive bowel sounds. No palpable organomegaly. MUSCULOSKELETAL: No joint swelling or deformity. EXTREMITIES: No cyanosis, clubbing, or pedal edema. NEUROLOGICAL: Gross neurological examination did not reveal any focal deficits. SKIN: No rashes. no petechiae. - Labs CBC & Chem 7: 04/13/21 05:06 04/13/21 05:06 Labs: Abnormal Lab Results - Last 24 Hours (Table) 04/12/21 04/12/21 04/12/21 Range/Units 08:40 08:40 08:40 WBC 12.31 H (4.50-10.00) X 10*3/uL RBC 4.39 L (4.40-5.60) X 10*6/uL Hgb 12.9 L (13.0-17.0) g/dL Hct 39.1 L (39.6-50.0) % Plt Count 138 L (140-440) X 10*3/uL Plt Count Comment DECREASED A Neutrophils # (1.3-7.7) k/uL Neutrophils # (Manual) 11.45 H (2.00-8.90) X 10*3/uL Lymphocytes # (1.0-4.8) k/uL Lymphocytes # (Manual) 0.49 L (0.90-5.00) X 10*3/uL Eosinophils # (Manual) 0 L (0.04-0.35) X 10*3/uL PT (9.0-12.0) sec INR (<1.2) APTT 20.5 L (22.0-30.0) sec Potassium 3.4 L (3.5-5.5) mmol/L Carbon Dioxide 17.8 L (20.0-27.5) mmol/L BUN (9-20) mg/dL BUN/Creatinine Ratio 24.76 H (12.00-20.00) Ratio Glucose (74-99) mg/dL POC Glucose (mg/dL) (75-99) mg/dL Calcium 8.5 L (8.7-10.3) mg/dL Total Bilirubin (0.2-1.3) mg/dL AST (17-59) U/L ALT (4-49) U/L Lactate Dehydrogenase 632 H (120-246) U/L C-Reactive Protein 4.10 H (0.00-0.80) mg/dL Albumin (3.5-5.0) g/dL 04/12/21 04/12/21 04/12/21 Range/Units 11:49 16:27 16:27 WBC (4.50-10.00) X 10*3/uL RBC (4.40-5.60) X 10*6/uL Hgb (13.0-17.0) g/dL Hct 38.9 L (39.6-50.0) % Plt Count 116 L (140-440) X 10*3/uL Plt Count Comment Neutrophils # 9.1 H (1.3-7.7) k/uL Neutrophils # (Manual) (2.00-8.90) X 10*3/uL Lymphocytes # 0.4 L (1.0-4.8) k/uL Lymphocytes # (Manual) (0.90-5.00) X 10*3/uL Eosinophils # (Manual) (0.04-0.35) X 10*3/uL PT 12.5 H (9.0-12.0) sec INR 1.2 H (<1.2) APTT 21.7 L (22.0-30.0) sec Potassium (3.5-5.5) mmol/L Carbon Dioxide (20.0-27.5) mmol/L BUN (9-20) mg/dL BUN/Creatinine Ratio (12.00-20.00) Ratio Glucose (74-99) mg/dL POC Glucose (mg/dL) 121 H (75-99) mg/dL Calcium (8.7-10.3) mg/dL Total Bilirubin (0.2-1.3) mg/dL AST (17-59) U/L ALT (4-49) U/L Lactate Dehydrogenase (120-246) U/L C-Reactive Protein (0.00-0.80) mg/dL Albumin (3.5-5.0) g/dL 04/12/21 04/12/21 04/12/21 Range/Units 16:48 20:52 22:41 WBC (4.50-10.00) X 10*3/uL RBC (4.40-5.60) X 10*6/uL Hgb (13.0-17.0) g/dL Hct (39.6-50.0) % Plt Count (140-440) X 10*3/uL Plt Count Comment Neutrophils # (1.3-7.7) k/uL Neutrophils # (Manual) (2.00-8.90) X 10*3/uL Lymphocytes # (1.0-4.8) k/uL Lymphocytes # (Manual) (0.90-5.00) X 10*3/uL Eosinophils # (Manual) (0.04-0.35) X 10*3/uL PT (9.0-12.0) sec INR (<1.2) APTT >200.0 H* (22.0-30.0) sec Potassium (3.5-5.5) mmol/L Carbon Dioxide (20.0-27.5) mmol/L BUN (9-20) mg/dL BUN/Creatinine Ratio (12.00-20.00) Ratio Glucose (74-99) mg/dL POC Glucose (mg/dL) 143 H 155 H (75-99) mg/dL Calcium (8.7-10.3) mg/dL Total Bilirubin (0.2-1.3) mg/dL AST (17-59) U/L ALT (4-49) U/L Lactate Dehydrogenase (120-246) U/L C-Reactive Protein (0.00-0.80) mg/dL Albumin (3.5-5.0) g/dL 04/13/21 04/13/21 04/13/21 Range/Units 05:06 05:06 05:06 WBC 13.6 H (4.50-10.00) X 10*3/uL RBC (4.40-5.60) X 10*6/uL Hgb (13.0-17.0) g/dL Hct (39.6-50.0) % Plt Count 145 L (140-440) X 10*3/uL Plt Count Comment Neutrophils # 12.6 H (1.3-7.7) k/uL Neutrophils # (Manual) (2.00-8.90) X 10*3/uL Lymphocytes # 0.5 L (1.0-4.8) k/uL Lymphocytes # (Manual) (0.90-5.00) X 10*3/uL Eosinophils # (Manual) (0.04-0.35) X 10*3/uL PT (9.0-12.0) sec INR (<1.2) APTT 21.2 L (22.0-30.0) sec Potassium (3.5-5.5) mmol/L Carbon Dioxide (20.0-27.5) mmol/L BUN 22 H (9-20) mg/dL BUN/Creatinine Ratio (12.00-20.00) Ratio Glucose 121 H (74-99) mg/dL POC Glucose (mg/dL) (75-99) mg/dL Calcium (8.7-10.3) mg/dL Total Bilirubin 2.3 H (0.2-1.3) mg/dL AST 64 H (17-59) U/L ALT 54 H (4-49) U/L Lactate Dehydrogenase (120-246) U/L C-Reactive Protein (0.00-0.80) mg/dL Albumin 3.4 L (3.5-5.0) g/dL 04/13/21 Range/Units 07:29 WBC (4.50-10.00) X 10*3/uL RBC (4.40-5.60) X 10*6/uL Hgb (13.0-17.0) g/dL Hct (39.6-50.0) % Plt Count (140-440) X 10*3/uL Plt Count Comment Neutrophils # (1.3-7.7) k/uL Neutrophils # (Manual) (2.00-8.90) X 10*3/uL Lymphocytes # (1.0-4.8) k/uL Lymphocytes # (Manual) (0.90-5.00) X 10*3/uL Eosinophils # (Manual) (0.04-0.35) X 10*3/uL PT (9.0-12.0) sec INR (<1.2) APTT (22.0-30.0) sec Potassium (3.5-5.5) mmol/L Carbon Dioxide (20.0-27.5) mmol/L BUN (9-20) mg/dL BUN/Creatinine Ratio (12.00-20.00) Ratio Glucose (74-99) mg/dL POC Glucose (mg/dL) 119 H (75-99) mg/dL Calcium (8.7-10.3) mg/dL Total Bilirubin (0.2-1.3) mg/dL AST (17-59) U/L ALT (4-49) U/L Lactate Dehydrogenase (120-246) U/L C-Reactive Protein (0.00-0.80) mg/dL Albumin (3.5-5.0) g/dL Assessment and Plan Assessment: Acute hypoxic respiratory failure secondary to COVID-19 pneumonia. Patient is vaccinated with moderate and received booster dose on 03/26/2021. Symptoms started on 03/27/2021. Elevated inflammatory markers secondary to COVID-19 pneumonia Paroxysmal atrial fibrillation on anticoagulation with Eliquis History of DVT s/p IVC filter placement Worsening d-dimer with no evidence of PE on CTA of the chest or DVT on Doppler of the legs History of prostate cancer status post radiation History of closed head injury and history of seizure disorder Hypertension Macular degeneration and legally blind Plan: This is a pleasant 75 years old male with complete pneumonia Continue with Decadron and multiple vitamins, vitamin C and D and zinc Continue with oral Eliquis on home dose of 5 mg Continue with Pepcid He was started on Baricitinib Pulmonary team on the case Labs and medication were reviewed.. Continue same treatment. Continue with symptomatic treatment. Resume home medication. Monitor lytes and vitals. DVT and GI prophylaxis. Further recommendationsas per clinical course of the patient DVT prophylaxis: Eliquis switched to heparin drip GI Prophylaxis: Pepcid Prognosis is guarded
[2021-04-13 16:35] LABS: Glucose,Whole Blood 156 mg/dL (75-99)
[2021-04-13 20:00] LABS: Glucose,Whole Blood 131 mg/dL (75-99)
[2021-04-13] MEDS: traZODone HCL 50 MG TAB PO SCH (22:02)
[2021-04-14] MEDS: SODIUM CHLORIDE 0.9% 1,000 ML IV SCH (06:09)
[2021-04-14 06:49] LABS: Basophils # (A) 0.1 k/uL (0-0.2); Basophils % (A) 1 %; Eosinophils % (A) 0 %; HGB 14.2 gm/dL (13.0-17.5); Lymphocytes # (A) 0.9 k/uL (1.0-4.8); Lymphocytes % (A) 6 %; MCH 30.3 pg (25.0-35.0); MCHC 32.9 g/dL (31.0-37.0); MCV 91.8 fL (80.0-100.0); Mean Platelet Volume 7.9; Monocytes # (A) 0.4 k/uL (0-1.0); Monocytes % (A) 3 %; Neutrophils # (A) 13.5 k/uL (1.3-7.7); Neutrophils % (A) 90 %; Platelet Count 149 k/uL (150-450); RBC 4.68 m/uL (4.30-5.90); RDW 13.4 % (11.5-15.5)
[2021-04-14 07:05] LABS: ALT 45 U/L (4-49); AST 45 U/L (17-59); African American GFR (CKD) 73 (>60 ml/min/1.73 sqM); Albumin 3.2 g/dL (3.5-5.0); Albumin/Globulin Ratio 1.1; Alkaline Phosphatase 100 U/L (38-126); Anion Gap 8 mmol/L; Blood Urea Nitrogen 36 mg/dL (9-20); Calcium 9.1 mg/dL (8.4-10.2); Carbon Dioxide 25 mmol/L (22-30); Chloride 103 mmol/L (98-107); Glucose 103 mg/dL (74-99); Non-African American GFR(CKD) 63 (>60 ml/min/1.73 sqM); Potassium 3.7 mmol/L (3.5-5.1); Sodium 136 mmol/L (137-145); Total Protein 6.2 g/dL (6.3-8.2)
[2021-04-14 07:17] LABS: Glucose,Whole Blood 100 mg/dL (75-99)
[2021-04-14] MEDS: INSULIN ASPART (NovoLOG) 100 UNIT/ML VIAL SQ SCH ×4 (08:15→20:39)
[2021-04-14] MEDS: ASCORBIC ACID 500 MG TAB PO SCH (08:23)
[2021-04-14] MEDS: amLODIPine 5 MG TAB PO SCH (08:24)
[2021-04-14] MEDS: ARIPiprazole 5 MG TAB PO SCH (08:24)
[2021-04-14] MEDS: APIXABAN 5 MG TAB PO SCH ×2 (08:24→22:00)
[2021-04-14] MEDS: METOPROLOL TARTRATE 50 MG TAB PO SCH ×2 (08:24→22:00)
[2021-04-14] MEDS: ZINC SULFATE 220 MG CAP PO SCH (08:24)
[2021-04-14] MEDS: CHOLECALCIFEROL 25 MCG (1000 IU) TABLET PO SCH (08:24)
[2021-04-14] MEDS: VIT A,C & E-LUTEIN-MINERALS 1 EACH TAB PO SCH ×2 (08:25→22:00)
[2021-04-14] MEDS: CHLORHEXIDINE GLUCONATE 15 ML CUP MUCOUS MEM SCH ×2 (08:25→22:07)
[2021-04-14] MEDS: DEXAMETHASONE SOD PHOSPHATE 10 MG/ML 1 ML VIAL IVP SCH (08:25)
[2021-04-14] MEDS: ESCITALOPRAM 5 MG TAB PO SCH (08:25)
[2021-04-14] MEDS: MAG HYDROX/AL HYDROX/SIMETH 30 ML, diphenhydrAMINE ELIXIR 75 MG, LIDOCAINE VISCOUS 30 ML PO SCH ×12 (08:26→23:07)
[2021-04-14 10:03] LABS: LD Isoenzymes 1 16 % (19-38); LD Isoenzymes 2 32 % (30-43); LD Isoenzymes 3 29 % (16-26); LD Isoenzymes 4 13 % (3-12); LD Isoenzymes 5 10 % (3-14); Lactacte Dehydrogenase(LD) ISO 363 U/L (120-250)
[2021-04-14 12:00] LABS: Glucose,Whole Blood 147 mg/dL (75-99)
[2021-04-14] MEDS: BARICITINIB 2 MG TABLET PO SCH (12:22)
[2021-04-14 17:00] LABS: Glucose,Whole Blood 173 mg/dL (75-99)
--- NOTE | 2021-04-14 18:13 | P.PN ---
Subjective Progress Note Date: 04/14/21 Principal diagnosis: Shortness of breath, cough, congestion and weakness This is a very pleasant 75-year-old gentleman who follows with Dr. Todd as his primary care provider. 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 He presented to the emergency room last evening with complaints of generalized weakness with worsening shortness of breath cough and congestion. EMS found his pulse ox to be in the low 80s. He was brought in for the same. The patient has had Moderna vaccination and received a booster on 03/26/2021. His symptoms started 03/27/2021. He's had no sense of taste and poor appetite. He's had dyspnea on exertion and diarrhea. Chest x-ray reveals new mild patchy bilateral infiltrates. White count 5.2. Hemoglobin 14.6. Platelets 11. Lymphocytes 0.5. D-dimer 0.59. Sodium 136. Potassium 3.4. BUN 47. Creatinine 1.35. Glucose 110. Ferritin 1255. AST 66. ALT 23. LDH 1121. C- reactive protein 15.6. Chronic virus by PCR positive. He is seen today in the emergency room. He is currently sitting up on the stretcher. Awake and alert in no acute distress. He is requiring 10 L high flow nasal cannula to maintain O2 saturations in the low 90s. He has bilateral crackles right greater than left. He's been initiated on Decadron, Eliquis. Normal saline at 75 ML's per hour. On 04/10/2021 patient seen in follow-up on medical surgical floor. He does not appear to be in any acute distress, he is awake and alert, resting in bed, is currently on 4 L of oxygen, denies shortness of breath, he states he was never short of breath despite needing high flow oxygen, his pulse ox is 95% on 12 L, vital signs are stable, no fever or chills. His appetite is poor, and patient remains on 0.9 normal saline at a rate of 75 ML per hour. Nausea vomiting or diarrhea, she remains on Decadron 6 mg daily, he is on Eliquis 5 mg twice daily, he is on COVID-19 multivitamins. Today's chest x-ray shows interstitial pneumonitis with superimposed multifocal patchy infiltrates. Today's lab 7 reviewed, white blood cell count is 6.1, hemoglobin is 13, d-dimer is 1.41, sodium is 137, potassium is 4.1, chloride is 107, CO2 is 21, BUN is 40 creatinine 0.9, inflammatory markers are improving. ProCalcitonin level was negative. On 04/11/2021 patient seen in follow-up on medical surgical floor, he is currently up to 15 L of oxygen, with pulse ox of 92-93%, his hypoxia has progressed in last 24 hours, although he denies being more short of breath. Lung sounds are positive for coarse crackles throughout his bilateral lower and mid lower lobes. Occasional cough, clear phlegm production, no fevers overnight, -Vitals stable. Today's labs pending. Yesterday's d-dimer was 1.41. Awaiting today's level. Patient remains on Eliquis 5 mg twice daily for history of atrial fibrillation. He remains on Decadron and COVID-19 multivitamins. Patient seems to be upset, and frustrated, he states he has not been able to get through to his . I helped him dial his 's phone number however there was no answer, patient did not leave a voicemail. I told him we will try again later on. Otherwise seems to be fairly comfortable, but seems to be tense, frustrated On 04/13/2021 patient seen in follow-up on medical surgical floor, he is currently on 15 L per high flow nasal cannula and 100% nonrebreather mask, his pulse ox is 95%, he is afebrile, at times he is hypertensive, however does not appear to be in any distress, appears slightly tired, his CTA chest from yesterday showed no evidence of pulmonary embolism. Did show extensive bilateral pulmonary infiltrates consistent with multifocal pneumonia. And his pulmonary infiltrates significantly increased compared to his old exam. Patient is currently on Eliquis for history of A. fib at 5 mg twice daily, he is on B aricitinib, multivitamins. Today's labs have been reviewed, his white blood cell count is 13.6, slightly increased compared to yesterday's labs, hemoglobin is 14.8, electrolytes and renal profile were within normal limits. His LDH and d-dimer are still pending for today, but overall improved since admission. His pro calcitonin level was negative on yesterday's labs. On 04/14/2021 patient seen in follow-up on medical surgical floor. He is awake and alert, he is currently on Airvo at 50 L and 85%, his pulse ox is 88-93%, does not appear to be in any acute distress. He remains on Baricitinib, Decadron, and prophylactic Lovenox. No fever or chills, appears generally weak, his appetite has been poor. Today's labs have been reviewed, his white blood cell count is 15, hemoglobin is 14.2, his electrolytes are unremarkable, B1 is 36 creatinine is 1.14. His LFTs are improving and are back to normal limits, his inflammatory markers are still pending on today's labs, pro calcitonin level was negative. CT angiogram the chest showed no evidence of pulmonary embolism. Patient remains on Lovenox 40 mg daily. Objective - Vital Signs Vital signs: Vital Signs Temp 98.2 F 04/14/21 17:59 Pulse 80 04/14/21 17:59 Resp 17 04/14/21 17:59 BP 158/95 04/14/21 17:59 Pulse Ox 97 04/14/21 17:59 Intake & Output 04/13/21 04/14/21 04/14/21 18:59 06:59 18:59 Intake Total 980 Balance 980 Intake: Intake, IV Titration 500 Amount Sodium Chloride 0.9% 1, 500 000 ml @ 20 mls/hr IV . Q24H [facility] Rx#:[id number] Oral 480 Other: Voiding Method Diaper Diaper Incontinent Incontinent # Voids 2 3 - Exam GENERAL EXAM: Alert, very pleasant, 75-year-old white male, on Airvo at 50 features and FiO2 of 85% breathing fairly comfortably, but generally patient is weak, O2 sat is 88-93% HEAD: Normocephalic/atraumatic. EYES: Normal reaction of pupils, equal size. Conjunctiva pink, sclera white. NOSE: Clear with pink turbinates. THROAT: No erythema or exudates. NECK: No masses, no JVD, no thyroid enlargement, no adenopathy. CHEST: No chest wall deformity. Symmetrical expansion. LUNGS: Equal air entry with no crackles, wheeze, rhonchi or dullness. CVS: Regular rate and rhythm, normal S1 and S2, no gallops, no murmurs, no rubs ABDOMEN: Soft, nontender. No hepatosplenomegaly, normal bowel sounds, no gua rding or rigidity. EXTREMITIES: No clubbing, no edema, no cyanosis, 2+ pulses and upper and lower extremities. MUSCULOSKELETAL: Muscle strength and tone normal. SPINE: No scoliosis or deformity SKIN: No rashes CENTRAL NERVOUS SYSTEM: Alert and oriented -3. No focal deficits, tone is normal in all 4 extremities. PSYCHIATRIC: Alert and oriented -3. Appropriate affect. Intact judgment and insight. - Labs CBC & Chem 7: 04/14/21 06:09 04/14/21 06:09 Labs: Abnormal Lab Results - Last 24 Hours (Table) 04/09/21 04/13/21 04/14/21 Range/Units 07:50 19:59 06:09 WBC 15.0 H (3.8-10.6) k/uL Plt Count 149 L (150-450) k/uL Neutrophils # 13.5 H (1.3-7.7) k/uL Lymphocytes # 0.9 L (1.0-4.8) k/uL Sodium (137-145) mmol/L BUN (9-20) mg/dL Glucose (74-99) mg/dL POC Glucose (mg/dL) 131 H (75-99) mg/dL Total Bilirubin (0.2-1.3) mg/dL LD Isoenzymes 363 H (120-250) U/L LD 1 16 L (19-38) % LD 3 29 H (16-26) % LD 4 13 H (3-12) % Total Protein (6.3-8.2) g/dL Albumin (3.5-5.0) g/dL 04/14/21 04/14/21 04/14/21 Range/Units 06:09 07:13 11:58 WBC (3.8-10.6) k/uL Plt Count (150-450) k/uL Neutrophils # (1.3-7.7) k/uL Lymphocytes # (1.0-4.8) k/uL Sodium 136 L (137-145) mmol/L BUN 36 H (9-20) mg/dL Glucose 103 H (74-99) mg/dL POC Glucose (mg/dL) 100 H 147 H (75-99) mg/dL Total Bilirubin 2.0 H (0.2-1.3) mg/dL LD Isoenzymes (120-250) U/L LD 1 (19-38) % LD 3 (16-26) % LD 4 (3-12) % Total Protein 6.2 L (6.3-8.2) g/dL Albumin 3.2 L (3.5-5.0) g/dL 04/14/21 Range/Units 16:58 WBC (3.8-10.6) k/uL Plt Count (150-450) k/uL Neutrophils # (1.3-7.7) k/uL Lymphocytes # (1.0-4.8) k/uL Sodium (137-145) mmol/L BUN (9-20) mg/dL Glucose (74-99) mg/dL POC Glucose (mg/dL) 173 H (75-99) mg/dL Total Bilirubin (0.2-1.3) mg/dL LD Isoenzymes (120-250) U/L LD 1 (19-38) % LD 3 (16-26) % LD 4 (3-12) % Total Protein (6.3-8.2) g/dL Albumin (3.5-5.0) g/dL Assessment and Plan Plan: Assessment: #1. Acute hypoxic respiratory failure secondary to COVID-19 pneumonia, patient is a vaccinated adult with more during a, and received a booster on 03/26/2021. Currently on 15 L high flow oxygen today on 04/11/2021, Baricitinib started on 04/11/2021. FiO2 is currently at 50 L and FiO2 of 85% per Airvo device #2. Elevated inflammatory markers related to the above, improving #3. 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 History of atrial fibrillation on Eliquis #5. Cellulitis of the left lower extremity, recovered #6. History of prostate cancer status post radiation #7. Hypertension #8. History of seizure disorder #9. Macular degeneration #10. History of closed head injury #11. Confusion, agitation, multifactorial, related to hypoxic encephalopathy and steroids Plan: continue Baricitinib, patient is currently on Airvo at 50 L and FiO2 of 85% Breathing fairly comfortably, does not appear to be in any acute distress, but generally he is weak If develops worsening dyspnea may try BiPAP support Continue Decadron We'll continue oral anticoagulation form of Eliquis CODE STATUS is DO NOT RESUSCITATE Overall prognosis is guarded I performed a history & physical examination of the patient and discussed their management with my nurse practitioner, Mary Hoyos. I reviewed the nurse practitioner's note and agree with the documented findings and plan of care. Lung sounds are positive for dim breath sounds throughout the lung razo. The findings and the impression was discussed with the patient. I attest to the documentation by the nurse practitioner. Time with Patient: Less than 30
--- NOTE | 2021-04-14 20:15 | P.PN ---
Subjective Patient is a 75-year-old male with a known history of atrial fibrillation, history of PE/DVT status post IVC filter placement, hypertension, hyperli pidemia, hearing disorder/deafness and history of seizures, prostate cancer status post radiation chronic low back pain and other multiple medical problems presents to ER with complaints of generalized weakness and worsening shortness of breath and cough and congestion just before day,.. In the ER patient was found to be hypoxic with pulse ox in the 80s. Denied any complaints of fever or chills. No nausea vomiting or abdominal pain or diarrhea. Patient is fully vaccinated with booster dose on 03/26/2021. Chest x-ray showed there is new mild patchy bilateral lower lobe pulmonary infiltrates and atelectasis compared to old exam. EKG showed normal sinus rhythm Laboratory showed WBC 5.2 hemoglobin 14.6 and platelets 101 lymphocytes 0.5 Sodium 136 potassium 3.4 chloride 103 BUN 47 creatinine 1.35 Ferritin 1255, LDH 1121 CRP 15.6 and COVID-19 PCR detected. EKG showed normal sinus rhythm 04/10/2021 Patient is currently resting in the bed. Requiring oxygen at 12 L via nasal c annula. Denies any chest pain or worsening shortness of breath. No fever no chills. No nausea or vomiting abdominal pain or diarrhea. Tolerating oral diet. Laboratory data showed WBC 6.1 hemoglobin 13.0 and platelets 149 D-dimer is 1.41 Sodium 137 potassium 4.1 chloride 107 BUN 14 creatinine 0.99 and blood sugar is 134 and calcium 8.3 liver enzymes are not elevated LDH 440 and CRP 3.9 pulmonary is on board. Patient is being continued on dexamethasone and apixaban 5 mg twice daily. Continued on IV hydration with normal saline at 75 cc/h. Chest x- ray today showed correlate for interstitial pneumonitis with superimposed multifocal patchy infiltratespneumonia.. 04/11/2021 Patient is awake and alert but looks lethargic. He has fair appetite eating about 25 -50% of his diet. No significantly dyspneic however his oxygen requirements went up 12 up to 13 L/m with saturation is low 90s at 92%. Rest of vitals are stable and he is afebrile. Inflammatory markers mildly elevated with LDH 440 and C-reactive protein 1.6.pro-calcitonin is mildly elevated at 0.23. not on antibiotic. Chest x-ray showing multifocal bilateral pneumonia He remains on dexamethasone, vitamin C, D and zinc. Eliquis, today started on Baricitinib . 04/12/2021 Patient is awake but he still complaining of from shortness of breath, he is a little bit lethargic. He has poor appetite eating only 25-50% of his diet. His oxygen saturation still 92 but he needed higher dose of oxygen today at 50 L/m. His d-dimer is elevated 1.4 up to 29.9, therefore we switched his home dose of Eliquis 5 mg and to heparin drip Ultrasound of the neck is negative for DVT. LDH still elevated at [address] protein 4.1. He has mild bicytopenia most likely secondary to viral infection, hemoglobin is 12.9 and platelets 138. WBC is elevated 12th while he is on steroids. Chest x-ray showing persistent bilateral pneumonia. On multiple vitamins, dexamethasone, baricitnib. Also he was started on heparin drip. He is off IV fluid 04/13/2021 Patient is a still on severe respiratory compromise and he still on 15 L/m, he i s getting extremely short of breath if he tries to move or walk however if he continued to sit in his bed or chair as he is most of the time his breathing is less tachypneic and more quiet. The plan for him if his breathing got worse to use BiPAP. D-dimer was elevated however CTA and Doppler were negative for PE/DVT, therefore patient heparin drip switched to Eliquis. CBC looks stable, mild leukocytosis while on steroids. He remains on dexamethasone, vitamin C, D and zinc. Eliquis, and on Baricitinib which was started 2 days ago. 04/14/2021 Patient is generally weak and lethargic. His oxygen status is worsening and today he needs 50 L/m of oxygen at 86% FiO2. For his bilateral COVID-19 pneumonia. He is afebrile and other Vitas looks stable. Patient continued on multiple vitamins, dexamethasone, Eliquis 5 mg as well as Baricitinib Patient remains on general floor with close monitoring with regards prognosis Objective - Vital Signs Vital signs: Vital Signs Temp 98.0 F 04/14/21 09:50 Pulse 77 04/14/21 09:50 Resp 16 04/14/21 09:50 BP 156/90 04/14/21 09:50 Pulse Ox 93 L 04/14/21 11:42 Intake & Output 04/13/21 04/14/21 04/14/21 18:59 06:59 18:59 Intake Total 980 Balance 980 Intake: Intake, IV Titration 500 Amount Sodium Chloride 0.9% 1, 500 000 ml @ 20 mls/hr IV . Q24H [facility] Rx#:[id number] Oral 480 Other: Voiding Method Diaper Diaper Incontinent Incontinent # Voids 2 - Exam -GENERAL: The patient is alert and oriented but lethargic, not in any acute distress. Well developed, well nourished. HEENT: Pupils are round and equally reacting to light. EOMI. No scleral icterus. No conjunctival pallor. Normocephalic, atraumatic. No pharyngeal erythema. No thyromegaly. CARDIOVASCULAR: S1 and S2 present. No murmurs, rubs, or gallops. -PULMONARY: Chest is clear to auscultation, no wheezing. Bilateral crepitation ABDOMEN: Soft, nontender, nondistended, normoactive bowel sounds. No palpable organomegaly. MUSCULOSKELETAL: No joint swelling or deformity. EXTREMITIES: No cyanosis, clubbing, or pedal edema. NEUROLOGICAL: Gross neurological examination did not reveal any focal deficits. SKIN: No rashes. no petechiae. - Labs CBC & Chem 7: 04/14/21 06:09 04/14/21 06:09 Labs: Abnormal Lab Results - Last 24 Hours (Table) 04/09/21 04/13/21 04/13/21 Range/Units 07:50 16:34 19:59 WBC (3.8-10.6) k/uL Plt Count (150-450) k/uL Neutrophils # (1.3-7.7) k/uL Lymphocytes # (1.0-4.8) k/uL Sodium (137-145) mmol/L BUN (9-20) mg/dL Glucose (74-99) mg/dL POC Glucose (mg/dL) 156 H 131 H (75-99) mg/dL Total Bilirubin (0.2-1.3) mg/dL LD Isoenzymes 363 H (120-250) U/L LD 1 16 L (19-38) % LD 3 29 H (16-26) % LD 4 13 H (3-12) % Total Protein (6.3-8.2) g/dL Albumin (3.5-5.0) g/dL 04/14/21 04/14/21 04/14/21 Range/Units 06:09 06:09 07:13 WBC 15.0 H (3.8-10.6) k/uL Plt Count 149 L (150-450) k/uL Neutrophils # 13.5 H (1.3-7.7) k/uL Lymphocytes # 0.9 L (1.0-4.8) k/uL Sodium 136 L (137-145) mmol/L BUN 36 H (9-20) mg/dL Glucose 103 H (74-99) mg/dL POC Glucose (mg/dL) 100 H (75-99) mg/dL Total Bilirubin 2.0 H (0.2-1.3) mg/dL LD Isoenzymes (120-250) U/L LD 1 (19-38) % LD 3 (16-26) % LD 4 (3-12) % Total Protein 6.2 L (6.3-8.2) g/dL Albumin 3.2 L (3.5-5.0) g/dL Assessment and Plan Assessment: Acute hypoxic respiratory failure secondary to COVID-19 pneumonia. Patient is vaccinated with moderate and received booster dose on 03/26/2021. Symptoms started on 03/27/2021. Elevated inflammatory markers secondary to COVID-19 pneumonia Paroxysmal atrial fibrillation on anticoagulation with Eliquis History of DVT s/p IVC filter placement Worsening d-dimer with no evidence of PE on CTA of the chest or DVT on Doppler of the legs History of prostate cancer status post radiation History of closed head injury and history of seizure disorder Hypertension Macular degeneration and legally blind Plan: This is a pleasant 75 years old male with complete pneumonia Continue with Decadron and multiple vitamins, vitamin C and D and zinc Continue with oral Eliquis on home dose of 5 mg Continue with Pepcid He was started on Baricitinib Pulmonary team on the case Labs and medication were reviewed.. Continue same treatment. Continue with symptomatic treatment. Resume home medication. Monitor lytes and vitals. DVT and GI prophylaxis. Further recommendationsas per clinical course of the yamel ent DVT prophylaxis: Eliquis switched to heparin drip GI Prophylaxis: Pepcid Prognosis is guarded
[2021-04-14 20:26] LABS: Glucose,Whole Blood 133 mg/dL (75-99)
[2021-04-14] MEDS: traZODone HCL 50 MG TAB PO SCH (22:01)
[2021-04-15] MEDS: SODIUM CHLORIDE 0.9% 1,000 ML IV SCH (00:05)
[2021-04-15 07:22] LABS: Glucose,Whole Blood 129 mg/dL (75-99)
[2021-04-15] MEDS: INSULIN ASPART (NovoLOG) 100 UNIT/ML VIAL SQ SCH ×3 (08:26→17:08)
[2021-04-15] MEDS: METOPROLOL TARTRATE 50 MG TAB PO SCH ×2 (08:28→21:51)
[2021-04-15] MEDS: amLODIPine 5 MG TAB PO SCH (08:28)
[2021-04-15] MEDS: ASCORBIC ACID 500 MG TAB PO SCH (08:28)
[2021-04-15] MEDS: ZINC SULFATE 220 MG CAP PO SCH (08:28)
[2021-04-15] MEDS: VIT A,C & E-LUTEIN-MINERALS 1 EACH TAB PO SCH ×2 (08:28→21:51)
[2021-04-15] MEDS: APIXABAN 5 MG TAB PO SCH ×2 (08:29→21:51)
[2021-04-15] MEDS: DEXAMETHASONE SOD PHOSPHATE 10 MG/ML 1 ML VIAL IVP SCH (08:29)
[2021-04-15] MEDS: ARIPiprazole 5 MG TAB PO SCH (08:29)
[2021-04-15] MEDS: CHOLECALCIFEROL 25 MCG (1000 IU) TABLET PO SCH (08:29)
[2021-04-15] MEDS: CHLORHEXIDINE GLUCONATE 15 ML CUP MUCOUS MEM SCH ×2 (08:30→21:51)
[2021-04-15] MEDS: ESCITALOPRAM 5 MG TAB PO SCH (08:30)
[2021-04-15] MEDS: MAG HYDROX/AL HYDROX/SIMETH 30 ML, diphenhydrAMINE ELIXIR 75 MG, LIDOCAINE VISCOUS 30 ML PO SCH ×9 (10:28→21:50)
--- NOTE | 2021-04-15 10:55 | P.PN ---
Subjective Progress Note Date: 04/15/21 Principal diagnosis: Shortness of breath, cough, congestion and weakness This is a very pleasant 75-year-old gentleman who follows with Dr. Todd as his primary care provider. 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 He presented to the emergency room last evening with complaints of generalized weakness with worsening shortness of breath cough and congestion. EMS found his pulse ox to be in the low 80s. He was brought in for the same. The patient has had Moderna vaccination and received a booster on 03/26/2021. His symptoms started 03/27/2021. He's had no sense of taste and poor appetite. He's had dyspnea on exertion and diarrhea. Chest x-ray reveals new mild patchy bilateral infiltrates. White count 5.2. Hemoglobin 14.6. Platelets 11. Lymphocytes 0.5. D-dimer 0.59. Sodium 136. Potassium 3.4. BUN 47. Creatinine 1.35. Glucose 110. Ferritin 1255. AST 66. ALT 23. LDH 1121. C- reactive protein 15.6. Chronic virus by PCR positive. He is seen today in the emergency room. He is currently sitting up on the stretcher. Awake and alert in no acute distress. He is requiring 10 L high flow nasal cannula to maintain O2 saturations in the low 90s. He has bilateral crackles right greater than left. He's been initiated on Decadron, Eliquis. Normal saline at 75 ML's per hour. On 04/10/2021 patient seen in follow-up on medical surgical floor. He does not appear to be in any acute distress, he is awake and alert, resting in bed, is currently on 4 L of oxygen, denies shortness of breath, he states he was never short of breath despite needing high flow oxygen, his pulse ox is 95% on 12 L, vital signs are stable, no fever or chills. His appetite is poor, and patient remains on 0.9 normal saline at a rate of 75 ML per hour. Nausea vomiting or diarrhea, she remains on Decadron 6 mg daily, he is on Eliquis 5 mg twice daily, he is on COVID-19 multivitamins. Today's chest x-ray shows interstitial pneumonitis with superimposed multifocal patchy infiltrates. Today's lab 7 reviewed, white blood cell count is 6.1, hemoglobin is 13, d-dimer is 1.41, sodium is 137, potassium is 4.1, chloride is 107, CO2 is 21, BUN is 40 creatinine 0.9, inflammatory markers are improving. ProCalcitonin level was negative. On 04/11/2021 patient seen in follow-up on medical surgical floor, he is currently up to 15 L of oxygen, with pulse ox of 92-93%, his hypoxia has progressed in last 24 hours, although he denies being more short of breath. Lung sounds are positive for coarse crackles throughout his bilateral lower and mid lower lobes. Occasional cough, clear phlegm production, no fevers overnight, -Vitals stable. Today's labs pending. Yesterday's d-dimer was 1.41. Awaiting today's level. Patient remains on Eliquis 5 mg twice daily for history of atrial fibrillation. He remains on Decadron and COVID-19 multivitamins. Patient seems to be upset, and frustrated, he states he has not been able to get through to his . I helped him dial his 's phone number however there was no answer, patient did not leave a voicemail. I told him we will try again later on. Otherwise seems to be fairly comfortable, but seems to be tense, frustrated On 04/13/2021 patient seen in follow-up on medical surgical floor, he is currently on 15 L per high flow nasal cannula and 100% nonrebreather mask, his pulse ox is 95%, he is afebrile, at times he is hypertensive, however does not appear to be in any distress, appears slightly tired, his CTA chest from yesterday showed no evidence of pulmonary embolism. Did show extensive bilateral pulmonary infiltrates consistent with multifocal pneumonia. And his pulmonary infiltrates significantly increased compared to his old exam. Patient is currently on Eliquis for history of A. fib at 5 mg twice daily, he is on B aricitinib, multivitamins. Today's labs have been reviewed, his white blood cell count is 13.6, slightly increased compared to yesterday's labs, hemoglobin is 14.8, electrolytes and renal profile were within normal limits. His LDH and d-dimer are still pending for today, but overall improved since admission. His pro calcitonin level was negative on yesterday's labs. On 04/14/2021 patient seen in follow-up on medical surgical floor. He is awake and alert, he is currently on Airvo at 50 L and 85%, his pulse ox is 88-93%, does not appear to be in any acute distress. He remains on Baricitinib, Decadron, and prophylactic Lovenox. No fever or chills, appears generally weak, his appetite has been poor. Today's labs have been reviewed, his white blood cell count is 15, hemoglobin is 14.2, his electrolytes are unremarkable, B1 is 36 creatinine is 1.14. His LFTs are improving and are back to normal limits, his inflammatory markers are still pending on today's labs, pro calcitonin level was negative. CT angiogram the chest showed no evidence of pulmonary embolism. Patient remains on Lovenox 40 mg daily. On 04/15/2021 patient seen in follow-up on medical surgical floor. He is res ting comfortably right now, he is on Airvo at 50 L and FiO2 of 84%, his pulse ox is 96%, breathing comfortably, he denies any worsening dyspnea, lung sounds are diminished, minimal crackles at the bases, no cough, his appetite has been poor, he is been encouraged to increase his oral intake. He is a bit sleepy on today's exam, but does not appear to be in any acute distress, she continues on Decadron 6 mg daily, he is on Baricitinib, and Eliquis 5 mg twice daily for history of A. fib, his heart rate is currently controlled. His had no acute events overnight. Objective - Vital Signs Vital signs: Vital Signs Temp 98.5 F 04/15/21 10:00 Pulse 79 04/15/21 10:00 Resp 18 04/15/21 10:00 BP 142/88 04/15/21 10:00 Pulse Ox 97 04/15/21 10:00 Intake & Output 04/14/21 04/15/21 04/15/21 18:59 06:59 18:59 Other: Voiding Method Diaper Incontinent # Voids 3 - Exam GENERAL EXAM: Alert, very pleasant, 75-year-old white male, on Airvo at 50 features and FiO2 of 85% breathing fairly comfortably, but generally patient is weak, O2 sat is 96% HEAD: Normocephalic/atraumatic. EYES: Normal reaction of pupils, equal size. Conjunctiva pink, sclera white. NOSE: Clear with pink turbinates. THROAT: No erythema or exudates. NECK: No masses, no JVD, no thyroid enlargement, no adenopathy. CHEST: No chest wall deformity. Symmetrical expansion. LUNGS: Equal air entry with no crackles, wheeze, rhonchi or dullness. CVS: Regular rate and rhythm, normal S1 and S2, no gallops, no murmurs, no rubs ABDOMEN: Soft, nontender. No hepatosplenomegaly, normal bowel sounds, no guarding or rigidity. EXTREMITIES: No clubbing, no edema, no cyanosis, 2+ pulses and upper and lower extremities. MUSCULOSKELETAL: Muscle strength and tone normal. SPINE: No scoliosis or deformity SKIN: No rashes CENTRAL NERVOUS SYSTEM: Alert and oriented -3. No focal deficits, tone is normal in all 4 extremities. PSYCHIATRIC: Alert and oriented -3. Appropriate affect. Intact judgment and insight. - Labs CBC & Chem 7: 04/14/21 06:09 04/14/21 06:09 Labs: Abnormal Lab Results - Last 24 Hours (Table) 04/14/21 04/14/21 04/14/21 Range/Units 11:58 16:58 20:21 POC Glucose (mg/dL) 147 H 173 H 133 H (75-99) mg/dL 04/15/21 Range/Units 07:21 POC Glucose (mg/dL) 129 H (75-99) mg/dL Assessment and Plan Plan: Assessment: #1. Acute hypoxic respiratory failure secondary to COVID-19 pneumonia, patient is a vaccinated adult with more during a, and received a booster on 03/26/2021. Currently on 15 L high flow oxygen today on 04/11/2021, Baricitinib started on 04/11/2021. FiO2 is currently at 50 L and FiO2 of 85% per Airvo device #2. Elevated inflammatory markers related to the above, improving #3. 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 History of atrial fibrillation on Eliquis #5. Cellulitis of the left lower extremity, recovered #6. History of prostate cancer status post radiation #7. Hypertension #8. History of seizure disorder #9. Macular degeneration #10. History of closed head injury #11. Confusion, agitation, multifactorial, related to hypoxic encephalopathy and steroids Plan: continue Baricitinib, patient is currently on Airvo at 50 L and FiO2 of 85%, and breathing comfortably, his pulse ox is currently 96% Generally patient is weak, his oral intake has been poor Vital signs have been stable Continue Decadron, continue Eliquis Continue supportive care Overall prognosis is extremely guarded I performed a history & physical examination of the patient and discussed their management with my nurse practitioner, Mary Hoyos. I reviewed the nurse practitioner's note and agree with the documented findings and plan of care. Lung sounds are positive for dim breath sounds throughout the lung razo. The findings and the impression was discussed with the patient. I attest to the documentation by the nurse practitioner. Time with Patient: Less than 30
[2021-04-15 11:44] LABS: Glucose,Whole Blood 145 mg/dL (75-99)
[2021-04-15] MEDS: BARICITINIB 2 MG TABLET PO SCH (12:28)
[2021-04-15 17:03] LABS: Glucose,Whole Blood 170 mg/dL (75-99)
--- NOTE | 2021-04-15 19:41 | P.PN ---
Subjective Patient is a 75-year-old male with a known history of atrial fibrillation, history of PE/DVT status post IVC filter placement, hypertension, hyperli pidemia, hearing disorder/deafness and history of seizures, prostate cancer status post radiation chronic low back pain and other multiple medical problems presents to ER with complaints of generalized weakness and worsening shortness of breath and cough and congestion just before day,.. In the ER patient was found to be hypoxic with pulse ox in the 80s. Denied any complaints of fever or chills. No nausea vomiting or abdominal pain or diarrhea. Patient is fully vaccinated with booster dose on 03/26/2021. Chest x-ray showed there is new mild patchy bilateral lower lobe pulmonary infiltrates and atelectasis compared to old exam. EKG showed normal sinus rhythm Laboratory showed WBC 5.2 hemoglobin 14.6 and platelets 101 lymphocytes 0.5 Sodium 136 potassium 3.4 chloride 103 BUN 47 creatinine 1.35 Ferritin 1255, LDH 1121 CRP 15.6 and COVID-19 PCR detected. EKG showed normal sinus rhythm 04/10/2021 Patient is currently resting in the bed. Requiring oxygen at 12 L via nasal c annula. Denies any chest pain or worsening shortness of breath. No fever no chills. No nausea or vomiting abdominal pain or diarrhea. Tolerating oral diet. Laboratory data showed WBC 6.1 hemoglobin 13.0 and platelets 149 D-dimer is 1.41 Sodium 137 potassium 4.1 chloride 107 BUN 14 creatinine 0.99 and blood sugar is 134 and calcium 8.3 liver enzymes are not elevated LDH 440 and CRP 3.9 pulmonary is on board. Patient is being continued on dexamethasone and apixaban 5 mg twice daily. Continued on IV hydration with normal saline at 75 cc/h. Chest x- ray today showed correlate for interstitial pneumonitis with superimposed multifocal patchy infiltratespneumonia.. 04/11/2021 Patient is awake and alert but looks lethargic. He has fair appetite eating about 25 -50% of his diet. No significantly dyspneic however his oxygen requirements went up 12 up to 13 L/m with saturation is low 90s at 92%. Rest of vitals are stable and he is afebrile. Inflammatory markers mildly elevated with LDH 440 and C-reactive protein 1.6.pro-calcitonin is mildly elevated at 0.23. not on antibiotic. Chest x-ray showing multifocal bilateral pneumonia He remains on dexamethasone, vitamin C, D and zinc. Eliquis, today started on Baricitinib . 04/12/2021 Patient is awake but he still complaining of from shortness of breath, he is a little bit lethargic. He has poor appetite eating only 25-50% of his diet. His oxygen saturation still 92 but he needed higher dose of oxygen today at 50 L/m. His d-dimer is elevated 1.4 up to 29.9, therefore we switched his home dose of Eliquis 5 mg and to heparin drip Ultrasound of the neck is negative for DVT. LDH still elevated at [address] protein 4.1. He has mild bicytopenia most likely secondary to viral infection, hemoglobin is 12.9 and platelets 138. WBC is elevated 12th while he is on steroids. Chest x-ray showing persistent bilateral pneumonia. On multiple vitamins, dexamethasone, baricitnib. Also he was started on heparin drip. He is off IV fluid 04/13/2021 Patient is a still on severe respiratory compromise and he still on 15 L/m, he i s getting extremely short of breath if he tries to move or walk however if he continued to sit in his bed or chair as he is most of the time his breathing is less tachypneic and more quiet. The plan for him if his breathing got worse to use BiPAP. D-dimer was elevated however CTA and Doppler were negative for PE/DVT, therefore patient heparin drip switched to Eliquis. CBC looks stable, mild leukocytosis while on steroids. He remains on dexamethasone, vitamin C, D and zinc. Eliquis, and on Baricitinib which was started 2 days ago. 04/14/2021 Patient is generally weak and lethargic. His oxygen status is worsening and today he needs 50 L/m of oxygen at 86% FiO2. For his bilateral COVID-19 pneumonia. He is afebrile and other Vitas looks stable. Patient continued on multiple vitamins, dexamethasone, Eliquis 5 mg as well as Baricitinib Patient remains on general floor with close monitoring with regards prognosis 04/15/2021 Patient is very weak although he is somewhat oriented for example he knows he isn't [facility] but when I asked him why he was in the hospital he could not answer because of his dyspnea of generalized weakness and MUMBLING. Patient was able to consume 50% of his breakfast but overall is diet has been poor He still on high oxygen requirement of airvo at 50 L/m with 85% Patient continued on multiple vitamins, dexamethasone, Eliquis 5 mg as well as Baricitinib Patient is no code Objective - Vital Signs Vital signs: Vital Signs Temp 98.5 F 04/15/21 10:00 Pulse 79 04/15/21 10:00 Resp 18 04/15/21 10:00 BP 142/88 04/15/21 10:00 Pulse Ox 97 04/15/21 10:00 Intake & Output 04/14/21 04/15/21 04/15/21 18:59 06:59 18:59 Other: Voiding Method Diaper Incontinent # Voids 3 - Exam -GENERAL: The patient is alert and oriented but lethargic, not in any acute distress. Well developed, well nourished. HEENT: Pupils are round and equally reacting to light. EOMI. No scleral icterus. No conjunctival pallor. Normocephalic, atraumatic. No pharyngeal erythema. No thyromegaly. CARDIOVASCULAR: S1 and S2 present. No murmurs, rubs, or gallops. -PULMONARY: Chest is clear to auscultation, no wheezing. Bilateral crepitation ABDOMEN: Soft, nontender, nondistended, normoactive bowel sounds. No palpable organomegaly. MUSCULOSKELETAL: No joint swelling or deformity. EXTREMITIES: No cyanosis, clubbing, or pedal edema. NEUROLOGICAL: Gross neurological examination did not reveal any focal deficits. SKIN: No rashes. no petechiae. - Labs CBC & Chem 7: 04/14/21 06:09 04/14/21 06:09 Labs: Abnormal Lab Results - Last 24 Hours (Table) 04/14/21 04/14/21 04/14/21 Range/Units 11:58 16:58 20:21 POC Glucose (mg/dL) 147 H 173 H 133 H (75-99) mg/dL 04/15/21 Range/Units 07:21 POC Glucose (mg/dL) 129 H (75-99) mg/dL Assessment and Plan Assessment: Acute hypoxic respiratory failure secondary to COVID-19 pneumonia. Patient is vaccinated with moderate and received booster dose on 03/26/2021. Symptoms started on 03/27/2021. Elevated inflammatory markers secondary to COVID-19 pneumonia Paroxysmal atrial fibrillation on anticoagulation with Eliquis History of DVT s/p IVC filter placement Worsening d-dimer with no evidence of PE on CTA of the chest or DVT on Doppler of the legs History of prostate cancer status post radiation History of closed head injury and history of seizure disorder Hypertension Macular degeneration and legally blind Plan: This is a pleasant 75 years old male with complete pneumonia Continue with Decadron and multiple vitamins, vitamin C and D and zinc Continue with oral Eliquis on home dose of 5 mg Continue with Pepcid He was started on Baricitinib Pulmonary team on the case Labs and medication were reviewed.. Continue same treatment. Continue with symptomatic treatment. Resume home medication. Monitor lytes and vitals. DVT and GI prophylaxis. Further recommendationsas per clinical course of the patient DVT prophylaxis: Eliquis switched to heparin drip GI Prophylaxis: Pepcid Prognosis is guarded
[2021-04-15 21:10] LABS: Glucose,Whole Blood 138 mg/dL (75-99)
[2021-04-15] MEDS: traZODone HCL 50 MG TAB PO SCH (21:51)
[2021-04-16] MEDS: INSULIN ASPART (NovoLOG) 100 UNIT/ML VIAL SQ SCH ×5 (01:30→21:19)
[2021-04-16] MEDS: ACETAMINOPHEN TAB 325 MG TAB PO PRN (02:06)
[2021-04-16] MEDS: SODIUM CHLORIDE 0.9% 1,000 ML IV SCH (04:24)
[2021-04-16 07:40] LABS: Glucose,Whole Blood 115 mg/dL (75-99)
[2021-04-16] MEDS: CHOLECALCIFEROL 25 MCG (1000 IU) TABLET PO SCH (07:58)
[2021-04-16] MEDS: APIXABAN 5 MG TAB PO SCH ×2 (07:58→21:30)
[2021-04-16] MEDS: ASCORBIC ACID 500 MG TAB PO SCH (07:58)
[2021-04-16] MEDS: METOPROLOL TARTRATE 50 MG TAB PO SCH ×2 (07:58→20:11)
[2021-04-16] MEDS: amLODIPine 5 MG TAB PO SCH (07:59)
[2021-04-16] MEDS: ESCITALOPRAM 5 MG TAB PO SCH (07:59)
[2021-04-16] MEDS: CHLORHEXIDINE GLUCONATE 15 ML CUP MUCOUS MEM SCH ×3 (07:59→20:12)
[2021-04-16] MEDS: ZINC SULFATE 220 MG CAP PO SCH (07:59)
[2021-04-16] MEDS: VIT A,C & E-LUTEIN-MINERALS 1 EACH TAB PO SCH ×2 (07:59→20:10)
[2021-04-16] MEDS: ARIPiprazole 5 MG TAB PO SCH (08:00)
[2021-04-16] MEDS: MAG HYDROX/AL HYDROX/SIMETH 30 ML, diphenhydrAMINE ELIXIR 75 MG, LIDOCAINE VISCOUS 30 ML PO SCH ×9 (08:03→20:13)
[2021-04-16] MEDS: DEXAMETHASONE SOD PHOSPHATE 10 MG/ML 1 ML VIAL IVP SCH (08:15)
[2021-04-16 10:39] LABS: African American GFR (CKD) 76.2 (60.0-200.0); Albumin 3.3 g/dL (3.8-4.9); Albumin/Globulin Ratio 1.32 (1.60-3.17); Anion Gap 12.1 mmol/L (10.00-18.00); BUN/Creat Ratio 35.09 Ratio (12.00-20.00); Blood Urea Nitrogen 38.6 mg/dL (9.0-27.0); Calcium 8.6 mg/dL (8.7-10.3); Carbon Dioxide 21.9 mmol/L (20.0-27.5); Globulin 2.5 g/dL (1.6-3.3); Non-African American GFR(CKD) 65.8 (60.0-200.0); Potassium 4.1 mmol/L (3.5-5.5); Total Bilirubin 1.6 mg/dL (0.30-1.20); Total Protein 5.8 g/dL (6.2-8.2)
[2021-04-16 11:17] LABS: Basophils # (A) 0.11 X 10*3/uL (0.00-0.10); Basophils % (A) 0.6 %; Eosinophils # (A) 0.13 X 10*3/uL (0.04-0.35); Eosinophils % (A) 0.7 %; HCT 39.7 % (39.6-50.0); HGB 12.7 g/dL (13.0-17.0); Lymphocytes # (A) 0.76 X 10*3/uL (0.90-5.00); Lymphocytes % (A) 3.9 %; MCH 29.6 pg (27.0-32.0); MCV 92.5 fL (80.0-97.0); Monocytes # (A) 0.61 X 10*3/uL (0.20-1.00); Monocytes % (A) 3.1 %; Neutrophils # (A) 17.18 X 10*3/uL (1.80-7.70); Neutrophils % (A) 86.9 %; Platelet Count 91 X 10*3/uL (140-440); RBC 4.29 X 10*6/uL (4.40-5.60); RDW 12.7 % (11.5-14.5); WBC 19.73 X 10*3/uL (4.50-10.00)
[2021-04-16 11:34] LABS: Glucose,Whole Blood 127 mg/dL (75-99)
[2021-04-16] MEDS: BARICITINIB 2 MG TABLET PO SCH (12:36)
--- NOTE | 2021-04-16 12:45 | P.PN ---
Subjective Patient is a 75-year-old male with a known history of atrial fibrillation, history of PE/DVT status post IVC filter placement, hypertension, hyperli pidemia, hearing disorder/deafness and history of seizures, prostate cancer status post radiation chronic low back pain and other multiple medical problems presents to ER with complaints of generalized weakness and worsening shortness of breath and cough and congestion just before day,.. In the ER patient was found to be hypoxic with pulse ox in the 80s. Denied any complaints of fever or chills. No nausea vomiting or abdominal pain or diarrhea. Patient is fully vaccinated with booster dose on 03/26/2021. Chest x-ray showed there is new mild patchy bilateral lower lobe pulmonary infiltrates and atelectasis compared to old exam. EKG showed normal sinus rhythm Laboratory showed WBC 5.2 hemoglobin 14.6 and platelets 101 lymphocytes 0.5 Sodium 136 potassium 3.4 chloride 103 BUN 47 creatinine 1.35 Ferritin 1255, LDH 1121 CRP 15.6 and COVID-19 PCR detected. EKG showed normal sinus rhythm 04/10/2021 Patient is currently resting in the bed. Requiring oxygen at 12 L via nasal c annula. Denies any chest pain or worsening shortness of breath. No fever no chills. No nausea or vomiting abdominal pain or diarrhea. Tolerating oral diet. Laboratory data showed WBC 6.1 hemoglobin 13.0 and platelets 149 D-dimer is 1.41 Sodium 137 potassium 4.1 chloride 107 BUN 14 creatinine 0.99 and blood sugar is 134 and calcium 8.3 liver enzymes are not elevated LDH 440 and CRP 3.9 pulmonary is on board. Patient is being continued on dexamethasone and apixaban 5 mg twice daily. Continued on IV hydration with normal saline at 75 cc/h. Chest x- ray today showed correlate for interstitial pneumonitis with superimposed multifocal patchy infiltratespneumonia.. 04/11/2021 Patient is awake and alert but looks lethargic. He has fair appetite eating about 25 -50% of his diet. No significantly dyspneic however his oxygen requirements went up 12 up to 13 L/m with saturation is low 90s at 92%. Rest of vitals are stable and he is afebrile. Inflammatory markers mildly elevated with LDH 440 and C-reactive protein 1.6.pro-calcitonin is mildly elevated at 0.23. not on antibiotic. Chest x-ray showing multifocal bilateral pneumonia He remains on dexamethasone, vitamin C, D and zinc. Eliquis, today started on Baricitinib . 04/12/2021 Patient is awake but he still complaining of from shortness of breath, he is a little bit lethargic. He has poor appetite eating only 25-50% of his diet. His oxygen saturation still 92 but he needed higher dose of oxygen today at 50 L/m. His d-dimer is elevated 1.4 up to 29.9, therefore we switched his home dose of Eliquis 5 mg and to heparin drip Ultrasound of the neck is negative for DVT. LDH still elevated at [address] protein 4.1. He has mild bicytopenia most likely secondary to viral infection, hemoglobin is 12.9 and platelets 138. WBC is elevated 12th while he is on steroids. Chest x-ray showing persistent bilateral pneumonia. On multiple vitamins, dexamethasone, baricitnib. Also he was started on heparin drip. He is off IV fluid 04/13/2021 Patient is a still on severe respiratory compromise and he still on 15 L/m, he i s getting extremely short of breath if he tries to move or walk however if he continued to sit in his bed or chair as he is most of the time his breathing is less tachypneic and more quiet. The plan for him if his breathing got worse to use BiPAP. D-dimer was elevated however CTA and Doppler were negative for PE/DVT, therefore patient heparin drip switched to Eliquis. CBC looks stable, mild leukocytosis while on steroids. He remains on dexamethasone, vitamin C, D and zinc. Eliquis, and on Baricitinib which was started 2 days ago. 04/14/2021 Patient is generally weak and lethargic. His oxygen status is worsening and today he needs 50 L/m of oxygen at 86% FiO2. For his bilateral COVID-19 pneumonia. He is afebrile and other Vitas looks stable. Patient continued on multiple vitamins, dexamethasone, Eliquis 5 mg as well as Baricitinib Patient remains on general floor with close monitoring with regards prognosis 04/15/2021 Patient is very weak although he is somewhat oriented for example he knows he isn't [facility] but when I asked him why he was in the hospital he could not answer because of his dyspnea of generalized weakness and MUMBLING. Patient was able to consume 50% of his breakfast but overall is diet has been poor He still on high oxygen requirement of airvo at 50 L/m with 85% Patient continued on multiple vitamins, dexamethasone, Eliquis 5 mg as well as Baricitinib Patient is no code 04/16/2021 Patient is with bilateral covert pneumonia and hypoxia, he needs high oxygen requirements over the last few days where start worsening and currently he is still needs 50 L/m of oxygen via airvo as well as sometimes nonrebreather 15 L. Is getting FiO2 of 86%. Labs reviewed, he has worse leukocytosis today 19 K, hemoglobin stable 12.7, but platelets dropped 149 down to 91. He remains on home dose of Eliquis 5 mg, Pepcid, dexamethasone, vitamin C, D and zinc. And Baricitinib Objective - Vital Signs Vital signs: Vital Signs Temp 98.2 F 04/16/21 10:00 Pulse 73 04/16/21 10:00 Resp 17 04/16/21 10:00 BP 159/92 04/16/21 10:00 Pulse Ox 93 L 04/16/21 10:00 Intake & Output 04/15/21 04/16/21 04/16/21 18:59 06:59 18:59 Weight 90.718 kg Other: # Voids 5 4 - Exam -GENERAL: The patient is alert and oriented but lethargic, not in any acute distress. Well developed, well nourished. HEENT: Pupils are round and equally reacting to light. EOMI. No scleral icterus. No conjunctival pallor. Normocephalic, atraumatic. No pharyngeal erythema. No thyromegaly. CARDIOVASCULAR: S1 and S2 present. No murmurs, rubs, or gallops. -PULMONARY: Chest is clear to auscultation, no wheezing. Bilateral crepitation ABDOMEN: Soft, nontender, nondistended, normoactive bowel sounds. No palpable organomegaly. MUSCULOSKELETAL: No joint swelling or deformity. EXTREMITIES: No cyanosis, clubbing, or pedal edema. NEUROLOGICAL: Gross neurological examination did not reveal any focal deficits. SKIN: No rashes. no petechiae. - Labs CBC & Chem 7: 04/16/21 06:11 04/16/21 06:11 Labs: Abnormal Lab Results - Last 24 Hours (Table) 04/15/21 04/15/21 04/16/21 Range/Units 17:02 21:07 06:11 WBC 19.73 H (4.50-10.00) X 10*3/uL RBC 4.29 L (4.40-5.60) X 10*6/uL Hgb 12.7 L (13.0-17.0) g/dL Plt Count 91 L (140-440) X 10*3/uL Plt Count Comment DECREASED A Immature Gran # 0.94 H (0.00-0.04) X 10*3/uL Neutrophils # 17.18 H (1.80-7.70) X 10*3/uL Lymphocytes # 0.76 L (0.90-5.00) X 10*3/uL Basophils # 0.11 H (0.00-0.10) X 10*3/uL BUN (9.0-27.0) mg/dL BUN/Creatinine Ratio (12.00-20.00) Ratio POC Glucose (mg/dL) 170 H 138 H (75-99) mg/dL Calcium (8.7-10.3) mg/dL Total Bilirubin (0.30-1.20) mg/dL AST (14-35) U/L ALT (10-49) U/L Alkaline Phosphatase (41-126) U/L Total Protein (6.2-8.2) g/dL Albumin (3.8-4.9) g/dL Albumin/Globulin Ratio (1.60-3.17) g/dL 04/16/21 04/16/21 04/16/21 Range/Units 06:11 07:32 11:33 WBC (4.50-10.00) X 10*3/uL RBC (4.40-5.60) X 10*6/uL Hgb (13.0-17.0) g/dL Plt Count (140-440) X 10*3/uL Plt Count Comment Immature Gran # (0.00-0.04) X 10*3/uL Neutrophils # (1.80-7.70) X 10*3/uL Lymphocytes # (0.90-5.00) X 10*3/uL Basophils # (0.00-0.10) X 10*3/uL BUN 38.6 H (9.0-27.0) mg/dL BUN/Creatinine Ratio 35.09 H (12.00-20.00) Ratio POC Glucose (mg/dL) 115 H 127 H (75-99) mg/dL Calcium 8.6 L (8.7-10.3) mg/dL Total Bilirubin 1.60 H (0.30-1.20) mg/dL AST 53 H (14-35) U/L ALT 55 H (10-49) U/L Alkaline Phosphatase 129 H (41-126) U/L Total Protein 5.8 L (6.2-8.2) g/dL Albumin 3.3 L (3.8-4.9) g/dL Albumin/Globulin Ratio 1.32 L (1.60-3.17) g/dL Assessment and Plan Assessment: Acute hypoxic respiratory failure secondary to COVID-19 pneumonia. Patient is vaccinated with moderate and received booster dose on 03/26/2021. Symptoms started on 03/27/2021. Elevated inflammatory markers secondary to COVID-19 pneumonia Paroxysmal atrial fibrillation on anticoagulation with Eliquis History of DVT s/p IVC filter placement Worsening d-dimer with no evidence of PE on CTA of the chest or DVT on Doppler of the legs History of prostate cancer status post radiation History of closed head injury and history of seizure disorder Hypertension Macular degeneration and legally blind Plan: This is a pleasant 75 years old male with complete pneumonia Continue with Decadron and multiple vitamins, vitamin C and D and zinc Continue with oral Eliquis on home dose of 5 mg Continue with Pepcid He was started on Baricitinib Pulmonary team on the case Labs and medication were reviewed.. Continue same treatment. Continue with symptomatic treatment. Resume home medication. Monitor lytes and vitals. DVT and GI prophylaxis. Further recommendationsas per clinical course of the patient DVT prophylaxis: Eliquis switched to heparin drip GI Prophylaxis: Pepcid Prognosis is guarded
--- NOTE | 2021-04-16 13:42 | P.PN ---
Subjective Progress Note Date: 04/16/21 Principal diagnosis: Shortness of breath, cough, congestion and weakness This is a very pleasant 75-year-old gentleman who follows with Dr. Todd as his primary care provider. 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 He presented to the emergency room last evening with complaints of generalized weakness with worsening shortness of breath cough and congestion. EMS found his pulse ox to be in the low 80s. He was brought in for the same. The patient has had Moderna vaccination and received a booster on 03/26/2021. His symptoms started 03/27/2021. He's had no sense of taste and poor appetite. He's had dyspnea on exertion and diarrhea. Chest x-ray reveals new mild patchy bilateral infiltrates. White count 5.2. Hemoglobin 14.6. Platelets 11. Lymphocytes 0.5. D-dimer 0.59. Sodium 136. Potassium 3.4. BUN 47. Creatinine 1.35. Glucose 110. Ferritin 1255. AST 66. ALT 23. LDH 1121. C- reactive protein 15.6. Chronic virus by PCR positive. He is seen today in the emergency room. He is currently sitting up on the stretcher. Awake and alert in no acute distress. He is requiring 10 L high flow nasal cannula to maintain O2 saturations in the low 90s. He has bilateral crackles right greater than left. He's been initiated on Decadron, Eliquis. Normal saline at 75 ML's per hour. On 04/10/2021 patient seen in follow-up on medical surgical floor. He does not appear to be in any acute distress, he is awake and alert, resting in bed, is currently on 4 L of oxygen, denies shortness of breath, he states he was never short of breath despite needing high flow oxygen, his pulse ox is 95% on 12 L, vital signs are stable, no fever or chills. His appetite is poor, and patient remains on 0.9 normal saline at a rate of 75 ML per hour. Nausea vomiting or diarrhea, she remains on Decadron 6 mg daily, he is on Eliquis 5 mg twice daily, he is on COVID-19 multivitamins. Today's chest x-ray shows interstitial pneumonitis with superimposed multifocal patchy infiltrates. Today's lab 7 reviewed, white blood cell count is 6.1, hemoglobin is 13, d-dimer is 1.41, sodium is 137, potassium is 4.1, chloride is 107, CO2 is 21, BUN is 40 creatinine 0.9, inflammatory markers are improving. ProCalcitonin level was negative. On 04/11/2021 patient seen in follow-up on medical surgical floor, he is currently up to 15 L of oxygen, with pulse ox of 92-93%, his hypoxia has progressed in last 24 hours, although he denies being more short of breath. Lung sounds are positive for coarse crackles throughout his bilateral lower and mid lower lobes. Occasional cough, clear phlegm production, no fevers overnight, -Vitals stable. Today's labs pending. Yesterday's d-dimer was 1.41. Awaiting today's level. Patient remains on Eliquis 5 mg twice daily for history of atrial fibrillation. He remains on Decadron and COVID-19 multivitamins. Patient seems to be upset, and frustrated, he states he has not been able to get through to his . I helped him dial his 's phone number however there was no answer, patient did not leave a voicemail. I told him we will try again later on. Otherwise seems to be fairly comfortable, but seems to be tense, frustrated On 04/13/2021 patient seen in follow-up on medical surgical floor, he is currently on 15 L per high flow nasal cannula and 100% nonrebreather mask, his pulse ox is 95%, he is afebrile, at times he is hypertensive, however does not appear to be in any distress, appears slightly tired, his CTA chest from yesterday showed no evidence of pulmonary embolism. Did show extensive bilateral pulmonary infiltrates consistent with multifocal pneumonia. And his pulmonary infiltrates significantly increased compared to his old exam. Patient is currently on Eliquis for history of A. fib at 5 mg twice daily, he is on B aricitinib, multivitamins. Today's labs have been reviewed, his white blood cell count is 13.6, slightly increased compared to yesterday's labs, hemoglobin is 14.8, electrolytes and renal profile were within normal limits. His LDH and d-dimer are still pending for today, but overall improved since admission. His pro calcitonin level was negative on yesterday's labs. On 04/14/2021 patient seen in follow-up on medical surgical floor. He is awake and alert, he is currently on Airvo at 50 L and 85%, his pulse ox is 88-93%, does not appear to be in any acute distress. He remains on Baricitinib, Decadron, and prophylactic Lovenox. No fever or chills, appears generally weak, his appetite has been poor. Today's labs have been reviewed, his white blood cell count is 15, hemoglobin is 14.2, his electrolytes are unremarkable, B1 is 36 creatinine is 1.14. His LFTs are improving and are back to normal limits, his inflammatory markers are still pending on today's labs, pro calcitonin level was negative. CT angiogram the chest showed no evidence of pulmonary embolism. Patient remains on Lovenox 40 mg daily. On 04/15/2021 patient seen in follow-up on medical surgical floor. He is res ting comfortably right now, he is on Airvo at 50 L and FiO2 of 84%, his pulse ox is 96%, breathing comfortably, he denies any worsening dyspnea, lung sounds are diminished, minimal crackles at the bases, no cough, his appetite has been poor, he is been encouraged to increase his oral intake. He is a bit sleepy on today's exam, but does not appear to be in any acute distress, she continues on Decadron 6 mg daily, he is on Baricitinib, and Eliquis 5 mg twice daily for history of A. fib, his heart rate is currently controlled. His had no acute events overnight. On 04/16/2021 patient seen in follow-up on medical surgical floor, his breathing is shallow, slightly dyspneic, but appears to be in no acute distress, remains on Airvo S 50 L and FiO2 of 94%, his pulse ox is 93%. Generally patient is weak, he has not been eating much, he is been offered nutritional supplementation which he is also not doing very well with. Vital signs have been stable, patient is afebrile, hemodynamically stable, lung sounds reveal diffuse crackles bilaterally, no complaints of chest pain. The confusion and agitation have significantly improved, patient is not agitated, and he is oriented 3 today. He remains on Baricitinib, on Decadron, today's lab 7 reviewed with blood cell count is 19.7, hemoglobin is 12.7, electrolytes are within normal limits, BUN is 38, creatinine is 1.1, LFTs slightly trended up, inflammatory markers are still pending on today's labs. Patient remains on Eliquis, Decadron 6 mg daily, COVID-19 vitamins. He has not been up out of bed in the last couple of days. Objective - Vital Signs Vital signs: Vital Signs Temp 98.2 F 04/16/21 10:00 Pulse 73 04/16/21 10:00 Resp 17 04/16/21 10:00 BP 159/92 04/16/21 10:00 Pulse Ox 93 L 04/16/21 10:00 Intake & Output 04/15/21 04/16/21 04/16/21 18:59 06:59 18:59 Weight 90.718 kg Other: # Voids 5 4 - Exam GENERAL EXAM: Alert, very pleasant, 75-year-old white male, on Airvo at 50 features and FiO2 of 85% slightly tachypneic, and dyspneic but appears to be in no acute distress HEAD: Normocephalic/atraumatic. EYES: Normal reaction of pupils, equal size. Conjunctiva pink, sclera white. NOSE: Clear with pink turbinates. THROAT: No erythema or exudates. NECK: No masses, no JVD, no thyroid enlargement, no adenopathy. CHEST: No chest wall deformity. Symmetrical expansion. LUNGS: Equal air entry with diffuse crackles crackles, wheeze, rhonchi or dullness. CVS: Regular rate and rhythm, normal S1 and S2, no gallops, no murmurs, no rubs ABDOMEN: Soft, nontender. No hepatosplenomegaly, normal bowel sounds, no guarding or rigidity. EXTREMITIES: No clubbing, no edema, no cyanosis, 2+ pulses and upper and lower extremities. MUSCULOSKELETAL: Muscle strength and tone normal. SPINE: No scoliosis or deformity SKIN: No rashes CENTRAL NERVOUS SYSTEM: Alert and oriented -3. Gen. weakness No focal deficits, tone is normal in all 4 extremities. PSYCHIATRIC: Alert and oriented -3. Appropriate affect. Intact judgment and insight. - Labs CBC & Chem 7: 04/16/21 06:11 04/16/21 06:11 Labs: Abnormal Lab Results - Last 24 Hours (Table) 04/15/21 04/15/21 04/16/21 Range/Units 17:02 21:07 06:11 WBC 19.73 H (4.50-10.00) X 10*3/uL RBC 4.29 L (4.40-5.60) X 10*6/uL Hgb 12.7 L (13.0-17.0) g/dL Plt Count 91 L (140-440) X 10*3/uL Plt Count Comment DECREASED A Immature Gran # 0.94 H (0.00-0.04) X 10*3/uL Neutrophils # 17.18 H (1.80-7.70) X 10*3/uL Lymphocytes # 0.76 L (0.90-5.00) X 10*3/uL Basophils # 0.11 H (0.00-0.10) X 10*3/uL BUN (9.0-27.0) mg/dL BUN/Creatinine Ratio (12.00-20.00) Ratio POC Glucose (mg/dL) 170 H 138 H (75-99) mg/dL Calcium (8.7-10.3) mg/dL Total Bilirubin (0.30-1.20) mg/dL AST (14-35) U/L ALT (10-49) U/L Alkaline Phosphatase (41-126) U/L Total Protein (6.2-8.2) g/dL Albumin (3.8-4.9) g/dL Albumin/Globulin Ratio (1.60-3.17) g/dL 04/16/21 04/16/21 04/16/21 Range/Units 06:11 07:32 11:33 WBC (4.50-10.00) X 10*3/uL RBC (4.40-5.60) X 10*6/uL Hgb (13.0-17.0) g/dL Plt Count (140-440) X 10*3/uL Plt Count Comment Immature Gran # (0.00-0.04) X 10*3/uL Neutrophils # (1.80-7.70) X 10*3/uL Lymphocytes # (0.90-5.00) X 10*3/uL Basophils # (0.00-0.10) X 10*3/uL BUN 38.6 H (9.0-27.0) mg/dL BUN/Creatinine Ratio 35.09 H (12.00-20.00) Ratio POC Glucose (mg/dL) 115 H 127 H (75-99) mg/dL Calcium 8.6 L (8.7-10.3) mg/dL Total Bilirubin 1.60 H (0.30-1.20) mg/dL AST 53 H (14-35) U/L ALT 55 H (10-49) U/L Alkaline Phosphatase 129 H (41-126) U/L Total Protein 5.8 L (6.2-8.2) g/dL Albumin 3.3 L (3.8-4.9) g/dL Albumin/Globulin Ratio 1.32 L (1.60-3.17) g/dL Assessment and Plan Plan: Assessment: #1. Acute hypoxic respiratory failure secondary to COVID-19 pneumonia, patient is a vaccinated adult with more during a, and received a booster on 03/26/2021. Currently on 15 L high flow oxygen today on 04/11/2021, Baricitinib started on 04/11/2021. FiO2 is currently at 50 L and FiO2 of 85% per Airvo device #2. Elevated inflammatory markers related to the above, improving #3. 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 History of atrial fibrillation on Eliquis #5. Cellulitis of the left lower extremity, recovered #6. History of prostate cancer status post radiation #7. Hypertension #8. History of seizure disorder #9. Macular degeneration #10. History of closed head injury #11. Confusion, agitation, multifactorial, related to hypoxic encephalopathy and steroids, improved Plan: Clinically patient is the same without change his own last 24 hours Still on Airvo at 50 L and FiO2 of 85%, slightly dyspneic and tachypneic but no acute distress noted Patient is noted to have generalized weakness, his appetite continues to be poor Consult physical therapy, provide nutritional supplements Patient continues Baricitinib, continue Decadron, continue Eliquis Continue supportive care Overall prognosis is extremely guarded I performed a history & physical examination of the patient and discussed their management with my nurse practitioner, Mary Hoyos. I reviewed the nurse practitioner's note and agree with the documented findings and plan of care. Lung sounds are positive for dim breath sounds throughout the lung razo. The findings and the impression was discussed with the patient. I attest to the documentation by the nurse practitioner. Time with Patient: Less than 30
[2021-04-16 15:20] LABS: Folate, Serum 14.6 ng/mL (4.40-31.00)
[2021-04-16 17:46] LABS: Glucose,Whole Blood 166 mg/dL (75-99)
[2021-04-16] MEDS: traZODone HCL 50 MG TAB PO SCH (20:11)
[2021-04-16 20:49] LABS: Glucose,Whole Blood 148 mg/dL (75-99)
[2021-04-17] MEDS: SODIUM CHLORIDE 0.9% 1,000 ML IV SCH (06:59)
[2021-04-17 07:02] LABS: Glucose,Whole Blood 108 mg/dL (75-99)
[2021-04-17] MEDS: INSULIN ASPART (NovoLOG) 100 UNIT/ML VIAL SQ SCH ×4 (07:25→23:43)
[2021-04-17] MEDS: METOPROLOL TARTRATE 50 MG TAB PO SCH ×2 (07:33→23:41)
[2021-04-17] MEDS: amLODIPine 5 MG TAB PO SCH (07:34)
[2021-04-17] MEDS: ASCORBIC ACID 500 MG TAB PO SCH (07:34)
[2021-04-17] MEDS: APIXABAN 5 MG TAB PO SCH ×2 (07:34→23:41)
[2021-04-17] MEDS: CHOLECALCIFEROL 25 MCG (1000 IU) TABLET PO SCH (07:34)
[2021-04-17] MEDS: ZINC SULFATE 220 MG CAP PO SCH (07:34)
[2021-04-17] MEDS: DEXAMETHASONE SOD PHOSPHATE 10 MG/ML 1 ML VIAL IVP SCH (07:34)
[2021-04-17] MEDS: CHLORHEXIDINE GLUCONATE 15 ML CUP MUCOUS MEM SCH ×2 (07:35→23:42)
[2021-04-17] MEDS: MAG HYDROX/AL HYDROX/SIMETH 30 ML, diphenhydrAMINE ELIXIR 75 MG, LIDOCAINE VISCOUS 30 ML PO SCH ×9 (07:35→23:44)
[2021-04-17] MEDS: ARIPiprazole 5 MG TAB PO SCH (07:36)
[2021-04-17] MEDS: VIT A,C & E-LUTEIN-MINERALS 1 EACH TAB PO SCH ×2 (07:36→23:42)
[2021-04-17] MEDS: ESCITALOPRAM 5 MG TAB PO SCH (07:36)
[2021-04-17 10:44] LABS: Glucose,Whole Blood 151 mg/dL (75-99)
[2021-04-17] MEDS: BARICITINIB 2 MG TABLET PO SCH (12:06)
--- NOTE | 2021-04-17 13:49 | P.PN ---
Subjective Progress Note Date: 04/17/21 Principal diagnosis: Shortness of breath, cough, congestion and weakness This is a very pleasant 75-year-old gentleman who follows with Dr. Todd as his primary care provider. 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 He presented to the emergency room last evening with complaints of generalized weakness with worsening shortness of breath cough and congestion. EMS found his pulse ox to be in the low 80s. He was brought in for the same. The patient has had Moderna vaccination and received a booster on 03/26/2021. His symptoms started 03/27/2021. He's had no sense of taste and poor appetite. He's had dyspnea on exertion and diarrhea. Chest x-ray reveals new mild patchy bilateral infiltrates. White count 5.2. Hemoglobin 14.6. Platelets 11. Lymphocytes 0.5. D-dimer 0.59. Sodium 136. Potassium 3.4. BUN 47. Creatinine 1.35. Glucose 110. Ferritin 1255. AST 66. ALT 23. LDH 1121. C- reactive protein 15.6. Chronic virus by PCR positive. He is seen today in the emergency room. He is currently sitting up on the stretcher. Awake and alert in no acute distress. He is requiring 10 L high flow nasal cannula to maintain O2 saturations in the low 90s. He has bilateral crackles right greater than left. He's been initiated on Decadron, Eliquis. Normal saline at 75 ML's per hour. On 04/10/2021 patient seen in follow-up on medical surgical floor. He does not appear to be in any acute distress, he is awake and alert, resting in bed, is currently on 4 L of oxygen, denies shortness of breath, he states he was never short of breath despite needing high flow oxygen, his pulse ox is 95% on 12 L, vital signs are stable, no fever or chills. His appetite is poor, and patient remains on 0.9 normal saline at a rate of 75 ML per hour. Nausea vomiting or diarrhea, she remains on Decadron 6 mg daily, he is on Eliquis 5 mg twice daily, he is on COVID-19 multivitamins. Today's chest x-ray shows interstitial pneumonitis with superimposed multifocal patchy infiltrates. Today's lab 7 reviewed, white blood cell count is 6.1, hemoglobin is 13, d-dimer is 1.41, sodium is 137, potassium is 4.1, chloride is 107, CO2 is 21, BUN is 40 creatinine 0.9, inflammatory markers are improving. ProCalcitonin level was negative. On 04/11/2021 patient seen in follow-up on medical surgical floor, he is currently up to 15 L of oxygen, with pulse ox of 92-93%, his hypoxia has progressed in last 24 hours, although he denies being more short of breath. Lung sounds are positive for coarse crackles throughout his bilateral lower and mid lower lobes. Occasional cough, clear phlegm production, no fevers overnight, -Vitals stable. Today's labs pending. Yesterday's d-dimer was 1.41. Awaiting today's level. Patient remains on Eliquis 5 mg twice daily for history of atrial fibrillation. He remains on Decadron and COVID-19 multivitamins. Patient seems to be upset, and frustrated, he states he has not been able to get through to his . I helped him dial his 's phone number however there was no answer, patient did not leave a voicemail. I told him we will try again later on. Otherwise seems to be fairly comfortable, but seems to be tense, frustrated On 04/13/2021 patient seen in follow-up on medical surgical floor, he is currently on 15 L per high flow nasal cannula and 100% nonrebreather mask, his pulse ox is 95%, he is afebrile, at times he is hypertensive, however does not appear to be in any distress, appears slightly tired, his CTA chest from yesterday showed no evidence of pulmonary embolism. Did show extensive bilateral pulmonary infiltrates consistent with multifocal pneumonia. And his pulmonary infiltrates significantly increased compared to his old exam. Patient is currently on Eliquis for history of A. fib at 5 mg twice daily, he is on B aricitinib, multivitamins. Today's labs have been reviewed, his white blood cell count is 13.6, slightly increased compared to yesterday's labs, hemoglobin is 14.8, electrolytes and renal profile were within normal limits. His LDH and d-dimer are still pending for today, but overall improved since admission. His pro calcitonin level was negative on yesterday's labs. On 04/14/2021 patient seen in follow-up on medical surgical floor. He is awake and alert, he is currently on Airvo at 50 L and 85%, his pulse ox is 88-93%, does not appear to be in any acute distress. He remains on Baricitinib, Decadron, and prophylactic Lovenox. No fever or chills, appears generally weak, his appetite has been poor. Today's labs have been reviewed, his white blood cell count is 15, hemoglobin is 14.2, his electrolytes are unremarkable, B1 is 36 creatinine is 1.14. His LFTs are improving and are back to normal limits, his inflammatory markers are still pending on today's labs, pro calcitonin level was negative. CT angiogram the chest showed no evidence of pulmonary embolism. Patient remains on Lovenox 40 mg daily. On 04/15/2021 patient seen in follow-up on medical surgical floor. He is res ting comfortably right now, he is on Airvo at 50 L and FiO2 of 84%, his pulse ox is 96%, breathing comfortably, he denies any worsening dyspnea, lung sounds are diminished, minimal crackles at the bases, no cough, his appetite has been poor, he is been encouraged to increase his oral intake. He is a bit sleepy on today's exam, but does not appear to be in any acute distress, she continues on Decadron 6 mg daily, he is on Baricitinib, and Eliquis 5 mg twice daily for history of A. fib, his heart rate is currently controlled. His had no acute events overnight. On 04/16/2021 patient seen in follow-up on medical surgical floor, his breathing is shallow, slightly dyspneic, but appears to be in no acute distress, remains on Airvo S 50 L and FiO2 of 94%, his pulse ox is 93%. Generally patient is weak, he has not been eating much, he is been offered nutritional supplementation which he is also not doing very well with. Vital signs have been stable, patient is afebrile, hemodynamically stable, lung sounds reveal diffuse crackles bilaterally, no complaints of chest pain. The confusion and agitation have significantly improved, patient is not agitated, and he is oriented 3 today. He remains on Baricitinib, on Decadron, today's lab 7 reviewed with blood cell count is 19.7, hemoglobin is 12.7, electrolytes are within normal limits, BUN is 38, creatinine is 1.1, LFTs slightly trended up, inflammatory markers are still pending on today's labs. Patient remains on Eliquis, Decadron 6 mg daily, COVID-19 vitamins. He has not been up out of bed in the last couple of days. On 04/17/2021 patient seen in follow-up on medical surgical floor. He had removed his Airvo sometime earlier, and he is currently just on 100% nonrebreather mask, and when his pulse ox was checked his pulse ox was 96%. We will leave him off Airvo. And we will try to wean down his FiO2. Breathing comfortably, no tachypnea, no chest discomfort. Patient has been generally weak, he has not been up out of bed, he has not had a very good oral intake. He had a low-grade temp earlier today, of 99.5F. He is currently on Eliquis 5 mg twice a day, he is on Decadron 6 mg daily and he remains on Baricitinib. Yesterday's labs showed white blood cell, of 19.7, hemoglobin of 12.7, electrolytes were within normal limits, BUN is 38 creatinine is 1.1. Objective - Vital Signs Vital signs: Vital Signs Temp 99.5 F 04/17/21 09:29 Pulse 84 04/17/21 09:29 Resp 20 04/17/21 09:29 BP 150/83 04/17/21 09:29 Pulse Ox 95 04/17/21 13:06 Intake & Output 04/16/21 04/17/21 04/17/21 18:59 06:59 18:59 Intake Total 160 Balance 160 Intake: IV 160 Sodium Chloride 0.9% 1, 160 000 ml @ 20 mls/hr IV . Q24H [facility] Rx#:[id number] Oral 0 Other: Voiding Method Incontinent # Voids 3 4 - Exam GENERAL EXAM: Alert, very pleasant, 75-year-old white male, on 100% nonrebreather, and his pulse ox is 95% does not appear to be in any acute distress HEAD: Normocephalic/atraumatic. EYES: Normal reaction of pupils, equal size. Conjunctiva pink, sclera white. NOSE: Clear with pink turbinates. THROAT: No erythema or exudates. NECK: No masses, no JVD, no thyroid enlargement, no adenopathy. CHEST: No chest wall deformity. Symmetrical expansion. LUNGS: Equal air entry with diffuse crackles crackles, wheeze, rhonchi or dullness. CVS: Regular rate and rhythm, normal S1 and S2, no gallops, no murmurs, no rubs ABDOMEN: Soft, nontender. No hepatosplenomegaly, normal bowel sounds, no guarding or rigidity. EXTREMITIES: No clubbing, no edema, no cyanosis, 2+ pulses and upper and lower extremities. MUSCULOSKELETAL: Muscle strength and tone normal. SPINE: No scoliosis or deformity SKIN: No rashes CENTRAL NERVOUS SYSTEM: Alert and oriented -3. Gen. weakness No focal deficits, tone is normal in all 4 extremities. PSYCHIATRIC: Alert and oriented -3. Appropriate affect. Intact judgment and insight. - Labs CBC & Chem 7: 04/16/21 06:11 04/16/21 06:11 Labs: Abnormal Lab Results - Last 24 Hours (Table) 04/16/21 04/16/21 04/17/21 Range/Units 17:45 20:47 07:00 POC Glucose (mg/dL) 166 H 148 H 108 H (75-99) mg/dL 04/17/21 Range/Units 10:42 POC Glucose (mg/dL) 151 H (75-99) mg/dL Assessment and Plan Plan: Assessment: #1. Acute hypoxic respiratory failure secondary to COVID-19 pneumonia, patient is a vaccinated adult with more during a, and received a booster on 03/26/2021. Currently on 15 L high flow oxygen today on 04/11/2021, Baricitinib started on 04/11/2021. FiO2 is currently at 100% per nonrebreather mask, Airvo is currently off #2. Elevated inflammatory markers related to the above, improving #3. 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 History of atrial fibrillation on Eliquis #5. Cellulitis of the left lower extremity, recovered #6. History of prostate cancer status post radiation #7. Hypertension #8. History of seizure disorder #9. Macular degeneration #10. History of closed head injury #11. Confusion, agitation, multifactorial, related to hypoxic encephalopathy and steroids, improved Plan: Patient is currently just on the nonrebreather mask, maintaining O2 saturations at 95% Breathing comfortably But generally he continues to be weak, his appetite is poor Consult physical therapy Provide nutritional supplements Patient continues Baricitinib, continue Decadron, continue Eliquis Continue supportive care Overall prognosis is extremely guarded I performed a history & physical examination of the patient and discussed their management with my nurse practitioner, Mary Hoyos. I reviewed the nurse practitioner's note and agree with the documented findings and plan of care. Lung sounds are positive for dim breath sounds throughout the lung razo. The findings and the impression was discussed with the patient. I attest to the documentation by the nurse practitioner. Time with Patient: Less than 30
[2021-04-17 16:04] LABS: Glucose,Whole Blood 159 mg/dL (75-99)
--- NOTE | 2021-04-17 19:17 | P.PN ---
Subjective Patient is a 75-year-old male with a known history of atrial fibrillation, history of PE/DVT status post IVC filter placement, hypertension, hyperli pidemia, hearing disorder/deafness and history of seizures, prostate cancer status post radiation chronic low back pain and other multiple medical problems presents to ER with complaints of generalized weakness and worsening shortness of breath and cough and congestion just before day,.. In the ER patient was found to be hypoxic with pulse ox in the 80s. Denied any complaints of fever or chills. No nausea vomiting or abdominal pain or diarrhea. Patient is fully vaccinated with booster dose on 03/26/2021. Chest x-ray showed there is new mild patchy bilateral lower lobe pulmonary infiltrates and atelectasis compared to old exam. EKG showed normal sinus rhythm Laboratory showed WBC 5.2 hemoglobin 14.6 and platelets 101 lymphocytes 0.5 Sodium 136 potassium 3.4 chloride 103 BUN 47 creatinine 1.35 Ferritin 1255, LDH 1121 CRP 15.6 and COVID-19 PCR detected. EKG showed normal sinus rhythm 04/10/2021 Patient is currently resting in the bed. Requiring oxygen at 12 L via nasal c annula. Denies any chest pain or worsening shortness of breath. No fever no chills. No nausea or vomiting abdominal pain or diarrhea. Tolerating oral diet. Laboratory data showed WBC 6.1 hemoglobin 13.0 and platelets 149 D-dimer is 1.41 Sodium 137 potassium 4.1 chloride 107 BUN 14 creatinine 0.99 and blood sugar is 134 and calcium 8.3 liver enzymes are not elevated LDH 440 and CRP 3.9 pulmonary is on board. Patient is being continued on dexamethasone and apixaban 5 mg twice daily. Continued on IV hydration with normal saline at 75 cc/h. Chest x- ray today showed correlate for interstitial pneumonitis with superimposed multifocal patchy infiltratespneumonia.. 04/11/2021 Patient is awake and alert but looks lethargic. He has fair appetite eating about 25 -50% of his diet. No significantly dyspneic however his oxygen requirements went up 12 up to 13 L/m with saturation is low 90s at 92%. Rest of vitals are stable and he is afebrile. Inflammatory markers mildly elevated with LDH 440 and C-reactive protein 1.6.pro-calcitonin is mildly elevated at 0.23. not on antibiotic. Chest x-ray showing multifocal bilateral pneumonia He remains on dexamethasone, vitamin C, D and zinc. Eliquis, today started on Baricitinib . 04/12/2021 Patient is awake but he still complaining of from shortness of breath, he is a little bit lethargic. He has poor appetite eating only 25-50% of his diet. His oxygen saturation still 92 but he needed higher dose of oxygen today at 50 L/m. His d-dimer is elevated 1.4 up to 29.9, therefore we switched his home dose of Eliquis 5 mg and to heparin drip Ultrasound of the neck is negative for DVT. LDH still elevated at [address] protein 4.1. He has mild bicytopenia most likely secondary to viral infection, hemoglobin is 12.9 and platelets 138. WBC is elevated 12th while he is on steroids. Chest x-ray showing persistent bilateral pneumonia. On multiple vitamins, dexamethasone, baricitnib. Also he was started on heparin drip. He is off IV fluid 04/13/2021 Patient is a still on severe respiratory compromise and he still on 15 L/m, he i s getting extremely short of breath if he tries to move or walk however if he continued to sit in his bed or chair as he is most of the time his breathing is less tachypneic and more quiet. The plan for him if his breathing got worse to use BiPAP. D-dimer was elevated however CTA and Doppler were negative for PE/DVT, therefore patient heparin drip switched to Eliquis. CBC looks stable, mild leukocytosis while on steroids. He remains on dexamethasone, vitamin C, D and zinc. Eliquis, and on Baricitinib which was started 2 days ago. 04/14/2021 Patient is generally weak and lethargic. His oxygen status is worsening and today he needs 50 L/m of oxygen at 86% FiO2. For his bilateral COVID-19 pneumonia. He is afebrile and other Vitas looks stable. Patient continued on multiple vitamins, dexamethasone, Eliquis 5 mg as well as Baricitinib Patient remains on general floor with close monitoring with regards prognosis 04/15/2021 Patient is very weak although he is somewhat oriented for example he knows he isn't [facility] but when I asked him why he was in the hospital he could not answer because of his dyspnea of generalized weakness and MUMBLING. Patient was able to consume 50% of his breakfast but overall is diet has been poor He still on high oxygen requirement of airvo at 50 L/m with 85% Patient continued on multiple vitamins, dexamethasone, Eliquis 5 mg as well as Baricitinib Patient is no code 04/16/2021 Patient is with bilateral covert pneumonia and hypoxia, he needs high oxygen requirements over the last few days where start worsening and currently he is still needs 50 L/m of oxygen via airvo as well as sometimes nonrebreather 15 L. Is getting FiO2 of 86%. Labs reviewed, he has worse leukocytosis today 19 K, hemoglobin stable 12.7, but platelets dropped 149 down to 91. He remains on home dose of Eliquis 5 mg, Pepcid, dexamethasone, vitamin C, D and zinc. And Baricitinib 04/17/2021 Patient breathing better significantly improved and his oxygen requirement went down from 50 L and more yesterday down to 15 L nonrebreather today. Nevertheless patient is extremely weak and somewhat confused and lethargic and has not eaten much and generally is not doing as correct at his breathing pattern. He is hemodynamically stable Today there was no change in his medication and he kept on steroids, vitamins and Baricitinib. As well as his home dose of Eliquis 5 mg Objective - Vital Signs Vital signs: Vital Signs Temp 99.5 F 04/17/21 09:29 Pulse 84 04/17/21 09:29 Resp 20 04/17/21 09:29 BP 150/83 04/17/21 09:29 Pulse Ox 94 L 04/17/21 10:01 Intake & Output 04/16/21 04/17/21 04/17/21 18:59 06:59 18:59 Intake Total 160 Balance 160 Intake: IV 160 Sodium Chloride 0.9% 1, 160 000 ml @ 20 mls/hr IV . Q24H [facility] Rx#:[id number] Oral 0 Other: Voiding Method Incontinent # Voids 3 4 - Exam -GENERAL: The patient is alert and oriented but lethargic, not in any acute distress. Well developed, well nourished. HEENT: Pupils are round and equally reacting to light. EOMI. No scleral icterus. No conjunctival pallor. Normocephalic, atraumatic. No pharyngeal erythema. No thyromegaly. CARDIOVASCULAR: S1 and S2 present. No murmurs, rubs, or gallops. -PULMONARY: Chest is clear to auscultation, no wheezing. Bilateral crepitation ABDOMEN: Soft, nontender, nondistended, normoactive bowel sounds. No palpable organomegaly. MUSCULOSKELETAL: No joint swelling or deformity. EXTREMITIES: No cyanosis, clubbing, or pedal edema. NEUROLOGICAL: Gross neurological examination did not reveal any focal deficits. SKIN: No rashes. no petechiae. - Labs CBC & Chem 7: 04/16/21 06:11 04/16/21 06:11 Labs: Abnormal Lab Results - Last 24 Hours (Table) 04/16/21 04/16/21 04/16/21 Range/Units 06:11 11:33 17:45 WBC 19.73 H (4.50-10.00) X 10*3/uL RBC 4.29 L (4.40-5.60) X 10*6/uL Hgb 12.7 L (13.0-17.0) g/dL Plt Count 91 L (140-440) X 10*3/uL Plt Count Comment DECREASED A Immature Gran # 0.94 H (0.00-0.04) X 10*3/uL Neutrophils # 17.18 H (1.80-7.70) X 10*3/uL Lymphocytes # 0.76 L (0.90-5.00) X 10*3/uL Basophils # 0.11 H (0.00-0.10) X 10*3/uL POC Glucose (mg/dL) 127 H 166 H (75-99) mg/dL 04/16/21 04/17/21 04/17/21 Range/Units 20:47 07:00 10:42 WBC (4.50-10.00) X 10*3/uL RBC (4.40-5.60) X 10*6/uL Hgb (13.0-17.0) g/dL Plt Count (140-440) X 10*3/uL Plt Count Comment Immature Gran # (0.00-0.04) X 10*3/uL Neutrophils # (1.80-7.70) X 10*3/uL Lymphocytes # (0.90-5.00) X 10*3/uL Basophils # (0.00-0.10) X 10*3/uL POC Glucose (mg/dL) 148 H 108 H 151 H (75-99) mg/dL Assessment and Plan Assessment: Acute hypoxic respiratory failure secondary to COVID-19 pneumonia. Patient is vaccinated with moderate and received booster dose on 03/26/2021. Symptoms started on 03/27/2021. Elevated inflammatory markers secondary to COVID-19 pneumonia Paroxysmal atrial fibrillation on anticoagulation with Eliquis History of DVT s/p IVC filter placement Worsening d-dimer with no evidence of PE on CTA of the chest or DVT on Doppler of the legs History of prostate cancer status post radiation History of closed head injury and history of seizure disorder Hypertension Macular degeneration and legally blind Plan: This is a pleasant 75 years old male with complete pneumonia Continue with Decadron and multiple vitamins, vitamin C and D and zinc Continue with oral Eliquis on home dose of 5 mg Continue with Pepcid He was started on Baricitinib Pulmonary team on the case Labs and medication were reviewed.. Continue same treatment. Continue with symptomatic treatment. Resume home medication. Monitor lytes and vitals. DVT and GI prophylaxis. Further recommendationsas per clinical course of the patient DVT prophylaxis: Eliquis switched to heparin drip GI Prophylaxis: Pepcid Prognosis is guarded
[2021-04-17 21:18] LABS: Glucose,Whole Blood 202 mg/dL (75-99)
[2021-04-17] MEDS: traZODone HCL 50 MG TAB PO SCH (23:44)
[2021-04-18] MEDS: APIXABAN 5 MG TAB PO SCH ×3 (01:02→21:51)
[2021-04-18] MEDS: CHLORHEXIDINE GLUCONATE 15 ML CUP MUCOUS MEM SCH ×3 (01:03→21:51)
[2021-04-18] MEDS: VIT A,C & E-LUTEIN-MINERALS 1 EACH TAB PO SCH ×3 (01:04→21:51)
[2021-04-18] MEDS: MAG HYDROX/AL HYDROX/SIMETH 30 ML, diphenhydrAMINE ELIXIR 75 MG, LIDOCAINE VISCOUS 30 ML PO SCH ×12 (01:04→21:52)
[2021-04-18] MEDS: METOPROLOL TARTRATE 50 MG TAB PO SCH ×3 (01:04→21:51)
[2021-04-18] MEDS: traZODone HCL 50 MG TAB PO SCH ×2 (01:04→21:50)
[2021-04-18 01:20] LABS: ABG Base Excess 1.5 mmol/L; ABG HCO3 25 mmol/L (21-25); ABG Oxygen Saturation 94.5 % (94-97); ABG PCO2 35 mmHg (35-45); ABG PH 7.46 (7.35-7.45); ABG PO2 66 mmHg (83-108); ABG TCO2 26 mmol/L (19-24); Allen Test Performed? Yes
[2021-04-18] MEDS: SODIUM CHLORIDE 0.9% 1,000 ML IV SCH (04:33)
[2021-04-18 06:34] LABS: Basophils % (A) 0 %; Eosinophils # (A) 0.1 k/uL (0-0.7); Eosinophils % (A) 1 %; HCT 35.7 % (39.0-53.0); Lymphocytes # (A) 0.7 k/uL (1.0-4.8); Lymphocytes % (A) 4 %; MCH 30.6 pg (25.0-35.0); MCHC 33.5 g/dL (31.0-37.0); MCV 91.1 fL (80.0-100.0); Monocytes # (A) 0.7 k/uL (0-1.0); Monocytes % (A) 4 %; Neutrophils # (A) 16.3 k/uL (1.3-7.7); Neutrophils % (A) 91 %; Platelet Count 76 k/uL (150-450); RBC 3.92 m/uL (4.30-5.90); RDW 13.2 % (11.5-15.5)
[2021-04-18 06:43] LABS: ALT 49 U/L (4-49); AST 47 U/L (17-59); African American GFR (CKD) 75 (>60 ml/min/1.73 sqM); Albumin 2.8 g/dL (3.5-5.0); Albumin/Globulin Ratio 0.9; Alkaline Phosphatase 135 U/L (38-126); Anion Gap 5 mmol/L; Blood Urea Nitrogen 51 mg/dL (9-20); Calcium 8.2 mg/dL (8.4-10.2); Carbon Dioxide 23 mmol/L (22-30); Chloride 110 mmol/L (98-107); Globulin 3.1 g/dL; Glucose 101 mg/dL (74-99); Non-African American GFR(CKD) 65 (>60 ml/min/1.73 sqM); Sodium 138 mmol/L (137-145); Total Bilirubin 2.1 mg/dL (0.2-1.3); Total Protein 5.9 g/dL (6.3-8.2)
[2021-04-18 07:05] LABS: Glucose,Whole Blood 102 mg/dL (75-99)
[2021-04-18] MEDS: INSULIN ASPART (NovoLOG) 100 UNIT/ML VIAL SQ SCH ×4 (08:16→21:30)
--- NOTE | 2021-04-18 08:32 | XR ---
EXAMINATION TYPE: XR chest 1V portable DATE OF EXAM: 04/18/2021 COMPARISON: 04/12/2021 HISTORY: Shortness of breath TECHNIQUE: Single frontal view of the chest is obtained. FINDINGS: Bilateral areas of infiltrate are seen stable. Surgical clips right upper quadrant. Limite d inspiration. Heart size normal. No pleural effusion or pneumothorax. IMPRESSION: Stable diffuse bilateral infiltrates.
[2021-04-18] MEDS: CHOLECALCIFEROL 25 MCG (1000 IU) TABLET PO SCH (09:41)
[2021-04-18] MEDS: BARICITINIB 2 MG TABLET PO SCH (09:42)
[2021-04-18] MEDS: amLODIPine 5 MG TAB PO SCH (09:42)
[2021-04-18] MEDS: ESCITALOPRAM 5 MG TAB PO SCH (09:42)
[2021-04-18] MEDS: ZINC SULFATE 220 MG CAP PO SCH (09:42)
[2021-04-18] MEDS: ASCORBIC ACID 500 MG TAB PO SCH (09:42)
[2021-04-18] MEDS: DEXAMETHASONE SOD PHOSPHATE 10 MG/ML 1 ML VIAL IVP SCH (09:42)
[2021-04-18] MEDS: ARIPiprazole 5 MG TAB PO SCH (09:44)
[2021-04-18 11:56] LABS: Glucose,Whole Blood 154 mg/dL (75-99)
--- NOTE | 2021-04-18 15:01 | P.PN ---
Subjective Progress Note Date: 04/18/21 Principal diagnosis: Shortness of breath. On 04/11/2021 patient seen in follow-up on medical surgical floor, he is currently up to 15 L of oxygen, with pulse ox of 92-93%, his hypoxia has progressed in last 24 hours, although he denies being more short of breath. Lung sounds are positive for coarse crackles throughout his bilateral lower and mid lower lobes. Occasional cough, clear phlegm production, no fevers overnight, -Vitals stable. Today's labs pending. Yesterday's d-dimer was 1.41. Awaiting today's level. Patient remains on Eliquis 5 mg twice daily for history of atrial fibrillation. He remains on Decadron and COVID-19 multivitamins. Patient seems to be upset, and frustrated, he states he has not been able to get through to his . I helped him dial his 's phone number however there was no answer, patient did not leave a voicemail. I told him we will try again later on. Otherwise seems to be fairly comfortable, but seems to be tense, frustrated On 04/13/2021 patient seen in follow-up on medical surgical floor, he is currently on 15 L per high flow nasal cannula and 100% nonrebreather mask, his pulse ox is 95%, he is afebrile, at times he is hypertensive, however does not appear to be in any distress, appears slightly tired, his CTA chest from yesterday showed no evidence of pulmonary embolism. Did show extensive bilateral pulmonary infiltrates consistent with multifocal pneumonia. And his pulmonary infiltrates significantly increased compared to his old exam. Patient is currently on Eliquis for history of A. fib at 5 mg twice daily, he is on Baricitinib, multivitamins. Today's labs have been reviewed, his white blood cell count is 13.6, slightly increased compared to yesterday's labs, hemoglobin is 14.8, electrolytes and renal profile were within normal limits. His LDH and d-dimer are still pending for today, but overall improved since admission. His pro calcitonin level was negative on yesterday's labs. On 04/14/2021 patient seen in follow-up on medical surgical floor. He is awake and alert, he is currently on Airvo at 50 L and 85%, his pulse ox is 88-93%, does not appear to be in any acute distress. He remains on Baricitinib, Decadron, and prophylactic Lovenox. No fever or chills, appears generally weak, his appetite has been poor. Today's labs have been reviewed, his white blood cell count is 15, hemoglobin is 14.2, his electrolytes are unremarkable, B1 is 36 creatinine is 1.14. His LFTs are improving and are back to normal limits, his inflammatory markers are still pending on today's labs, pro calcitonin level was negative. CT angiogram the chest showed no evidence of pulmonary embolism. Patient remains on Lovenox 40 mg daily. On 04/15/2021 patient seen in follow-up on medical surgical floor. He is resting comfortably right now, he is on Airvo at 50 L and FiO2 of 84%, his pulse ox is 96%, breathing comfortably, he denies any worsening dyspnea, lung sounds are diminished, minimal crackles at the bases, no cough, his appetite has been poor, he is been encouraged to increase his oral intake. He is a bit sleepy on today's exam, but does not appear to be in any acute distress, she continues on Decadron 6 mg daily, he is on Baricitinib, and Eliquis 5 mg twice daily for history of A. fib, his heart rate is currently controlled. His had no acute events overnight. On 04/16/2021 patient seen in follow-up on medical surgical floor, his breathing is shallow, slightly dyspneic, but appears to be in no acute distress, remains on Airvo S 50 L and FiO2 of 94%, his pulse ox is 93%. Generally patient is weak, he has not been eating much, he is been offered nutritional supplementati on which he is also not doing very well with. Vital signs have been stable, patient is afebrile, hemodynamically stable, lung sounds reveal diffuse crackles bilaterally, no complaints of chest pain. The confusion and agitation have significantly improved, patient is not agitated, and he is oriented 3 today. He remains on Baricitinib, on Decadron, today's lab 7 reviewed with blood cell count is 19.7, hemoglobin is 12.7, electrolytes are within normal limits, BUN is 38, creatinine is 1.1, LFTs slightly trended up, inflammatory markers are still pending on today's labs. Patient remains on Eliquis, Decadron 6 mg daily, COVID-19 vitamins. He has not been up out of bed in the last couple of days. On 04/17/2021 patient seen in follow-up on medical surgical floor. He had removed his Airvo sometime earlier, and he is currently just on 100% nonrebreather mask, and when his pulse ox was checked his pulse ox was 96%. We will leave him off Airvo. And we will try to wean down his FiO2. Breathing comfortably, no tachypnea, no chest discomfort. Patient has been generally weak, he has not been up out of bed, he has not had a very good oral intake. He had a low-grade temp earlier today, of 99.5F. He is currently on Eliquis 5 mg twice a day, he is on Decadron 6 mg daily and he remains on Baricitinib. Yesterday's labs showed white blood cell, of 19.7, hemoglobin of 12.7, electrolytes were within normal limits, BUN is 38 creatinine is 1.1. Progress note dated 04/18/2021. 75 year old male, again seen in room 464. The patient is on saline at 20 mL an hour, and is receiving oxygen via AIRVO, at liters per minute, and 93%. The patient is resting relatively comfortably according to the nurse. White count is 18, hemoglobin 12, hematocrit 35.7, and platelet count 76,000. A blood gas done earlier today shows a pO2 of 66, pCO2 35, and pH is 7.6. That was on 90% oxygen. Sodium 138, potassium 4, chlorides 110, CO2 23, anion gap 5, BUN 51, and creatinine 1.11. Calcium 8.2 bilirubin 2.1 alkaline phosphatase 135. Chest x-ray from today shows stable bilateral diffuse infiltrates consistent with coronavirus associated pneumonia. The patient remains on vitamins, Eliquis, Decadron, and FOZIA. Objective - Vital Signs Vital signs: Vital Signs Temp 97.4 F L 04/18/21 10:02 Pulse 95 04/18/21 10:02 Resp 24 04/18/21 10:02 BP 152/81 04/18/21 10:02 Pulse Ox 97 04/18/21 10:02 Intake & Output 04/17/21 04/18/21 04/18/21 18:59 06:59 18:59 Intake Total 160 Balance 160 Weight 90.718 kg Intake: IV 160 Sodium Chloride 0.9% 1, 160 000 ml @ 20 mls/hr IV . Q24H [facility] Rx#:[id number] Oral 0 Other: Voiding Method Incontinent Incontinent # Voids 2 5 # Bowel Movements 0 - Exam No acute distress, oriented 3. The patient is currently on AIRVO. He is resting comfortably. There are no obvious signs of respiratory distress. HEENT examination is grossly unremarkable. Neck supple. Full range of motion. No adenopathy thyromegaly or neck vein distention. Cardiovascular examination reveals regular rhythm rate. S1-S2 normal. No S3 or S4. No discernible murmur noted. Heart rate 95 bpm. Lungs reveal coarse bilateral rhonchi. Bibasilar crackles noted. There are no wheezes. Breath sounds are equal bilaterally. Saturations are 97%. Abdomen soft bowel sounds are heard. No masses or tenderness. Extremities are intact. No cyanosis clubbing or edema. Skin is without rash or lesion. Neurologic examination is brief but nonfocal. - Labs CBC & Chem 7: 04/18/21 06:08 04/18/21 06:08 Labs: Abnormal Lab Results - Last 24 Hours (Table) 04/17/21 04/17/21 04/18/21 Range/Units 16:03 21:05 01:15 WBC (3.8-10.6) k/uL RBC (4.30-5.90) m/uL Hgb (13.0-17.5) gm/dL Hct (39.0-53.0) % Plt Count (150-450) k/uL Neutrophils # (1.3-7.7) k/uL Lymphocytes # (1.0-4.8) k/uL ABG pH 7.46 H (7.35-7.45) ABG pO2 66 L (83-108) mmHg ABG Total CO2 26 H (19-24) mmol/L Chloride (98-107) mmol/L BUN (9-20) mg/dL Glucose (74-99) mg/dL POC Glucose (mg/dL) 159 H 202 H (75-99) mg/dL Calcium (8.4-10.2) mg/dL Total Bilirubin (0.2-1.3) mg/dL Alkaline Phosphatase (38-126) U/L Total Protein (6.3-8.2) g/dL Albumin (3.5-5.0) g/dL 04/18/21 04/18/21 04/18/21 Range/Units 06:08 06:08 07:03 WBC 18.0 H (3.8-10.6) k/uL RBC 3.92 L (4.30-5.90) m/uL Hgb 12.0 L (13.0-17.5) gm/dL Hct 35.7 L (39.0-53.0) % Plt Count 76 L (150-450) k/uL Neutrophils # 16.3 H (1.3-7.7) k/uL Lymphocytes # 0.7 L (1.0-4.8) k/uL ABG pH (7.35-7.45) ABG pO2 (83-108) mmHg ABG Total CO2 (19-24) mmol/L Chloride 110 H (98-107) mmol/L BUN 51 H (9-20) mg/dL Glucose 101 H (74-99) mg/dL POC Glucose (mg/dL) 102 H (75-99) mg/dL Calcium 8.2 L (8.4-10.2) mg/dL Total Bilirubin 2.1 H (0.2-1.3) mg/dL Alkaline Phosphatase 135 H (38-126) U/L Total Protein 5.9 L (6.3-8.2) g/dL Albumin 2.8 L (3.5-5.0) g/dL 04/18/21 Range/Units 11:54 WBC (3.8-10.6) k/uL RBC (4.30-5.90) m/uL Hgb (13.0-17.5) gm/dL Hct (39.0-53.0) % Plt Count (150-450) k/uL Neutrophils # (1.3-7.7) k/uL Lymphocytes # (1.0-4.8) k/uL ABG pH (7.35-7.45) ABG pO2 (83-108) mmHg ABG Total CO2 (19-24) mmol/L Chloride (98-107) mmol/L BUN (9-20) mg/dL Glucose (74-99) mg/dL POC Glucose (mg/dL) 154 H (75-99) mg/dL Calcium (8.4-10.2) mg/dL Total Bilirubin (0.2-1.3) mg/dL Alkaline Phosphatase (38-126) U/L Total Protein (6.3-8.2) g/dL Albumin (3.5-5.0) g/dL Assessment and Plan Assessment: #1. Acute hypoxic respiratory failure secondary to COVID-19 pneumonia, patient is a vaccinated adult, and received a booster on 03/26/2021. Currently on AIRVO, at 50 L/m and 93% and Baricitinib, started on 04/11/2021. #2. Elevated inflammatory markers related to the above, improving. #3. 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 #4. History of atrial fibrillation on Eliquis. #5. Cellulitis of the left lower extremity, recovered. #6. History of prostate cancer status post radiation. #7. Hypertension. #8. History of seizure disorder. #9. Macular degeneration. #10. History of closed head injury. #11. Confusion, agitation, multifactorial, related to hypoxic encephalopathy and steroids, improved. Plan: Plan dated 04/18/2021. The patient is currently on AIRVO, at about 93%. He's breathing comfortably. His appetite is reasonable. He still feels very weak and fatigued. Physical therapy was consulted. The patient remains on Decadron, vitamins, Eliquis, and FOZIA. We will continue to follow make recommendations where appropriate. Continue with supportive care. Patient is a DO NOT RESUSCITATE patient. Additional recommendations and suggestions are forthcoming. Again, prognosis is very guarded. Time with Patient: Less than 30
[2021-04-18 16:51] LABS: Glucose,Whole Blood 173 mg/dL (75-99)
[2021-04-18 20:06] LABS: Glucose,Whole Blood 140 mg/dL (75-99)
--- NOTE | 2021-04-18 21:17 | P.CONS ---
History of Present Illness - Reason for Consult Consult date: 04/18/21 Thrombocytopenia Requesting physician: Rell Potts - Chief Complaint COvid - History of Present Illness Mr. Thornton is a patient admitted to hospital with Covid. He was last seen by our practice in 2011 for unprovoked life threatening DVT and PE. At that time recommendations for lifelong anticoagulation were made, patient has not followed up since. Platlets have trended down since 04/12. On 04/12/2021 heparin drip was initiated for a short period of time. He has continued on eliquis 5mg po BID since this time. Review of Systems All systems: negative Constitutional: Reports as per HPI Past Medical History Past Medical History: Atrial Fibrillation, Cancer, Deep Vein Thrombosis (DVT), Eye Disorder, Hearing Disorder / Deafness, Hyperlipidemia, Hypertension, Pn eumonia, Pulmonary Embolus (PE), Seizure Disorder Additional Past Medical History / Comment(s): 1963 CHI/seizures after injury but last seizure a few years ago, prostate cancer tx with radiation, chronic low back pain/worse with standing, occasional bilateral lower leg edema, past cellulitis L lower extremity, diverticular disease, benign colon polyps, bilateral tinnitis, bilateral macular degeneration/poor vision/some peripheral vision. History of Any Multi-Drug Resistant Organisms: None Reported Past Surgical History: Cholecystectomy, Tonsillectomy Additional Past Surgical History / Comment(s): Inferior vena cava filter, skull surgery x3 d/t CHI, colonoscopy/benign polypectomy, prostate biopsy Past Anesthesia/Blood Transfusion Reactions: No Reported Reaction Additional Past Anesthesia/Blood Transfusion Reaction / Comm: Pt had blood candelario sfusion in 1963 and developed hives. Smoking Status: Never smoker - Past Family History Daughter(s) Additional Family Medical History / Comment(s): colitis Mother Family Medical History: AFIB, AICD/Pacemaker Father Additional Family Medical History / Comment(s): Either a heart attack or a stroke. Medications and Allergies Home Medications Medication Instructions Recorded Confirmed Type Vit C/E/Zn/Coppr/Lutein/Zeaxan 1 cap PO BID 04/14/19 04/08/21 History [Preservision Areds 2 Softgel] Apixaban [Eliquis] 5 mg PO BID #60 tab 06/25/19 04/08/21 Rx Metoprolol Tartrate [Lopressor] 50 mg PO BID #60 tab 06/25/19 04/08/21 Rx traZODone HCL [Desyrel] 100 mg PO HS 04/08/21 04/08/21 History Allergies Allergy/AdvReac Type Severity Reaction Status Date / Time silver mercury AdvReac Mild ringworm-like Uncoded 04/08/21 21:26 blisters Physical Exam Vitals: Vital Signs Temp Pulse Resp BP Pulse Ox 04/18/21 10:02 97.4 F L 95 24 152/81 97 04/18/21 09:30 91 L 04/18/21 06:00 97.7 F 92 156/82 95 04/18/21 02:18 97.9 F 95 152/83 96 04/17/21 22:03 97.6 F 99 164/85 91 L 04/17/21 22:00 90 L 04/17/21 20:00 95 22 04/17/21 18:00 97.6 F 90 19 156/86 95 Intake and Output 04/17/21 04/18/21 04/18/21 22:59 06:59 14:59 Intake Total 0 Balance 0 Intake: Oral 0 Other: Voiding Method Incontinent Incontinent # Voids 2 5 # Bowel Movements 0 - Constitutional General appearance: cooperative, mild distress - EENT Eyes: EOMI ENT: NA/AT - Neck Neck: normal ROM - Respiratory Respiratory: bilateral: diminished, rhonchi - Cardiovascular Rhythm: regularly irregular - Gastrointestinal General gastrointestinal: soft - Integumentary Integumentary: pale - Neurologic Neurologic: CNII-XII intact - Musculoskeletal Musculoskeletal: generalized weakness, strength equal bilaterally - Psychiatric Psychiatric: A&O x's 3, appropriate affect, intact judgment & insight Results CBC & Chem 7: 04/18/21 06:08 04/18/21 06:08 Labs: Abnormal Lab Results - Last 24 Hours (Table) 04/17/21 04/17/21 04/18/21 Range/Units 16:03 21:05 01:15 WBC (3.8-10.6) k/uL RBC (4.30-5.90) m/uL Hgb (13.0-17.5) gm/dL Hct (39.0-53.0) % Plt Count (150-450) k/uL Neutrophils # (1.3-7.7) k/uL Lymphocytes # (1.0-4.8) k/uL ABG pH 7.46 H (7.35-7.45) ABG pO2 66 L (83-108) mmHg ABG Total CO2 26 H (19-24) mmol/L Chloride (98-107) mmol/L BUN (9-20) mg/dL Glucose (74-99) mg/dL POC Glucose (mg/dL) 159 H 202 H (75-99) mg/dL Calcium (8.4-10.2) mg/dL Total Bilirubin (0.2-1.3) mg/dL Alkaline Phosphatase (38-126) U/L Total Protein (6.3-8.2) g/dL Albumin (3.5-5.0) g/dL 04/18/21 04/18/21 04/18/21 Range/Units 06:08 06:08 07:03 WBC 18.0 H (3.8-10.6) k/uL RBC 3.92 L (4.30-5.90) m/uL Hgb 12.0 L (13.0-17.5) gm/dL Hct 35.7 L (39.0-53.0) % Plt Count 76 L (150-450) k/uL Neutrophils # 16.3 H (1.3-7.7) k/uL Lymphocytes # 0.7 L (1.0-4.8) k/uL ABG pH (7.35-7.45) ABG pO2 (83-108) mmHg ABG Total CO2 (19-24) mmol/L Chloride 110 H (98-107) mmol/L BUN 51 H (9-20) mg/dL Glucose 101 H (74-99) mg/dL POC Glucose (mg/dL) 102 H (75-99) mg/dL Calcium 8.2 L (8.4-10.2) mg/dL Total Bilirubin 2.1 H (0.2-1.3) mg/dL Alkaline Phosphatase 135 H (38-126) U/L Total Protein 5.9 L (6.3-8.2) g/dL Albumin 2.8 L (3.5-5.0) g/dL 04/18/21 Range/Units 11:54 WBC (3.8-10.6) k/uL RBC (4.30-5.90) m/uL Hgb (13.0-17.5) gm/dL Hct (39.0-53.0) % Plt Count (150-450) k/uL Neutrophils # (1.3-7.7) k/uL Lymphocytes # (1.0-4.8) k/uL ABG pH (7.35-7.45) ABG pO2 (83-108) mmHg ABG Total CO2 (19-24) mmol/L Chloride (98-107) mmol/L BUN (9-20) mg/dL Glucose (74-99) mg/dL POC Glucose (mg/dL) 154 H (75-99) mg/dL Calcium (8.4-10.2) mg/dL Total Bilirubin (0.2-1.3) mg/dL Alkaline Phosphatase (38-126) U/L Total Protein (6.3-8.2) g/dL Albumin (3.5-5.0) g/dL Chest x-ray: report reviewed CT scan - chest: report reviewed Assessment and Plan (1) Hypoxia Current Visit: Yes Status: Acute Code(s): R09.02 - HYPOXEMIA SNOMED Code(s): 260470571 (2) Pneumonia due to COVID-19 virus Current Visit: Yes Status: Acute Code(s): U07.1 - COVID-19; J12.82 - PNEUMONIA DUE TO CORONAVIRUS DISEASE 2019 SNOMED Code(s): 894644039364728193 (3) History of DVT of lower extremity Current Visit: Yes Status: Acute Code(s): Z86.718 - PERSONAL HISTORY OF OTHER VENOUS THROMBOSIS AND EMBOLISM SNOMED Code(s): 960180288 (4) History of pulmonary embolism Current Visit: Yes Status: Acute Code(s): Z86.711 - PERSONAL HISTORY OF PULMONARY EMBOLISM SNOMED Code(s): 046070714 (5) Atrial fibrillation Current Visit: Yes Status: Acute Code(s): I48.91 - UNSPECIFIED ATRIAL FIBRILLATION SNOMED Code(s): 89258255 (6) Thrombocytopenia Current Visit: Yes Status: Acute Code(s): D69.6 - THROMBOCYTOPENIA, UNSPECIFIED SNOMED Code(s): 450700422 Plan: Assessment and Recommendations: Thrombocytopenia: - In trending his platelet count it appears he has always had a mild thrombocytopenia baseline 130K - On 04/11/21 platelet count 193K, per MAR Heparin drip ws introduced at this time and platelets have continued to decrease since. However time frame for HIT is not consistent with typical presenting picture and given his other contributing factors and history of mild thrombocytopenia, HIT is a less likely differential. - Monitor for DIC with active infection - Covid Pneumonia - History of Unprovoked DVT/PE: - 2011 recommendation at that time was lifelong antocoagulation Atrial Fibrillation: - Was most recently on Eliquis, he was switched to heparin drip for 24 hours while a CTA and venous doppler performed due to increased d dime, however no acute thrombus revealed and switched back to eliquis 5mg po BID Recommendations: - Will further work-up DIC - Data regarding eliquis with active covid infection is limited and given the full picture and increased risk of thrombosis, history of unprovoked DVT/PE we recommend full dose lovenox be the anticoagulation of choice as long as platelet count remains greater than 50K - Switch to full dose lovenox if DIC panel negative - HIT antibodies are pending, however less likely scenario. Monitor daily CBC and periodic DIC Panel. Will also check hemolysis panel Physician Attest: I have completed the full history and physical and agree with above dictation, dictated as ascribe
[2021-04-18 21:51] LABS: Reticulocyte % 2.4 % (0.5-2.0)
[2021-04-18 22:09] LABS: Fibrinogen 192 mg/dL (200-500); INR 1.2 (<1.2); Partial Thromboplastin Time 21.3 sec (22.0-30.0); Prothrombin Time 12.6 sec (9.0-12.0)
[2021-04-19] MEDS: SODIUM CHLORIDE 0.9% 1,000 ML IV SCH (04:13)
--- NOTE | 2021-04-19 06:08 | P.PN ---
Subjective Patient is a 75-year-old male with a known history of atrial fibrillation, history of PE/DVT status post IVC filter placement, hypertension, hyperli pidemia, hearing disorder/deafness and history of seizures, prostate cancer status post radiation chronic low back pain and other multiple medical problems presents to ER with complaints of generalized weakness and worsening shortness of breath and cough and congestion just before day,.. In the ER patient was found to be hypoxic with pulse ox in the 80s. Denied any complaints of fever or chills. No nausea vomiting or abdominal pain or diarrhea. Patient is fully vaccinated with booster dose on 03/26/2021. Chest x-ray showed there is new mild patchy bilateral lower lobe pulmonary infiltrates and atelectasis compared to old exam. EKG showed normal sinus rhythm Laboratory showed WBC 5.2 hemoglobin 14.6 and platelets 101 lymphocytes 0.5 Sodium 136 potassium 3.4 chloride 103 BUN 47 creatinine 1.35 Ferritin 1255, LDH 1121 CRP 15.6 and COVID-19 PCR detected. EKG showed normal sinus rhythm 04/10/2021 Patient is currently resting in the bed. Requiring oxygen at 12 L via nasal c annula. Denies any chest pain or worsening shortness of breath. No fever no chills. No nausea or vomiting abdominal pain or diarrhea. Tolerating oral diet. Laboratory data showed WBC 6.1 hemoglobin 13.0 and platelets 149 D-dimer is 1.41 Sodium 137 potassium 4.1 chloride 107 BUN 14 creatinine 0.99 and blood sugar is 134 and calcium 8.3 liver enzymes are not elevated LDH 440 and CRP 3.9 pulmonary is on board. Patient is being continued on dexamethasone and apixaban 5 mg twice daily. Continued on IV hydration with normal saline at 75 cc/h. Chest x- ray today showed correlate for interstitial pneumonitis with superimposed multifocal patchy infiltratespneumonia.. 04/11/2021 Patient is awake and alert but looks lethargic. He has fair appetite eating about 25 -50% of his diet. No significantly dyspneic however his oxygen requirements went up 12 up to 13 L/m with saturation is low 90s at 92%. Rest of vitals are stable and he is afebrile. Inflammatory markers mildly elevated with LDH 440 and C-reactive protein 1.6.pro-calcitonin is mildly elevated at 0.23. not on antibiotic. Chest x-ray showing multifocal bilateral pneumonia He remains on dexamethasone, vitamin C, D and zinc. Eliquis, today started on Baricitinib . 04/12/2021 Patient is awake but he still complaining of from shortness of breath, he is a little bit lethargic. He has poor appetite eating only 25-50% of his diet. His oxygen saturation still 92 but he needed higher dose of oxygen today at 50 L/m. His d-dimer is elevated 1.4 up to 29.9, therefore we switched his home dose of Eliquis 5 mg and to heparin drip Ultrasound of the neck is negative for DVT. LDH still elevated at [address] protein 4.1. He has mild bicytopenia most likely secondary to viral infection, hemoglobin is 12.9 and platelets 138. WBC is elevated 12th while he is on steroids. Chest x-ray showing persistent bilateral pneumonia. On multiple vitamins, dexamethasone, baricitnib. Also he was started on heparin drip. He is off IV fluid 04/13/2021 Patient is a still on severe respiratory compromise and he still on 15 L/m, he i s getting extremely short of breath if he tries to move or walk however if he continued to sit in his bed or chair as he is most of the time his breathing is less tachypneic and more quiet. The plan for him if his breathing got worse to use BiPAP. D-dimer was elevated however CTA and Doppler were negative for PE/DVT, therefore patient heparin drip switched to Eliquis. CBC looks stable, mild leukocytosis while on steroids. He remains on dexamethasone, vitamin C, D and zinc. Eliquis, and on Baricitinib which was started 2 days ago. 04/14/2021 Patient is generally weak and lethargic. His oxygen status is worsening and today he needs 50 L/m of oxygen at 86% FiO2. For his bilateral COVID-19 pneumonia. He is afebrile and other Vitas looks stable. Patient continued on multiple vitamins, dexamethasone, Eliquis 5 mg as well as Baricitinib Patient remains on general floor with close monitoring with regards prognosis 04/15/2021 Patient is very weak although he is somewhat oriented for example he knows he isn't [facility] but when I asked him why he was in the hospital he could not answer because of his dyspnea of generalized weakness and MUMBLING. Patient was able to consume 50% of his breakfast but overall is diet has been poor He still on high oxygen requirement of airvo at 50 L/m with 85% Patient continued on multiple vitamins, dexamethasone, Eliquis 5 mg as well as Baricitinib Patient is no code 04/16/2021 Patient is with bilateral covert pneumonia and hypoxia, he needs high oxygen requirements over the last few days where start worsening and currently he is still needs 50 L/m of oxygen via airvo as well as sometimes nonrebreather 15 L. Is getting FiO2 of 86%. Labs reviewed, he has worse leukocytosis today 19 K, hemoglobin stable 12.7, but platelets dropped 149 down to 91. He remains on home dose of Eliquis 5 mg, Pepcid, dexamethasone, vitamin C, D and zinc. And Baricitinib 04/17/2021 Patient breathing better significantly improved and his oxygen requirement went down from 50 L and more yesterday down to 15 L nonrebreather today. Nevertheless patient is extremely weak and somewhat confused and lethargic and has not eaten much and generally is not doing as correct at his breathing pattern. He is hemodynamically stable Today there was no change in his medication and he kept on steroids, vitamins and Baricitinib. As well as his home dose of Eliquis 5 mg 04/18/2021 Patient today morning was more confused and mumbles but during the day he become more awake per Staff. His oxygen requirements is fluctuating between 50 L/m and 15 L/m. His platelet count dropped down to 76. Therefore we consulted hematology team. Patient remains on Eliquis 5 mg currently. His LDH is 2461 Patient continue with dexamethasone, vitamin C D and zinc. And 7 treatment of Baricitinib. Objective - Vital Signs Vital signs: Vital Signs Temp 97.4 F L 04/18/21 10:02 Pulse 95 04/18/21 10:02 Resp 24 04/18/21 10:02 BP 152/81 04/18/21 10:02 Pulse Ox 97 04/18/21 10:02 Intake & Output 04/17/21 04/18/21 04/18/21 18:59 06:59 18:59 Intake Total 160 Balance 160 Weight 90.718 kg Intake: IV 160 Sodium Chloride 0.9% 1, 160 000 ml @ 20 mls/hr IV . Q24H [facility] Rx#:[id number] Oral 0 Other: Voiding Method Incontinent Incontinent # Voids 2 5 # Bowel Movements 0 - Exam -GENERAL: The patient is alert and oriented but lethargic, not in any acute distress. Well developed, well nourished. HEENT: Pupils are round and equally reacting to light. EOMI. No scleral icterus. No conjunctival pallor. Normocephalic, atraumatic. No pharyngeal erythema. No thyromegaly. CARDIOVASCULAR: S1 and S2 present. No murmurs, rubs, or gallops. -PULMONARY: Chest is clear to auscultation, no wheezing. Bilateral crepitation ABDOMEN: Soft, nontender, nondistended, normoactive bowel sounds. No palpable organomegaly. MUSCULOSKELETAL: No joint swelling or deformity. EXTREMITIES: No cyanosis, clubbing, or pedal edema. NEUROLOGICAL: Gross neurological examination did not reveal any focal deficits. SKIN: No rashes. no petechiae. - Labs CBC & Chem 7: 04/18/21 06:08 04/18/21 06:08 Labs: Abnormal Lab Results - Last 24 Hours (Table) 04/17/21 04/17/21 04/18/21 Range/Units 16:03 21:05 01:15 WBC (3.8-10.6) k/uL RBC (4.30-5.90) m/uL Hgb (13.0-17.5) gm/dL Hct (39.0-53.0) % Plt Count (150-450) k/uL Neutrophils # (1.3-7.7) k/uL Lymphocytes # (1.0-4.8) k/uL ABG pH 7.46 H (7.35-7.45) ABG pO2 66 L (83-108) mmHg ABG Total CO2 26 H (19-24) mmol/L Chloride (98-107) mmol/L BUN (9-20) mg/dL Glucose (74-99) mg/dL POC Glucose (mg/dL) 159 H 202 H (75-99) mg/dL Calcium (8.4-10.2) mg/dL Total Bilirubin (0.2-1.3) mg/dL Alkaline Phosphatase (38-126) U/L Total Protein (6.3-8.2) g/dL Albumin (3.5-5.0) g/dL 04/18/21 04/18/21 04/18/21 Range/Units 06:08 06:08 07:03 WBC 18.0 H (3.8-10.6) k/uL RBC 3.92 L (4.30-5.90) m/uL Hgb 12.0 L (13.0-17.5) gm/dL Hct 35.7 L (39.0-53.0) % Plt Count 76 L (150-450) k/uL Neutrophils # 16.3 H (1.3-7.7) k/uL Lymphocytes # 0.7 L (1.0-4.8) k/uL ABG pH (7.35-7.45) ABG pO2 (83-108) mmHg ABG Total CO2 (19-24) mmol/L Chloride 110 H (98-107) mmol/L BUN 51 H (9-20) mg/dL Glucose 101 H (74-99) mg/dL POC Glucose (mg/dL) 102 H (75-99) mg/dL Calcium 8.2 L (8.4-10.2) mg/dL Total Bilirubin 2.1 H (0.2-1.3) mg/dL Alkaline Phosphatase 135 H (38-126) U/L Total Protein 5.9 L (6.3-8.2) g/dL Albumin 2.8 L (3.5-5.0) g/dL 04/18/21 Range/Units 11:54 WBC (3.8-10.6) k/uL RBC (4.30-5.90) m/uL Hgb (13.0-17.5) gm/dL Hct (39.0-53.0) % Plt Count (150-450) k/uL Neutrophils # (1.3-7.7) k/uL Lymphocytes # (1.0-4.8) k/uL ABG pH (7.35-7.45) ABG pO2 (83-108) mmHg ABG Total CO2 (19-24) mmol/L Chloride (98-107) mmol/L BUN (9-20) mg/dL Glucose (74-99) mg/dL POC Glucose (mg/dL) 154 H (75-99) mg/dL Calcium (8.4-10.2) mg/dL Total Bilirubin (0.2-1.3) mg/dL Alkaline Phosphatase (38-126) U/L Total Protein (6.3-8.2) g/dL Albumin (3.5-5.0) g/dL Assessment and Plan Assessment: Acute hypoxic respiratory failure secondary to COVID-19 pneumonia. Patient is vaccinated with moderate and received booster dose on 03/26/2021. Symptoms started on 03/27/2021. Elevated inflammatory markers secondary to COVID-19 pneumonia Paroxysmal atrial fibrillation on anticoagulation with Eliquis History of DVT s/p IVC filter placement Worsening d-dimer with no evidence of PE on CTA of the chest or DVT on Doppler of the legs History of prostate cancer status post radiation History of closed head injury and history of seizure disorder Hypertension Macular degeneration and legally blind Plan: This is a pleasant 75 years old male with complete pneumonia Continue with Decadron and multiple vitamins, vitamin C and D and zinc Continue with oral Eliquis on home dose of 5 mg Consult hematology service for thrombocytopenia Continue with Baricitinib Pulmonary team on the case Labs and medication were reviewed.. Continue same treatment. Continue with sy mptomatic treatment. Resume home medication. Monitor lytes and vitals. DVT and GI prophylaxis. Further recommendationsas per clinical course of the patient DVT prophylaxis: Eliquis switched to heparin drip GI Prophylaxis: Pepcid Prognosis is guarded
[2021-04-19 07:07] LABS: Glucose,Whole Blood 111 mg/dL (75-99)
[2021-04-19] MEDS: INSULIN ASPART (NovoLOG) 100 UNIT/ML VIAL SQ SCH ×4 (07:44→22:58)
[2021-04-19] MEDS: amLODIPine 5 MG TAB PO SCH (08:15)
[2021-04-19] MEDS: DEXAMETHASONE SOD PHOSPHATE 10 MG/ML 1 ML VIAL IVP SCH (08:15)
[2021-04-19] MEDS: ZINC SULFATE 220 MG CAP PO SCH (08:15)
[2021-04-19] MEDS: METOPROLOL TARTRATE 50 MG TAB PO SCH ×2 (08:15→22:58)
[2021-04-19] MEDS: APIXABAN 5 MG TAB PO SCH ×2 (08:15→22:58)
[2021-04-19] MEDS: CHOLECALCIFEROL 25 MCG (1000 IU) TABLET PO SCH (08:15)
[2021-04-19] MEDS: ASCORBIC ACID 500 MG TAB PO SCH (08:15)
[2021-04-19] MEDS: ESCITALOPRAM 5 MG TAB PO SCH (08:16)
[2021-04-19] MEDS: VIT A,C & E-LUTEIN-MINERALS 1 EACH TAB PO SCH ×2 (08:16→22:59)
[2021-04-19] MEDS: ARIPiprazole 5 MG TAB PO SCH (08:17)
[2021-04-19] MEDS: CHLORHEXIDINE GLUCONATE 15 ML CUP MUCOUS MEM SCH ×2 (08:17→22:58)
[2021-04-19] MEDS: MAG HYDROX/AL HYDROX/SIMETH 30 ML, diphenhydrAMINE ELIXIR 75 MG, LIDOCAINE VISCOUS 30 ML PO SCH ×9 (08:21→22:59)
[2021-04-19 09:18] LABS: Basophils # (A) 0.11 X 10*3/uL (0.00-0.10); Basophils % (A) 0.6 %; Eosinophils % (A) 1.1 %; HCT 36.6 % (39.6-50.0); Lymphocytes % (A) 4.2 %; MCH 29.8 pg (27.0-32.0); MCHC 32.8 g/dL (32.0-37.0); MCV 90.8 fL (80.0-97.0); Mean Platelet Volume 11.9 fL (9.5-12.2); Monocytes # (A) 0.95 X 10*3/uL (0.20-1.00); Neutrophils # (A) 16.12 X 10*3/uL (1.80-7.70); Neutrophils % (A) 84.6 %; Platelet Count 91 X 10*3/uL (140-440); RBC 4.03 X 10*6/uL (4.40-5.60); RDW 12.9 % (11.5-14.5); WBC 19.04 X 10*3/uL (4.50-10.00)
[2021-04-19 10:09] LABS: Albumin 3.4 g/dL (3.8-4.9); Albumin/Globulin Ratio 1.29 (1.60-3.17); Anion Gap 14.5 mmol/L (10.00-18.00); BUN/Creat Ratio 40.42 Ratio (12.00-20.00); Blood Urea Nitrogen 47.7 mg/dL (9.0-27.0); Carbon Dioxide 20.6 mmol/L (20.0-27.5); Globulin 2.6 g/dL (1.6-3.3); Non-African American GFR(CKD) 60.4 (60.0-200.0); Potassium 4.1 mmol/L (3.5-5.5); Total Bilirubin 1.4 mg/dL (0.30-1.20)
[2021-04-19] MEDS: BARICITINIB 2 MG TABLET PO SCH (12:23)
[2021-04-19 12:26] LABS: Glucose,Whole Blood 146 mg/dL (75-99)
--- NOTE | 2021-04-19 14:40 | P.PN ---
Subjective Progress Note Date: 04/19/21 Principal diagnosis: COVID pneumonia Thrombocytopenia Platelets up to 91 today Objective - Vital Signs Vital signs: Vital Signs Temp 98.8 F 04/19/21 14:00 Pulse 82 04/19/21 14:00 Resp 17 04/19/21 14:00 BP 137/85 04/19/21 14:00 Pulse Ox 96 04/19/21 14:00 Intake & Output 04/18/21 04/19/21 04/19/21 18:59 06:59 18:59 Output Total 500 Balance -500 Output: Urine 500 Other: Voiding Method Incontinent Incontinent External Catheter # Bowel Movements 0 - Exam Due to concerns of COVID 19 detection/exposure, in an effort to limit health care provider exposure and transmission, parts of the encounter may have been o btained through chart review, family members, telephone/video visits, and/or discussion with primary team/nursing and ancillary staff. - Labs CBC & Chem 7: 04/19/21 06:11 04/19/21 06:11 Labs: Abnormal Lab Results - Last 24 Hours (Table) 04/18/21 04/18/21 04/18/21 Range/Units 16:49 20:04 21:28 WBC (4.50-10.00) X 10*3/uL RBC (4.40-5.60) X 10*6/uL Hgb (13.0-17.0) g/dL Hct (39.6-50.0) % Plt Count (140-440) X 10*3/uL Immature Gran # (0.00-0.04) X 10*3/uL Neutrophils # (1.80-7.70) X 10*3/uL Lymphocytes # (0.90-5.00) X 10*3/uL Basophils # (0.00-0.10) X 10*3/uL Retic Count (0.5-2.0) % PT 12.6 H (9.0-12.0) sec INR 1.2 H (<1.2) APTT 21.3 L (22.0-30.0) sec Fibrinogen 192 L (200-500) mg/dL D-Dimer >34.10 H (<0.60) mg/L FEU BUN (9.0-27.0) mg/dL BUN/Creatinine Ratio (12.00-20.00) Ratio POC Glucose (mg/dL) 173 H 140 H (75-99) mg/dL Total Bilirubin (0.30-1.20) mg/dL AST (14-35) U/L ALT (10-49) U/L Alkaline Phosphatase (41-126) U/L Lactate Dehydrogenase (313-618) U/L Total Protein (6.2-8.2) g/dL Albumin (3.8-4.9) g/dL Albumin/Globulin Ratio (1.60-3.17) g/dL 04/18/21 04/18/21 04/19/21 Range/Units 21:28 21:28 06:11 WBC 19.04 H (4.50-10.00) X 10*3/uL RBC 4.03 L (4.40-5.60) X 10*6/uL Hgb 12.0 L (13.0-17.0) g/dL Hct 36.6 L (39.6-50.0) % Plt Count 91 L (140-440) X 10*3/uL Immature Gran # 0.86 H (0.00-0.04) X 10*3/uL Neutrophils # 16.12 H (1.80-7.70) X 10*3/uL Lymphocytes # 0.80 L (0.90-5.00) X 10*3/uL Basophils # 0.11 H (0.00-0.10) X 10*3/uL Retic Count 2.4 H (0.5-2.0) % PT (9.0-12.0) sec INR (<1.2) APTT (22.0-30.0) sec Fibrinogen (200-500) mg/dL D-Dimer (<0.60) mg/L FEU BUN (9.0-27.0) mg/dL BUN/Creatinine Ratio (12.00-.00) Ratio POC Glucose (mg/dL) (75-99) mg/dL Total Bilirubin (0.30-1.20) mg/dL AST (14-35) U/L ALT (10-49) U/L Alkaline Phosphatase (41-126) U/L Lactate Dehydrogenase 2461 H (313-618) U/L Total Protein (6.2-8.2) g/dL Albumin (3.8-4.9) g/dL Albumin/Globulin Ratio (1.60-3.17) g/dL 04/19/21 04/19/21 04/19/21 Range/Units 06:11 07:05 12:23 WBC (4.50-10.00) X 10*3/uL RBC (4.40-5.60) X 10*6/uL Hgb (13.0-17.0) g/dL Hct (39.6-50.0) % Plt Count (140-440) X 10*3/uL Immature Gran # (0.00-0.04) X 10*3/uL Neutrophils # (1.80-7.70) X 10*3/uL Lymphocytes # (0.90-5.00) X 10*3/uL Basophils # (0.00-0.10) X 10*3/uL Retic Count (0.5-2.0) % PT (9.0-12.0) sec INR (<1.2) APTT (22.0-30.0) sec Fibrinogen (200-500) mg/dL D-Dimer (<0.60) mg/L FEU BUN 47.7 H (9.0-27.0) mg/dL BUN/Creatinine Ratio 40.42 H (12.00-20.00) Ratio POC Glucose (mg/dL) 111 H 146 H (75-99) mg/dL Total Bilirubin 1.40 H (0.30-1.20) mg/dL AST 41 H (14-35) U/L ALT 50 H (10-49) U/L Alkaline Phosphatase 144 H (41-126) U/L Lactate Dehydrogenase (313-618) U/L Total Protein 6.0 L (6.2-8.2) g/dL Albumin 3.4 L (3.8-4.9) g/dL Albumin/Globulin Ratio 1.29 L (1.60-3.17) g/dL Assessment and Plan Assessment: COVID pneumonia Reactive leukocytosis Thrombocytopenia Liver dysfunction History of VTE Atrial fibrillation Plan: Mr. Thornton is a 75 yo male with multiple comorbidites who is here for COVID pneumonia. Course complicated by acute drop in platelets. He has a history of VTE and atrial fibrillation on intermediate card tender anticoagulation with eliquis. Due to COVID infection and elevated D-dimer, eliquis was switched to heparin drip for up to 24 hours on 04/12-04/22 while thrombosis work up obtained. LE doppler and CT/PE negative. Eliquis was hence resumed on 04/13/21. His platelets have been low since admission. Initially, plt ranging 110-140's, however on 04/16/21 decreased to 91 and then 76 on 04/18/21. Likely his thrombocytopenia is reactive due to acute illness and infection with COVID pneumonia as well as liver dysfunction. Concern as well for DIC as his PT/PTT are elevated and fibrinogen low, 190's. This could also be due to liver dysfunction. Doubt due to HIT however HIT antibody pending. Repeat plt today 91. Hemolysis labs normal. Continue to monitor and support as well as treat underlying infection as per ID and primary team. Transfuse cryoprecipitate to maintain fibrinogen >200. Monitor CBC daily. Will continue to follow pt with you. Due to concerns of COVID 19 detection/exposure, in an effort to limit health care provider exposure and transmission, parts of the encounter may have been obtained through chart review, family members, telephone/video visits, and/or discussion with primary team/nursing and ancillary staff.
--- NOTE | 2021-04-19 16:30 | P.PN ---
Subjective Progress Note Date: 04/19/21 Principal diagnosis: COVID-19 pneumonia On 04/11/2021 patient seen in follow-up on medical surgical floor, he is currently up to 15 L of oxygen, with pulse ox of 92-93%, his hypoxia has progressed in last 24 hours, although he denies being more short of breath. Lung sounds are positive for coarse crackles throughout his bilateral lower and mid lower lobes. Occasional cough, clear phlegm production, no fevers overnight, -Vitals stable. Today's labs pending. Yesterday's d-dimer was 1.41. Awaiting today's level. Patient remains on Eliquis 5 mg twice daily for history of atrial fibrillation. He remains on Decadron and COVID-19 multivitamins. Patient seems to be upset, and frustrated, he states he has not been able to get through to his . I helped him dial his 's phone number however there was no answer, patient did not leave a voicemail. I told him we w ill try again later on. Otherwise seems to be fairly comfortable, but seems to be tense, frustrated On 04/13/2021 patient seen in follow-up on medical surgical floor, he is currently on 15 L per high flow nasal cannula and 100% nonrebreather mask, his pulse ox is 95%, he is afebrile, at times he is hypertensive, however does not appear to be in any distress, appears slightly tired, his CTA chest from yesterday showed no evidence of pulmonary embolism. Did show extensive bilateral pulmonary infiltrates consistent with multifocal pneumonia. And his pulmonary infiltrates significantly increased compared to his old exam. Patient is currently on Eliquis for history of A. fib at 5 mg twice daily, he is on Baricitinib, multivitamins. Today's labs have been reviewed, his white blood cell count is 13.6, slightly increased compared to yesterday's labs, hemoglobin is 14.8, electrolytes and renal profile were within normal limits. His LDH and d-dimer are still pending for today, but overall improved since admission. His pro calcitonin level was negative on yesterday's labs. On 04/14/2021 patient seen in follow-up on medical surgical floor. He is awake and alert, he is currently on Airvo at 50 L and 85%, his pulse ox is 88-93%, does not appear to be in any acute distress. He remains on Baricitinib, Decadron, and prophylactic Lovenox. No fever or chills, appears generally weak, his appetite has been poor. Today's labs have been reviewed, his white blood cell count is 15, hemoglobin is 14.2, his electrolytes are unremarkable, B1 is 36 creatinine is 1.14. His LFTs are improving and are back to normal limits, his inflammatory markers are still pending on today's labs, pro calcitonin level was negative. CT angiogram the chest showed no evidence of pulmonary embolism. Patient remains on Lovenox 40 mg daily. On 04/15/2021 patient seen in follow-up on medical surgical floor. He is resting comfortably right now, he is on Airvo at 50 L and FiO2 of 84%, his pulse ox is 96%, breathing comfortably, he denies any worsening dyspnea, lung sounds are diminished, minimal crackles at the bases, no cough, his appetite has been poor, he is been encouraged to increase his oral intake. He is a bit sleepy on today's exam, but does not appear to be in any acute distress, she continues on Decadron 6 mg daily, he is on Baricitinib, and Eliquis 5 mg twice daily for history of A. fib, his heart rate is currently controlled. His had no acute events overnight. On 04/16/2021 patient seen in follow-up on medical surgical floor, his breathing is shallow, slightly dyspneic, but appears to be in no acute distress, remains on Airvo S 50 L and FiO2 of 94%, his pulse ox is 93%. Generally patient is weak, he has not been eating much, he is been offered nutritional supplementation which he is also not doing very well with. Vital signs have been stable, patient is afebrile, hemodynamically stable, lung sounds reveal diffuse crackles bilaterally, no complaints of chest pain. The confusion and agitation have significantly improved, patient is not agitated, and he is oriented 3 today. He remains on Baricitinib, on Decadron, today's lab 7 reviewed with blood cell count is 19.7, hemoglobin is 12.7, electrolytes are within normal limits, BUN is 38, creatinine is 1.1, LFTs slightly trended up, inflammatory markers are still pending on today's labs. Patient remains on Eliq uis, Decadron 6 mg daily, COVID-19 vitamins. He has not been up out of bed in the last couple of days. On 04/17/2021 patient seen in follow-up on medical surgical floor. He had removed his Airvo sometime earlier, and he is currently just on 100% nonrebreather mask, and when his pulse ox was checked his pulse ox was 96%. We will leave him off Airvo. And we will try to wean down his FiO2. Breathing comfortably, no tachypnea, no chest discomfort. Patient has been generally weak, he has not been up out of bed, he has not had a very good oral intake. He had a low-grade temp earlier today, of 99.5F. He is currently on Eliquis 5 mg twice a day, he is on Decadron 6 mg daily and he remains on Baricitinib. Yesterday's labs showed white blood cell, of 19.7, hemoglobin of 12.7, electrolytes were within normal limits, BUN is 38 creatinine is 1.1. Progress note dated 04/18/2021. 75 year old male, again seen in room 464. The patient is on saline at 20 mL an hour, and is receiving oxygen via AIRVO, at liters per minute, and 93%. The patient is resting relatively comfortably according to the nurse. White count is 18, hemoglobin 12, hematocrit 35.7, and platelet count 76,000. A blood gas done earlier today shows a pO2 of 66, pCO2 35, and pH is 7.6. That was on 90% oxygen. Sodium 138, potassium 4, chlorides 110, CO2 23, anion gap 5, BUN 51, and creatinine 1.11. Calcium 8.2 bilirubin 2.1 alkaline phosphatase 135. Chest x-ray from today shows stable bilateral diffuse infiltrates consistent with coronavirus associated pneumonia. The patient remains on vitamins, Eliquis, D ecadron, and FOZIA. The patient seen today 04/19/2021 in follow-up on the regular medical floor. He appears to be resting fairly comfortable in bed. He is continued on AirVo high flow oxygen at 45 L and 80% FiO2. He's been afebrile. Hemodynamically stable. White count 19.0. Hemoglobin 12.0. Lymphocytes 0.8. Sodium 143. Potassium 4.1. Creatinine 1.2. AST 41. ALT 50. He is continued on Eliquis, Baricitinib, Decadron, vitamins supplements. Objective - Vital Signs Vital signs: Vital Signs Temp 98.8 F 04/19/21 14:00 Pulse 82 04/19/21 14:00 Resp 17 04/19/21 14:00 BP 137/85 04/19/21 14:00 Pulse Ox 96 04/19/21 14:00 Intake & Output 04/18/21 04/19/21 04/19/21 18:59 06:59 18:59 Output Total 500 Balance -500 Output: Urine 500 Other: Voiding Method Incontinent Incontinent External Catheter # Bowel Movements 0 - Exam No acute distress, oriented 3. The patient is currently on AIRVO. He is resting comfortably. There are no obvious signs of respiratory distress. HEENT examination is grossly unremarkable. Neck supple. Full range of motion. No adenopathy thyromegaly or neck vein distention. Cardiovascular examination reveals regular rhythm rate. S1-S2 normal. No S3 or S4. No discernible murmur noted. Heart rate 95 bpm. Lungs reveal coarse bilateral rhonchi. Bibasilar crackles noted. There are no wheezes. Breath sounds are equal bilaterally. Saturations are 97%. Abdomen soft bowel sounds are heard. No masses or tenderness. Extremities are intact. No cyanosis clubbing or edema. Skin is without rash or lesion. Neurologic examination is brief but nonfocal. - Labs CBC & Chem 7: 04/19/21 06:11 04/19/21 06:11 Labs: Abnormal Lab Results - Last 24 Hours (Table) 04/18/21 04/18/21 04/18/21 Range/Units 16:49 20:04 21:28 WBC (4.50-10.00) X 10*3/uL RBC (4.40-5.60) X 10*6/uL Hgb (13.0-17.0) g/dL Hct (39.6-50.0) % Plt Count (140-440) X 10*3/uL Immature Gran # (0.00-0.04) X 10*3/uL Neutrophils # (1.80-7.70) X 10*3/uL Lymphocytes # (0.90-5.00) X 10*3/uL Basophils # (0.00-0.10) X 10*3/uL Retic Count (0.5-2.0) % PT 12.6 H (9.0-12.0) sec INR 1.2 H (<1.2) APTT 21.3 L (22.0-30.0) sec Fibrinogen 192 L (200-500) mg/dL D-Dimer >34.10 H (<0.60) mg/L FEU BUN (9.0-27.0) mg/dL BUN/Creatinine Ratio (12.00-20.00) Ratio POC Glucose (mg/dL) 173 H 140 H (75-99) mg/dL Total Bilirubin (0.30-1.20) mg/dL AST (14-35) U/L ALT (10-49) U/L Alkaline Phosphatase (41-126) U/L Lactate Dehydrogenase (313-618) U/L Total Protein (6.2-8.2) g/dL Albumin (3.8-4.9) g/dL Albumin/Globulin Ratio (1.60-3.17) g/dL 04/18/21 04/18/21 04/19/21 Range/Units 21:28 21:28 06:11 WBC 19.04 H (4.50-10.00) X 10*3/uL RBC 4.03 L (4.40-5.60) X 10*6/uL Hgb 12.0 L (13.0-17.0) g/dL Hct 36.6 L (39.6-50.0) % Plt Count 91 L (140-440) X 10*3/uL Immature Gran # 0.86 H (0.00-0.04) X 10*3/uL Neutrophils # 16.12 H (1.80-7.70) X 10*3/uL Lymphocytes # 0.80 L (0.90-5.00) X 10*3/uL Basophils # 0.11 H (0.00-0.10) X 10*3/uL Retic Count 2.4 H (0.5-2.0) % PT (9.0-12.0) sec INR (<1.2) APTT (22.0-30.0) sec Fibrinogen (200-500) mg/dL D-Dimer (<0.60) mg/L FEU BUN (9.0-27.0) mg/dL BUN/Creatinine Ratio (12.00-20.00) Ratio POC Glucose (mg/dL) (75-99) mg/dL Total Bilirubin (0.30-1.20) mg/dL AST (14-35) U/L ALT (10-49) U/L Alkaline Phosphatase (41-126) U/L Lactate Dehydrogenase 2461 H (313-618) U/L Total Protein (6.2-8.2) g/dL Albumin (3.8-4.9) g/dL Albumin/Globulin Ratio (1.60-3.17) g/dL 04/19/21 04/19/21 04/19/21 Range/Units 06:11 07:05 12:23 WBC (4.50-10.00) X 10*3/uL RBC (4.40-5.60) X 10*6/uL Hgb (13.0-17.0) g/dL Hct (39.6-50.0) % Plt Count (140-440) X 10*3/uL Immature Gran # (0.00-0.04) X 10*3/uL Neutrophils # (1.80-7.70) X 10*3/uL Lymphocytes # (0.90-5.00) X 10*3/uL Basophils # (0.00-0.10) X 10*3/uL Retic Count (0.5-2.0) % PT (9.0-12.0) sec INR (<1.2) APTT (22.0-30.0) sec Fibrinogen (200-500) mg/dL D-Dimer (<0.60) mg/L FEU BUN 47.7 H (9.0-27.0) mg/dL BUN/Creatinine Ratio 40.42 H (12.00-20.00) Ratio POC Glucose (mg/dL) 111 H 146 H (75-99) mg/dL Total Bilirubin 1.40 H (0.30-1.20) mg/dL AST 41 H (14-35) U/L ALT 50 H (10-49) U/L Alkaline Phosphatase 144 H (41-126) U/L Lactate Dehydrogenase (313-618) U/L Total Protein 6.0 L (6.2-8.2) g/dL Albumin 3.4 L (3.8-4.9) g/dL Albumin/Globulin Ratio 1.29 L (1.60-3.17) g/dL Assessment and Plan Assessment: 1 Acute hypoxemic respiratory failure secondary to COVID-19 pneumonia. The patient has been vaccinated with Moderna. Received a booster on 03/26/2021. Symptoms started 03/27/2021. Currently on AirVo high flow oxygen at 45 L and 80% FiO2. Continued on Baricitinib. 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 Lungs sounds with crackles in the posterior bases right greater than left. Maintaining good O2 saturations in the 90s on AirVo high flow oxygen at 45 L and 80% FiO2. I discussed the assessment and plan of care with my nurse practitioner, Lana Palafox. I attest to the above note as dictated by her.
[2021-04-19 16:51] LABS: Glucose,Whole Blood 148 mg/dL (75-99)
--- NOTE | 2021-04-19 20:09 | P.PN ---
Subjective Patient is a 75-year-old male with a known history of atrial fibrillation, history of PE/DVT status post IVC filter placement, hypertension, hyperli pidemia, hearing disorder/deafness and history of seizures, prostate cancer status post radiation chronic low back pain and other multiple medical problems presents to ER with complaints of generalized weakness and worsening shortness of breath and cough and congestion just before day,.. In the ER patient was found to be hypoxic with pulse ox in the 80s. Denied any complaints of fever or chills. No nausea vomiting or abdominal pain or diarrhea. Patient is fully vaccinated with booster dose on 03/26/2021. Chest x-ray showed there is new mild patchy bilateral lower lobe pulmonary infiltrates and atelectasis compared to old exam. EKG showed normal sinus rhythm Laboratory showed WBC 5.2 hemoglobin 14.6 and platelets 101 lymphocytes 0.5 Sodium 136 potassium 3.4 chloride 103 BUN 47 creatinine 1.35 Ferritin 1255, LDH 1121 CRP 15.6 and COVID-19 PCR detected. EKG showed normal sinus rhythm 04/10/2021 Patient is currently resting in the bed. Requiring oxygen at 12 L via nasal c annula. Denies any chest pain or worsening shortness of breath. No fever no chills. No nausea or vomiting abdominal pain or diarrhea. Tolerating oral diet. Laboratory data showed WBC 6.1 hemoglobin 13.0 and platelets 149 D-dimer is 1.41 Sodium 137 potassium 4.1 chloride 107 BUN 14 creatinine 0.99 and blood sugar is 134 and calcium 8.3 liver enzymes are not elevated LDH 440 and CRP 3.9 pulmonary is on board. Patient is being continued on dexamethasone and apixaban 5 mg twice daily. Continued on IV hydration with normal saline at 75 cc/h. Chest x- ray today showed correlate for interstitial pneumonitis with superimposed multifocal patchy infiltratespneumonia.. 04/11/2021 Patient is awake and alert but looks lethargic. He has fair appetite eating about 25 -50% of his diet. No significantly dyspneic however his oxygen requirements went up 12 up to 13 L/m with saturation is low 90s at 92%. Rest of vitals are stable and he is afebrile. Inflammatory markers mildly elevated with LDH 440 and C-reactive protein 1.6.pro-calcitonin is mildly elevated at 0.23. not on antibiotic. Chest x-ray showing multifocal bilateral pneumonia He remains on dexamethasone, vitamin C, D and zinc. Eliquis, today started on Baricitinib . 04/12/2021 Patient is awake but he still complaining of from shortness of breath, he is a little bit lethargic. He has poor appetite eating only 25-50% of his diet. His oxygen saturation still 92 but he needed higher dose of oxygen today at 50 L/m. His d-dimer is elevated 1.4 up to 29.9, therefore we switched his home dose of Eliquis 5 mg and to heparin drip Ultrasound of the neck is negative for DVT. LDH still elevated at [address] protein 4.1. He has mild bicytopenia most likely secondary to viral infection, hemoglobin is 12.9 and platelets 138. WBC is elevated 12th while he is on steroids. Chest x-ray showing persistent bilateral pneumonia. On multiple vitamins, dexamethasone, baricitnib. Also he was started on heparin drip. He is off IV fluid 04/13/2021 Patient is a still on severe respiratory compromise and he still on 15 L/m, he i s getting extremely short of breath if he tries to move or walk however if he continued to sit in his bed or chair as he is most of the time his breathing is less tachypneic and more quiet. The plan for him if his breathing got worse to use BiPAP. D-dimer was elevated however CTA and Doppler were negative for PE/DVT, therefore patient heparin drip switched to Eliquis. CBC looks stable, mild leukocytosis while on steroids. He remains on dexamethasone, vitamin C, D and zinc. Eliquis, and on Baricitinib which was started 2 days ago. 04/14/2021 Patient is generally weak and lethargic. His oxygen status is worsening and today he needs 50 L/m of oxygen at 86% FiO2. For his bilateral COVID-19 pneumonia. He is afebrile and other Vitas looks stable. Patient continued on multiple vitamins, dexamethasone, Eliquis 5 mg as well as Baricitinib Patient remains on general floor with close monitoring with regards prognosis 04/15/2021 Patient is very weak although he is somewhat oriented for example he knows he isn't [facility] but when I asked him why he was in the hospital he could not answer because of his dyspnea of generalized weakness and MUMBLING. Patient was able to consume 50% of his breakfast but overall is diet has been poor He still on high oxygen requirement of airvo at 50 L/m with 85% Patient continued on multiple vitamins, dexamethasone, Eliquis 5 mg as well as Baricitinib Patient is no code 04/16/2021 Patient is with bilateral covert pneumonia and hypoxia, he needs high oxygen requirements over the last few days where start worsening and currently he is still needs 50 L/m of oxygen via airvo as well as sometimes nonrebreather 15 L. Is getting FiO2 of 86%. Labs reviewed, he has worse leukocytosis today 19 K, hemoglobin stable 12.7, but platelets dropped 149 down to 91. He remains on home dose of Eliquis 5 mg, Pepcid, dexamethasone, vitamin C, D and zinc. And Baricitinib 04/17/2021 Patient breathing better significantly improved and his oxygen requirement went down from 50 L and more yesterday down to 15 L nonrebreather today. Nevertheless patient is extremely weak and somewhat confused and lethargic and has not eaten much and generally is not doing as correct at his breathing pattern. He is hemodynamically stable Today there was no change in his medication and he kept on steroids, vitamins and Baricitinib. As well as his home dose of Eliquis 5 mg 04/18/2021 Patient today morning was more confused and mumbles but during the day he become more awake per Staff. His oxygen requirements is fluctuating between 50 L/m and 15 L/m. His platelet count dropped down to 76. Therefore we consulted hematology team. Patient remains on Eliquis 5 mg currently. His LDH is 2461 Patient continue with dexamethasone, vitamin C D and zinc. And 7 treatment of Baricitinib. 04/19/2021 Patient still lethargic and tired and tachypneic, his oxygen requirement is on high flow nasal cannula airvo 45 L/m and 80% today. WBC 19,000, hemoglobin 12 platelets improve to 91. Her hematology consult was said to be neck could be due to liver dysfunction versus DIC because of the low fibrinogen. Liver enzymes mildly elevated as well as bilirubin at 1.4. He remains on Eliquis HIT antibodies pending but the chances being positive are low. He remains on the same treatment of steroids, multiple vitamins and Barcitinib Objective - Vital Signs Vital signs: Vital Signs Temp 98.2 F 04/19/21 05:48 Pulse 85 04/19/21 05:48 Resp 19 04/19/21 05:48 BP 160/77 04/19/21 05:48 Pulse Ox 99 04/19/21 09:16 Intake & Output 04/18/21 04/19/21 04/19/21 18:59 06:59 18:59 Output Total 500 Balance -500 Output: Urine 500 Other: Voiding Method Incontinent Incontinent External Catheter # Bowel Movements 0 - Exam -GENERAL: The patient is alert and oriented but lethargic, not in any acute distress. Well developed, well nourished. HEENT: Pupils are round and equally reacting to light. EOMI. No scleral icterus. No conjunctival pallor. Normocephalic, atraumatic. No pharyngeal erythema. No thyromegaly. CARDIOVASCULAR: S1 and S2 present. No murmurs, rubs, or gallops. -PULMONARY: Chest is clear to auscultation, no wheezing. Bilateral crepitation ABDOMEN: Soft, nontender, nondistended, normoactive bowel sounds. No palpable organomegaly. MUSCULOSKELETAL: No joint swelling or deformity. EXTREMITIES: No cyanosis, clubbing, or pedal edema. NEUROLOGICAL: Gross neurological examination did not reveal any focal deficits. SKIN: No rashes. no petechiae. - Labs CBC & Chem 7: 04/19/21 06:11 04/19/21 06:11 Labs: Abnormal Lab Results - Last 24 Hours (Table) 04/18/21 04/18/21 04/18/21 Range/Units 16:49 20:04 21:28 WBC (4.50-10.00) X 10*3/uL RBC (4.40-5.60) X 10*6/uL Hgb (13.0-17.0) g/dL Hct (39.6-50.0) % Plt Count (140-440) X 10*3/uL Immature Gran # (0.00-0.04) X 10*3/uL Neutrophils # (1.80-7.70) X 10*3/uL Lymphocytes # (0.90-5.00) X 10*3/uL Basophils # (0.00-0.10) X 10*3/uL Retic Count (0.5-2.0) % PT 12.6 H (9.0-12.0) sec INR 1.2 H (<1.2) APTT 21.3 L (22.0-30.0) sec Fibrinogen 192 L (200-500) mg/dL D-Dimer >34.10 H (<0.60) mg/L FEU BUN (9.0-27.0) mg/dL BUN/Creatinine Ratio (12.00-20.00) Ratio POC Glucose (mg/dL) 173 H 140 H (75-99) mg/dL Total Bilirubin (0.30-1.20) mg/dL AST (14-35) U/L ALT (10-49) U/L Alkaline Phosphatase (41-126) U/L Lactate Dehydrogenase (313-618) U/L Total Protein (6.2-8.2) g/dL Albumin (3.8-4.9) g/dL Albumin/Globulin Ratio (1.60-3.17) g/dL 04/18/21 04/18/21 04/19/21 Range/Units 21:28 21:28 06:11 WBC 19.04 H (4.50-10.00) X 10*3/uL RBC 4.03 L (4.40-5.60) X 10*6/uL Hgb 12.0 L (13.0-17.0) g/dL Hct 36.6 L (39.6-50.0) % Plt Count 91 L (140-440) X 10*3/uL Immature Gran # 0.86 H (0.00-0.04) X 10*3/uL Neutrophils # 16.12 H (1.80-7.70) X 10*3/uL Lymphocytes # 0.80 L (0.90-5.00) X 10*3/uL Basophils # 0.11 H (0.00-0.10) X 10*3/uL Retic Count 2.4 H (0.5-2.0) % PT (9.0-12.0) sec INR (<1.2) APTT (22.0-30.0) sec Fibrinogen (200-500) mg/dL D-Dimer (<0.60) mg/L FEU BUN (9.0-27.0) mg/dL BUN/Creatinine Ratio (12.00-20.00) Ratio POC Glucose (mg/dL) (75-99) mg/dL Total Bilirubin (0.30-1.20) mg/dL AST (14-35) U/L ALT (10-49) U/L Alkaline Phosphatase (41-126) U/L Lactate Dehydrogenase 2461 H (313-618) U/L Total Protein (6.2-8.2) g/dL Albumin (3.8-4.9) g/dL Albumin/Globulin Ratio (1.60-3.17) g/dL 04/19/21 04/19/21 04/19/21 Range/Units 06:11 07:05 12:23 WBC (4.50-10.00) X 10*3/uL RBC (4.40-5.60) X 10*6/uL Hgb (13.0-17.0) g/dL Hct (39.6-50.0) % Plt Count (140-440) X 10*3/uL Immature Gran # (0.00-0.04) X 10*3/uL Neutrophils # (1.80-7.70) X 10*3/uL Lymphocytes # (0.90-5.00) X 10*3/uL Basophils # (0.00-0.10) X 10*3/uL Retic Count (0.5-2.0) % PT (9.0-12.0) sec INR (<1.2) APTT (22.0-30.0) sec Fibrinogen (200-500) mg/dL D-Dimer (<0.60) mg/L FEU BUN 47.7 H (9.0-27.0) mg/dL BUN/Creatinine Ratio 40.42 H (12.00-20.00) Ratio POC Glucose (mg/dL) 111 H 146 H (75-99) mg/dL Total Bilirubin 1.40 H (0.30-1.20) mg/dL AST 41 H (14-35) U/L ALT 50 H (10-49) U/L Alkaline Phosphatase 144 H (41-126) U/L Lactate Dehydrogenase (313-618) U/L Total Protein 6.0 L (6.2-8.2) g/dL Albumin 3.4 L (3.8-4.9) g/dL Albumin/Globulin Ratio 1.29 L (1.60-3.17) g/dL Assessment and Plan Assessment: Acute hypoxic respiratory failure secondary to COVID-19 pneumonia. Patient is vaccinated with moderate and received booster dose on 03/26/2021. Symptoms started on 03/27/2021. Elevated inflammatory markers secondary to COVID-19 pneumonia Paroxysmal atrial fibrillation on anticoagulation with Eliquis #2 terese, secondary to liver dysfunction versus EIC History of DVT s/p IVC filter placement Worsening d-dimer with no evidence of PE on CTA of the chest or DVT on Doppler of the legs History of prostate cancer status post radiation History of closed head injury and history of seizure disorder Hypertension Macular degeneration and legally blind Plan: This is a pleasant 75 years old male with complete pneumonia Continue with Decadron and multiple vitamins, vitamin C and D and zinc Continue with oral Eliquis on home dose of 5 mg Consult hematology service for thrombocytopenia Continue with Baricitinib Pulmonary team on the case Hematology team on the case Labs and medication were reviewed.. Continue same treatment. Continue with symptomatic treatment. Resume home medication. Monitor lytes and vitals. DVT and GI prophylaxis. Further recommendations as per clinical course of the patient DVT prophylaxis: Eliquis switched to heparin drip GI Prophylaxis: Pepcid Prognosis is guarded
[2021-04-19 20:47] LABS: Glucose,Whole Blood 162 mg/dL (75-99)
[2021-04-19] MEDS: traZODone HCL 50 MG TAB PO SCH (22:58)
[2021-04-20 07:18] LABS: Glucose,Whole Blood 92 mg/dL (75-99)
[2021-04-20] MEDS: SODIUM CHLORIDE 0.9% 1,000 ML IV SCH (07:21)
[2021-04-20] MEDS: DEXAMETHASONE SOD PHOSPHATE 10 MG/ML 1 ML VIAL IVP SCH (07:22)
[2021-04-20] MEDS: APIXABAN 5 MG TAB PO SCH (07:22)
[2021-04-20] MEDS: CHOLECALCIFEROL 25 MCG (1000 IU) TABLET PO SCH (07:22)
[2021-04-20] MEDS: METOPROLOL TARTRATE 50 MG TAB PO SCH ×2 (07:22→20:42)
[2021-04-20] MEDS: ASCORBIC ACID 500 MG TAB PO SCH (07:22)
[2021-04-20] MEDS: amLODIPine 5 MG TAB PO SCH (07:22)
[2021-04-20] MEDS: INSULIN ASPART (NovoLOG) 100 UNIT/ML VIAL SQ SCH ×4 (07:22→20:41)
[2021-04-20] MEDS: ZINC SULFATE 220 MG CAP PO SCH (07:22)
[2021-04-20] MEDS: VIT A,C & E-LUTEIN-MINERALS 1 EACH TAB PO SCH ×2 (07:23→20:42)
[2021-04-20] MEDS: CHLORHEXIDINE GLUCONATE 15 ML CUP MUCOUS MEM SCH ×2 (07:23→20:41)
[2021-04-20] MEDS: ARIPiprazole 5 MG TAB PO SCH (07:23)
[2021-04-20] MEDS: ESCITALOPRAM 5 MG TAB PO SCH (07:23)
[2021-04-20] MEDS: MAG HYDROX/AL HYDROX/SIMETH 30 ML, diphenhydrAMINE ELIXIR 75 MG, LIDOCAINE VISCOUS 30 ML PO SCH ×9 (07:24→21:26)
[2021-04-20 11:33] LABS: Glucose,Whole Blood 140 mg/dL (75-99)
[2021-04-20] MEDS: BARICITINIB 2 MG TABLET PO SCH (13:24)
--- NOTE | 2021-04-20 13:28 | P.PN ---
Subjective Progress Note Date: 04/20/21 Principal diagnosis: Shortness of breath. On 04/11/2021 patient seen in follow-up on medical surgical floor, he is currently up to 15 L of oxygen, with pulse ox of 92-93%, his hypoxia has progressed in last 24 hours, although he denies being more short of breath. Lung sounds are positive for coarse crackles throughout his bilateral lower and mid lower lobes. Occasional cough, clear phlegm production, no fevers overnight, -Vitals stable. Today's labs pending. Yesterday's d-dimer was 1.41. Awaiting today's level. Patient remains on Eliquis 5 mg twice daily for history of atrial fibrillation. He remains on Decadron and COVID-19 multivitamins. Patient seems to be upset, and frustrated, he states he has not been able to get through to his . I helped him dial his 's phone number however there was no answer, patient did not leave a voicemail. I told him we will try again later on. Otherwise seems to be fairly comfortable, but seems to be tense, frustrated On 04/13/2021 patient seen in follow-up on medical surgical floor, he is currently on 15 L per high flow nasal cannula and 100% nonrebreather mask, his pulse ox is 95%, he is afebrile, at times he is hypertensive, however does not appear to be in any distress, appears slightly tired, his CTA chest from yesterday showed no evidence of pulmonary embolism. Did show extensive bilateral pulmonary infiltrates consistent with multifocal pneumonia. And his pulmonary infiltrates significantly increased compared to his old exam. Patient is currently on Eliquis for history of A. fib at 5 mg twice daily, he is on Baricitinib, multivitamins. Today's labs have been reviewed, his white blood cell count is 13.6, slightly increased compared to yesterday's labs, hemoglobin is 14.8, electrolytes and renal profile were within normal limits. His LDH and d-dimer are still pending for today, but overall improved since admission. His pro calcitonin level was negative on yesterday's labs. On 04/14/2021 patient seen in follow-up on medical surgical floor. He is awake and alert, he is currently on Airvo at 50 L and 85%, his pulse ox is 88-93%, does not appear to be in any acute distress. He remains on Baricitinib, Decadron, and prophylactic Lovenox. No fever or chills, appears generally weak, his appetite has been poor. Today's labs have been reviewed, his white blood cell count is 15, hemoglobin is 14.2, his electrolytes are unremarkable, B1 is 36 creatinine is 1.14. His LFTs are improving and are back to normal limits, his inflammatory markers are still pending on today's labs, pro calcitonin level was negative. CT angiogram the chest showed no evidence of pulmonary embolism. Patient remains on Lovenox 40 mg daily. On 04/15/2021 patient seen in follow-up on medical surgical floor. He is resting comfortably right now, he is on Airvo at 50 L and FiO2 of 84%, his pulse ox is 96%, breathing comfortably, he denies any worsening dyspnea, lung sounds are diminished, minimal crackles at the bases, no cough, his appetite has been poor, he is been encouraged to increase his oral intake. He is a bit sleepy on today's exam, but does not appear to be in any acute distress, she continues on Decadron 6 mg daily, he is on Baricitinib, and Eliquis 5 mg twice daily for history of A. fib, his heart rate is currently controlled. His had no acute events overnight. On 04/16/2021 patient seen in follow-up on medical surgical floor, his breathing is shallow, slightly dyspneic, but appears to be in no acute distress, remains on Airvo S 50 L and FiO2 of 94%, his pulse ox is 93%. Generally patient is weak, he has not been eating much, he is been offered nutritional supplementati on which he is also not doing very well with. Vital signs have been stable, patient is afebrile, hemodynamically stable, lung sounds reveal diffuse crackles bilaterally, no complaints of chest pain. The confusion and agitation have significantly improved, patient is not agitated, and he is oriented 3 today. He remains on Baricitinib, on Decadron, today's lab 7 reviewed with blood cell count is 19.7, hemoglobin is 12.7, electrolytes are within normal limits, BUN is 38, creatinine is 1.1, LFTs slightly trended up, inflammatory markers are still pending on today's labs. Patient remains on Eliquis, Decadron 6 mg daily, COVID-19 vitamins. He has not been up out of bed in the last couple of days. On 04/17/2021 patient seen in follow-up on medical surgical floor. He had removed his Airvo sometime earlier, and he is currently just on 100% nonrebreather mask, and when his pulse ox was checked his pulse ox was 96%. We will leave him off Airvo. And we will try to wean down his FiO2. Breathing comfortably, no tachypnea, no chest discomfort. Patient has been generally weak, he has not been up out of bed, he has not had a very good oral intake. He had a low-grade temp earlier today, of 99.5F. He is currently on Eliquis 5 mg twice a day, he is on Decadron 6 mg daily and he remains on Baricitinib. Yesterday's labs showed white blood cell, of 19.7, hemoglobin of 12.7, electrolytes were within normal limits, BUN is 38 creatinine is 1.1. Progress note dated 04/18/2021. 75 year old male, again seen in room 464. The patient is on saline at 20 mL an hour, and is receiving oxygen via AIRVO, at liters per minute, and 93%. The patient is resting relatively comfortably according to the nurse. White count is 18, hemoglobin 12, hematocrit 35.7, and platelet count 76,000. A blood gas done earlier today shows a pO2 of 66, pCO2 35, and pH is 7.6. That was on 90% oxygen. Sodium 138, potassium 4, chlorides 110, CO2 23, anion gap 5, BUN 51, and creatinine 1.11. Calcium 8.2 bilirubin 2.1 alkaline phosphatase 135. Chest x-ray from today shows stable bilateral diffuse infiltrates consistent with coronavirus associated pneumonia. The patient remains on vitamins, Eliquis, Decadron, and FOZIA. Progress note dated 04/20/2021. 75-year-old male again seen in room 464. The patient is a DO NOT RESUSCITATE patient. The patient is getting saline at 20 mL an hour. He is currently on AIRVO at 45 L/m with an FiO2 of 80%. The only lab test today was a glucose of 140. The patient appears to be about the same as he was yesterday. He remains on Eliquis, Decadron, and FOZIA. The patient is also getting vitamin C, vitamin D3, and zinc. The patient's overall prognosis is very poor. Objective - Vital Signs Vital signs: Vital Signs Temp 97.7 F 04/20/21 10:00 Pulse 98 04/20/21 10:00 Resp 21 04/20/21 10:00 BP 135/76 04/20/21 10:00 Pulse Ox 99 04/20/21 11:45 Intake & Output 04/19/21 04/20/21 04/20/21 18:59 06:59 18:59 Intake Total 236 240 Output Total 300 750 Balance -64 -510 Intake: Intake, IV Titration 240 Amount Sodium Chloride 0.9% 1, 240 000 ml @ 20 mls/hr IV . Q24H [facility] Rx#:[id number] Oral 236 Output: Urine 300 750 Other: Voiding Method External Catheter External Catheter External Catheter # Bowel Movements 0 - Exam No acute distress, oriented 3. The patient is currently on AIRVO. He is resting comfortably. There are no obvious signs of respiratory distress. HEENT examination is grossly unremarkable. Neck supple. Full range of motion. No adenopathy thyromegaly or neck vein distention. Cardiovascular examination reveals regular rhythm rate. S1-S2 normal. No S3 or S4. No discernible murmur noted. Heart rate 98 bpm. Lungs reveal coarse bilateral rhonchi. Bibasilar crackles noted. There are no wheezes. Breath sounds are equal bilaterally. Saturations are 99%. Abdomen soft bowel sounds are heard. No masses or tenderness. Extremities are intact. No cyanosis clubbing or edema. Skin is without rash or lesion. Neurologic examination is brief but nonfocal. - Labs CBC & Chem 7: 04/19/21 06:11 04/19/21 06:11 Labs: Abnormal Lab Results - Last 24 Hours (Table) 04/19/21 04/19/21 04/20/21 Range/Units 16:50 20:45 11:31 POC Glucose (mg/dL) 148 H 162 H 140 H (75-99) mg/dL Assessment and Plan Assessment: #1. Acute hypoxic respiratory failure secondary to COVID-19 pneumonia, patient is a vaccinated adult, and received a booster on 03/26/2021. Currently on AIRVO, at 45 L/m and 83% and Baricitinib, started on 04/11/2021. #2. Elevated inflammatory markers related to the above, improving. #3. 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 #4. History of atrial fibrillation on Eliquis. #5. Cellulitis of the left lower extremity, recovered. #6. History of prostate cancer status post radiation. #7. Hypertension. #8. History of seizure disorder. #9. Macular degeneration. #10. History of closed head injury. #11. Confusion, agitation, multifactorial, related to hypoxic encephalopathy and steroids, improved. Plan: Plan dated 04/18/2021. The patient is currently on AIRVO, at about 93%. He's breathing comfortably. His appetite is reasonable. He still feels very weak and fatigued. Physical therapy was consulted. The patient remains on Decadron, vitamins, Eliquis, and FOZIA. We will continue to follow make recommendations where appropriate. Tess nue with supportive care. Patient is a DO NOT RESUSCITATE patient. Additional recommendations and suggestions are forthcoming. Again, prognosis is very guarded. Plan dated 04/20/2021. The patient remains on AIRVO at 45 L/m with an FiO2 of 83%. The patient's getting saline at 20 mL an hour. The patient is a DO NOT RESUSCITATE patient. The patient remains on vitamin C, vitamin D3, and zinc. In addition, he is getting Decadron and Eliquis. He is also being prescribed FOZIA. We will contin ue to follow make recommendations where appropriate. Prognosis is guarded. Time with Patient: Less than 30
[2021-04-20 15:04] LABS: Glucose,Whole Blood 159 mg/dL (75-99)
[2021-04-20] MEDS ORDERED: SODIUM CHLORIDE 0.9% 500 ML 500 ML IV ONE (15:07)
[2021-04-20 15:13] LABS: ABG HCO3 27 mmol/L (21-25); ABG Oxygen Saturation 94.2 % (94-97); ABG PCO2 43 mmHg (35-45); ABG PO2 70 mmHg (83-108); ABG TCO2 28 mmol/L (19-24); Allen Test Performed? Yes
[2021-04-20 16:51] LABS: Glucose,Whole Blood 150 mg/dL (75-99)
--- NOTE | 2021-04-20 17:28 | CT ---
EXAMINATION TYPE: CT brain wo con DATE OF EXAM: 04/20/2021 COMPARISON: 06/18/2019 HISTORY: Altered mental status. CT DLP: 1192.4 mGycm Automated exposure control for dose reduction was used. There is 7 x 3.5 cm area of hypodensity involving the left posterior temporal lobe consistent with ac tram ischemic infarct. There is also involvement of the left parietal lobe measuring 5 cm. There is no mass effect. There is 4.5 cm area of hypodensity left posterior frontal lobe curtis and white matter r elated to old encephalomalacia. There is left frontal craniotomy defect. There is no midline shift. T here is no sign of intracranial hemorrhage. Skull base is intact. There is normal aeration of the mas toid sinuses. IMPRESSION: There is large acute left temporal and parietal lobe infarct which is a change compared to old exam. Large frontal lobe area of encephalomalacia without change compared to old exam.
--- NOTE | 2021-04-20 18:46 | P.PN ---
Subjective Patient is a 75-year-old male with a known history of atrial fibrillation, history of PE/DVT status post IVC filter placement, hypertension, hyperli pidemia, hearing disorder/deafness and history of seizures, prostate cancer status post radiation chronic low back pain and other multiple medical problems presents to ER with complaints of generalized weakness and worsening shortness of breath and cough and congestion just before day,.. In the ER patient was found to be hypoxic with pulse ox in the 80s. Denied any complaints of fever or chills. No nausea vomiting or abdominal pain or diarrhea. Patient is fully vaccinated with booster dose on 03/26/2021. Chest x-ray showed there is new mild patchy bilateral lower lobe pulmonary infiltrates and atelectasis compared to old exam. EKG showed normal sinus rhythm Laboratory showed WBC 5.2 hemoglobin 14.6 and platelets 101 lymphocytes 0.5 Sodium 136 potassium 3.4 chloride 103 BUN 47 creatinine 1.35 Ferritin 1255, LDH 1121 CRP 15.6 and COVID-19 PCR detected. EKG showed normal sinus rhythm 04/10/2021 Patient is currently resting in the bed. Requiring oxygen at 12 L via nasal c annula. Denies any chest pain or worsening shortness of breath. No fever no chills. No nausea or vomiting abdominal pain or diarrhea. Tolerating oral diet. Laboratory data showed WBC 6.1 hemoglobin 13.0 and platelets 149 D-dimer is 1.41 Sodium 137 potassium 4.1 chloride 107 BUN 14 creatinine 0.99 and blood sugar is 134 and calcium 8.3 liver enzymes are not elevated LDH 440 and CRP 3.9 pulmonary is on board. Patient is being continued on dexamethasone and apixaban 5 mg twice daily. Continued on IV hydration with normal saline at 75 cc/h. Chest x- ray today showed correlate for interstitial pneumonitis with superimposed multifocal patchy infiltratespneumonia.. 04/11/2021 Patient is awake and alert but looks lethargic. He has fair appetite eating about 25 -50% of his diet. No significantly dyspneic however his oxygen requirements went up 12 up to 13 L/m with saturation is low 90s at 92%. Rest of vitals are stable and he is afebrile. Inflammatory markers mildly elevated with LDH 440 and C-reactive protein 1.6.pro-calcitonin is mildly elevated at 0.23. not on antibiotic. Chest x-ray showing multifocal bilateral pneumonia He remains on dexamethasone, vitamin C, D and zinc. Eliquis, today started on Baricitinib . 04/12/2021 Patient is awake but he still complaining of from shortness of breath, he is a little bit lethargic. He has poor appetite eating only 25-50% of his diet. His oxygen saturation still 92 but he needed higher dose of oxygen today at 50 L/m. His d-dimer is elevated 1.4 up to 29.9, therefore we switched his home dose of Eliquis 5 mg and to heparin drip Ultrasound of the neck is negative for DVT. LDH still elevated at [address] protein 4.1. He has mild bicytopenia most likely secondary to viral infection, hemoglobin is 12.9 and platelets 138. WBC is elevated 12th while he is on steroids. Chest x-ray showing persistent bilateral pneumonia. On multiple vitamins, dexamethasone, baricitnib. Also he was started on heparin drip. He is off IV fluid 04/13/2021 Patient is a still on severe respiratory compromise and he still on 15 L/m, he i s getting extremely short of breath if he tries to move or walk however if he continued to sit in his bed or chair as he is most of the time his breathing is less tachypneic and more quiet. The plan for him if his breathing got worse to use BiPAP. D-dimer was elevated however CTA and Doppler were negative for PE/DVT, therefore patient heparin drip switched to Eliquis. CBC looks stable, mild leukocytosis while on steroids. He remains on dexamethasone, vitamin C, D and zinc. Eliquis, and on Baricitinib which was started 2 days ago. 04/14/2021 Patient is generally weak and lethargic. His oxygen status is worsening and today he needs 50 L/m of oxygen at 86% FiO2. For his bilateral COVID-19 pneumonia. He is afebrile and other Vitas looks stable. Patient continued on multiple vitamins, dexamethasone, Eliquis 5 mg as well as Baricitinib Patient remains on general floor with close monitoring with regards prognosis 04/15/2021 Patient is very weak although he is somewhat oriented for example he knows he isn't [facility] but when I asked him why he was in the hospital he could not answer because of his dyspnea of generalized weakness and MUMBLING. Patient was able to consume 50% of his breakfast but overall is diet has been poor He still on high oxygen requirement of airvo at 50 L/m with 85% Patient continued on multiple vitamins, dexamethasone, Eliquis 5 mg as well as Baricitinib Patient is no code 04/16/2021 Patient is with bilateral covert pneumonia and hypoxia, he needs high oxygen requirements over the last few days where start worsening and currently he is still needs 50 L/m of oxygen via airvo as well as sometimes nonrebreather 15 L. Is getting FiO2 of 86%. Labs reviewed, he has worse leukocytosis today 19 K, hemoglobin stable 12.7, but platelets dropped 149 down to 91. He remains on home dose of Eliquis 5 mg, Pepcid, dexamethasone, vitamin C, D and zinc. And Baricitinib 04/17/2021 Patient breathing better significantly improved and his oxygen requirement went down from 50 L and more yesterday down to 15 L nonrebreather today. Nevertheless patient is extremely weak and somewhat confused and lethargic and has not eaten much and generally is not doing as correct at his breathing pattern. He is hemodynamically stable Today there was no change in his medication and he kept on steroids, vitamins and Baricitinib. As well as his home dose of Eliquis 5 mg 04/18/2021 Patient today morning was more confused and mumbles but during the day he become more awake per Staff. His oxygen requirements is fluctuating between 50 L/m and 15 L/m. His platelet count dropped down to 76. Therefore we consulted hematology team. Patient remains on Eliquis 5 mg currently. His LDH is 2461 Patient continue with dexamethasone, vitamin C D and zinc. And 7 treatment of Baricitinib. 04/19/2021 Patient still lethargic and tired and tachypneic, his oxygen requirement is on high flow nasal cannula airvo 45 L/m and 80% today. WBC 19,000, hemoglobin 12 platelets improve to 91. Her hematology consult was said to be neck could be due to liver dysfunction versus DIC because of the low fibrinogen. Liver enzymes mildly elevated as well as bilirubin at 1.4. He remains on Eliquis HIT antibodies pending but the chances being positive are low. He remains on the same treatment of steroids, multiple vitamins and Barcitinib 04/20/2021 Today patient was still lethargic and very weak and he was still on high dose of oxygen with slight worsening throat air is still hemodynamically stable other than his hypoxia. On several medications including dexamethasone, vitamin C, vitamin D, zinc also he is on Eliquis blood thinner and Barcitinib Patient is been followed closely by pulmonary and hematology services however later on patient became unresponsive and a team was called CT of the brain ordered and results pending. I called the ms trujillo and updated her with the patient condition. She is also going to follow up with the staff about the result of the CAT scan . Discussed with the bedside nurse Objective - Vital Signs Vital signs: Vital Signs Temp 97.7 F 04/20/21 10:00 Pulse 98 04/20/21 10:00 Resp 21 04/20/21 10:00 BP 135/76 04/20/21 10:00 Pulse Ox 99 04/20/21 11:45 Intake & Output 04/19/21 04/20/21 04/20/21 18:59 06:59 18:59 Intake Total 236 240 Output Total 300 750 Balance -64 -510 Intake: Intake, IV Titration 240 Amount Sodium Chloride 0.9% 1, 240 000 ml @ 20 mls/hr IV . Q24H [facility] Rx#:[id number] Oral 236 Output: Urine 300 750 Other: Voiding Method External Catheter External Catheter External Catheter # Bowel Movements 0 - Exam -GENERAL: The patient is weak and lethargic, Well developed, well nourished. HEENT: Pupils are round and equally reacting to light. EOMI. No scleral icterus. No conjunctival pallor. Normocephalic, atraumatic. No pharyngeal erythema. No thyromegaly. CARDIOVASCULAR: S1 and S2 present. No murmurs, rubs, or gallops. -PULMONARY: Chest is clear to auscultation, no wheezing. Bilateral crepitation ABDOMEN: Soft, nontender, nondistended, normoactive bowel sounds. No palpable organomegaly. MUSCULOSKELETAL: No joint swelling or deformity. EXTREMITIES: No cyanosis, clubbing, or pedal edema. NEUROLOGICAL: Gross neurological examination did not reveal any focal deficits. SKIN: No rashes. no petechiae. - Labs CBC & Chem 7: 04/19/21 06:11 04/19/21 06:11 Labs: Abnormal Lab Results - Last 24 Hours (Table) 04/19/21 04/19/2121 Range/Units 12:23 16:50 20:45 POC Glucose (mg/dL) 146 H 148 H 162 H (75-99) mg/dL 04/20/21 Range/Units 11:31 POC Glucose (mg/dL) 140 H (75-99) mg/dL Assessment and Plan Assessment: Acute hypoxic respiratory failure secondary to COVID-19 pneumonia. Patient is vaccinated with moderate and received booster dose on 03/26/2021. Symptoms started on 03/27/2021. Periods of unresponsiveness Elevated inflammatory markers secondary to COVID-19 pneumonia Paroxysmal atrial fibrillation on anticoagulation with Eliquis #2 terese, secondary to liver dysfunction versus EIC History of DVT s/p IVC filter placement Worsening d-dimer with no evidence of PE on CTA of the chest or DVT on Doppler of the legs History of prostate cancer status post radiation History of closed head injury and history of seizure disorder Hypertension Macular degeneration and legally blind Plan: This is a pleasant 75 years old male with complete pneumonia Continue with Decadron and multiple vitamins, vitamin C and D and zinc Continue with oral Eliquis on home dose of 5 mg Follow-up results of the CT of the brain Consult hematology service for thrombocytopenia Continue with Baricitinib Pulmonary team on the case Hematology team on the case Labs and medication were reviewed.. Continue same treatment. Continue with symptomatic treatment. Resume home medication. Monitor lytes and vitals. DVT and GI prophylaxis. Further recommendations as per clinical course of the patient DVT prophylaxis: Eliquis switched to heparin drip GI Prophylaxis: Pepcid Prognosis is guarded
--- NOTE | 2021-04-20 19:17 | P.PN ---
Subjective Progress Note Date: 04/20/21 Received request for consultation on this patient, who was admitted for acute hypoxic respiratory failure secondary to COVID-19 pneumonia. Patient was vaccinated and received booster on 03/26/2021. patient was found unresponsive today on the floor. CT head showed a large acute left temporal and parietal lobe infarct. Large frontal lobe area of encephalomalacia without change compared to old exam. Patient is already on Eliquis for atrial fibrillation. We will stop Eliquis, start aspirin [address] Pawel Johnson will perform full consultation in the morning. Objective - Vital Signs Vital signs: Vital Signs Temp 97.8 F 04/20/21 17:34 Pulse 103 H 04/20/21 17:34 Resp 23 04/20/21 17:34 BP 146/75 04/20/21 17:34 Pulse Ox 100 04/20/21 17:34 Intake & Output 04/20/21 04/20/21 04/21/21 06:59 18:59 06:59 Intake Total 240 Output Total 750 450 Balance -510 -450 Intake: Intake, IV Titration 240 Amount Sodium Chloride 0.9% 1, 240 000 ml @ 20 mls/hr IV . Q24H [facility] Rx#:[id number] Output: Urine 750 450 Other: Voiding Method External Catheter External Catheter # Bowel Movements 0 - Labs CBC & Chem 7: 04/19/21 06:11 04/19/21 06:11 Labs: Abnormal Lab Results - Last 24 Hours (Table) 04/19/21 04/20/21 04/20/21 Range/Units 20:45 11:31 15:03 ABG pO2 (83-108) mmHg ABG HCO3 (21-25) mmol/L ABG Total CO2 (19-24) mmol/L POC Glucose (mg/dL) 162 H 140 H 159 H (75-99) mg/dL 04/20/21 04/20/21 Range/Units 15:11 16:51 ABG pO2 70 L (83-108) mmHg ABG HCO3 27 H (21-25) mmol/L ABG Total CO2 28 H (19-24) mmol/L POC Glucose (mg/dL) 150 H (75-99) mg/dL
[2021-04-20 19:23] LABS: Basophils % (A) 0 %; Eosinophils # (A) 0.1 k/uL (0-0.7); Eosinophils % (A) 0 %; HCT 36.8 % (39.0-53.0); HGB 12.3 gm/dL (13.0-17.5); Lymphocytes # (A) 0.4 k/uL (1.0-4.8); Lymphocytes % (A) 3 %; MCH 31.3 pg (25.0-35.0); MCHC 33.3 g/dL (31.0-37.0); MCV 93.8 fL (80.0-100.0); Mean Platelet Volume 8.6; Monocytes # (A) 0.6 k/uL (0-1.0); Monocytes % (A) 4 %; Neutrophils # (A) 14.5 k/uL (1.3-7.7); Neutrophils % (A) 92 %; RBC 3.92 m/uL (4.30-5.90); RDW 13.4 % (11.5-15.5); WBC 15.7 k/uL (3.8-10.6)
[2021-04-20 19:25] LABS: Platelet Count 97 k/uL (150-450)
[2021-04-20 19:37] LABS: African American GFR (CKD) 73 (>60 ml/min/1.73 sqM); Anion Gap 7 mmol/L; Blood Urea Nitrogen 53 mg/dL (9-20); Calcium 8.6 mg/dL (8.4-10.2); Carbon Dioxide 23 mmol/L (22-30); Chloride 110 mmol/L (98-107); Glucose 150 mg/dL (74-99); Non-African American GFR(CKD) 63 (>60 ml/min/1.73 sqM); Sodium 140 mmol/L (137-145)
[2021-04-20] MEDS: traZODone HCL 50 MG TAB PO SCH (20:42)
[2021-04-20 20:48] LABS: Glucose,Whole Blood 125 mg/dL (75-99)
[2021-04-20] MEDS: ASPIRIN 300 MG SUPP RECTAL SCH (21:15)
[2021-04-21 01:59] VITALS: TEMP 99
[2021-04-21 04:20] LABS: ALT 57 U/L (4-49); AST 49 U/L (17-59); African American GFR (CKD) 72 (>60 ml/min/1.73 sqM); Albumin 3.3 g/dL (3.5-5.0); Alkaline Phosphatase 120 U/L (38-126); Anion Gap 10 mmol/L; Blood Urea Nitrogen 52 mg/dL (9-20); Calcium 8.7 mg/dL (8.4-10.2); Carbon Dioxide 21 mmol/L (22-30); Chloride 109 mmol/L (98-107); Globulin 3.2 g/dL; Glucose 113 mg/dL (74-99); Non-African American GFR(CKD) 62 (>60 ml/min/1.73 sqM); Sodium 140 mmol/L (137-145); Total Bilirubin 1.2 mg/dL (0.2-1.3); Total Protein 6.5 g/dL (6.3-8.2)
[2021-04-21 04:25] LABS: HCT 39.5 % (39.0-53.0); HGB 13.1 gm/dL (13.0-17.5); MCH 30.7 pg (25.0-35.0); MCHC 33.1 g/dL (31.0-37.0); MCV 92.7 fL (80.0-100.0); Mean Platelet Volume 8.9; RBC 4.26 m/uL (4.30-5.90); WBC 20.6 k/uL (3.8-10.6)
[2021-04-21 04:28] LABS: Platelet Count 98 k/uL (150-450)
[2021-04-21 04:44] LABS: Eosinophils # (M) 0.21 k/uL (0-0.7); Lymphocytes # (M) 0.62 k/uL (1.0-4.8); Monocytes # (M) 1.24 k/uL (0-1.0); Neutrophils # (M) 18.54 k/uL (1.3-7.7); Neutrophils % (M) 90 %; Nucleated Red Blood Cells 0 /100 WBC (0-0); Total Cells Counted 100
[2021-04-21 04:50] LABS: Anisocytosis (M) Present; Poikilocytosis (M) Present
[2021-04-21 05:42] VITALS: BP 137/83; PULSE 121; RESP 20
[2021-04-21 07:01] LABS: Glucose,Whole Blood 118 mg/dL (75-99)
[2021-04-21] MEDS: INSULIN ASPART (NovoLOG) 100 UNIT/ML VIAL SQ SCH ×3 (07:22→17:43)
[2021-04-21] MEDS: SODIUM CHLORIDE 0.9% 1,000 ML IV SCH (07:22)
[2021-04-21] MEDS ORDERED: HEPARIN SODIUM,PORCINE/PF 5,000 UNIT/0.5 ML SYRINGE SQ SCH (09:00)
--- NOTE | 2021-04-21 09:53 | P.CNNES ---
History of Present Illness Consult date: 04/21/21 Requesting physician: Sukumar Varner Reason for Consult: change in mentation/unresponsive History of Present Illness: This is a 75-year-old gentleman with medical history of seizure, old stroke, atrial fibrillation on eliquis, previous bilateral DVT's has IVC filter placement as on eliquis, prostate cancer s/p radiation, who presented to the emergency department on 04/08/21 for generalized weakness and worsening of short ness of breath. Neurology is consulted for change in mentation and unresponsive. History is obtained from medical records. He was admitted for acute hypoxic respiratory failure secondary due to COVID-19 pneumonia. It seems that the patient was vaccinated for COVID-19 pneumonia and received a boost on 03/26/2021. He was found unresponsive on 04/20/2021. The CT of the head is reported as large acute left temporal and parietal lobe infarct. Large frontal lobe area of encephalomalacia without change compared to old exam. Personally could not review the images since there is a problem with the system. Dr. Tracy (Neuro-hospitalist) wrote a brief incident note and he stopped Eliquis and st arted the patient on ASA 300mg daily (stopped Eiliquis to avoid hemoraghic conversion). I spoke with the patient nurse and she stated she was told his last normal state was this past (04/17/21) and was alert oriented X3 but on 04/18/21 was only stating yes and no then became unresponsive. Per the nurse he is not swallowing. Per nurse he had old strokes in the past due to old closed head injury. Note during this hospital stay the patient is on Decadron. Regarding the patient's CODE STATUS is seems the patient is do not recent state patient It seems that the patient the has history of closed head injury and macular degeneration. Regarding the patient history of seizure it doesn't seem that the patient is on any antiepileptic drugs from the home medication in the EMR. Some of the workup consisted of: Most current vital signs is a blood pressure 137/83, heart rate of 121, a temperature of 99 Fahrenheit axillary, respiratory of 20, pulse ox of 95% on the 45% of high flow cannula. Patient had a pulse ox of 80% on 04/20/2021 at 3:35 AM. Patient has been afebrile. Most recent white blood cell is 20.6 thousand and it's predominantly neutrophilic. On initial presentation the patient 1 blood cell is 5.2 thousand Platelet is 98,000 and a slightly trending up from the 3 days ago. Sodium is 140, creatinine is 1.16, serum glucose is 113, calcium is 8.7, AST of 49 and an AST 57. Vitamin B12 level is at 136 which is considered normal. Serum folate is 14.60 which is also considered normal Coronavirus PCR is detected. Patient had old CT 05/21/2018: and it is reported as remote ischemia involving the bilateral frontal lobe, more pronouced over the left. Craniotomy defect left frontal lobe. I spoke with reading radiologist (Shameka Holland) and he feels the left temporal- parietal and possibly changes seems more subacute. 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 History of Any Multi-Drug Resistant Organisms: None Reported Past Surgical History: Cholecystectomy, Tonsillectomy Additional Past Surgical History / Comment(s): Inferior vena cava filter, skull surgery x3 d/t CHI, colonoscopy/benign polypectomy, prostate biopsy Past Anesthesia/Blood Transfusion Reactions: No Reported Reaction Additional Past Anesthesia/Blood Transfusion Reaction / Comment(s): Pt had blood transfusion in 1963 and developed hives. Smoking Status: Never smoker - Past Family History Daughter(s) Additional Family Medical History / Comment(s): colitis Mother Family Medical History: AFIB, AICD/Pacemaker Father Additional Family Medical History / Comment(s): Either a heart attack or a stroke. Medications and Allergies Home Medications Medication Instructions Recorded Confirmed Type Vit C/E/Zn/Coppr/Lutein/Zeaxan 1 cap PO BID 04/14/19 04/08/21 History [Preservision Areds 2 Softgel] Apixaban [Eliquis] 5 mg PO BID #60 tab 06/25/19 04/08/21 Rx Metoprolol Tartrate [Lopressor] 50 mg PO BID #60 tab 06/25/19 04/08/21 Rx traZODone HCL [Desyrel] 100 mg PO HS 04/08/21 04/08/21 History Allergies Allergy/AdvReac Type Severity Reaction Status Date / Time silver mercury AdvReac Mild ringworm-like Uncoded 04/08/21 21:26 blisters Physical Examination - Vital Signs Vital Signs: Vital Signs Temp Pulse Resp BP Pulse Ox 04/21/21 05:41 99 F 121 H 20 137/83 95 04/21/21 04:23 96 04/21/21 01:57 99 F 117 H 22 146/84 94 L 04/20/21 23:30 106 H 04/20/21 23:15 98 04/20/21 22:00 98.4 F 100 22 153/77 94 L 04/20/21 21:25 93 L 04/20/21 20:30 104 H 22 04/20/21 17:34 97.8 F 103 H 23 146/75 100 04/20/21 14:00 98.3 F 94 20 135/83 99 04/20/21 11:45 99 04/20/21 10:00 97.7 F 98 21 135/76 98 04/20/21 08:45 94 L Intake and Output 04/20/21 04/21/21 04/21/21 22:59 06:59 14:59 Intake Total 240 Output Total 450 200 Balance -450 40 Intake: IV 240 Sodium Chloride 0.9% 1, 240 000 ml @ 20 mls/hr IV . [facility] Rx#:[id number] Output: Urine 450 200 Other: Voiding Method External Catheter # Voids 2 # Bowel Movements 0 GENERAL: The patient is lying in bed and does not seem is not in acute distress. CHEST: The heart rate is regular rate rhythm. No murmurs to auscultation. LUNG: Clear to auscultation bilaterally no wheezing noted throughout. Not labored breathing. ABDOMEN/GI: Bowel sounds present in all 4 quadrants. No tenderness to palpation throughout. NEUROLOGICAL: Limited because of his condition. Higher mental function: The patient is severly drowsy but is awakeable to painful stimuli. He is not following commands or verbalizing. Cranial nerves: To painful stimuli would open his eyes and primary gaze is midline. The pupils are 3mm, round and reactive to light bilaterlly. No obvious facial weakness. Motor: The strength is hard to assess because of his condition. He has some withdrawl over the left side to painful stimuli more than right side. No spontaneous movement noted. No jerking of any extremities. Silght increase tone throughout. Cerebellum: Could not assess. Sensation: Could not assess light touch but would withdrawl to painful stimuli over the left. Reflexes (right/left): 2+ throughout. Plantars are upgong bilaterally. Results - Laboratory Findings CBC and BMP: 04/21/21 03:29 04/21/21 03:29 Abnormal Lab Findings: Abnormal Labs 04/08/21 04/08/21 04/08/21 18:55 18:55 18:55 WBC RBC Hgb Hct Plt Count 101 L Plt Count Comment Myelocytes % Promyelocytes % Immature Gran # Neutrophils # Neutrophils # (Manual) Lymphocytes # 0.5 L Lymphocytes # (Manual) Monocytes # (Manual) Eosinophils # (Manual) Basophils # Retic Count PT INR APTT Fibrinogen D-Dimer ABG pH ABG pO2 ABG HCO3 ABG Total CO2 Sodium 136 L Potassium 3.4 L Chloride Carbon Dioxide BUN 47 H Creatinine 1.35 H Est GFR (CKD-EPI)AfAm Est GFR (CKD-EPI)NonAf BUN/Creatinine Ratio Glucose 110 H POC Glucose (mg/dL) Calcium 8.1 L Ferritin 1255.0 H Total Bilirubin AST 66 H ALT Alkaline Phosphatase Lactate Dehydrogenase 1121 H LD Isoenzymes LD 1 LD 3 LD 4 C-Reactive Protein 15.6 H Total Protein 5.7 L Albumin 3.0 L Albumin/Globulin Ratio Procalcitonin Coronavirus (PCR) Detected A 04/09/21 04/09/21 04/09/21 07:42 07:42 07:50 WBC 3.02 L RBC 4.35 L Hgb Hct 38.2 L Plt Count 102 L Plt Count Comment DECREASED A Myelocytes % Promyelocytes % Immature Gran # Neutrophils # Neutrophils # (Manual) Lymphocytes # Lymphocytes # (Manual) Monocytes # (Manual) Eosinophils # (Manual) Basophils # Retic Count PT INR APTT Fibrinogen D-Dimer ABG pH ABG pO2 ABG HCO3 ABG Total CO2 Sodium Potassium Chloride Carbon Dioxide BUN 44.0 H Creatinine Est GFR (CKD-EPI)AfAm 59.5 L Est GFR (CKD-EPI)NonAf 51.4 L BUN/Creatinine Ratio 32.59 H Glucose 273 H POC Glucose (mg/dL) Calcium 8.1 L Ferritin Total Bilirubin AST 54 H ALT Alkaline Phosphatase Lactate Dehydrogenase LD Isoenzymes 363 H LD 1 16 L LD 3 29 H LD 4 13 H C-Reactive Protein 8.20 H Total Protein 5.3 L Albumin 3.0 L Albumin/Globulin Ratio 1.29 L Procalcitonin Coronavirus (PCR) 04/09/21 04/09/21 04/09/21 07:50 16:56 20:54 WBC RBC Hgb Hct Plt Count Plt Count Comment Myelocytes % Promyelocytes % Immature Gran # Neutrophils # Neutrophils # (Manual) Lymphocytes # Lymphocytes # (Manual) Monocytes # (Manual) Eosinophils # (Manual) Basophils # Retic Count PT INR APTT Fibrinogen D-Dimer ABG pH ABG pO2 ABG HCO3 ABG Total CO2 Sodium Potassium Chloride Carbon Dioxide BUN Creatinine Est GFR (CKD-EPI)AfAm Est GFR (CKD-EPI)NonAf BUN/Creatinine Ratio Glucose POC Glucose (mg/dL) 152 H 136 H Calcium Ferritin Total Bilirubin AST ALT Alkaline Phosphatase Lactate Dehydrogenase LD Isoenzymes LD 1 LD 3 LD 4 C-Reactive Protein Total Protein Albumin Albumin/Globulin Ratio Procalcitonin 0.23 H Coronavirus (PCR) 04/10/21 04/10/21 04/10/21 05:44 05:44 05:44 WBC RBC Hgb Hct Plt Count 149 L Plt Count Comment Myelocytes % Promyelocytes % Immature Gran # Neutrophils # Neutrophils # (Manual) Lymphocytes # 0.4 L Lymphocytes # (Manual) Monocytes # (Manual) Eosinophils # (Manual) Basophils # Retic Count PT INR APTT Fibrinogen D-Dimer 1.41 H ABG pH ABG pO2 ABG HCO3 ABG Total CO2 Sodium Potassium Chloride Carbon Dioxide BUN Creatinine Est GFR (CKD-EPI)AfAm Est GFR (CKD-EPI)NonAf BUN/Creatinine Ratio Glucose POC Glucose (mg/dL) Calcium Ferritin Total Bilirubin AST ALT Alkaline Phosphatase Lactate Dehydrogenase 440 H LD Isoenzymes LD 1 LD 3 LD 4 C-Reactive Protein 3.90 H Total Protein Albumin Albumin/Globulin Ratio Procalcitonin Coronavirus (PCR) 04/10/21 04/10/21 04/10/21 05:44 07:05 11:15 WBC RBC Hgb Hct Plt Count Plt Count Comment Myelocytes % Promyelocytes % Immature Gran # Neutrophils # Neutrophils # (Manual) Lymphocytes # Lymphocytes # (Manual) Monocytes # (Manual) Eosinophils # (Manual) Basophils # Retic Count PT INR APTT Fibrinogen D-Dimer ABG pH ABG pO2 ABG HCO3 ABG Total CO2 Sodium Potassium Chloride Carbon Dioxide 21 L BUN 40 H Creatinine Est GFR (CKD-EPI)AfAm Est GFR (CKD-EPI)NonAf BUN/Creatinine Ratio Glucose 134 H POC Glucose (mg/dL) 134 H 144 H Calcium 8.3 L Ferritin Total Bilirubin AST ALT Alkaline Phosphatase Lactate Dehydrogenase LD Isoenzymes LD 1 LD 3 LD 4 C-Reactive Protein Total Protein 5.3 L Albumin 2.7 L Albumin/Globulin Ratio Procalcitonin Coronavirus (PCR) 04/10/21 04/10/21 04/11/21 16:22 20:29 05:56 WBC RBC 4.38 L Hgb Hct Plt Count Plt Count Comment Myelocytes % 4 H Promyelocytes % 2 H Immature Gran # Neutrophils # Neutrophils # (Manual) 9.31 H Lymphocytes # Lymphocytes # (Manual) 0 L Monocytes # (Manual) 0 L Eosinophils # (Manual) 0 L Basophils # Retic Count PT INR APTT Fibrinogen D-Dimer ABG pH ABG pO2 ABG HCO3 ABG Total CO2 Sodium Potassium Chloride Carbon Dioxide BUN Creatinine Est GFR (CKD-EPI)AfAm Est GFR (CKD-EPI)NonAf BUN/Creatinine Ratio Glucose POC Glucose (mg/dL) 152 H 150 H Calcium Ferritin Total Bilirubin AST ALT Alkaline Phosphatase Lactate Dehydrogenase LD Isoenzymes LD 1 LD 3 LD 4 C-Reactive Protein Total Protein Albumin Albumin/Globulin Ratio Procalcitonin Coronavirus (PCR) 04/11/21 04/11/21 04/11/21 05:56 06:56 11:37 WBC RBC Hgb Hct Plt Count Plt Count Comment Myelocytes % Promyelocytes % Immature Gran # Neutrophils # Neutrophils # (Manual) Lymphocytes # Lymphocytes # (Manual) Monocytes # (Manual) Eosinophils # (Manual) Basophils # Retic Count PT INR APTT Fibrinogen D-Dimer ABG pH ABG pO2 ABG HCO3 ABG Total CO2 Sodium Potassium Chloride Carbon Dioxide 18.8 L BUN 30.9 H Creatinine Est GFR (CKD-EPI)AfAm Est GFR (CKD-EPI)NonAf BUN/Creatinine Ratio 30.59 H Glucose POC Glucose (mg/dL) 109 H 131 H Calcium 8.5 L Ferritin Total Bilirubin AST ALT Alkaline Phosphatase Lactate Dehydrogenase LD Isoenzymes LD 1 LD 3 LD 4 C-Reactive Protein 1.60 H Total Protein Albumin Albumin/Globulin Ratio Procalcitonin Coronavirus (PCR) 04/11/21 04/11/21 04/12/21 17:04 20:30 07:31 WBC RBC Hgb Hct Plt Count Plt Count Comment Myelocytes % Promyelocytes % Immature Gran # Neutrophils # Neutrophils # (Manual) Lymphocytes # Lymphocytes # (Manual) Monocytes # (Manual) Eosinophils # (Manual) Basophils # Retic Count PT INR APTT Fibrinogen D-Dimer ABG pH ABG pO2 ABG HCO3 ABG Total CO2 Sodium Potassium Chloride Carbon Dioxide BUN Creatinine Est GFR (CKD-EPI)AfAm Est GFR (CKD-EPI)NonAf BUN/Creatinine Ratio Glucose POC Glucose (mg/dL) 138 H 149 H 115 H Calcium Ferritin Total Bilirubin AST ALT Alkaline Phosphatase Lactate Dehydrogenase LD Isoenzymes LD 1 LD 3 LD 4 C-Reactive Protein Total Protein Albumin Albumin/Globulin Ratio Procalcitonin Coronavirus (PCR) 04/12/21 04/12/21 04/12/21 08:40 08:40 08:40 WBC 12.31 H RBC 4.39 L Hgb 12.9 L Hct 39.1 L Plt Count 138 L Plt Count Comment DECREASED A Myelocytes % Promyelocytes % Immature Gran # Neutrophils # Neutrophils # (Manual) 11.45 H Lymphocytes # Lymphocytes # (Manual) 0.49 L Monocytes # (Manual) Eosinophils # (Manual) 0 L Basophils # Retic Count PT INR APTT Fibrinogen D-Dimer 29.90 H ABG pH ABG pO2 ABG HCO3 ABG Total CO2 Sodium Potassium 3.4 L Chloride Carbon Dioxide 17.8 L BUN Creatinine Est GFR (CKD-EPI)AfAm Est GFR (CKD-EPI)NonAf BUN/Creatinine Ratio 24.76 H Glucose POC Glucose (mg/dL) Calcium 8.5 L Ferritin Total Bilirubin AST ALT Alkaline Phosphatase Lactate Dehydrogenase 632 H LD Isoenzymes LD 1 LD 3 LD 4 C-Reactive Protein 4.10 H Total Protein Albumin Albumin/Globulin Ratio Procalcitonin Coronavirus (PCR) 04/12/21 04/12/21 04/12/21 08:40 11:49 16:27 WBC RBC Hgb Hct 38.9 L Plt Count 116 L Plt Count Comment Myelocytes % Promyelocytes % Immature Gran # Neutrophils # 9.1 H Neutrophils # (Manual) Lymphocytes # 0.4 L Lymphocytes # (Manual) Monocytes # (Manual) Eosinophils # (Manual) Basophils # Retic Count PT INR APTT 20.5 L Fibrinogen D-Dimer ABG pH ABG pO2 ABG HCO3 ABG Total CO2 Sodium Potassium Chloride Carbon Dioxide BUN Creatinine Est GFR (CKD-EPI)AfAm Est GFR (CKD-EPI)NonAf BUN/Creatinine Ratio Glucose POC Glucose (mg/dL) 121 H Calcium Ferritin Total Bilirubin AST ALT Alkaline Phosphatase Lactate Dehydrogenase LD Isoenzymes LD 1 LD 3 LD 4 C-Reactive Protein Total Protein Albumin Albumin/Globulin Ratio Procalcitonin Coronavirus (PCR) 04/12/21 04/12/21 04/12/21 16:27 16:48 20:52 WBC RBC Hgb Hct Plt Count Plt Count Comment Myelocytes % Promyelocytes % Immature Gran # Neutrophils # Neutrophils # (Manual) Lymphocytes # Lymphocytes # (Manual) Monocytes # (Manual) Eosinophils # (Manual) Basophils # Retic Count PT 12.5 H INR 1.2 H APTT 21.7 L Fibrinogen D-Dimer ABG pH ABG pO2 ABG HCO3 ABG Total CO2 Sodium Potassium Chloride Carbon Dioxide BUN Creatinine Est GFR (CKD-EPI)AfAm Est GFR (CKD-EPI)NonAf BUN/Creatinine Ratio Glucose POC Glucose (mg/dL) 143 H 155 H Calcium Ferritin Total Bilirubin AST ALT Alkaline Phosphatase Lactate Dehydrogenase LD Isoenzymes LD 1 LD 3 LD 4 C-Reactive Protein Total Protein Albumin Albumin/Globulin Ratio Procalcitonin Coronavirus (PCR) 04/12/21 04/13/21 04/13/21 22:41 05:06 05:06 WBC 13.6 H RBC Hgb Hct Plt Count 145 L Plt Count Comment Myelocytes % Promyelocytes % Immature Gran # Neutrophils # 12.6 H Neutrophils # (Manual) Lymphocytes # 0.5 L Lymphocytes # (Manual) Monocytes # (Manual) Eosinophils # (Manual) Basophils # Retic Count PT INR APTT >200.0 H* Fibrinogen D-Dimer ABG pH ABG pO2 ABG HCO3 ABG Total CO2 Sodium Potassium Chloride Carbon Dioxide BUN 22 H Creatinine Est GFR (CKD-EPI)AfAm Est GFR (CKD-EPI)NonAf BUN/Creatinine Ratio Glucose 121 H POC Glucose (mg/dL) Calcium Ferritin Total Bilirubin 2.3 H AST 64 H ALT 54 H Alkaline Phosphatase Lactate Dehydrogenase LD Isoenzymes LD 1 LD 3 LD 4 C-Reactive Protein Total Protein Albumin 3.4 L Albumin/Globulin Ratio Procalcitonin Coronavirus (PCR) 04/13/21 04/13/21 04/13/21 05:06 07:29 11:17 WBC RBC Hgb Hct Plt Count Plt Count Comment Myelocytes % Promyelocytes % Immature Gran # Neutrophils # Neutrophils # (Manual) Lymphocytes # Lymphocytes # (Manual) Monocytes # (Manual) Eosinophils # (Manual) Basophils # Retic Count PT INR APTT 21.2 L Fibrinogen D-Dimer ABG pH ABG pO2 ABG HCO3 ABG Total CO2 Sodium Potassium Chloride Carbon Dioxide BUN Creatinine Est GFR (CKD-EPI)AfAm Est GFR (CKD-EPI)NonAf BUN/Creatinine Ratio Glucose POC Glucose (mg/dL) 119 H 153 H Calcium Ferritin Total Bilirubin AST ALT Alkaline Phosphatase Lactate Dehydrogenase LD Isoenzymes LD 1 LD 3 LD 4 C-Reactive Protein Total Protein Albumin Albumin/Globulin Ratio Procalcitonin Coronavirus (PCR) 04/13/21 04/13/21 04/14/21 16:34 19:59 06:09 WBC 15.0 H RBC Hgb Hct Plt Count 149 L Plt Count Comment Myelocytes % Promyelocytes % Immature Gran # Neutrophils # 13.5 H Neutrophils # (Manual) Lymphocytes # 0.9 L Lymphocytes # (Manual) Monocytes # (Manual) Eosinophils # (Manual) Basophils # Retic Count PT INR APTT Fibrinogen D-Dimer ABG pH ABG pO2 ABG HCO3 ABG Total CO2 Sodium Potassium Chloride Carbon Dioxide BUN Creatinine Est GFR (CKD-EPI)AfAm Est GFR (CKD-EPI)NonAf BUN/Creatinine Ratio Glucose POC Glucose (mg/dL) 156 H 131 H Calcium Ferritin Total Bilirubin AST ALT Alkaline Phosphatase Lactate Dehydrogenase LD Isoenzymes LD 1 LD 3 LD 4 C-Reactive Protein Total Protein Albumin Albumin/Globulin Ratio Procalcitonin Coronavirus (PCR) 04/14/21 04/14/21 04/14/21 06:09 07:13 11:58 WBC RBC Hgb Hct Plt Count Plt Count Comment Myelocytes % Promyelocytes % Immature Gran # Neutrophils # Neutrophils # (Manual) Lymphocytes # Lymphocytes # (Manual) Monocytes # (Manual) Eosinophils # (Manual) Basophils # Retic Count PT INR APTT Fibrinogen D-Dimer ABG pH ABG pO2 ABG HCO3 ABG Total CO2 Sodium 136 L Potassium Chloride Carbon Dioxide BUN 36 H Creatinine Est GFR (CKD-EPI)AfAm Est GFR (CKD-EPI)NonAf BUN/Creatinine Ratio Glucose 103 H POC Glucose (mg/dL) 100 H 147 H Calcium Ferritin Total Bilirubin 2.0 H AST ALT Alkaline Phosphatase Lactate Dehydrogenase LD Isoenzymes LD 1 LD 3 LD 4 C-Reactive Protein Total Protein 6.2 L Albumin 3.2 L Albumin/Globulin Ratio Procalcitonin Coronavirus (PCR) 04/14/21 04/14/21 04/15/21 16:58 20:21 07:21 WBC RBC Hgb Hct Plt Count Plt Count Comment Myelocytes % Promyelocytes % Immature Gran # Neutrophils # Neutrophils # (Manual) Lymphocytes # Lymphocytes # (Manual) Monocytes # (Manual) Eosinophils # (Manual) Basophils # Retic Count PT INR APTT Fibrinogen D-Dimer ABG pH ABG pO2 ABG HCO3 ABG Total CO2 Sodium Potassium Chloride Carbon Dioxide BUN Creatinine Est GFR (CKD-EPI)AfAm Est GFR (CKD-EPI)NonAf BUN/Creatinine Ratio Glucose POC Glucose (mg/dL) 173 H 133 H 129 H Calcium Ferritin Total Bilirubin AST ALT Alkaline Phosphatase Lactate Dehydrogenase LD Isoenzymes LD 1 LD 3 LD 4 C-Reactive Protein Total Protein Albumin Albumin/Globulin Ratio Procalcitonin Coronavirus (PCR) 04/15/21 04/15/21 04/15/21 11:43 17:02 21:07 WBC RBC Hgb Hct Plt Count Plt Count Comment Myelocytes % Promyelocytes % Immature Gran # Neutrophils # Neutrophils # (Manual) Lymphocytes # Lymphocytes # (Manual) Monocytes # (Manual) Eosinophils # (Manual) Basophils # Retic Count PT INR APTT Fibrinogen D-Dimer ABG pH ABG pO2 ABG HCO3 ABG Total CO2 Sodium Potassium Chloride Carbon Dioxide BUN Creatinine Est GFR (CKD-EPI)AfAm Est GFR (CKD-EPI)NonAf BUN/Creatinine Ratio Glucose POC Glucose (mg/dL) 145 H 170 H 138 H Calcium Ferritin Total Bilirubin AST ALT Alkaline Phosphatase Lactate Dehydrogenase LD Isoenzymes LD 1 LD 3 LD 4 C-Reactive Protein Total Protein Albumin Albumin/Globulin Ratio Procalcitonin Coronavirus (PCR) 04/16/21 04/16/21 04/16/21 06:11 06:11 07:32 WBC 19.73 H RBC 4.29 L Hgb 12.7 L Hct Plt Count 91 L Plt Count Comment DECREASED A Myelocytes % Promyelocytes % Immature Gran # 0.94 H Neutrophils # 17.18 H Neutrophils # (Manual) Lymphocytes # 0.76 L Lymphocytes # (Manual) Monocytes # (Manual) Eosinophils # (Manual) Basophils # 0.11 H Retic Count PT INR APTT Fibrinogen D-Dimer ABG pH ABG pO2 ABG HCO3 ABG Total CO2 Sodium Potassium Chloride Carbon Dioxide BUN 38.6 H Creatinine Est GFR (CKD-EPI)AfAm Est GFR (CKD-EPI)NonAf BUN/Creatinine Ratio 35.09 H Glucose POC Glucose (mg/dL) 115 H Calcium 8.6 L Ferritin Total Bilirubin 1.60 H AST 53 H ALT 55 H Alkaline Phosphatase 129 H Lactate Dehydrogenase LD Isoenzymes LD 1 LD 3 LD 4 C-Reactive Protein Total Protein 5.8 L Albumin 3.3 L Albumin/Globulin Ratio 1.32 L Procalcitonin Coronavirus (PCR) 04/16/21 04/16/21 04/16/21 11:33 17:45 20:47 WBC RBC Hgb Hct Plt Count Plt Count Comment Myelocytes % Promyelocytes % Immature Gran # Neutrophils # Neutrophils # (Manual) Lymphocytes # Lymphocytes # (Manual) Monocytes # (Manual) Eosinophils # (Manual) Basophils # Retic Count PT INR APTT Fibrinogen D-Dimer ABG pH ABG pO2 ABG HCO3 ABG Total CO2 Sodium Potassium Chloride Carbon Dioxide BUN Creatinine Est GFR (CKD-EPI)AfAm Est GFR (CKD-EPI)NonAf BUN/Creatinine Ratio Glucose POC Glucose (mg/dL) 127 H 166 H 148 H Calcium Ferritin Total Bilirubin AST ALT Alkaline Phosphatase Lactate Dehydrogenase LD Isoenzymes LD 1 LD 3 LD 4 C-Reactive Protein Total Protein Albumin Albumin/Globulin Ratio Procalcitonin Coronavirus (PCR) 04/17/21 04/17/21 04/17/21 07:00 10:42 16:03 WBC RBC Hgb Hct Plt Count Plt Count Comment Myelocytes % Promyelocytes % Immature Gran # Neutrophils # Neutrophils # (Manual) Lymphocytes # Lymphocytes # (Manual) Monocytes # (Manual) Eosinophils # (Manual) Basophils # Retic Count PT INR APTT Fibrinogen D-Dimer ABG pH ABG pO2 ABG HCO3 ABG Total CO2 Sodium Potassium Chloride Carbon Dioxide BUN Creatinine Est GFR (CKD-EPI)AfAm Est GFR (CKD-EPI)NonAf BUN/Creatinine Ratio Glucose POC Glucose (mg/dL) 108 H 151 H 159 H Calcium Ferritin Total Bilirubin AST ALT Alkaline Phosphatase Lactate Dehydrogenase LD Isoenzymes LD 1 LD 3 LD 4 C-Reactive Protein Total Protein Albumin Albumin/Globulin Ratio Procalcitonin Coronavirus (PCR) 04/17/21 04/18/21 04/18/21 21:05 01:15 06:08 WBC 18.0 H RBC 3.92 L Hgb 12.0 L Hct 35.7 L Plt Count 76 L Plt Count Comment Myelocytes % Promyelocytes % Immature Gran # Neutrophils # 16.3 H Neutrophils # (Manual) Lymphocytes # 0.7 L Lymphocytes # (Manual) Monocytes # (Manual) Eosinophils # (Manual) Basophils # Retic Count PT INR APTT Fibrinogen D-Dimer ABG pH 7.46 H ABG pO2 66 L ABG HCO3 ABG Total CO2 26 H Sodium Potassium Chloride Carbon Dioxide BUN Creatinine Est GFR (CKD-EPI)AfAm Est GFR (CKD-EPI)NonAf BUN/Creatinine Ratio Glucose POC Glucose (mg/dL) 202 H Calcium Ferritin Total Bilirubin AST ALT Alkaline Phosphatase Lactate Dehydrogenase LD Isoenzymes LD 1 LD 3 LD 4 C-Reactive Protein Total Protein Albumin Albumin/Globulin Ratio Procalcitonin Coronavirus (PCR) 04/18/21 04/18/21 04/18/21 06:08 07:03 11:54 WBC RBC Hgb Hct Plt Count Plt Count Comment Myelocytes % Promyelocytes % Immature Gran # Neutrophils # Neutrophils # (Manual) Lymphocytes # Lymphocytes # (Manual) Monocytes # (Manual) Eosinophils # (Manual) Basophils # Retic Count PT INR APTT Fibrinogen D-Dimer ABG pH ABG pO2 ABG HCO3 ABG Total CO2 Sodium Potassium Chloride 110 H Carbon Dioxide BUN 51 H Creatinine Est GFR (CKD-EPI)AfAm Est GFR (CKD-EPI)NonAf BUN/Creatinine Ratio Glucose 101 H POC Glucose (mg/dL) 102 H 154 H Calcium 8.2 L Ferritin Total Bilirubin 2.1 H AST ALT Alkaline Phosphatase 135 H Lactate Dehydrogenase LD Isoenzymes LD 1 LD 3 LD 4 C-Reactive Protein Total Protein 5.9 L Albumin 2.8 L Albumin/Globulin Ratio Procalcitonin Coronavirus (PCR) 04/18/21 04/18/21 04/18/21 16:49 20:04 21:28 WBC RBC Hgb Hct Plt Count Plt Count Comment Myelocytes % Promyelocytes % Immature Gran # Neutrophils # Neutrophils # (Manual) Lymphocytes # Lymphocytes # (Manual) Monocytes # (Manual) Eosinophils # (Manual) Basophils # Retic Count PT 12.6 H INR 1.2 H APTT 21.3 L Fibrinogen 192 L D-Dimer >34.10 H ABG pH ABG pO2 ABG HCO3 ABG Total CO2 Sodium Potassium Chloride Carbon Dioxide BUN Creatinine Est GFR (CKD-EPI)AfAm Est GFR (CKD-EPI)NonAf BUN/Creatinine Ratio Glucose POC Glucose (mg/dL) 173 H 140 H Calcium Ferritin Total Bilirubin AST ALT Alkaline Phosphatase Lactate Dehydrogenase LD Isoenzymes LD 1 LD 3 LD 4 C-Reactive Protein Total Protein Albumin Albumin/Globulin Ratio Procalcitonin Coronavirus (PCR) 04/18/21 04/18/21 04/19/21 21:28 21:28 06:11 WBC 19.04 H RBC 4.03 L Hgb 12.0 L Hct 36.6 L Plt Count 91 L Plt Count Comment Myelocytes % Promyelocytes % Immature Gran # 0.86 H Neutrophils # 16.12 H Neutrophils # (Manual) Lymphocytes # 0.80 L Lymphocytes # (Manual) Monocytes # (Manual) Eosinophils # (Manual) Basophils # 0.11 H Retic Count 2.4 H PT INR APTT Fibrinogen D-Dimer ABG pH ABG pO2 ABG HCO3 ABG Total CO2 Sodium Potassium Chloride Carbon Dioxide BUN Creatinine Est GFR (CKD-EPI)AfAm Est GFR (CKD-EPI)NonAf BUN/Creatinine Ratio Glucose POC Glucose (mg/dL) Calcium Ferritin Total Bilirubin AST ALT Alkaline Phosphatase Lactate Dehydrogenase 2461 H LD Isoenzymes LD 1 LD 3 LD 4 C-Reactive Protein Total Protein Albumin Albumin/Globulin Ratio Procalcitonin Coronavirus (PCR) 04/19/21 04/19/21 04/19/21 06:11 07:05 12:23 WBC RBC Hgb Hct Plt Count Plt Count Comment Myelocytes % Promyelocytes % Immature Gran # Neutrophils # Neutrophils # (Manual) Lymphocytes # Lymphocytes # (Manual) Monocytes # (Manual) Eosinophils # (Manual) Basophils # Retic Count PT INR APTT Fibrinogen D-Dimer ABG pH ABG pO2 ABG HCO3 ABG Total CO2 Sodium Potassium Chloride Carbon Dioxide BUN 47.7 H Creatinine Est GFR (CKD-EPI)AfAm Est GFR (CKD-EPI)NonAf BUN/Creatinine Ratio 40.42 H Glucose POC Glucose (mg/dL) 111 H 146 H Calcium Ferritin Total Bilirubin 1.40 H AST 41 H ALT 50 H Alkaline Phosphatase 144 H Lactate Dehydrogenase LD Isoenzymes LD 1 LD 3 LD 4 C-Reactive Protein Total Protein 6.0 L Albumin 3.4 L Albumin/Globulin Ratio 1.29 L Procalcitonin Coronavirus (PCR) 04/19/21 04/19/21 04/20/21 16:50 20:45 11:31 WBC RBC Hgb Hct Plt Count Plt Count Comment Myelocytes % Promyelocytes % Immature Gran # Neutrophils # Neutrophils # (Manual) Lymphocytes # Lymphocytes # (Manual) Monocytes # (Manual) Eosinophils # (Manual) Basophils # Retic Count PT INR APTT Fibrinogen D-Dimer ABG pH ABG pO2 ABG HCO3 ABG Total CO2 Sodium Potassium Chloride Carbon Dioxide BUN Creatinine Est GFR (CKD-EPI)AfAm Est GFR (CKD-EPI)NonAf BUN/Creatinine Ratio Glucose POC Glucose (mg/dL) 148 H 162 H 140 H Calcium Ferritin Total Bilirubin AST ALT Alkaline Phosphatase Lactate Dehydrogenase LD Isoenzymes LD 1 LD 3 LD 4 C-Reactive Protein Total Protein Albumin Albumin/Globulin Ratio Procalcitonin Coronavirus (PCR) 04/20/21 04/20/21 04/20/21 15:03 15:11 16:51 WBC RBC Hgb Hct Plt Count Plt Count Comment Myelocytes % Promyelocytes % Immature Gran # Neutrophils # Neutrophils # (Manual) Lymphocytes # Lymphocytes # (Manual) Monocytes # (Manual) Eosinophils # (Manual) Basophils # Retic Count PT INR APTT Fibrinogen D-Dimer ABG pH ABG pO2 70 L ABG HCO3 27 H ABG Total CO2 28 H Sodium Potassium Chloride Carbon Dioxide BUN Creatinine Est GFR (CKD-EPI)AfAm Est GFR (CKD-EPI)NonAf BUN/Creatinine Ratio Glucose POC Glucose (mg/dL) 159 H 150 H Calcium Ferritin Total Bilirubin AST ALT Alkaline Phosphatase Lactate Dehydrogenase LD Isoenzymes LD 1 LD 3 LD 4 C-Reactive Protein Total Protein Albumin Albumin/Globulin Ratio Procalcitonin Coronavirus (PCR) 04/20/21 04/20/21 04/20/21 19:07 19:07 20:39 WBC 15.7 H RBC 3.92 L Hgb 12.3 L Hct 36.8 L Plt Count 97 L Plt Count Comment Myelocytes % Promyelocytes % Immature Gran # Neutrophils # 14.5 H Neutrophils # (Manual) Lymphocytes # 0.4 L Lymphocytes # (Manual) Monocytes # (Manual) Eosinophils # (Manual) Basophils # Retic Count PT INR APTT Fibrinogen D-Dimer ABG pH ABG pO2 ABG HCO3 ABG Total CO2 Sodium Potassium Chloride 110 H Carbon Dioxide BUN 53 H Creatinine Est GFR (CKD-EPI)AfAm Est GFR (CKD-EPI)NonAf BUN/Creatinine Ratio Glucose 150 H POC Glucose (mg/dL) 125 H Calcium Ferritin Total Bilirubin AST ALT Alkaline Phosphatase Lactate Dehydrogenase LD Isoenzymes LD 1 LD 3 LD 4 C-Reactive Protein Total Protein Albumin Albumin/Globulin Ratio Procalcitonin Coronavirus (PCR) 04/21/21 04/21/21 04/21/21 03:29 03:29 06:58 WBC 20.6 H RBC 4.26 L Hgb Hct Plt Count 98 L Plt Count Comment Myelocytes % Promyelocytes % Immature Gran # Neutrophils # Neutrophils # (Manual) 18.54 H Lymphocytes # Lymphocytes # (Manual) 0.62 L Monocytes # (Manual) 1.24 H Eosinophils # (Manual) Basophils # Retic Count PT INR APTT Fibrinogen D-Dimer ABG pH ABG pO2 ABG HCO3 ABG Total CO2 Sodium Potassium Chloride 109 H Carbon Dioxide 21 L BUN 52 H Creatinine Est GFR (CKD-EPI)AfAm Est GFR (CKD-EPI)NonAf BUN/Creatinine Ratio Glucose 113 H POC Glucose (mg/dL) 118 H Calcium Ferritin Total Bilirubin AST ALT 57 H Alkaline Phosphatase Lactate Dehydrogenase LD Isoenzymes LD 1 LD 3 LD 4 C-Reactive Protein Total Protein Albumin 3.3 L Albumin/Globulin Ratio Procalcitonin Coronavirus (PCR) Assessment and Plan Assessment: Subacute ischemic stroke (on CT head reported as large acute left temporal and parietal lobe infarct but reading radiologist on 04/21 felt it was subacute). Last normal state was on 04/17/2021. 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 Craniotomy defect left frontal lobe. I spoke with reading radiologist (Shameka Holland) and he feels the left temporal- parietal and possibly changes seems more subacute Continue aspirin 300 mg suppository. Eliquis is on hold because of acute ischemic stroke that is reported on the CT of the head. Every 4 hour neuro checks Consulted occupation therapy and speech therapy. Physical therapy is already consulted Pulmonary team is on board. Defer the rest of medical management to primary team. For DVT prophylaxis: Started on subq heparin 5000U every 12 hours. CONDITION: Is very guarded. The primary team notified me that family decided to make the patient hospice. Therefore will hold off any further neurological work-up. Thank you for the consultation. Please notify neurology if any further concerns. Pawel Johnson MD Neuro-Hospitalist Time with Patient: Greater than 30
[2021-04-21 11:41] LABS: Glucose,Whole Blood 149 mg/dL (75-99)
[2021-04-21] MEDS: ARIPiprazole 5 MG TAB PO SCH (12:19)
[2021-04-21] MEDS: amLODIPine 5 MG TAB PO SCH (12:19)
[2021-04-21] MEDS: DEXAMETHASONE SOD PHOSPHATE 10 MG/ML 1 ML VIAL IVP SCH (12:20)
[2021-04-21] MEDS: CHOLECALCIFEROL 25 MCG (1000 IU) TABLET PO SCH (12:20)
[2021-04-21] MEDS: CHLORHEXIDINE GLUCONATE 15 ML CUP MUCOUS MEM SCH (12:20)
[2021-04-21] MEDS: ESCITALOPRAM 5 MG TAB PO SCH (12:20)
[2021-04-21] MEDS: BARICITINIB 2 MG TABLET PO SCH (12:21)
[2021-04-21] MEDS: MAG HYDROX/AL HYDROX/SIMETH 30 ML, diphenhydrAMINE ELIXIR 75 MG, LIDOCAINE VISCOUS 30 ML PO SCH ×6 (12:21→17:42)
[2021-04-21] MEDS: ASPIRIN 300 MG SUPP RECTAL SCH (12:21)
[2021-04-21] MEDS: ASCORBIC ACID 500 MG TAB PO SCH (12:21)
[2021-04-21] MEDS: ZINC SULFATE 220 MG CAP PO SCH (12:22)
[2021-04-21] MEDS: METOPROLOL TARTRATE 50 MG TAB PO SCH (12:22)
[2021-04-21] MEDS: VIT A,C & E-LUTEIN-MINERALS 1 EACH TAB PO SCH (12:22)
--- NOTE | 2021-04-21 13:30 | P.PN ---
Subjective Progress Note Date: 04/21/21 Principal diagnosis: Shortness of breath, cough, congestion and weakness This is a very pleasant 75-year-old gentleman who follows with Dr. Todd as his primary care provider. 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 He presented to the emergency room last evening with complaints of generalized weakness with worsening shortness of breath cough and congestion. EMS found his pulse ox to be in the low 80s. He was brought in for the same. The patient has had Moderna vaccination and received a booster on 03/26/2021. His symptoms started 03/27/2021. He's had no sense of taste and poor appetite. He's had dyspnea on exertion and diarrhea. Chest x-ray reveals new mild patchy bilateral infiltrates. White count 5.2. Hemoglobin 14.6. Platelets 11. Lymphocytes 0.5. D-dimer 0.59. Sodium 136. Potassium 3.4. BUN 47. Creatinine 1.35. Glucose 110. Ferritin 1255. AST 66. ALT 23. LDH 1121. C- reactive protein 15.6. Chronic virus by PCR positive. He is seen today in the emergency room. He is currently sitting up on the stretcher. Awake and alert in no acute distress. He is requiring 10 L high flow nasal cannula to maintain O2 saturations in the low 90s. He has bilateral crackles right greater than left. He's been initiated on Decadron, Eliquis. Normal saline at 75 ML's per hour. On 04/10/2021 patient seen in follow-up on medical surgical floor. He does not appear to be in any acute distress, he is awake and alert, resting in bed, is currently on 4 L of oxygen, denies shortness of breath, he states he was never short of breath despite needing high flow oxygen, his pulse ox is 95% on 12 L, vital signs are stable, no fever or chills. His appetite is poor, and patient remains on 0.9 normal saline at a rate of 75 ML per hour. Nausea vomiting or diarrhea, she remains on Decadron 6 mg daily, he is on Eliquis 5 mg twice daily, he is on COVID-19 multivitamins. Today's chest x-ray shows interstitial pneumonitis with superimposed multifocal patchy infiltrates. Today's lab 7 reviewed, white blood cell count is 6.1, hemoglobin is 13, d-dimer is 1.41, sodium is 137, potassium is 4.1, chloride is 107, CO2 is 21, BUN is 40 creatinine 0.9, inflammatory markers are improving. ProCalcitonin level was negative. On 04/11/2021 patient seen in follow-up on medical surgical floor, he is currently up to 15 L of oxygen, with pulse ox of 92-93%, his hypoxia has progressed in last 24 hours, although he denies being more short of breath. Lung sounds are positive for coarse crackles throughout his bilateral lower and mid lower lobes. Occasional cough, clear phlegm production, no fevers overnight, -Vitals stable. Today's labs pending. Yesterday's d-dimer was 1.41. Awaiting today's level. Patient remains on Eliquis 5 mg twice daily for history of atrial fibrillation. He remains on Decadron and COVID-19 multivitamins. Patient seems to be upset, and frustrated, he states he has not been able to get through to his . I helped him dial his 's phone number however there was no answer, patient did not leave a voicemail. I told him we will try again later on. Otherwise seems to be fairly comfortable, but seems to be tense, frustrated On 04/13/2021 patient seen in follow-up on medical surgical floor, he is currently on 15 L per high flow nasal cannula and 100% nonrebreather mask, his pulse ox is 95%, he is afebrile, at times he is hypertensive, however does not appear to be in any distress, appears slightly tired, his CTA chest from yesterday showed no evidence of pulmonary embolism. Did show extensive bilateral pulmonary infiltrates consistent with multifocal pneumonia. And his pulmonary infiltrates significantly increased compared to his old exam. Patient is currently on Eliquis for history of A. fib at 5 mg twice daily, he is on B aricitinib, multivitamins. Today's labs have been reviewed, his white blood cell count is 13.6, slightly increased compared to yesterday's labs, hemoglobin is 14.8, electrolytes and renal profile were within normal limits. His LDH and d-dimer are still pending for today, but overall improved since admission. His pro calcitonin level was negative on yesterday's labs. On 04/14/2021 patient seen in follow-up on medical surgical floor. He is awake and alert, he is currently on Airvo at 50 L and 85%, his pulse ox is 88-93%, does not appear to be in any acute distress. He remains on Baricitinib, Decadron, and prophylactic Lovenox. No fever or chills, appears generally weak, his appetite has been poor. Today's labs have been reviewed, his white blood cell count is 15, hemoglobin is 14.2, his electrolytes are unremarkable, B1 is 36 creatinine is 1.14. His LFTs are improving and are back to normal limits, his inflammatory markers are still pending on today's labs, pro calcitonin level was negative. CT angiogram the chest showed no evidence of pulmonary embolism. Patient remains on Lovenox 40 mg daily. On 04/15/2021 patient seen in follow-up on medical surgical floor. He is res ting comfortably right now, he is on Airvo at 50 L and FiO2 of 84%, his pulse ox is 96%, breathing comfortably, he denies any worsening dyspnea, lung sounds are diminished, minimal crackles at the bases, no cough, his appetite has been poor, he is been encouraged to increase his oral intake. He is a bit sleepy on today's exam, but does not appear to be in any acute distress, she continues on Decadron 6 mg daily, he is on Baricitinib, and Eliquis 5 mg twice daily for history of A. fib, his heart rate is currently controlled. His had no acute events overnight. On 04/16/2021 patient seen in follow-up on medical surgical floor, his breathing is shallow, slightly dyspneic, but appears to be in no acute distress, remains on Airvo S 50 L and FiO2 of 94%, his pulse ox is 93%. Generally patient is weak, he has not been eating much, he is been offered nutritional supplementation which he is also not doing very well with. Vital signs have been stable, patient is afebrile, hemodynamically stable, lung sounds reveal diffuse crackles bilaterally, no complaints of chest pain. The confusion and agitation have significantly improved, patient is not agitated, and he is oriented 3 today. He remains on Baricitinib, on Decadron, today's lab 7 reviewed with blood cell count is 19.7, hemoglobin is 12.7, electrolytes are within normal limits, BUN is 38, creatinine is 1.1, LFTs slightly trended up, inflammatory markers are still pending on today's labs. Patient remains on Eliquis, Decadron 6 mg daily, COVID-19 vitamins. He has not been up out of bed in the last couple of days. On 04/17/2021 patient seen in follow-up on medical surgical floor. He had removed his Airvo sometime earlier, and he is currently just on 100% nonrebreather mask, and when his pulse ox was checked his pulse ox was 96%. We will leave him off Airvo. And we will try to wean down his FiO2. Breathing comfortably, no tachypnea, no chest discomfort. Patient has been generally weak, he has not been up out of bed, he has not had a very good oral intake. He had a low-grade temp earlier today, of 99.5F. He is currently on Eliquis 5 mg twice a day, he is on Decadron 6 mg daily and he remains on Baricitinib. Yesterday's labs showed white blood cell, of 19.7, hemoglobin of 12.7, electrolytes were within normal limits, BUN is 38 creatinine is 1.1. On 04/21/2021 patient seen in follow-up on medical surgical floor. Patient has suffered a large acute left temporal and parietal lobe infarct, found on the CT of the brain on 04/20/2021. Currently she is poorly responsive, he was seen by neurology, please refer to their consultation and progress notes. Neurologically his been poorly responsive, he remains on high flow oxygen, his Eliquis was placed on hold related to an acute ischemic stroke. Patient has made limited progress despite the treatment for his COVID-19 pneumonia. Today's labs show white blood cell count of 20.6, hemoglobin of 13.1, sodium is 140, potassium is 5.0, chloride is 109, CO2 is 21, BUN is 52, creatinine is 1.16. Patient was treated with Baricitinib, steroids, anticoagulants. His CODE STATUS was DO NOT RESUSCITATE, and at this time patient's family decided to proceed with hospice enrollment. Objective - Vital Signs Vital signs: Vital Signs Temp 99 F 04/21/21 05:41 Pulse 121 H 04/21/21 05:41 Resp 20 04/21/21 05:41 BP 137/83 04/21/21 05:41 Pulse Ox 99 04/21/21 08:33 Intake & Output 04/20/21 04/21/21 04/21/21 18:59 06:59 18:59 Intake Total 240 Output Total 450 200 Balance -450 40 Intake: IV 240 Sodium Chloride 0.9% 1, 240 000 ml @ 20 mls/hr IV . [facility] Rx#:[id number] Output: Urine 450 200 Other: Voiding Method External Catheter External Catheter External Catheter # Voids 2 # Bowel Movements 0 - Exam GENERAL EXAM: Poorly responsive 75-year-old white male, on Airvo 45 L and FiO2 of 60% HEAD: Normocephalic/atraumatic. EYES: Normal reaction of pupils, equal size. Conjunctiva pink, sclera white. NOSE: Clear with pink turbinates. THROAT: No erythema or exudates. NECK: No masses, no JVD, no thyroid enlargement, no adenopathy. CHEST: No chest wall deformity. Symmetrical expansion. LUNGS: Equal air entry with diffuse crackles crackles, wheeze, rhonchi or dullness. CVS: Regular rate and rhythm, normal S1 and S2, no gallops, no murmurs, no rubs ABDOMEN: Soft, nontender. No hepatosplenomegaly, normal bowel sounds, no guarding or rigidity. EXTREMITIES: No clubbing, no edema, no cyanosis, 2+ pulses and upper and lower extremities. MUSCULOSKELETAL: Muscle strength and tone normal. SPINE: No scoliosis or deformity SKIN: No rashes CENTRAL NERVOUS SYSTEM: Poorly responsive Gen. weakness - Labs CBC & Chem 7: 04/21/21 03:29 04/21/21 03:29 Labs: Abnormal Lab Results - Last 24 Hours (Table) 04/20/21 04/20/21 04/20/21 Range/Units 15:03 15:11 16:51 WBC (3.8-10.6) k/uL RBC (4.30-5.90) m/uL Hgb (13.0-17.5) gm/dL Hct (39.0-53.0) % Plt Count (150-450) k/uL Neutrophils # (1.3-7.7) k/uL Neutrophils # (Manual) (1.3-7.7) k/uL Lymphocytes # (1.0-4.8) k/uL Lymphocytes # (Manual) (1.0-4.8) k/uL Monocytes # (Manual) (0-1.0) k/uL ABG pO2 70 L (83-108) mmHg ABG HCO3 27 H (21-25) mmol/L ABG Total CO2 28 H (19-24) mmol/L Chloride (98-107) mmol/L Carbon Dioxide (22-30) mmol/L BUN (9-20) mg/dL Glucose (74-99) mg/dL POC Glucose (mg/dL) 159 H 150 H (75-99) mg/dL ALT (4-49) U/L Albumin (3.5-5.0) g/dL 04/20/21 04/20/21 04/20/21 Range/Units 19:07 19:07 20:39 WBC 15.7 H (3.8-10.6) k/uL RBC 3.92 L (4.30-5.90) m/uL Hgb 12.3 L (13.0-17.5) gm/dL Hct 36.8 L (39.0-53.0) % Plt Count 97 L (150-450) k/uL Neutrophils # 14.5 H (1.3-7.7) k/uL Neutrophils # (Manual) (1.3-7.7) k/uL Lymphocytes # 0.4 L (1.0-4.8) k/uL Lymphocytes # (Manual) (1.0-4.8) k/uL Monocytes # (Manual) (0-1.0) k/uL ABG pO2 (83-108) mmHg ABG HCO3 (21-25) mmol/L ABG Total CO2 (19-24) mmol/L Chloride 110 H (98-107) mmol/L Carbon Dioxide (22-30) mmol/L BUN 53 H (9-20) mg/dL Glucose 150 H (74-99) mg/dL POC Glucose (mg/dL) 125 H (75-99) mg/dL ALT (4-49) U/L Albumin (3.5-5.0) g/dL 04/21/21 04/21/21 04/21/21 Range/Units 03:29 03:29 06:58 WBC 20.6 H (3.8-10.6) k/uL RBC 4.26 L (4.30-5.90) m/uL Hgb (13.0-17.5) gm/dL Hct (39.0-53.0) % Plt Count 98 L (150-450) k/uL Neutrophils # (1.3-7.7) k/uL Neutrophils # (Manual) 18.54 H (1.3-7.7) k/uL Lymphocytes # (1.0-4.8) k/uL Lymphocytes # (Manual) 0.62 L (1.0-4.8) k/uL Monocytes # (Manual) 1.24 H (0-1.0) k/uL ABG pO2 (83-108) mmHg ABG HCO3 (21-25) mmol/L ABG Total CO2 (19-24) mmol/L Chloride 109 H (98-107) mmol/L Carbon Dioxide 21 L (22-30) mmol/L BUN 52 H (9-20) mg/dL Glucose 113 H (74-99) mg/dL POC Glucose (mg/dL) 118 H (75-99) mg/dL ALT 57 H (4-49) U/L Albumin 3.3 L (3.5-5.0) g/dL 04/21/21 Range/Units 11:39 WBC (3.8-10.6) k/uL RBC (4.30-5.90) m/uL Hgb (13.0-17.5) gm/dL Hct (39.0-53.0) % Plt Count (150-450) k/uL Neutrophils # (1.3-7.7) k/uL Neutrophils # (Manual) (1.3-7.7) k/uL Lymphocytes # (1.0-4.8) k/uL Lymphocytes # (Manual) (1.0-4.8) k/uL Monocytes # (Manual) (0-1.0) k/uL ABG pO2 (83-108) mmHg ABG HCO3 (21-25) mmol/L ABG Total CO2 (19-24) mmol/L Chloride (98-107) mmol/L Carbon Dioxide (22-30) mmol/L BUN (9-20) mg/dL Glucose (74-99) mg/dL POC Glucose (mg/dL) 149 H (75-99) mg/dL ALT (4-49) U/L Albumin (3.5-5.0) g/dL Assessment and Plan Plan: Assessment: #1. Acute hypoxic respiratory failure secondary to COVID-19 pneumonia, patient is a vaccinated adult with more during a, and received a booster on 03/26/2021. Currently on 15 L high flow oxygen today on 04/11/2021, Baricitinib started on 04/11/2021. FiO2 is currently at 100% per nonrebreather mask, patient is currently on Airvo on 04/21/2021. Pending hospice enrollment. #2. Acute large left temporal and parietal lobe infarct on 04/20/2021 #3. Elevated inflammatory markers related to the above, improving #4. History of bilateral DVTs with previous IVC filter placement and currently on Eliquis as well #5. History of atrial fibrillation on Eliquis #6. Cellulitis of the left lower extremity, recovered #7. History of prostate cancer status post radiation #8. Hypertension #9. History of seizure disorder #10. Macular degeneration #11. History of closed head injury #11. Altered mental status, related to acute CVA Plan: Patient's condition has significantly deteriorated in the last 24 hours Patient has suffered a large left temporal and parietal lobe infarct Currently he is poorly responsive Neurology service has been consulted, please refer to the consultation and progress notes Patient remains on high flow oxygen CODE STATUS is DO NOT RESUSCITATE Family has decided to consult hospice Pulmonary service will sign off and follow on an as-needed basis I performed a history & physical examination of the patient and discussed their management with my nurse practitioner, Mary Hoyos. I reviewed the nurse practitioner's note and agree with the documented findings and plan of care. Lung sounds are positive for dim breath sounds throughout the lung razo. The findings and the impression was discussed with the patient. I attest to the documentation by the nurse practitioner. Time with Patient: Less than 30
--- NOTE | 2021-04-21 20:59 | P.DS ---
Providers Date of admission: 04/08/21 21:12 Attending physician: Sukumar Varner Consults: 04/08/21 21:11 Consult Physician Urgent Consulting Provider: Juan Addison Consult Reason/Comments: COVID-19 pneumonia Do you want consulting provider notified?: Yes 04/18/21 09:34 Consult Physician Urgent Consulting Provider: Shane Joseph Consult Reason/Comments: thrombocytopenia Do you want consulting provider notified?: Yes 04/20/21 17:25 Consult Physician Stat Consulting Provider: Sreedhar Tracy Consult Reason/Comments: change in mentation/unresponsive Do you want consulting provider notified?: Yes Primary care physician: George Lds Hospital Course: Diagnoses: Acute large left temporal and parietal stroke Acute hypoxic respiratory failure secondary to COVID-19 pneumonia. Patient is vaccinated with moderate and received booster dose on 03/26/2021. Symptoms started on 03/27/2021. Periods of unresponsiveness Possible disseminated intravascular coagulation secondary to his infection Elevated inflammatory markers secondary to COVID-19 pneumonia Paroxysmal atrial fibrillation on anticoagulation with Eliquis Thrombocytopenia, secondary to liver dysfunction versus DIC History of DVT s/p IVC filter placement Worsening d-dimer with no evidence of PE on CTA of the chest or DVT on Doppler of the legs History of prostate cancer status post radiation History of closed head injury and history of seizure disorder Hypertension Macular degeneration and legally blind Hospital course: Patient is a 75-year-old male with a known history of atrial fibrillation, history of PE/DVT status post IVC filter placement, hypertension, hyperlipidemia, hearing disorder/deafness and history of seizures, prostate cancer status post radiation chronic low back pain and other multiple medical problems presents to ER with complaints of generalized weakness and worsening shortness of breath and cough and congestion just before ,.. In the ER patient was found to be hypoxic with pulse ox in the 80s. Denied any complaints of fever or chills. No nausea vomiting or abdominal pain or diarrhea. Patient is fully vaccinated with booster dose on 03/26/2021.. Patient was admitted with bilateral: Pneumonia with severe hypoxia and has been followed closely by pulmonary service since admission. In the beginning there was elevated d-dimer up to 29.9 and workup was negative for PE/DVT and he was placed on heparin episode of Eliquis with negative workup is Eliquis was resumed. However patient respiratory status did not improve for more than a week and eventually yesterday he became unresponsive, CT of the brain showed large infarct involving the left temporal and parietal lobes. Possibility of developing stroke could be related to his DIC I called his miss Kumari At [phone], also numbers [phone] and updated her with his conditions and the new findings on the CT of the brain, also updated her with his degenerative clinical condition as he became unresponsive since yesterday, does not wake up or answers questions to verbal or tactile or painful stimuli. And explained for her the possible outcome and prognosis which is apparently deteriorated over the last 24 hours and all her questions were answered to her satisfaction and they gave her time to make a decision about she did not want to wait and decided right away to call for hospice consult for him. Also indicated with neurology service, and he agrees with his poor prognosisis. Patient is already has a DO NOT RESUSCITATE order. Urinary team performed Discussed with the hospice nurse who confirmed to me to talk to the and she accepted to proceed with hospice care and comfort care measures and that she is coming to visit him in the hospital. Physical exam -Gen: patient is unresponsive, still on high flow nasal cannula with 55 L/m and FiO2 of 90% CVS: S1-S2, RRR, no murmur -Lungs: B/L CTA, bilateral crepitation and discarded wheezing Abdomen: soft, no distention, no tenderness, positive bowel sounds Extremity: no leg edema or induration -neurology: Patient is unresponsive. Exam is limited by deteriorated mental condition. Pupils are equal and sluggish but reactive to light. No facial dev iation is noted. No involuntary abnormal movements or seizure-like activity noted Time spent more than 35 minutes Patient Condition at Discharge: Poor Plan - Discharge Summary Discharge Rx Participant: No New Discharge Prescriptions: No Action Vit C/E/Zn/Coppr/Lutein/Zeaxan [Preservision Areds 2 Softgel] 1 cap PO BID Apixaban [Eliquis] 5 mg PO BID #60 tab Metoprolol Tartrate [Lopressor] 50 mg PO BID #60 tab traZODone HCL [Desyrel] 100 mg PO HS Discharge Medication List Vit C/E/Zn/Coppr/Lutein/Zeaxan [Preservision Areds 2 Softgel] 1 cap PO BID 04/14/19 [History] Apixaban [Eliquis] 5 mg PO BID #60 tab 02/23/20 [Rx] Metoprolol Tartrate [Lopressor] 50 mg PO BID #60 tab 06/25/19 [Rx] traZODone HCL [Desyrel] 100 mg PO HS 04/08/21 [History] Follow up Appointment(s)/Referral(s): [facility], [NON-STAFF] - ([facility] will call you to schedule your home care nursing visits. ) George Todd, [Primary Care Provider] - 1-2 days Activity/Diet/Wound Care/Special Instructions: patient has medications in the pharmacy Discharge Disposition: OTHER INSTITUTION NOT DEFINED
[2021-04-21] MEDS ORDERED: ATORVASTATIN 40 MG TAB PO SCH (21:00)
== END 2021-04-21 17:44 | disposition hospice, inpatient (51) | DRG 177 ==
LOC: EC 17:59 → 4SSUR 21:12
PROVIDERS: ADMIT Hospitalist; ATTEND Hospitalist
PROC: 5A0955A Assistance with Respiratory Ventilation, Greater than 96 Consecutive Hours, High Flow/Velocity Cannula (ICD-10-PCS; principal; 2021-04-09)
PROC: XW0DXM6 Introduction of Baricitinib into Mouth and Pharynx, External Approach, New Technology Group 6 (ICD-10-PCS; 2021-04-11)
DX: U07.1 COVID-19 (principal); D65 Disseminated intravascular coagulation [defibrination syndrome]; J12.82 Pneumonia due to coronavirus disease 2019; I63.9 Cerebral infarction, unspecified; J96.01 Acute respiratory failure with hypoxia; G93.1 Anoxic brain damage, not elsewhere classified; J98.11 Atelectasis; Z66 Do not resuscitate; H35.30 Unspecified macular degeneration; D72.828 Other elevated white blood cell count; T38.0X5A Adverse effect of glucocorticoids and synthetic analogues, initial encounter; Z51.5 Encounter for palliative care; G40.909 Epilepsy, unspecified, not intractable, without status epilepticus; G93.89 Other specified disorders of brain; H91.90 Unspecified hearing loss, unspecified ear; I10 Essential (primary) hypertension; Z86.711 Personal history of pulmonary embolism; Z79.01 Long term (current) use of anticoagulants; G89.29 Other chronic pain; Z86.718 Personal history of other venous thrombosis and embolism; I48.0 Paroxysmal atrial fibrillation; Z95.828 Presence of other vascular implants and grafts; K76.89 Other specified diseases of liver; Z86.19 Personal history of other infectious and parasitic diseases; H54.8 Legal blindness, as defined in USA; M54.50 Low back pain, unspecified; E78.5 Hyperlipidemia, unspecified; K57.90 Diverticulosis of intestine, part unspecified, without perforation or abscess without bleeding; F32.A Depression, unspecified; Z79.82 Long term (current) use of aspirin; Z79.899 Other long term (current) drug therapy; Z82.3 Family history of stroke; Z82.49 Family history of ischemic heart disease and other diseases of the circulatory system; Z83.79 Family history of other diseases of the digestive system; Z86.010 Personal history of colon polyps; Z85.46 Personal history of malignant neoplasm of prostate; Z86.73 Personal history of transient ischemic attack (TIA), and cerebral infarction without residual deficits; Z92.3 Personal history of irradiation; Z87.828 Personal history of other (healed) physical injury and trauma; Z87.01 Personal history of pneumonia (recurrent); Z91.048 Other nonmedicinal substance allergy status; Z90.49 Acquired absence of other specified parts of digestive tract; Z90.89 Acquired absence of other organs; Z98.890 Other specified postprocedural states
CPT/HCPCS: 36415; 36600; 70450; 71045; 71046; 71275; 80048; 80053; 82607; 82728; 82746; 82805; 83010; 83615; 83625; 84145; 85025; 85027; 85045; 85379; 85384; 85610; 85730; 86022; 86140; 87635; 93005; 93970; 94760; 99285

== ENCOUNTER 2021-04-21 11:47 | Inpatient (IN) | payer MEDICAID ==
[2021-04-21] MEDS ORDERED: ACETAMINOPHEN SUPPOSITORY 650 MG SUPP RECTAL PRN (15:05)
[2021-04-21] MEDS ORDERED: ONDANSETRON 4 MG/2 ML VIAL IVP PRN (15:05)
[2021-04-21] MEDS ORDERED: GLYCOPYRROLATE 0.2 MG/ML 2 ML VIAL IVP PRN (15:05)
[2021-04-21] MEDS ORDERED: MORPHINE SULFATE 2 MG/ML SYRINGE IV PRN (15:05)
[2021-04-21] MEDS ORDERED: HALOPERIDOL LACTATE 5 MG/ML 1 ML VIAL IM PRN (15:05)
[2021-04-21] MEDS ORDERED: ATROPINE OPHTH SOLN 1% 5ML BTL SUBLINGUAL PRN (15:05)
[2021-04-21] MEDS ORDERED: SCOPOLAMINE 1.5MG/72HR PATCH TRANSDERM SCH (16:00)
[2021-04-21] MEDS: MORPHINE SULFATE (100 MG/2 ML) 100 MG in SODIUM CHLORIDE 0.9% 100 ML IV SCH (20:40)
[2021-04-21] MEDS: LORazepam 2 MG/ML INJ IV PRN (23:15)
[2021-04-22] MEDS: LORazepam 2 MG/ML INJ IV PRN ×3 (04:31→21:28)
[2021-04-22 09:12] VITALS: BMI 32.3
[2021-04-22] MEDS: MORPHINE SULFATE (100 MG/2 ML) 100 MG in SODIUM CHLORIDE 0.9% 100 ML IV SCH (12:54)
--- NOTE | 2021-04-22 18:20 | P.HPIM ---
History of Present Illness Diagnoses: Acute large left temporal and parietal stroke Acute hypoxic respiratory failure secondary to COVID-19 pneumonia. Patient is vaccinated with moderate and received booster dose on 03/26/2021. Symptoms started on 03/27/2021. Periods of unresponsiveness Possible disseminated intravascular coagulation secondary to his infection Elevated inflammatory markers secondary to COVID-19 pneumonia Paroxysmal atrial fibrillation on anticoagulation with Eliquis Thrombocytopenia, secondary to liver dysfunction versus DIC History of DVT s/p IVC filter placement Worsening d-dimer with no evidence of PE on CTA of the chest or DVT on Doppler of the legs History of prostate cancer status post radiation History of closed head injury and history of seizure disorder Hypertension Macular degeneration and legally blind Hospital course: Patient is a 75-year-old male with a known history of atrial fibrillation, history of PE/DVT status post IVC filter placement, hypertension, hyperlipidemia, hearing disorder/deafness and history of seizures, prostate cancer status post radiation chronic low back pain and other multiple medical problems presents to ER with complaints of generalized weakness and worsening shortness of breath and cough and congestion just before ,.. In the ER patient was found to be hypoxic with pulse ox in the 80s. Denied any complaints of fever or chills. No nausea vomiting or abdominal pain or diarrhea. Patient is fully vaccinated with booster dose on 03/26/2021.. Patient was admitted with bilateral: Pneumonia with severe hypoxia and has been followed closely by pulmonary service since admission. In the beginning there was elevated d-dimer up to 29.9 and workup was negative for PE/DVT and he was placed on heparin episode of Eliquis with negative workup is Eliquis was resumed. However patient respiratory status did not improve for more than a week and eventually yesterday he became unresponsive, CT of the brain showed large infarct involving the left temporal and parietal lobes. Possibility of developing stroke could be related to his DIC I called his miss Kumari At [phone], also numbers [phone] and updated her with his conditions and the new findings on the CT of the brain, also updated her with his degenerative clinical condition as he became unres ponsive since yesterday, does not wake up or answers questions to verbal or tactile or painful stimuli. And explained for her the possible outcome and prognosis which is apparently deteriorated over the last 24 hours and all her questions were answered to her satisfaction and they gave her time to make a decision about she did not want to wait and decided right away to call for hospice consult for him. Also indicated with neurology service, and he agrees with his poor prognosisis. Patient is already has a DO NOT RESUSCITATE order. Urinary team performed Discussed with the hospice nurse who confirmed to me to talk to the and she accepted to proceed with hospice care and comfort care measures and that she is coming to visit him in the hospital. 04/22/2021 Patient still unresponsive, he is on morphine drip. No movement, does not look in distress. Does not look aware to the surrounding. and daughter at bedside. I have lengthy discussion with them about his hospital course and the major events happened before and leading to the event he had a stroke and all their questions were answered to their satisfaction. Physical exam -Gen: patient is unresponsive, still on high flow nasal cannula with 55 L/m and FiO2 of 90% CVS: S1-S2, RRR, no murmur -Lungs: B/L CTA, bilateral crepitation and discarded wheezing Abdomen: soft, no distention, no tenderness, positive bowel sounds Extremity: no leg edema or induration -neurology: Patient is unresponsive. Exam is limited by deteriorated mental condition. Pupils are equal and sluggish but reactive to light. No facial deviation is noted. 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 History of Any Multi-Drug Resistant Organisms: None Reported Past Surgical History: Cholecystectomy, Tonsillectomy Additional Past Surgical History / Comment(s): Inferior vena cava filter, skull surgery x3 d/t CHI, colonoscopy/benign polypectomy, prostate biopsy Past Anesthesia/Blood Transfusion Reactions: No Reported Reaction Additional Past Anesthesia/Blood Transfusion Reaction / Comment(s): Pt had blood transfusion in 1963 and developed hives. Smoking Status: Never smoker - Past Family History Daughter(s) Additional Family Medical History / Comment(s): colitis Mother Family Medical History: AFIB, AICD/Pacemaker Father Additional Family Medical History / Comment(s): Either a heart attack or a stroke. Medications and Allergies Home Medications Medication Instructions Recorded Confirmed Type Vit C/E/Zn/Coppr/Lutein/Zeaxan 1 cap PO BID 04/14/19 04/21/21 History [Preservision Areds 2 Softgel] Apixaban [Eliquis] 5 mg PO BID #60 tab 06/25/19 04/21/21 Rx Metoprolol Tartrate [Lopressor] 50 mg PO BID #60 tab 06/25/19 04/21/21 Rx traZODone HCL [Desyrel] 100 mg PO HS 04/08/21 04/21/21 History Allergies Allergy/AdvReac Type Severity Reaction Status Date / Time silver mercury AdvReac Mild ringworm-like Uncoded 04/08/21 21:26 blisters Physical Exam Vitals: Intake and Output 04/21/21 04/22/21 04/22/21 22:59 06:59 14:59 Intake Total 30.481 29.376 Balance 30.481 29.376 Intake: Intake, IV Titration 30.481 29.376 Amount Morphine Sulfate (100 mg/ 30.481 29.376 2 ml) 100 mg In Sodium Chloride 0.9% 100 ml @ 1 MG/HR 1.02 mls/hr IV . Q24H [facility] Rx#:[id number] Other: # Voids 2 Weight 90.7 kg 90.7 kg
[2021-04-23] MEDS: MORPHINE SULFATE (100 MG/2 ML) 100 MG in SODIUM CHLORIDE 0.9% 100 ML IV SCH ×2 (01:05→11:48)
[2021-04-23] MEDS: LORazepam 2 MG/ML INJ IV PRN ×2 (04:45→14:26)
--- NOTE | 2021-04-23 13:37 | P.PN ---
Subjective Diagnoses: Acute large left temporal and parietal stroke Acute hypoxic respiratory failure secondary to COVID-19 pneumonia. Patient is vaccinated with moderate and received booster dose on 03/26/2021. Symptoms started on 03/27/2021. Periods of unresponsiveness Possible disseminated intravascular coagulation secondary to his infection Elevated inflammatory markers secondary to COVID-19 pneumonia Paroxysmal atrial fibrillation on anticoagulation with Eliquis Thrombocytopenia, secondary to liver dysfunction versus DIC History of DVT s/p IVC filter placement Worsening d-dimer with no evidence of PE on CTA of the chest or DVT on Doppler of the legs History of prostate cancer status post radiation History of closed head injury and history of seizure disorder Hypertension Macular degeneration and legally blind Hospital course: Patient is a 75-year-old male with a known history of atrial fibrillation, history of PE/DVT status post IVC filter placement, hypertension, hyperlipidemia, hearing disorder/deafness and history of seizures, prostate cancer status post radiation chronic low back pain and other multiple medical problems presents to ER with complaints of generalized weakness and worsening shortness of breath and cough and congestion just before ,.. In the ER patient was found to be hypoxic with pulse ox in the 80s. Denied any complaints of fever or chills. No nausea vomiting or abdominal pain or diarrhea. Patient is fully vaccinated with booster dose on 03/26/2021.. Patient was admitted with bilateral: Pneumonia with severe hypoxia and has been followed closely by pulmonary service since admission. In the beginning there was elevated d-dimer up to 29.9 and workup was negative for PE/DVT and he was placed on heparin episode of Eliquis with negative workup is Eliquis was resumed. However patient respiratory status did not improve for more than a week and eventually yesterday he became unresponsive, CT of the brain showed large infarct involving the left temporal and parietal lobes. Possibility of developing stroke could be related to his DIC I called his miss Kumari At [phone], also numbers [phone] and updated her with his conditions and the new findings on the CT of the brain, also updated her with his degenerative clinical condition as he became unresponsive since yesterday, does not wake up or answers questions to verbal or tactile or painful stimuli. And explained for her the possible outcome and prognosis which is apparently deteriorated over the last 24 hours and all her questions were answered to her satisfaction and they gave her time to make a decision about she did not want to wait and decided right away to call for hospice consult for him. Also indicated with neurology service, and he agrees with his poor prognosisis. Patient is already has a DO NOT RESUSCITATE order. Urinary team performed Discussed with the hospice nurse who confirmed to me to talk to the and she accepted to proceed with hospice care and comfort care measures and that she is coming to visit him in the hospital. 04/22/2021 Patient still unresponsive, he is on morphine drip. No movement, does not look in distress. Does not look aware to the surrounding. and daughter at bedside. I have lengthy discussion with them about his hospital course and the major events happened before and leading to the event he had a stroke and all their questions were answered to their satisfaction. 04/23/2021 Patient looks comfortable, unresponsive. His breathing is a slower today. at bedside All questions answered Prognosis remains extremely poor Physical exam -Gen: patient is unresponsive, still on oxygen via high flow nasal cannula CVS: S1-S2, RRR, no murmur -Lungs: B/L CTA, bilateral crepitation and discarded wheezing Abdomen: soft, no distention, no tenderness, positive bowel sounds Extremity: no leg edema or induration -neurology: Patient is unresponsive. Exam is limited by deteriorated mental condition. Pupils are equal and sluggish but reactive to light. No facial deviation is noted. No involuntary abnormal movements or seizure-like activity noted Objective - Vital Signs Vital signs: Vital Signs Temp 101.0 F H 04/23/21 07:42 Pulse 125 H 04/23/21 07:42 Resp 18 04/23/21 07:42 BP 61/33 04/23/21 07:42 Pulse Ox 72 L 04/23/21 07:42 Intake & Output 04/22/21 04/23/21 04/23/21 18:59 06:59 18:59 Intake Total 43.656 132.107 69.309 Output Total 0 Balance 43.656 132.107 69.309 Weight 90.7 kg Intake: Intake, IV Titration 43.656 132.107 69.309 Amount Morphine Sulfate (100 mg/ 43.656 132.107 69.309 2 ml) 100 mg In Sodium Chloride 0.9% 100 ml @ 1 MG/HR 1.02 mls/hr IV . Q24H [facility] Rx#:[id number] Oral 0 Output: Urine 0 Other: # Voids 0
[2021-04-23 16:36] VITALS: BP 59/35; PULSE 109; RESP 17; TEMP 99.2
== END 2021-04-23 20:20 | disposition expired | DRG 951 ==
LOC: 4SSUR 17:44
PROVIDERS: ADMIT Hospitalist; ATTEND Hospitalist
DX: Z51.5 Encounter for palliative care (principal); U07.1 COVID-19; D65 Disseminated intravascular coagulation [defibrination syndrome]; J12.82 Pneumonia due to coronavirus disease 2019; J96.01 Acute respiratory failure with hypoxia; I63.9 Cerebral infarction, unspecified; Z66 Do not resuscitate; I48.0 Paroxysmal atrial fibrillation; K57.90 Diverticulosis of intestine, part unspecified, without perforation or abscess without bleeding; E78.5 Hyperlipidemia, unspecified; G40.909 Epilepsy, unspecified, not intractable, without status epilepticus; G89.29 Other chronic pain; H35.30 Unspecified macular degeneration; H54.8 Legal blindness, as defined in USA; H91.90 Unspecified hearing loss, unspecified ear; I10 Essential (primary) hypertension; Z79.01 Long term (current) use of anticoagulants; Z79.899 Other long term (current) drug therapy; Z82.3 Family history of stroke; Z86.711 Personal history of pulmonary embolism; Z85.46 Personal history of malignant neoplasm of prostate; Z86.718 Personal history of other venous thrombosis and embolism; Z87.19 Personal history of other diseases of the digestive system; Z92.3 Personal history of irradiation; Z95.828 Presence of other vascular implants and grafts; Z88.8 Allergy status to other drugs, medicaments and biological substances; Z82.49 Family history of ischemic heart disease and other diseases of the circulatory system; Z90.49 Acquired absence of other specified parts of digestive tract